=== PATIENT | male | born 1935 | race Hispanic/Latino ===

== ENCOUNTER 2018-01-23 11:54 | Inpatient (IN) | payer MEDICARE ==
[2018-01-23] MEDS ORDERED: Sodium Chloride 0.9% 1,000 ML IV SCH (12:00)
--- NOTE | 2018-01-23 12:31 | CT ---
PROCEDURE: CT HEAD WITHOUT CONTRAST. HISTORY: Code Stroke COMPARISON: None available. TECHNIQUE: Axial computed tomography images were obtained through the head/brain without intravenous contrast. Radiation dose: Total exam DLP = 1008.46 MGy-cm. This CT exam was performed using one or more of the following dose reduction techniques: Automated exposure control, adjustment of the mA and/or kV according to patient size, and/or use of iterative reconstruction technique. FINDINGS: HEMORRHAGE: No intracranial hemorrhage. BRAIN: There is redemonstration of cystic encephalomalacia in the right frontal lobe, left frontal, posterior temporal and posterior parietal lobes, sequela of remote infarctions. There are severe chronic microangiopathic changes. There is an old lacunar infarction in the anterior limb of the right internal capsule. There are old infarctions in the right cerebellar hemisphere. There is no mass, mass effect or abnormal extra-axial fluid collection. VENTRICLES: There is moderate age-related global parenchymal volume loss and proportionate enlargement of the ventricles and cortical sulci. CALVARIUM: The skull base and calvarium are normal. PARANASAL SINUSES: There is chronic sphenoid and left posterior ethmoid sinusitis. The remaining included paranasal sinuses are predominantly clear. MASTOID AIR CELLS: Predominantly clear. OTHER FINDINGS: None. IMPRESSION: 1. No acute intracranial abnormality. If there is a persistent focal neurologic deficit and an ongoing clinical concern for acute infarction, an MRI of the brain without intravenous contrast would be a more sensitive modality for evaluation of hyperacute/acute ischemic infarction. 2. 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 Old infarctions in the right cerebellar hemisphere. 3. Severe chronic microangiopathic changes and moderate age-related global parenchymal volume loss. Important findings were discussed with Dr. Jose C Goldsmith on 01/23/2018 at 12:25 p.m.
--- NOTE | 2018-01-23 12:35 | ED PDOC ---
Arrival/HPI - General Time Seen by Provider: 01/23/18 11:58 Historian: Patient - History of Present Illness Narrative History of Present Illness (Text): 01/23/18 11:55 A 82 year old male, whose past medical history includes CVA (with no deficits), brought in by EMS for possible stroke. Per EMS, patient was reported to be in normal state last night. Was found to be lethargic and unresponsive by family. Patient denies any fever, or any other complaints at this time. Limited HPI and ROS due to patient is unresponsive. No PMD Past Medical History - Provider Review Nursing Documentation Reviewed: Yes - Tetanus Immunization Tetanus Immunization: Unknown - Cardiac Hx Cardiac Disorders: No Hx Hypertension: No - Pulmonary Hx Tuberculosis: No - Neurological HX Cerebrovascular Accident: No Hx Seizures: No - Endocrine/Metabolic Hx Diabetes Mellitus Type 1: Yes - Hematological/Oncological Hx Cancer: No - Integumentary Hx Dermatological Disorder: No - Musculoskeletal/Rheumatological Hx Falls: Yes - Gastrointestinal Hx Gastrointestinal Disorders: No - Genitourinary/Gynecological Hx Sexually Transmitted Diseases: No - Psychiatric Hx Substance Use: (den) - Surgical History Other/Comment: abd surgery - Suicidal Assessment Feels Threatened In Home Enviroment: No Family/Social History - Physician Review Nursing Documentation Reviewed: Yes Family/Social History: No Known Family HX Smoking Status: den Hx Alcohol Use: (den) Hx Substance Use: (den) Hx Substance Use Treatment: No Allergies/Home Meds Allergies/Adverse Reactions: Allergies No Known Allergies Allergy (Verified 05/03/15 11:45) Home Medications: Home Meds Medication Instructions Recorded Confirmed Amitriptyline [Elavil] 100 mg PO HS 01/23/18 01/23/18 Insulin Lispro [humALOG] 20 units SC DIN 01/23/18 01/23/18 Insulin Lispro [humALOG] 25 units SC AMHS 01/23/18 01/23/18 Metformin HCl [Glucophage] 500 mg PO BID 01/23/18 01/23/18 Paroxetine HCl [Paxil] 10 mg PO DAILY 01/23/18 01/23/18 Rosuvastatin Calcium [Crestor] 5 mg PO QPM 01/23/18 01/23/18 Warfarin [Coumadin] 2.5 mg PO TTS 01/23/18 01/23/18 Warfarin [Coumadin] 5 mg PO MWF 01/23/18 01/23/18 Review of Systems - Review of Systems Systems not reviewed;Unavailable: Other (unresponsive) Physical Exam Vital Signs Temp Pulse Resp BP Pulse Ox 01/23/18 20:12 62 18 147/88 99 01/23/18 17:35 56 L 16 145/76 97 01/23/18 15:30 97.2 F L 65 20 136/79 96 01/23/18 15:29 59 L 20 136/79 97 01/23/18 14:50 59 L 20 144/86 97 01/23/18 13:00 58 L 18 151/99 H 96 01/23/18 12:26 96.9 F L 71 16 136/99 H 95 01/23/18 11:55 96.9 F L 71 18 136/99 H 94 L Temperature: Afebrile Blood Pressure: Normal Pulse: Regular Respiratory Rate: Normal Appearance: Positive for: Well-Appearing, Non-Toxic, Comfortable Pain Distress: None Mental Status: Positive for: Alert and Oriented X 3 Finger Stick Blood Glucose: 88 - Systems Exam Head: Present: Atraumatic, Normocephalic Pupils: Present: PERRL Extroacular Muscles: Present: EOMI Conjunctiva: Present: Normal Mouth: Present: Moist Mucous Membranes Neck: Present: Normal Range of Motion Respiratory/Chest: Present: Clear to Auscultation, Good Air Exchange. No: Respiratory Distress, Accessory Muscle Use Cardiovascular: Present: Regular Rate and Rhythm, Normal S1, S2. No: Murmurs Abdomen: No: Tenderness, Distention, Peritoneal Signs Back: Present: Normal Inspection Upper Extremity: Present: Normal Inspection. No: Cyanosis, Edema Lower Extremity: Present: Normal Inspection. No: Edema Neurological: Present: Other (see nih documentation) Skin: Present: Warm, Dry, Normal Color. No: Rashes Psychiatric: Present: Alert, Oriented x 3, Normal Insight, Normal Concentration Medical Decision Making ED Course and Treatment: 01/23/18 12:00 Impression: 82 year old male with possible code stroke. Plan: -- EKG -- Head/Neck CTA -- Chest X-ray -- IV Fluids -- Labs -- Urinalysis -- Reassess and disposition Progress Notes: 01/23/2018 11:58 Code stroke called. 01/23/2018 12:[address] IMPRESSION: 1. No acute intracranial abnormality. If there is a persistent focal neurologic deficit and an ongoing clinical concern for acute infarction, an MRI of the brain without intravenous contrast would be a more sensitive modality for evaluation of hyperacute/acute ischemic infarction. 2. 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 Old infarctions in the right cerebellar hemisphere. 3. Severe chronic microangiopathic changes and moderate age-related global parenchymal volume loss. Dictator: Emi Herron MD EKG: Ordered, reviewed, and independently interpreted the EKG. Rate : 57 BPM Rhythm : Atrial Fibrillation Interpretation : No ST-segment elevations or depressions, no T-wave inversions, normal intervals. Comparison : No previous EKG for comparison. 01/23/2018 13:19 Chest X-ray IMPRESSION: Findings are concerning for mild congestive heart failure. Dictator: Emi Herron MD 01/23/2018 13:57 Head/Neck CTA IMPRESSION: Very limited study with poor visualization of the cervical and cerebral arterial circulation. There does appear to be some mild calcified atherosclerotic plaque both carotid bifurcations as well as both cavernous carotid segments. No definitive evidence of occlusion so far as can be seen however the study must be repeated or of additional imaging such is MRA of the neck and brain be performed further evaluation is required. Dictator: Teodoro Mon DO 01/24/18 07:[address] polanco not tpa candidate as pt >6hr onset. requests cta. case later discussed with dr allen. pt will get mri - Lab Interpretations Lab Results: 01/23/18 12:30 01/23/18 12:30 Lab Results 01/23/18 12:30: Hemoglobin A1c 6.9 H 01/23/18 12:30: Sodium 141, Potassium 4.0, Chloride 107, Carbon Dioxide 28, Anion Gap 10, BUN 23 H, Creatinine 1.0, Est GFR ( Amer) > 60, Est GFR ( Non-Af Amer) > 60, Random Glucose 98, Calcium 8.7, Total Bilirubin 0.3, AST 16 L , ALT 29, Alkaline Phosphatase 44, Troponin I < 0.01, Total Protein 5.5 L, Albumin 3.1, Globulin 2.5, Albumin/Globulin Ratio 1.3, Triglycerides 65, Cholesterol 60 L, LDL Cholesterol Direct < 30, HDL Cholesterol 35 04/17/18 12:30: PT 19.3 H, INR 1.66 H, APTT 40.9 H 01/23/18 12:30: WBC 6.3, RBC 3.86, Hgb 12.3 L, Hct 36.9 L, MCV 95.6, MCH 31.9, MCHC 33.3, RDW 13.8, Plt Count 165, MPV 10.1, Gran % 54.7, Lymph % (Auto) 29.0, Randall % (Auto) 12.7 H, Eos % (Auto) 3.3, Baso % (Auto) 0.3, Gran # 3.45, Lymph # (Auto) 1.8, [place] # (Auto) 0.8 H, Eos # (Auto) 0.2, Baso # (Auto) 0.02 - RAD Interpretation Radiology Orders: 01/23/18 12:00 CTA HEAD/NECK CODE STROKE [CT] Stat HEAD W/O (CODE STROKE) [CT] Stat CHEST PORTABLE [RAD] Stat - Medication Orders Current Medication Orders: Discontinued Medications Amitriptyline HCl (Elavil) 100 mg PO [facility] Last Admin: 01/25/18 21:42 Dose: 100 mg Apixaban (Eliquis) 5 mg PO BID [facility] PRN Reason: Protocol Last Admin: 01/26/18 09:07 Dose: 5 mg Apixaban (Eliquis) 2.5 mg PO BID [facility] PRN Reason: Protocol Aspirin (Aspirin Supp) 300 mg RC STAT STA Stop: 01/23/18 13:53 Last Admin: 01/23/18 14:19 Dose: 300 mg MAR Pain/Vitals Document 01/23/18 14:19 SRE (Rec: 01/23/18 14:24 SRE [id number]) Pain Reassessment Is This A Pain ReAssessment? No Aspirin (Ecotrin) 81 mg PO DAILY [facility] Last Admin: 01/26/18 09:07 Dose: 81 mg Atorvastatin Calcium (Lipitor) 20 mg PO DIN [facility] Last Admin: 01/25/18 17:34 Dose: 20 mg Enoxaparin Sodium (Lovenox) 40 mg SC DAILY [facility] PRN Reason: Protocol Last Admin: 01/24/18 09:25 Dose: 40 mg Subcutaneous Administrations Document 01/24/18 09:25 LO (Rec: 01/24/18 09:25 [facility]-[id number]) Injection Site MAR Injection Site Umbilicus Charges for Administration # of Subcutaneous Administrations 1 Sodium Chloride (Sodium Chloride 0.9%) 1,000 mls @ 100 mls/hr IV .Q10H [facility] Last Admin: 01/23/18 12:42 Dose: 100 mls/hr eMAR Start Stop Document 01/23/18 12:42 SRE (Rec: 01/23/18 12:43 SRE [id number]) Intravenous Solution Start Date 01/23/18 Start Time 12:43 Sodium Chloride (Sodium Chloride 0.9%) 1,000 mls @ 30 mls/hr IV .Q24H [facility] Last Admin: 01/25/18 19:08 Dose: 30 mls/hr eMAR Start Stop Document 01/25/18 19:08 LJA (Rec: 01/25/18 19:08 LJA [id number]) Intravenous Solution Start Date 01/25/18 Start Time 19:08 End Date 01/25/18 Lorazepam (Ativan) 0.5 mg IVP ONCE ONE PRN Reason: Protocol Stop: 01/25/18 04:32 Last Admin: 01/25/18 04:42 Dose: 0.5 mg IVP Administration Document 01/25/18 04:42 KOPPS (Rec: 01/25/18 04:42 KOPPS [id number]) Charges for Administration # of IVP Administrations 1 Behavioural Document 01/25/18 04:42 KOPPS (Rec: 01/25/18 04:42 KOPPS [id number]) Maintenance Maintenance Dose No Nonmedicinal Nonmedicinal Interventions Redirect Therapeutic Communication Activity Behavior Behavior for Medication: Anxiety Re-Assess: Reassess Psych Meds Document 01/25/18 05:12 KOPPS (Rec: 01/25/18 05:14 KOPPS [id number]) Reassess Psych Med Effective Metformin HCl (Glucophage) 500 mg PO BID [facility] Last Admin: 01/26/18 09:07 Dose: 500 mg Metoprolol Succinate (Toprol Xl) 100 mg PO BRK [facility] Last Admin: 01/26/18 08:21 Dose: 100 mg MAR Pulse and Blood Pressure Document 01/26/18 08:21 RDS (Rec: 01/26/18 08:21 RDS [id number]) Pulse Pulse Rate (60-90) 89 Blood Pressure Blood Pressure (100/60-150/90) 140/90 Paroxetine HCl (Paxil) 10 mg PO DAILY [facility] Last Admin: 01/26/18 09:07 Dose: 10 mg Pneumococcal Polyvalent Vaccine (Pneumovax 23 Vaccine) 0.5 ml IM .ONCE ONE Stop: 01/24/18 00:03 Tamsulosin HCl (Flomax) 0.4 mg PO DAILY [facility] Last Admin: 01/26/18 09:07 Dose: 0.4 mg Warfarin Sodium (Coumadin) 3 mg PO TuThSa@1800 [facility] PRN Reason: Protocol Warfarin Sodium (Coumadin) 4 mg PO TuThSa@1800 [facility] PRN Reason: Protocol NIHSS Scale ([place]) Time Performed: 07:38 - How Severe is the Stoke Baseline Level of Consciousness: 2=Obtunded LOC to Questions: 2=Neither correct LOC to commands: 0=Obeys both correctly Best Gaze: 1=Partial gaze palsy Visual: 0=No visual loss Facial: 0=Normal Motor Arm - Left: 2=Falls before 10 sec Motor Arm - Right: 4=No movement Motor Leg - Left: 1=Drift before 5 sec Motor Leg - Right: 4=No movement Limb Ataxia: 2=Present both Sensory: 0=Normal Best Language: 3=Mute Dysarthia: 2=Severe, near unintelligible or worse Extinction & Inattention (Neglect): 0=Normal, no object Score: 23 Risk Level: Severe Stroke Risk rTPA Inclusion/Exclusion - Refusal of Treatment Patient Refused Treatment: No - Inclusion Criteria for Altepase Patient is 18 years or Older: No The Clinical Diagnosis of Ischemic Stroke That is Causing a Potentially Disabling Neurological Deficit: Yes Time of Onset is Well Established to be Less Than 270 Minute Before Treatment Would Begin: No Risk/Benefit Discussed With Patient/Family Member Present: Yes - Scribe Statement The provider has reviewed the documentation as recorded by the Nikko Johnson Provider Scribe Attestation: All medical record entries made by the Scribe were at my direction and personally dictated by me. I have reviewed the chart and agree that the record accurately reflects my personal performance of the history, physical exam, medical decision making, and the department course for this patient. I have also personally directed, reviewed, and agree with the discharge instructions and disposition. Disposition/Present on Arrival - Present on Arrival Any Indicators Present on Arrival: No History of DVT/PE: No History of Uncontrolled Diabetes: No Urinary Catheter: No History Surgical Site Infection Following: None - Disposition Have Diagnosis and Disposition been Completed?: Yes Diagnosis: Stroke Disposition: HOSPITALIZED Disposition Time: 05:00 Condition: STABLE
[2018-01-23 12:42] LABS: BASO # 0.02 K/mm3 (0.0-2.0); BASO % 0.3 % (0.0-3.0); EOS # 0.2 (0.0-0.7); EOS % 3.3 % (1.5-5.0); GRAN # 3.45 (1.4-6.5); GRAN % 54.7 % (50.0-68.0); HEMOGLOBIN 12.3 g/dL (14.0-18.0); LYMPH # 1.8 (1.2-3.4); MEAN CELL VOLUME 95.6 fl (80.0-105.0); MEAN CORPUSCULAR HEMOGLOBIN 31.9 pg (25.0-35.0); MEAN CORPUSCULAR HGB CONC 33.3 g/dl (31.0-37.0); MEAN PLATELET VOLUME 10.1 fl (7.0-11.0); MONO # 0.8 (0.1-0.6); MONO % 12.7 % (1.0-6.0); RBC 3.86 10^6/uL (3.5-6.1); RED CELL DISTRIBUTION WIDTH 13.8 % (11.5-14.5); WHITE BLOOD COUNT 6.3 10^3/ul (4.5-11.0)
[2018-01-23 12:52] LABS: ALB/GLOB RATIO 1.3 (1.1-1.8); ALBUMIN 3.1 g/dL (3.0-4.8); ALT/SGPT 29 U/L (7-56); AST/SGOT 16 U/L (17-59); BLOOD UREA NITROGEN 23 mg/dL (7-21); CALCIUM 8.7 mg/dL (8.4-10.5); GFR AFRICAN-AMERICAN > 60; GFR NON-AFRICAN AMERICAN > 60; HDL CHOLESTEROL 35 mg/dL (29-60)
[2018-01-23 13:02] LABS: INR 1.66 (0.93-1.08); PARTIAL THROMBOPLASTIN TIME 40.9 Seconds (25.1-36.5); PROTHROMBIN TIME 19.3 SECONDS (9.4-12.5)
[2018-01-23 13:03] LABS: TROPONIN I < 0.01 ng/mL
[2018-01-23 13:17] LABS: LDL CHOLESTEROL < 30 mg/dL (0-129)
--- NOTE | 2018-01-23 13:21 | RAD ---
HISTORY: Code Stroke COMPARISON: 05/20/2015. FINDINGS: LUNGS: The lungs are well inflated. There is severe pulmonary venous congestion. PLEURA: Suspect small pleural effusions, no pneumothorax apparent. CARDIOVASCULAR: The heart remains enlarged. OSSEOUS STRUCTURES: No significant abnormalities. VISUALIZED UPPER ABDOMEN: Normal. OTHER FINDINGS: None. IMPRESSION: Findings are concerning for mild congestive heart failure.
--- NOTE | 2018-01-23 13:58 | CT ---
PROCEDURE: CT Angiography of the neck and brain dated 01/23/2018 HISTORY: Code stroke COMPARISON: Correlation made with prior CT scan of the brain obtained earlier same day TECHNIQUE: Contiguous axial images of the neck were obtained from the level of the skull-base to the superior mediastinum in the arteriographic phase of enhancement. Coronal and sagittal reformats or also generated. Note that this study is extremely limited due to very poor opacification of the cervical arterial and the cerebral arterial circulations likely due to poor timing. This could be repeated if necessary however alternatively, MRA of the neck and brain on the could be obtained. IV contrast dose: 150 cc Omnipaque 350 contrast material. Radiation Dose - DLP: 625.68 mGy-cm FINDINGS: The study demonstrates most of the injected intravenous contrast material within the venous side of the circulation. The common carotid arteries poorly opacified. There appear to be some minor calcified plaque changes along the distal right common carotid artery and and both carotid bifurcations. No definitive evidence of significant stenosis so far as can be seen. The visualized internal carotid artery's including the P2 segments appear patent. Partially calcified atherosclerotic plaque seen along the cavernous segments of. There appears to be asymmetry of the A1 segments right-sided which is smaller in caliber compared to the left side which is likely due to anatomic variation. . The visualized M1 segments appear patent. Distal branches of the middle and anterior cerebral branch vessels are not visualized. The cervical vertebral arteries appear faintly opacified. The distal on vertebral arteries as they enter subdural compartment also appear somewhat opacified though there are partially calcified atherosclerotic plaque changes seen at this level. Basilar artery appears faintly opacified as do the P1 segments of both posterior cerebral arteries. The P2 and P3 segments as well as the distal posterior cerebral artery branches are not visualized. No definitive evidence of large aneurysm nor vascular malformation however this study is extremely suboptimal to exclude on small aneurysms or vascular malformations. . Multilevel degenerative spondylosis of the cervical spine again noted. Mucoperiosteal inflammatory changes again seen within the sphenoid sinus with marked on surrounding peripheral of sclerosis of the sphenoid sinus ricardo. There is also opacification of several left posterior ethmoid air cells. There appears to be fibrotic changes and ground-glass opacities both lung apices. IMPRESSION: Very limited study with poor visualization of the cervical and cerebral arterial circulation. There does appear to be some mild calcified atherosclerotic plaque both carotid bifurcations as well as both cavernous carotid segments . No definitive evidence of occlusion so far as can be seen however the study must be repeated or of additional imaging such is MRA of the neck and brain be performed further evaluation is required Findings discussed with Dr. Goldsmith at approximately 1:45 p.m. with written down and read back verification.
--- NOTE | 2018-01-23 14:29 | CP.PCM.CON ---
History of Present Illness - History of Present Illness History of Present Illness: 82 yr old male, right handed,pmh of afib, dm, and htn, who was at home last night and this morning, and was feeling very weak for several days. woke up several times last night,and then, this morning, he was last seen normal at around 630 am. He was walking to the bathroom with no issues, and then was found at 1045 am on the bed, aphasic and weaker on the right side more than left. He does have baseline weakness after an ischemic stroke 6 years ago, and it is localized to the right side. However, son says that he is not very functional at baseline, not able to do bills, cook, clean or bathe himself. However, he does speak and converse with family. Today, he is not speaking as well. No history of afib, no pacemaker in place. 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 no tobacco. All: nkda. meds: paxil 10 mg po daily, insul, ellavil, crestor, metoprolol, coumadin 2.5 mg po daily on exam: PERRL. No facial droop, Cn 2-12 normal. no neglect noted. Follows commands but is quite slow to respond. Tongue midline. he cannot name or repeat, but tracks. +rooting reflex noted, and palmomental reflex motor: right arm is 4+/5, and left arm 5/5. Left Lower limb is 5/5, Right lower limb is 4/5. Sensory: unable to assess due to patient's mentation. Cerebellar: +right sided drift. Gait not tested. Past Patient History - Tetanus Immunizations Tetanus Immunization: Unknown - Past Social History Smoking Status: den - CARDIAC Hx Cardiac Disorders: No Hx Hypertension: No - PULMONARY Hx Tuberculosis: No - NEUROLOGICAL HX Cerebrovascular Accident: No Hx Seizures: No - ENDOCRINE/METABOLIC Hx Diabetes Mellitus Type 1: Yes - HEMATOLOGICAL/ONCOLOGICAL Hx Cancer: No - INTEGUMENTARY Hx Dermatological Problems: No - MUSCULOSKELETAL/RHEUMATOLOGICAL Hx Falls: Yes - GASTROINTESTINAL Hx Gastrointestinal Disorders: No - GENITOURINARY/GYNECOLOGICAL Hx Sexually Transmitted Disorders: No - PSYCHIATRIC Hx Substance Use: (den) - SURGICAL HISTORY Other/Comment: abd surgery Meds Allergies/Adverse Reactions: Allergies Allergy/AdvReac Type Severity Reaction Status Date / Time No Known Allergies Allergy Verified 05/03/15 11:45 - Medications Medications: Current Medications Sodium Chloride (Sodium Chloride 0.9%) 1,000 mls @ 100 mls/hr IV .Q10H [facility] Last Admin: 01/23/18 12:42 Dose: 100 mls/hr Results - Vital Signs Recent Vital Signs: Last Vital Signs Temp 96.9 F L 01/23/18 12:26 Pulse 71 01/23/18 12:26 Resp 16 01/23/18 12:26 BP 136/99 H 01/23/18 12:26 Pulse Ox 95 01/23/18 12:26 - Labs Result Diagrams: 01/23/18 12:30 01/23/18 12:30 Labs: Laboratory Results - last 24 hr 01/23/18 01/23/18 01/23/18 12:30 12:30 12:30 WBC 6.3 RBC 3.86 Hgb 12.3 L Hct 36.9 L MCV 95.6 MCH 31.9 MCHC 33.3 RDW 13.8 Plt Count 165 MPV 10.1 Gran % 54.7 Lymph % (Auto) 29.0 [place] % (Auto) 12.7 H Eos % (Auto) 3.3 Baso % (Auto) 0.3 Gran # 3.45 Lymph # (Auto) 1.8 [place] # (Auto) 0.8 H Eos # (Auto) 0.2 Baso # (Auto) 0.02 PT 19.3 H INR 1.66 H APTT 40.9 H Sodium 141 Potassium 4.0 Chloride 107 Carbon Dioxide 28 Anion Gap 10 BUN 23 H Creatinine 1.0 Est GFR ( Amer) > 60 Est GFR (Non-Af Amer) > 60 Random Glucose 98 Calcium 8.7 Total Bilirubin 0.3 AST 16 L ALT 29 Alkaline Phosphatase 44 Troponin I < 0.01 Total Protein 5.5 L Albumin 3.1 Globulin 2.5 Albumin/Globulin Ratio 1.3 Triglycerides 65 Cholesterol 60 L LDL Cholesterol Direct < 30 HDL Cholesterol 35 - Imaging and Cardiology CT scan - head Status: Report reviewed by me (CT head shows old large left mca/filtration 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 He is not a tpa candidate due to time of onset , and almost resolution of symptoms. However, we will admit him and give him aspirin and stroke workup. Plan: 1. ECHO, repeat CTA head and neck 2. Inr is subtherapeutic. Will give 2.5 mg coumadin with thought to increase. 3. MRI Brain tomorrow. 4. IV fluids normal saline 100ccs per hour 5. PT/ST/OT 6. admit to telemetry. Thank you, Dr. Gildardo Boyd
[2018-01-23 15:18] LABS: PH,URINE 5.5 (4.7-8.0); URINE BILIRUBIN NEGATIVE (NEGATIVE); URINE BLOOD NEGATIVE (NEGATIVE); URINE GLUCOSE (UA) NEGATIVE (NEGATIVE); URINE LEUKOCYTE ESTERASE NEGATIVE Leu/uL (NEGATIVE); URINE PROTEIN NEGATIVE mg/dL (<30 mg/dL); URINE UROBILINOGEN 0.2 E.U./dL (<1 E.U./dL)
[2018-01-23 15:20] LABS: URINE APPEARANCE CLEAR (CLEAR); URINE COLOR YELLOW (YELLOW)
--- NOTE | 2018-01-23 18:27 | CON ---
DATE: 01/23/2018 NEUROLOGY CONSULT CHIEF COMPLAINT: Slurred speech as well as right side more weaker than the baseline. HISTORY OF PRESENTING ILLNESS: The history was obtained from the son at bedside. 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 seen on the CAT scan showing cystic encephalomalacia in the right frontal and left frontal and left posterior temporoparietal lobes, so probably a remote bilateral MCA territory infarction with a left MCA/FIELD SERVICES DIRECTOR watershed territory infarction, old infarctions in the right cerebellar hemisphere with chronic ischemic changes, history of vascular dementia, who has baseline right-sided residual weakness from CVA, who was noticed by the son as when he was walking to the bathroom that he became aphasic and dysarthric and was weaker on his residual right side more than usual compared to his left. His CVA was about 6 years ago originally. The son says he is not very functional at baseline. He does not do his bills, cooks or cleans or bath himself. He has dementia in terms of most likely vascular type or cognition. He does have a conversation to speak with the family, which is currently the change in his baseline. His CAT scan of the head showed just old chronic cystic ischemic encephalomalacia in the right frontal and left fontal, left posterior temporal and posterior parietal lobes, so probably a remote bilateral MCA territory infarction with a left MCA and FIELD SERVICES DIRECTOR watershed territory infarctions, old infarctions in the right cerebellar hemisphere. A CT angio of the head and neck was limited, but no hemodynamic stenosis was appreciated due to poor value and quality of the image, therefore this study is very limited. There is some mild atherosclerotic plaquing of both carotids, otherwise no significant hemodynamic stenosis. He is currently waiting for an MRI and an MRA of the head. He has slight flaccid tone on the right side compared to the left at baseline. His A1c is 6.9. 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 FAMILY HISTORY: Noncontributory. 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 No illicit drug use, smoking or EtOH abuse at this time. ALLERGIES: NO KNOWN DRUG ALLERGIES. MEDICATIONS: Reviewed by nurse's reconciliation sheet. REVIEW OF SYSTEMS: Fourteen-point review of systems is as above in the HPI. LABORATORY DATA: Sodium 141, potassium 4, chloride of 107, carbon dioxide of 20, BUN of 23, creatinine 1, random glucose of 98, A1c is 6.9. PHYSICAL EXAMINATION: VITAL SIGNS: Temperature 97.2, pulse rate of 65, blood pressure 136/79, respiratory rate of 20, oxygen saturation 96% by room air. GENERAL: The patient is sitting up in bed, in no acute distress. HEENT: Atraumatic, normocephalic. PERRLA. Extraocular muscles intact. NECK: Supple. No JVD. No adenopathy noted. LUNGS: Clear to auscultation. No adventitious sounds. HEART: S1, S2. Normal rate and rhythm. No murmurs, rubs or gallops. ABDOMEN: Soft, nontender and nondistended. Bowel sounds are present. EXTREMITIES: No clubbing. No cyanosis. Peripheral pulses 2+ felt bilaterally. NEUROLOGIC: The patient is alert and oriented to self. Follows simple commands. Poor attention span. Slow thought process. As above, nasolabial fold flattening. Cannot repeat his name. Has positive palmomental reflex, otherwise speech is dysarthric. Motor examination: Right arm is 4+/5, right lower extremity is 4+/5. When compared to the left, . Sensory exam: Withdraws on localized and noxious stimulus. Coordination: Difficult to do [id number] on the right due to right-sided weakness and the left is slightly dysmetric. Gait is deferred for now. ASSESSMENT AND PLAN: This is an 82-year-old man with history of multiple old strokes, likely embolic in nature such as the bilateral middle cerebral artery as well as an old left middle cerebral artery, posterior cerebral artery territory infarct with residual right-sided weakness, history of atrial fibrillation, on Coumadin with a subtherapeutic INR. Came in with worsening dysarthria as well as worsening right-sided weakness from his baseline and had a CAT scan of the head, which showed features consistent with his old bilateral infarcts, which were most likely embolic in nature, who likely to have currently a new stroke in the left middle cerebral artery territory distribution consistent with worsening right-sided weakness and dysarthria. At this time, 1. We will get an MRI and MRA of the brain to assess for any acute intracranial abnormalities. 2. His INR is subtherapeutic. I would recommend to increase his Coumadin level to get an INR level between 2 and 3. 3. Intravenous fluids. 4. Monitor electrolytes and correct accordingly. 5. Physical Therapy, Speech and Occupational Therapy. Will likely need acute rehabilitation and continue with current present medical management and get a 2D echocardiogram. Once again, thank you for this consult. Ede Cota MD
--- NOTE | 2018-01-23 21:08 | MRI ---
EXAM: MR Head Without Intravenous Contrast EXAM DATE/TIME: 01/23/2018 3:43 PM CLINICAL HISTORY: The patient age is 82 years old and is male; Signs and symptoms; Other: CVA Facility exam id and description: Mri br s brain without contrast TECHNIQUE: Magnetic resonance images of the head/brain without intravenous contrast in multiple planes. COMPARISON: CT - HEAD W/O (CODE STROKE) 2018-01-23 12:05 FINDINGS: Brain: There is no restricted diffusion within the brain to suggest acute ischemic change. T2 hyperintense encephalomalacia with adjacent FLAIR hyperintense gliosis is identified within the left parietal-occipital region, the right posterior frontal lobe, and inferior left frontal lobe. These findings are consistent with old infarcts. There is moderate additional high FLAIR signal intensity within the cerebral white matter. There is no mass effect or restricted diffusion associated with this white matter disease. In a patient this age, this likely represents chronic small vessel ischemic disease. T2 hyperintense chronic lacunar infarcts are visualized within the bilateral basal ganglia, bilateral thalami, and bilateral cerebellar lobes. No significant magnetic susceptibility intracerebral hemosiderin is visualized. Ventricles: There is moderate prominence of the ventricles and sulci, compatible with atrophy. Bones/joints: No acute abnormality. Sinuses: There is complete filling of the left sphenoid sinus. Effusions are seen within the posterior ethmoid air cells. Mastoid air cells: Mild mucosal thickening/effusions are visualized within the right mastoid air cells. Orbits: No acute abnormality, as visualized. IMPRESSION: 1. There is no restricted diffusion within the brain to suggest acute ischemic change. 2. Encephalomalacia with adjacent gliosis is identified within the left parietal-occipital region, the right posterior frontal lobe, and inferior left frontal lobe. These findings are consistent with old infarcts. 3. There is moderate additional white matter disease. In a patient this age, this likely represents chronic small vessel ischemic disease. 4. Moderate atrophy. 5. Chronic lacunar infarcts are visualized within the bilateral basal ganglia, bilateral thalami, and bilateral cerebellar lobes. 6. Mild mucosal thickening/effusions are visualized within the right mastoid air cells. 7. Paranasal sinus disease is noted above.
--- NOTE | 2018-01-23 21:22 | MRI ---
EXAM: MR Angiography Head Without Intravenous Contrast EXAM DATE/TIME: 01/23/2018 3:43 PM CLINICAL HISTORY: The patient age is 82 years old and is male; Signs and symptoms; Other: CVA Facility exam id and description: Mri mra heads mra head without contrast TECHNIQUE: Magnetic resonance angiography images of the head without intravenous contrast. COMPARISON: CTA HEAD/NECK CODE STROKE 2018-01-23 12:12 FINDINGS: Right internal carotid artery: No acute findings. Intracranial segment is patent with no significant stenosis. No aneurysm. Right anterior cerebral artery: No occlusion or significant stenosis. No aneurysm. Right middle cerebral artery: No occlusion or significant stenosis. No aneurysm. Right posterior cerebral artery: No occlusion or significant stenosis. No aneurysm. Right vertebral artery: No occlusion or significant stenosis. Left internal carotid artery: There is a tiny vascular outpouching of the supraclinoid segment of the left internal carotid artery measuring 2 mm in diameter. Differential considerations include an ulcerating plaque or aneurysm. Intracranial segment is patent with no significant stenosis. Left anterior cerebral artery: No occlusion or significant stenosis. No aneurysm. Left middle cerebral artery: A flow-void is visualized within the M2 branch of left middle cerebral artery, consistent with hemodynamically significant stenosis or closure with reconstitution. More distal branches of the left middle cerebral artery are poorly visualized, which may be a limitation of the study or due to decreased flow. There is no significant stenosis or occlusion of the left M1 segment. No aneurysm. Left posterior cerebral artery: No occlusion or significant stenosis. No aneurysm. Left vertebral artery: No occlusion or significant stenosis. Basilar artery: No occlusion or significant stenosis. No aneurysm. IMPRESSION: 1. A flow-void is visualized within the M2 branch of left middle cerebral artery, consistent with hemodynamically significant stenosis or occlusion with reconstitution. More distal branches of the left middle cerebral artery are poorly visualized, which may be a limitation of the study or due to decreased flow. 2. There is a tiny vascular outpouching of the supraclinoid segment of the left internal carotid artery measuring 2 mm in diameter. Differential considerations include an ulcerating plaque or aneurysm. 3. These findings can be further evaluated with CTA.
--- NOTE | 2018-01-23 21:23 | CARD ---
APPROVED REPORT EKG Measurement Heart [id number] <Conclusion> Atrial fibrillation Low voltage QRS Nonspecific T wave abnormality, probably digitalis effect Abnormal ECG
--- NOTE | 2018-01-23 23:18 | HP ---
HISTORY OF PRESENT ILLNESS: I was called to the ER to see him. He is a 82-year-old white male who comes in with feeling very weak for several days. He was up several times at night and this morning. He was walking to the bathroom and became aphasic, weaker on the right side. He has a baseline weakness of ischemic stroke 6 years ago and he does have some localized right weakness. This is a little bit worse. He cannot do his bills or cook or bathe himself. He does speak and converse with family, but he is not speaking well today. PAST MEDICAL HISTORY: He has a history of atrial fibrillation, diabetes, hypertension. He has an old bilateral MCA and left SUPPLY PERSON and MCA watershed infarcts, hypercholesterolemia. 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 No tobacco. ALLERGIES: NO KNOWN DRUG ALLERGIES. MEDICATIONS: He is on Paxil, insulin, Elavil, Crestor, metoprolol, Coumadin. REVIEW OF SYSTEMS: He has a slowness to his response, difficulty talking, no acute vision changes. No chest pain or palpitations, shortness of breath or cough. No diarrhea, nausea or vomiting. Skin for the most part is okay. PHYSICAL EXAMINATION: VITAL SIGNS: He has a 96.9 temperature, 71 pulse, 16 respiratory rate, 136/99 blood pressure, 95% O2 sat. HEENT: Extraocular muscles are intact. Tongue is midline. Throat is moist. GENERAL: He follows commands. Cranial nerves II through XII grossly intact. He is alert, he is oriented. NECK: Supple. HEART: Regular rate. LUNGS: Decreased breath sounds, but clear to auscultation. ABDOMEN: Soft, nontender. Positive bowel sounds. No guarding, no rebound or CVA tenderness. NEUROLOGIC: He has weakness on the right side, maybe 3.5/5 or 4/5. The left side has 5/5 strength. SKIN: Skin for the most part is intact. Thyroid midline. No palpable appreciable lymphadenopathy. LABORATORY DATA: He has a 6.3 white count, 12.3 hemoglobin, 36.9 hematocrit with 165 platelets. He has 1.66 INR, increased his Coumadin from 2.5 to 3 mg. He has 141 sodium, potassium is 4, BUN 23, creatinine IV fluids. GFR is 60, sugar is 98, calcium is 8.7, hemoglobin A1c is 6.9, total bili is 0.3, AST is 16, ALT is 29, alk phos 44. Troponin I is less than 0.01, total protein is 5.5, albumin is 3.1, globulin 2.5. His urine was clean. His chest x-ray showed possible mild CHF. Head CT showed no acute intracranial abnormality, cystic encephalomalacia, severe chronic microangiopathic changes, seen by Neurology already. I will put him back on his medications. Order physical therapy. It looks like he might need subacute rehab given how weak he is. We will check his labs tomorrow. Continue with aggressive treatment and care. He is here to rule out CVA. Sonido Soliz DO MTDD
[2018-01-24 00:01] VITALS: BMI 28.6
[2018-01-24] MEDS ORDERED: Pneumococcal 23-Valent Vaccine IM ONE (00:02)
[2018-01-24 06:51] LABS: MEAN CELL VOLUME 95.4 fl (80.0-105.0); MEAN CORPUSCULAR HEMOGLOBIN 31.8 pg (25.0-35.0); MEAN CORPUSCULAR HGB CONC 33.3 g/dl (31.0-37.0); MEAN PLATELET VOLUME 10.7 fl (7.0-11.0); RBC 4.09 10^6/uL (3.5-6.1); RED CELL DISTRIBUTION WIDTH 13.9 % (11.5-14.5); WHITE BLOOD COUNT 5.2 10^3/ul (4.5-11.0)
[2018-01-24 07:05] LABS: ALB/GLOB RATIO 1.3 (1.1-1.8); ALBUMIN 3.6 g/dL (3.0-4.8); ALT/SGPT 29 U/L (7-56); AST/SGOT 18 U/L (17-59); BLOOD UREA NITROGEN 21 mg/dL (7-21); CALCIUM 8.9 mg/dL (8.4-10.5); GFR AFRICAN-AMERICAN > 60; GFR NON-AFRICAN AMERICAN > 60
[2018-01-24 07:18] LABS: INR 1.69 (0.93-1.08); PROTHROMBIN TIME 19.7 SECONDS (9.4-12.5)
[2018-01-24] MEDS: Metoprolol Succinate 100 mg XL Tab PO SCH (08:04)
[2018-01-24] MEDS ORDERED: Enoxaparin 40 mg Syringe SC SCH (10:00)
--- NOTE | 2018-01-24 13:25 | PN ---
DATE: SUBJECTIVE: He is seen sleeping in bed. He slept really well. It is very difficult for him to speak and talk. He has also had weakness on the right side versus the left side. He is on aspirin. I have bumped his Coumadin to 3 mg because his INR was low, Elavil, Flomax, Glucophage, Lipitor, Paxil, IV fluids and Toprol. I will add Lovenox until his INR is above 2. PHYSICAL EXAMINATION GENERAL: He is alert. He is in no apparent distress, but he is quite weak, I am waiting for physical therapy to let me know what they think about his strength. VITAL SIGNS: He has 98.4 temperature, 62 pulse, 137/65 blood pressure, 20 respiratory rate, 95% O2 sat on room air. HEENT: Head is atraumatic, normocephalic. HEART: Regular rate. LUNGS: Decreased breath sounds, but clear. ABDOMEN: Soft. EXTREMITIES: No edema, but he is weak on the right side. LABORATORY DATA: He has 144 sodium, potassium 4.3, BUN is 21, creatinine is 1. GFR is greater than 60, sugar is 86. Calcium is 8.9, total bilirubin is 0.5, AST is 18, ALT is 29, alkaline phosphatase 52, total protein 6.3. WBC is 5.2, hemoglobin 13, hematocrit 39, platelets 178. INR is up to 1.69. Urine is clean. He did have the MRI of the brain and had MRA. There is significant stenosis with occlusion in the M2 gland of the left middle cerebral artery and MRI of the brain, no acute ischemic change with encephalomalacia. I will discuss this with the neurologist, need Physical Therapy to see him. I want to know what he can do, if he needs JAZMIN versus TCU versus whatever they recommend. We will continue with aggressive treatment and care. He was here with rule out CVA, code stroke, right-sided weakness, atrial fibrillation. He has had history of stroke in the past. He has diabetes and this hopefully comes around. I think he is going to need to have at least JAZMIN to get him stronger again. Consult with Case Management to help. Sonido Soliz DO [facility] # [id number]
--- NOTE | 2018-01-24 16:43 | CP.PCM.PN ---
Subjective - Date & Time of Evaluation Date of Evaluation: 01/24/18 Time of Evaluation: 15:30 - Subjective Subjective: DATE: 01/23/2018 NEUROLOGY FOLLOW UP CHIEF COMPLAINT: Slurred speech as well as right side more weaker than the baseline. SUBJECTIVE: MRI brain reviewed, showing no acute infarcts, just old bilateral infarcts. Patient is doing much better PAST MEDICAL HISTORY: An old bilateral MCA and left BICYCLE FITTER/MCA watershed infarction, hypertension, hypercholesterolemia, type 2 diabetes mellitus. FAMILY HISTORY: Noncontributory. 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 No illicit drug use, smoking or EtOH abuse at this time. ALLERGIES: NO KNOWN DRUG ALLERGIES. MEDICATIONS: Reviewed by nurse's reconciliation sheet. REVIEW OF SYSTEMS: Fourteen-point review of systems is as above in the HPI. LABORATORY DATA: Reviewed. PHYSICAL EXAMINATION: VITAL SIGNS: Temperature 97.2, pulse rate of 65, blood pressure 136/79, respiratory rate of 20, oxygen saturation 96% by room air. GENERAL: The patient is sitting up in bed, in no acute distress. HEENT: Atraumatic, normocephalic. PERRLA. Extraocular muscles intact. NECK: Supple. No JVD. No adenopathy noted. LUNGS: Clear to auscultation. No adventitious sounds. HEART: S1, S2. Normal rate and rhythm. No murmurs, rubs or gallops. ABDOMEN: Soft, nontender and nondistended. Bowel sounds are present. EXTREMITIES: No clubbing. No cyanosis. Peripheral pulses 2+ felt bilaterally. NEUROLOGIC: The patient is alert and oriented to self. Follows simple commands. Poor attention span. Slow thought process. As above, nasolabial fold flattening. Cannot repeat his name. Has positive palmomental reflex, otherwise speech is dysarthric. Motor examination: Right arm is 4+/5, right lower extremity is 4+/5. When compared to the left. Sensory exam: Withdraws on localized and noxious stimulus. Coordination: Difficult to do [id number] on the right due to right-sided weakness and the left is slightly dysmetric. Gait is deferred for now. ASSESSMENT AND PLAN: This is an 82-year-old man with history of multiple old strokes, likely embolic in nature such as the bilateral middle cerebral artery as well as an old left middle cerebral artery, posterior cerebral artery territory infarct with residual right-sided weakness, history of atrial fibrillation, on Coumadin with a subtherapeutic INR. Came in with worsening dysarthria as well as worsening right-sided weakness from his baseline and had a CAT scan of the head, which showed features consistent with his old bilateral infarcts, which were most likely embolic in nature, who likely to have currently a TIA in the left middle cerebral artery territory distribution consistent with worsening right-sided weakness and dysarthria since his MRI brain did not show any acute infarcts. At this time, 1. PT/OT and Sub acute rehab. 2. C/W with Coumadin to achieve an INR level between 2 and 3. 3. Intravenous fluids. 4. Monitor electrolytes and correct accordingly. Thank you. Ede Cota MD Objective - Vital Signs/Intake and Output Vital Signs (last 24 hours): Temp Pulse Resp BP Pulse Ox 97.5 F L 81 20 147/97 H 95 01/24/18 12:00 01/24/18 12:00 01/24/18 12:00 01/24/18 12:00 01/24/18 06:00 Intake and Output: 01/24/18 01/24/18 06:59 18:59 Intake Total 420 180 Output Total 800 100 Balance -380 80 - Medications Medications: Current Medications Amitriptyline HCl (Elavil) 100 mg PO HS [facility] Last Admin: 01/23/18 21:49 Dose: Not Given Aspirin (Ecotrin) 81 mg PO DAILY [facility] Atorvastatin Calcium (Lipitor) 20 mg PO DIN [facility] Enoxaparin Sodium (Lovenox) 40 mg SC DAILY [facility] PRN Reason: Protocol Last Admin: 01/24/18 09:25 Dose: 40 mg Sodium Chloride (Sodium Chloride 0.9%) 1,000 mls @ 30 mls/hr IV .Q24H [facility] Metformin HCl (Glucophage) 500 mg PO BID [facility] Last Admin: 01/24/18 10:02 Dose: Not Given Metoprolol Succinate (Toprol Xl) 100 mg PO BRK [facility] Last Admin: 01/24/18 08:04 Dose: 100 mg Paroxetine HCl (Paxil) 10 mg PO DAILY [facility] Last Admin: 01/24/18 10:00 Dose: 10 mg Tamsulosin HCl (Flomax) 0.4 mg PO DAILY [facility] Last Admin: 01/24/18 10:01 Dose: 0.4 mg Warfarin Sodium (Coumadin) 3 mg PO TuThSa@1800 [facility] PRN Reason: Protocol - Labs Labs: 01/24/18 06:30 01/24/18 06:30 PT 19.7 SECONDS (9.4-12.5) H 01/24/18 06:30 INR 1.69 (0.93-1.08) H 01/24/18 06:30 APTT 40.9 Seconds (25.1-36.5) H 01/23/18 12:30
--- NOTE | 2018-01-24 17:31 | CARD ---
APPROVED REPORT EXAM: Two-dimensional and M-mode echocardiogram with Doppler and color Doppler. INDICATION CVA/TIA 2D DIMENSIONS Left Atrium (2D)5.1 (1.6-4.0cm)IVSd1.1 (0.7-1.1cm) LVDd4.5 (3.9-5.9cm)PWd1.1 (0.7-1.1cm) LVDs3.3 (2.5-4.0cm)FS (%) 26.0 % LVEF (%)51.2 (>50%) M-Mode DIMENSIONS Aortic Root3.80 (2.2-3.7cm)Aortic Cusp Exc.2.00 (1.5-2.0cm) Aortic Valve AoV Peak Nkxoaxcl432.0cm/Mitchel Peak GR.6mmHgAI P 1/2 Enev660au Mitral Valve MV E Gvmqgvmp88.8cm/sMV A Feyildtb01.0cm/sE/A ratio2.3 TDI E/Lateral E'0.0E/Medial E'0.0 Pulmonary Valve PV Peak Rzicwshk34.6cm/sPV Peak Grad.2mmHg Tricuspid Valve TR Peak Anztljrv042dr/sRAP [id number] Peak Gr.41mmHg [id number] LEFT VENTRICLE The left ventricle is normal size. There is normal left ventricular wall thickness. Left ventricle ejection fraction is borderline. No left ventricle thrombus noted on this study. RIGHT VENTRICLE The right ventricle is normal size. There is normal right ventricular wall thickness. The right ventricular systolic function is normal. ATRIA The left atrium is moderately dilated. The right atrium is moderately dilated. AORTIC VALVE The aortic valve is moderately thickened. There is moderate aortic regurgitation. MITRAL VALVE The mitral valve is mildly thickened. Mitral regurgitation is mild to moderate. TRICUSPID VALVE There is mild to moderate tricuspid regurgitation. There is moderate pulmonary hypertension. PULMONIC VALVE There is mild pulmonic valvular regurgitation. GREAT VESSELS The aortic root is mildly enlarged. <Conclusion> The left ventricle is normal size. There is normal left ventricular wall thickness. Left ventricle ejection fraction is borderline. There is moderate aortic regurgitation. Mitral regurgitation is mild to moderate. There is mild to moderate tricuspid regurgitation. There is moderate pulmonary hypertension.
--- NOTE | 2018-01-24 21:02 | CON ---
DATE: 01/24/2018 CARDIOLOGY CONSULTATION HISTORY OF PRESENT ILLNESS: The patient is an 82-year-old male who presents with right-sided weakness as well as slurred speech. CVA was diagnosed. PAST MEDICAL HISTORY: Includes multiple CVAs in the past. He suffers from hypertension, diabetes mellitus, and hypercholesterolemia. He has chronic atrial fibrillation for which he was treated with Coumadin. His INR on admission was 1.66. There is no documented previous cardiac history. Denies chest pain, denies shortness of breath. REVIEW OF SYSTEMS: Unavailable. PHYSICAL EXAMINATION: VITAL SIGNS: Blood pressure 137/65, heart rate is atrial fibrillation in the 60s. NECK: Negative JVD. LUNGS: Without rales. HEART: Reveals S1, S2. EXTREMITIES: Without edema. LABORATORY DATA: Includes an EKG that shows atrial fibrillation with nonspecific ST-T changes. BUN and creatinine unremarkable. The INR is 1.66. The hemoglobin is 13. IMPRESSION: 1. New cerebrovascular accident. 2. History of multiple cerebrovascular accidents. 3. Chronic atrial fibrillation, on Coumadin. 4. Hypertension. 5. Diabetes mellitus. 6. Hypercholesterolemia. Given these findings, the patient will need to be fully anticoagulated once cleared by Neurology. His heart rate is under good control. We will obtain an echocardiogram to evaluate his LV function. Marshall Dawn MD
[2018-01-24] MEDS: Sodium Chloride 0.9% 1,000 ML IV SCH (21:57)
[2018-01-25] MEDS: Metoprolol Succinate 100 mg XL Tab PO SCH (08:57)
--- NOTE | 2018-01-25 09:41 | PN ---
DATE: SUBJECTIVE: I saw him this morning. He is for the most part out of it. I understand at 05:00 a.m., they gave him some Ativan. He was a little bit mentally off. PHYSICAL EXAMINATION: VITAL SIGNS: He has a 98.3 temp, 68 pulse, 139/81 blood pressure, 20 respiratory rate, 96% O2 sat on room air. I tried to arouse him and he would not arouse. Ativan has really knocked him out. HEENT: Head is atraumatic, normocephalic. HEART: Regular rate. LUNGS: Decreased breath sounds, but clear. ABDOMEN: Soft, nontender. EXTREMITIES: No edema. MEDICATIONS: He is on warfarin, Ecotrin, Elavil, Flomax, Glucophage, Lipitor, Lovenox, Paxil, IV fluids and Toprol. LABORATORY DATA: He has a 5.2 white count, 13 hemoglobin, 39 hematocrit with 178 platelets. INR is up to 1.69. He has a 139 sugar, 144 sodium, potassium 4.3, BUN 21, creatinine 1, GFR is greater than 60, sugar is 86, calcium is 8.9, total bili is 0.5, AST is 18, ALT is 29, alk phos 52, total protein 6.3. His urine was negative. ASSESSMENT AND PLAN: He is being seen by Neurology and Cardiology. Physical therapy said he cannot go to acute rehab. He had new cerebrovascular accident with right-sided weakness; chronic atrial fibrillation, on Coumadin and hypertension. We will continue with aggressive treatment and care. Hopefully, we will get him to acute rehab or subacute if he cannot go to acute. We will check his INR. Sonido Soliz DO
[2018-01-25 09:57] LABS: INR 1.57 (0.93-1.08); PROTHROMBIN TIME 18.2 SECONDS (9.4-12.5)
--- NOTE | 2018-01-25 10:52 | PN ---
DATE: 01/25/2018 CARDIOLOGY FOLLOWUP SUBJECTIVE: The patient is resting comfortably. PHYSICAL EXAMINATION: VITAL SIGNS: Blood pressure is 138/70 with the heart rates in the 60s, atrial fibrillation. NECK: Negative JVD. LUNGS: Without rales. HEART: Reveals S1, S2. EXTREMITIES: Without edema. LABORATORY DATA: The INR is 1.69. Chemistries: Glucose is 131, hemoglobin is 13. ECHOCARDIOGRAM: Echocardiogram reveals good LV function, dilated left atrium with [id number] aortic insufficiency. There is also moderate pulmonary hypertension. IMPRESSION: 1. Multiple cerebrovascular accidents. 2. High probability for embolic causes of his cerebrovascular accident. 3. Atrial fibrillation is a prime source of why he might have had strokes. 4. Pulmonary hypertension. 5. Aortic insufficiency. PLAN: Given these findings, the patient may benefit from using the non-Coumadin anticoagulants in order to get the patient therapeutic with his chronic atrial fibrillation. We will discuss with Neuro about starting on low-dose Eliquis instead of using Coumadin. Marshall Dawn MD
--- NOTE | 2018-01-25 14:39 | PQF CVATIA ---
This form is a permanent part of the medical record Dr. Soliz, Please clarify if patient had NEW acute CVA or symptoms due to TIA. Your progress notes of 01/25 note "....he had new CVA with right sided weakness...." Neurology noted in progress notes of 01/24 that "...he was likely to have a TIA in left MCA territory....MRI did NOT show any acute infarcts...." Clarification of your documentation is requested to better reflect the severity of illness and intensity of treatment of your patient. Indicators present: [] Altered mental status [] Aphasia [] Dysphagia [] Dysphasia [] Facial droop/numbness [] Gait disturbance [] Hemiparesis/plegia [] Speech impairment as per neuro tia in mca [] Weakness [] Neuro Consult [] CT/MRI Findings [] Other: [] Location in the medical record that reflects the above clinical findings: [] Treatment Provided: [] PHYSICIAN'S RESPONSE Based on your medical judgment of the clinical indicators outlined above, are you treating this patient for a known or suspected: [] Acute Cerebrovascular Accident (CVA) Please specify type i.e.; embolic, hemorrhagic, ischemic. Please specify the artery involved if known. [] Transient Ischemic Accident (TIA) [] Prolonged reversible ischemic neurological disorder [] Other, please indicate: [] [] If unable to determine, please check the box, sign and date. Present On Admission (POA) Indicator: [] Present at the time of admission [] Not present at the time of admission [] Clinically Undetermined In responding to this query, please exercise your independent professional judgment. The fact that a question is asked does not imply that any particular answer is desired or expected. Thank you for your clarification on this documentation. If you have any questions please call:[ ] * Thank you, [ ]Brittani Koch [facility] #[id number] senior marketing manager RONNY
[2018-01-25] MEDS: Sodium Chloride 0.9% 1,000 ML IV SCH (19:08)
[2018-01-26 00:29] VITALS: RESP 18
[2018-01-26 05:56] VITALS: O2SAT 93
[2018-01-26 06:44] LABS: INR 1.59 (0.93-1.08); PROTHROMBIN TIME 18.4 SECONDS (9.4-12.5)
[2018-01-26] MEDS: Metoprolol Succinate 100 mg XL Tab PO SCH (08:21)
[2018-01-26 12:08] VITALS: BP 147/87; PULSE 67; TEMP 97.6
--- NOTE | 2018-01-26 15:18 | PN ---
DATE: 01/26/2018 CARDIOLOGY FOLLOWUP SUBJECTIVE: The patient is without shortness of breath. Heart rate is controlled. Blood pressure is stable. Physical exam is unchanged. LABORATORY DATA: Hemoglobin of 13, glucose of 142. IMPRESSION: 1. Status post multiple cerebrovascular accidents, likely embolic. 2. Chronic atrial fibrillation. 3. Pulmonary hypertension. 4. Aortic insufficiency. Given these finding, the patient is currently on Eliquis now for his anticoagulation, which would be beneficial, given that the patient had multiple embolic strokes in the past. Marshall Dawn MD
--- NOTE | 2018-01-27 05:18 | DS ---
HISTORY OF PRESENT ILLNESS: I saw him resting comfortably in bed. He is feeling very well. He is on Ativan, Ecotrin, Elavil, Flomax, Glucophage, Lipitor, Paxil, IV fluids and metoprolol. PHYSICAL EXAMINATION: GENERAL: He is very alert and comfortable. He discussed going to rehab whether it would be subacute or acute, he did not mind either way. VITAL SIGNS: Temperature 97.8, 89 pulse, 103/67 blood pressure, 18 respiratory rate, 93% to 95% O2 sat on room air. HEENT: His head is atraumatic, normocephalic. HEART: Regular rate. LUNGS: Clear to auscultation. ABDOMEN: Soft. EXTREMITIES: No edema. LABORATORY DATA: He has a 5.2 white count, 13 hemoglobin, 39 hematocrit, with 178 platelets. Last blood sugar was 187. He has 144 sodium, potassium is 4.3. I am not sure where the blood tests are, I have been ordering them everyday. Calcium is 8.9. ASSESSMENT AND PLAN: I am hoping we could discharge him to subacute or acute today. I will discuss that with case management. He had stroke, leg weakness, atrial fibrillation, congestive heart failure. He is now on Eliquis, no more Coumadin. Sonido Soliz DO MTDD
== END 2018-01-26 16:57 | DRG 65 ==
LOC: ED 11:54 → ERH 14:00 → 2RNO 20:55
PROVIDERS: ADMIT Family Medicine; ATTEND Family Medicine
DX: I63.539 Cerebral infarction due to unspecified occlusion or stenosis of unspecified posterior cerebral artery (principal); G81.91 Hemiplegia, unspecified affecting right dominant side; R29.723 NIHSS score 23; I11.0 Hypertensive heart disease with heart failure; I50.9 Heart failure, unspecified; R47.1 Dysarthria and anarthria; E11.9 Type 2 diabetes mellitus without complications; I48.2 Chronic atrial fibrillation; I27.20 Pulmonary hypertension, unspecified; I35.1 Nonrheumatic aortic (valve) insufficiency; F01.50 Vascular dementia, unspecified severity, without behavioral disturbance, psychotic disturbance, mood disturbance, and anxiety; E78.00 Pure hypercholesterolemia, unspecified; Z79.01 Long term (current) use of anticoagulants; Z79.4 Long term (current) use of insulin

== ENCOUNTER 2018-04-01 14:27 | Inpatient (IN) | payer MEDICARE, OTHER ==
[2018-04-01] MEDS ORDERED: Etomidate 20 mg/10ml Inj IV ONE ×2 (14:35→21:38)
--- NOTE | 2018-04-01 14:35 | ED PDOC ---
Arrival/HPI - General EM Caveat: Altered Mental Status <James Singh - Last Filed: 04/01/18 20:13> - History of Present Illness Time/Duration: 24 hours Symptom Onset: Gradual Symptom Course: Worsening <Dustin Oliveira - Last Filed: 04/01/18 20:20> - General Chief Complaint: Altered Mental Status Time Seen by Provider: 04/01/18 14:35 - History of Present Illness Narrative History of Present Illness (Text): Patient is a 82 year old male with a past medical history of CVA, TIA, atrial fibrillation, hypertension, hyperlipidemia, and diabetes who presents to the emergency department for evaluation and treatment of altered mental status. Found this morning by family who was not responding. Patient was brought in by EMS. Patient was not awake, alert, did not respond to verbal stimuli. Positive for grimace to painful stimuli. Further HPI details as per son who is at bedside. As per family the patient stopped taking his eliquis on 03/29/2018 as per his primary care physician due to frequent falls. Patient fell on Monday and Monday03/31/2018. Son states father's falls including head trauma but no loss of consciousness. Father was awake, alert, and having conversations since fall on Monday however became more somnolent since the initial fall. 12 point ROS cannot be ascertained at this time due to altered mental status. (Dustin Oliveira) Past Medical History - Provider Review Nursing Documentation Reviewed: Yes - Infectious Disease Hx of Infectious Diseases: None - Tetanus Immunization Tetanus Immunization: Unknown - Cardiac Hx Cardiac Disorders: No Hx Hypertension: No - Pulmonary Hx Tuberculosis: No - Neurological HX Cerebrovascular Accident: No Hx Seizures: No - Endocrine/Metabolic Hx Diabetes Mellitus Type 1: Yes - Hematological/Oncological Hx Cancer: No - Integumentary Hx Dermatological Disorder: No - Musculoskeletal/Rheumatological Hx Falls: Yes - Gastrointestinal Hx Gastrointestinal Disorders: No - Genitourinary/Gynecological Hx Sexually Transmitted Diseases: No - Psychiatric Hx Psychophysiologic Disorder: No Hx Substance Use: (den) - Surgical History Other/Comment: abd surgery - Anesthesia Hx Anesthesia Reactions: No Hx Malignant Hyperthermia: No - Suicidal Assessment Feels Threatened In Home Enviroment: No <James Singh - Last Filed: 04/01/18 20:13> - Provider Review Nursing Documentation Reviewed: Yes <Dustin Oliveira - Last Filed: 04/01/18 20:20> Family/Social History - Physician Review Nursing Documentation Reviewed: Yes Family/Social History: Unknown Family HX Smoking Status: Never Smoked Hx Alcohol Use: (den) Hx Substance Use: (den) Hx Substance Use Treatment: No <James Singh Last Filed: 04/01/18 20:13> - Physician Review Nursing Documentation Reviewed: Yes Family/Social History: Unknown Family HX <Dustin Oliveira - Last Filed: 04/01/18 20:20> Allergies/Home Meds <James Singh - Last Filed: 04/01/18 20:13> <Dustin Oliveira - Last Filed: 04/01/18 20:20> Allergies/Adverse Reactions: Allergies No Known Allergies Allergy (Verified 04/01/18 14:33) Home Medications: Home Meds Medication Instructions Recorded Confirmed Amitriptyline [Elavil] 100 mg PO HS 01/23/18 04/01/18 Insulin Lispro [humALOG] 20 units SC DIN 01/23/18 04/01/18 Insulin Lispro [humALOG] 25 units SC AMHS 01/23/18 04/01/18 Metformin HCl [Glucophage] 500 mg PO BID 01/23/18 04/01/18 Paroxetine HCl [Paxil] 10 mg PO DAILY 01/23/18 04/01/18 Rosuvastatin Calcium [Crestor] 5 mg PO QPM 01/23/18 04/01/18 Warfarin [Coumadin] 2.5 mg PO TTS 01/23/18 04/01/18 Warfarin [Coumadin] 5 mg PO MWF 01/23/18 04/01/18 Review of Systems - Review of Systems Systems not reviewed;Unavailable: Altered Mental Status <James Singh - Last Filed: 04/01/18 20:13> - Review of Systems Systems not reviewed;Unavailable: Altered Mental Status <Dustin Oliveira - Last Filed: 04/01/18 20:20> Physical Exam Vital Signs Reviewed: Yes Temperature: Afebrile Blood Pressure: Hypertensive Pulse: Tachycardic Respiratory Rate: Normal - Systems Exam Conjunctiva: Present: Normal Ears: Present: Other <ShengyeniJames - Last Filed: 04/01/18 20:13> Vital Signs Reviewed: Yes Temperature: Afebrile Blood Pressure: Hypertensive Pulse: Tachycardic Respiratory Rate: Normal Appearance: Positive for: Ill-Appearing Mental Status: Positive for: Lethargic - Systems Exam Head: Present: Swelling (right temporal/occiptal swelling), Ecchymosis (right auricular ) Pupils: Present: Sluggish Conjunctiva: Present: Normal Ears: Present: Other (ecchymosis right ear) Nose (External): Present: Atraumatic Respiratory/Chest: Present: Decreased Breath Sounds Cardiovascular: Present: Normal S1, S2, Tachycardic Abdomen: Present: Normal Bowel Sounds Upper Extremity: No: Normal Inspection Lower Extremity: No: Normal Inspection Neurological: Present: Other (GCS 3) Skin: Present: Warm, Dry, Abrasion (bilateral knees ) Psychiatric: No: Alert, Oriented x 3 <Dustin Oliveira - Last Filed: 04/01/18 20:20> Vital Signs Temp Pulse Resp BP Pulse Ox 04/01/18 17:18 111 H 18 153/94 H 95 04/01/18 16:25 98.3 F 104 H 18 137/101 H 96 04/01/18 15:07 95 H 22 128/84 97 04/01/18 14:46 125 H 166/89 H Medical Decision Making - Lab Interpretations I have reviewed the lab results: Yes - RAD Interpretation Hot Knife Foxing Cutter: Radiologist - EKG Interpretation Interpreted by ED Physician: Yes Type: 12 lead EKG <James Singh - Last Filed: 04/01/18 20:13> - Lab Interpretations I have reviewed the lab results: Yes - RAD Interpretation Hot Knife Foxing Cutter: Radiologist - EKG Interpretation Interpreted by ED Physician: Yes <Dustin Oliveira - Last Filed: 04/01/18 20:20> ED Course and Treatment: 04/01/18 18:15 CT head: FINDINGS: BRAIN: Involutional changes. periventriucular hypoattenuation suggestive of chronic ischemic changes. 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 Possible minimal hemorrhage along the falx as well as along the anterior temporal lobes. No midline shift. VENTRICLES: No ventriculomegaly. BONES/JOINTS: Unremarkable. No acute fracture. SOFT TISSUES: Unremarkable. SINUSES: Unremarkable as visualized. No acute sinusitis. MASTOID AIR CELLS: Unremarkable as visualized. No mastoid effusion. TUBES, LINES AND DEVICES: ET tube noted. IMPRESSION: 1. Involutional changes. periventriucular hypoattenuation suggestive of chronic ischemic changes. 2. 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 Possible minimal hemorrhage along the falx as well as along the anterior temporal lobes. 04/01/18 In agreement with resident note, which includes further HPI details. Patient was seen and evaluated with resident, came up with plan and treatment together. (James Singh) Patient is a 82 year old male with a past medical history of CVA, TIA, atrial fibrillation, hypertension, hyperlipidemia, and diabetes who presents to the emergency department for evaluation and treatment of altered mental status. 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 measuring 1.2 cm in thickness on the right and 1cm on the left - Critical care team consulted- ICU team evaluated patient, has accepted patient to ICU - Hematology/oncology consutled- Kcetnra ordered - Neurosurgery aware of case- patient to be taken to OR (Dustin Oliveira) - Lab Interpretations Lab Results: 04/01/18 14:40 04/01/18 14:40 Lab Results 04/01/18 19:53: Blood Type Pending, Antibody Screen Pending, BBK History Checked No verified bt 04/01/18 16:43: Urine Color Yellow, Urine Appearance Sl cloudy, Urine pH 6.0, Ur Specific [place] 1.025, Urine Protein 100 H, Urine Glucose (UA) Negative, Urine Ketones >=80, Urine Blood Negative, Urine Nitrate Negative, Urine Bilirubin Moderate H, Urine Urobilinogen 4.0 H, Ur Leukocyte Esterase Negative, Urine RBC Negative, Urine WBC 10 - 15, Ur Epithelial Cells 4 - 5, Urine Bacteria Mod 04/01/18 15:40: pCO2 30 L, pO2 142.0 H, HCO3 19.5 L, ABG pH 7.42, ABG Total CO2 20.4 L, ABG O2 Saturation 98.8 H, ABG Base Excess -3.9 L, ABG Potassium 3.8, Glucose 171 H, Lactate 1.5, Mechanical Rate 15, FiO2 100.0, Tidal Volume 500, PEEP 5, Sodium 145.0, Chloride 117.0 H, Arterial Blood Potassium 3.8 04/01/18 14:40: Sodium 145, Potassium 4.5, Chloride 110 H, Carbon Dioxide 21, Anion Gap 19, BUN 27 H, Creatinine 0.8, Est GFR ( Amer) > 60, Est GFR ( Non-Af Amer) > 60, Random Glucose 185 H, Calcium 9.2, Phosphorus 3.1, Magnesium 1.8, Total Bilirubin 2.2 H, AST 39, ALT 27, Alkaline Phosphatase 83, Total Protein 6.7, Albumin 3.3, Globulin 3.4, Albumin/Globulin Ratio 1.0 L 04/01/18 14:40: PT 14.7 H, INR 1.28 H, APTT 48.2 H 04/01/18 14:40: WBC 8.5 D, RBC 3.95, Hgb 12.5 L, Hct 36.3 L, MCV 91.9 D, MCH 31.6, MCHC 34.4, RDW 13.9, Plt Count 266, MPV 10.1, Gran % 87.9 H, Lymph % (Auto ) 7.5 L, [place] % (Auto) 4.6, Eos % (Auto) 0.0 L, Baso % (Auto) 0.0, Gran # 7.43 H , Lymph # (Auto) 0.6 L, [place] # (Auto) 0.4, Eos # (Auto) 0.0, Baso # (Auto) 0.00 04/01/18 14:34: POC Glucose (mg/dL) 176 H - RAD Interpretation Narrative RAD Interpretations (Text): CT Head Without Intravenous Contrast EXAM DATE/TIME: Examination ordered 04/01/2018 2:54 PM. Image number total count reviewed 392 CLINICAL HISTORY: The patient is 82 years old and is male; Signs and symptoms; Alteration of consciousness; Syncope and collapse; Patient HX: ? Intracranial bleed or hematoma; Additional info: ? Intracranial bleed or hematoma Facility exam id and description: Ct_heads head w/o contrast TECHNIQUE: Axial computed tomography images of the head/brain without intravenous contrast. All CT scans at this facility use at least one of these dose optimization techniques: automated exposure control; mA and/or kV adjustment per patient size (includes targeted exams where dose is matched to clinical indication); or iterative reconstruction. COMPARISON: CT - HEAD W/O (CODE STROKE) 2018-01-23 12:05 FINDINGS: BRAIN: Involutional changes. periventriucular hypoattenuation suggestive of chronic ischemic changes. 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 Possible minimal hemorrhage along the falx as well as along the anterior temporal lobes. No midline shift. 04/01/18 20:09 (Dustin Oliveira) Radiology Orders: 04/01/18 14:41 CHEST PORTABLE [RAD] Stat 04/01/18 14:54 HEAD W/O CONTRAST [CT] Stat - Medication Orders Current Medication Orders: Sodium Chloride (Sodium Chloride 0.9%) 1,000 mls @ 150 mls/hr IV .Q6H40M KEATON Acetaminophen (Ofirmev) 1,000 mg in 100 mls @ 400 mls/hr IVPB Q6H PRN PRN Reason: fever more then 100 F Stop: 04/03/18 19:56 Insulin Human Regular (Humulin R Med) 0 units SC ACHS KEATON PRN Reason: Protocol Pantoprazole Sodium (Protonix Inj) 40 mg IVP DAILY KEATON Discontinued Medications Etomidate (Amidate) 20 mg IVP STAT STA Stop: 04/01/18 14:52 Last Admin: 04/01/18 14:52 Dose: 20 mg Comments: for intubation IVP Administration Document 04/01/18 14:52 GMD (Rec: 04/01/18 16:55 GMD [id number]) Charges for Administration # of IVP Administrations 1 Vancomycin HCl (Vancomycin 1gm) 1 gm in 250 mls @ 167 mls/hr IVPB STAT STA PRN Reason: Protocol Stop: 04/01/18 19:28 Last Admin: 04/01/18 18:37 Dose: 167 mls/hr eMAR Start Stop Document 04/01/18 18:37 GMD (Rec: 04/01/18 18:37 GMD [id number]) Intravenous Solution Start Date 04/01/18 Start Time 18:37 End Date 04/01/18 End time 20:07 Total Infusion Time 90 Piperacillin Sod/Tazobactam Sod (Zosyn 3.375 In Ns 100ml) 100 mls @ 200 mls/hr IVPB STAT STA PRN Reason: Protocol Stop: 04/01/18 18:28 Last Admin: 04/01/18 18:04 Dose: 200 mls/hr eMAR Start Stop Document 04/01/18 18:04 GMD (Rec: 04/01/18 18:05 GMD [id number]) Intravenous Solution Start Date 04/01/18 Start Time 18:05 End Date 04/01/18 End time 18:35 Total Infusion Time 30 Metoprolol Tartrate (Lopressor) 5 mg IVP STAT STA Stop: 04/01/18 14:44 Last Admin: 04/01/18 14:46 Dose: 5 mg IVP Administration Document 04/01/18 14:46 GMD (Rec: 04/01/18 14:47 GMD [id number]) Charges for Administration # of IVP Administrations 1 MAR Pulse and Blood Pressure Document 04/01/18 14:46 GMD (Rec: 04/01/18 14:47 GMD [id number]) Pulse Pulse Rate (60-90) 125 Blood Pressure Blood Pressure (100/60-150/90) 166/89 Prothrombin Complex Concent (Human) (Kcentra) 2,000 unit IV ONCE ONE Stop: 04/01/18 19:06 Last Admin: 04/01/18 20:01 Dose: 2,000 unit Rocuronium Roberts (Zemuron) 16 mg IVP ONCE ONE Stop: 04/01/18 14:51 Last Admin: 04/01/18 15:06 Dose: 16 mg IVP Administration Document 04/01/18 15:06 GMD (Rec: 04/01/18 15:06 GMD [id number]) Charges for Administration # of IVP Administrations 1 Succinylcholine Chloride (Quelicin) 120 mg IV STAT STA Stop: 04/01/18 14:52 Last Admin: 04/01/18 14:52 Dose: 120 mg eMAR Start Stop Document 04/01/18 14:52 GMD (Rec: 04/01/18 16:54 GMD [id number]) Intravenous Solution Start Date 04/01/18 Start Time 14:52 - PA / ANIMAL PATHOLOGY TEACHER / Resident Statement SHILPA has reviewed & agrees with the documentation as recorded. MD/DO has examined the patient and agrees with the treatment plan. - Scribe Statement The provider has reviewed the documentation as recorded by the Scribe <James Singh - Last Filed: 04/01/18 20:13> <Dustin Oliveira - Last Filed: 04/01/18 20:20> - Scribe Statement Faith Jaciel Provider Scribe Attestation: All medical record entries made by the Scribe were at my direction and personally dictated by me. I have reviewed the chart and agree that the record accurately reflects my personal performance of the history, physical exam, medical decision making, and the department course for this patient. I have also personally directed, reviewed, and agree with the discharge instructions and disposition. (James Singh) Disposition/Present on Arrival - Present on Arrival History of DVT/PE: No History of Uncontrolled Diabetes: No Urinary Catheter: No History of Decub. Ulcer: No History Surgical Site Infection Following: None <James Singh - Last Filed: 04/01/18 20:13> - Present on Arrival Any Indicators Present on Arrival: No History of DVT/PE: No History of Uncontrolled Diabetes: No Urinary Catheter: No History of Decub. Ulcer: No History Surgical Site Infection Following: None - Disposition Have Diagnosis and Disposition been Completed?: Yes Disposition Time: 20:12 Patient Plan: Admission <Dustin Oliveira - Last Filed: 04/01/18 20:20> - Disposition Diagnosis: Subdural hematoma Disposition: HOSPITALIZED Patient Problems: Current Active Problems Problem Status Onset Subdural hematoma Acute Condition: CRITICAL Forms: [employer] (Malay)
[2018-04-01] MEDS ORDERED: Succinylcholine 200 mg/10 ml Inj IV ONE (14:36)
[2018-04-01] MEDS ORDERED: Metoprolol 1 mg/ml Inj IVP STA (14:43)
[2018-04-01] MEDS ORDERED: Metoprolol 1 mg/ml Inj IVP ONE (14:47)
[2018-04-01] MEDS ORDERED: Rocuronium 10 mg/ml (5 ml) IVP ONE (14:50)
[2018-04-01] MEDS ORDERED: Rocuronium 10 mg/ml (5 ml) ONE ×2 (14:51→21:31)
[2018-04-01] MEDS ORDERED: Succinylcholine 200 mg/10 ml Inj IV STA (14:51)
[2018-04-01] MEDS ORDERED: Etomidate 20 mg/10ml Inj IVP STA (14:51)
[2018-04-01 14:57] LABS: GRAN # 7.43 (1.4-6.5); GRAN % 87.9 % (50.0-68.0); HEMOGLOBIN 12.5 g/dL (14.0-18.0); LYMPH # 0.6 (1.2-3.4); LYMPH % 7.5 % (22.0-35.0); MEAN CELL VOLUME 91.9 fl (80.0-105.0); MEAN CORPUSCULAR HEMOGLOBIN 31.6 pg (25.0-35.0); MEAN CORPUSCULAR HGB CONC 34.4 g/dl (31.0-37.0); MEAN PLATELET VOLUME 10.1 fl (7.0-11.0); MONO # 0.4 (0.1-0.6); MONO % 4.6 % (1.0-6.0); RBC 3.95 10^6/uL (3.5-6.1); RED CELL DISTRIBUTION WIDTH 13.9 % (11.5-14.5); WHITE BLOOD COUNT 8.5 10^3/ul (4.5-11.0)
[2018-04-01 15:05] LABS: ALBUMIN 3.3 g/dL (3.0-4.8); ALT/SGPT 27 U/L (7-56); AST/SGOT 39 U/L (17-59); BLOOD UREA NITROGEN 27 mg/dL (7-21); CALCIUM 9.2 mg/dL (8.4-10.5); GFR AFRICAN-AMERICAN > 60; GFR NON-AFRICAN AMERICAN > 60
[2018-04-01 15:18] LABS: INR 1.28 (0.93-1.08); PARTIAL THROMBOPLASTIN TIME 48.2 Seconds (25.1-36.5); PROTHROMBIN TIME 14.7 SECONDS (9.4-12.5)
[2018-04-01 15:51] LABS: ARTERIAL BLOOD GAS HCO3 19.5 mmol/L (21-28); ARTERIAL BLOOD GAS O2 SAT 98.8 % (95-98); ARTERIAL BLOOD GAS PCO2 30 mm/Hg (35-45); ARTERIAL BLOOD GAS PH 7.42 (7.35-7.45); ARTERIAL BLOOD GAS TCO2 20.4 mmol.L (22-28)
--- NOTE | 2018-04-01 16:31 | RAD ---
HISTORY: AMS COMPARISON: Comparison chest 01/23/2018 FINDINGS: In situ ETT, tip of which lies in good position above teodoro. LUNGS: Low lung volumes with mild crowded bronchovascular markings. There is left basilar atelectasis and or infiltrate with blunting left CP angle could be due to small effusion or chronic pleural thickening. PLEURA: No significant pleural effusion identified, no pneumothorax apparent. CARDIOVASCULAR: Normal. OSSEOUS STRUCTURES: No significant abnormalities. VISUALIZED UPPER ABDOMEN: Normal. OTHER FINDINGS: None. IMPRESSION: Low lung volumes with mild crowded bronchovascular markings. There is left basilar atelectasis and or infiltrate with blunting left CP angle could be due to small effusion or chronic pleural thickening.
[2018-04-01 17:01] LABS: URINE BILIRUBIN MODERATE (NEGATIVE); URINE BLOOD NEGATIVE (NEGATIVE); URINE GLUCOSE (UA) NEGATIVE (NEGATIVE); URINE LEUKOCYTE ESTERASE NEGATIVE Leu/uL (NEGATIVE); URINE PROTEIN 100 mg/dL (<30 mg/dL)
[2018-04-01 17:06] LABS: URINE APPEARANCE SL CLOUDY (CLEAR); URINE COLOR YELLOW (YELLOW)
[2018-04-01 17:09] LABS: URINE BACTERIA MOD (NEG); URINE RBC NEGATIVE /hpf (0-2)
[2018-04-01] MEDS ORDERED: Piperacillin/Tazobact 3.375 gm 100 ML IVPB STA (17:59)
[2018-04-01] MEDS ORDERED: Vancomycin 1gm in NS 250ml 1 GM/250 ML BAG IVPB STA (17:59)
[2018-04-01] MEDS ORDERED: Hum Prothrombin CPLX(PCC)4FACT 1 Unit Inj IV ONE (19:05)
[2018-04-01] MEDS ORDERED: Vancomycin 1 g Inj ONE (21:04)
[2018-04-01] MEDS ORDERED: Lidocaine 1% w Epi 1:100,000 Inj ONE (21:04)
[2018-04-01 21:25] LABS: BLOOD UREA NITROGEN 29 mg/dL (7-21); CALCIUM 8.5 mg/dL (8.4-10.5); GFR AFRICAN-AMERICAN > 60; GFR NON-AFRICAN AMERICAN > 60
[2018-04-01] MEDS ORDERED: Absorbable Gelatin Sponge Size 100 ONE (21:28)
[2018-04-01] MEDS ORDERED: Lidocaine 1% Inj (20ml) ONE (21:31)
[2018-04-01] MEDS ORDERED: Phenylephrine 10 mg/ml Inj ONE (21:31)
[2018-04-01] MEDS ORDERED: Bacitracin Ointment 30 GM TUBE ONE (21:44)
[2018-04-01] MEDS: Sodium Chloride 0.9% 1,000 ML IV SCH (23:00)
[2018-04-01] MEDS: Insulin Reg-MEDIUM-Coverage SC SCH (23:56)
[2018-04-02] MEDS: Labetalol 5 mg/ml Inj 20ML IV PRN ×2 (05:06→10:10)
[2018-04-02] MEDS: Sodium Chloride 0.9% 1,000 ML IV SCH ×3 (05:22→23:30)
--- NOTE | 2018-04-02 06:23 | CON ---
DATE: 04/01/2018 HISTORY OF PRESENT ILLNESS: This is an 82-year-old gentleman with history of atrial fibrillation on Eliquis; hypertension , who presented to [facility] with acutely altered mental status after waking up early in the morning. The patient fell two days ago; however, at that time, his mental status was at his baseline. He was communicative and able to eat and talk. However, situation changed Monday morning when the family decided to bring him to the [facility] ER for further management and evaluation. Here in the emergency room, he had a CAT scan of the head done, which revealed large bilateral subdural hematoma. Patient was not able to protect his airways and was emergently intubated. ICU was called for further management and monitoring. PAST MEDICAL HISTORY: Atrial fibrillation, on Eliquis; hypertension. MEDICATIONS: Flomax, Crestor, Paxil, metoprolol, metformin, insulin lispro, Paxil. FAMILY HISTORY: Noncontributory. SOCIAL HISTORY: No alcohol or illicit drug abuse. No tobacco smoking. ALLERGIES: NKDA. REVIEW OF SYSTEM: Review of 12-organ system other than mentioned in history of present illness is negative. PHYSICAL EXAMINATION: VITAL SIGNS: Patient is intubated, heart rate 111, blood pressure 153/94, temperature 98.3, oxygen saturation 95% on 100% FiO2, PEEP 5, tidal volume 500, respiratory rate 15. HEENT: Head and neck atraumatic. Both pupils are reactive to light, about 2 to 3 mm wide. LUNGS: Clear to auscultation bilaterally. HEART: Irregular rate and rhythm. S1 and S2 normal. ABDOMEN: Soft, nontender, nondistended. MUSCULOSKELETAL: Patient was not seen moving all extremities spontaneously. SKIN: Moist. PSYCHIATRY: Patient is not communicative. LABORATORY DATA: WBC 8.5, hemoglobin 12.5, platelet count 266,000. Sodium 145, potassium 4.5, chloride 110, carbon dioxide 21, BUN 27, creatinine 0.8, glucose 185, AST 39, ALT 27, total bilirubin 2.2. INR 1.28. PTT 48.2. PT 14.7. ABG showed a pH 7.42/30/142. Chest x-ray showed questionable left lobe infiltrate versus pleural effusion versus atelectasis (subsegmental). 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 ASSESSMENT AND PLAN: This is an 82-year-old gentleman who presented with acutely altered mental status most likely secondary to subdural hematoma, requiring intubation for airway protection. Patient reportedly is on Eliquis, but the last dose of Eliquis was given about 72 hours ago. Family adamantly denied that the patient ever taken coumadin. Nevertheless, whether it was Eliquis or Coumadin, patient's INR is 1.28 and transfusing plasma even if Coumadin is responsible for slight elevation in INR would not be effective. However, in both scenarios, 4F-PCC will be more effective in providing the reversal of the therapeutic anticoagulation. Meanwhile, patient will be going to surgery for hematoma evacuation. 4F-PCC will be given. Consultation of Hematology service, Neurology and Neurosurgery Service were requested. In terms of ventilator management, we will proceed with protective lung ventilation strategy including tidal volume 6 to 8 mL per predicted body weight and maintain a plateau pressure less than 30 cm of water. I agree with PEEP 5 cm of water. However, FiO2 has to be titrated down to avoid hyperoxia and potential exposure of the brain tissue to the free radicals. Chest x-ray showed questionable atelectasis versus infiltrate versus small pleural effusion in the left lower lobe. However, patient is afebrile and does not have leukocytosis -->,doubt infectious origin of these findings. Patient was given antibiotics in emergency room. Meanwhile, sputum culture, blood culture and urine culture will be sent. Patient has history of diabetes, however, I will hold metformin at present time and we will maintain euglycemia with sliding scale and frequent Accu-Chek. We will also maintain normothermia aggressively and oxygen saturation more than 90%. We will continue with mechanical deep venous thrombosis prophylaxis. We will continue with gastrointestinal prophylaxis. ccm time 40 min Yohannes Bergeron MD MTDJohn
[2018-04-02 07:14] LABS: BASO # 0.01 K/mm3 (0.0-2.0); BASO % 0.1 % (0.0-3.0); EOS % 0.1 % (1.5-5.0); GRAN # 7.58 (1.4-6.5); GRAN % 91.3 % (50.0-68.0); HEMOGLOBIN 10.9 g/dL (14.0-18.0); LYMPH # 0.5 (1.2-3.4); MEAN CELL VOLUME 93.8 fl (80.0-105.0); MEAN CORPUSCULAR HEMOGLOBIN 30.6 pg (25.0-35.0); MEAN CORPUSCULAR HGB CONC 32.6 g/dl (31.0-37.0); MONO # 0.2 (0.1-0.6); MONO % 2.5 % (1.0-6.0); PLATELET COUNT 203 10^3/uL (120.0-450.0); RBC 3.56 10^6/uL (3.5-6.1); RED CELL DISTRIBUTION WIDTH 14.4 % (11.5-14.5); WHITE BLOOD COUNT 8.3 10^3/ul (4.5-11.0)
[2018-04-02 07:33] LABS: ARTERIAL BLOOD GAS HCO3 18.8 mmol/L (21-28); ARTERIAL BLOOD GAS HEMOGLOBIN 9.8 g/dL (11.7-17.4); ARTERIAL BLOOD GAS O2 CAPACITY 14.5 mL/dl (16-24); ARTERIAL BLOOD GAS O2 CONTENT 14.4 ML/dl (15-23); ARTERIAL BLOOD GAS O2 SAT 99.1 % (95-98); ARTERIAL BLOOD GAS PCO2 29 mm/Hg (35-45); ARTERIAL BLOOD GAS PH 7.42 (7.35-7.45); ARTERIAL BLOOD GAS TCO2 19.7 mmol.L (22-28)
[2018-04-02 08:03] LABS: ALB/GLOB RATIO 0.9 (1.1-1.8); ALBUMIN 2.8 g/dL (3.0-4.8); ALT/SGPT 35 U/L (7-56); AST/SGOT 37 U/L (17-59); BLOOD UREA NITROGEN 32 mg/dL (7-21); CALCIUM 8.2 mg/dL (8.4-10.5); GFR AFRICAN-AMERICAN > 60; GFR NON-AFRICAN AMERICAN > 60
[2018-04-02 08:21] LABS: BAND 1 % (0-2); LYMPHOCYTE 4 % (22.0-35.0); MONOCYTE 1 % (1.0-6.0); MYELOCYTE 1 %; NEUTROPHIL 93 % (50.0-70.0); PLATELET ESTIMATE NORMAL (NORMAL)
[2018-04-02 08:54] VITALS: BMI 22.4
--- NOTE | 2018-04-02 09:21 | CARD ---
APPROVED REPORT EKG Measurement Heart [id number] <Conclusion> Atrial fibrillation with rapid ventricular response Low voltage QRS Nonspecific ST and T wave abnormality, probably digitalis effect Abnormal ECG
--- NOTE | 2018-04-02 09:38 | CT ---
PROCEDURE: CT HEAD WITHOUT CONTRAST. HISTORY: ? Intracranial Bleed or Hematoma COMPARISON: 01/23/2018 TECHNIQUE: Axial computed tomography images were obtained through the head/brain without intravenous contrast. Radiation dose: Total exam DLP = 1104 mGy-cm. This CT exam was performed using one or more of the following dose reduction techniques: Automated exposure control, adjustment of the mA and/or kV according to patient size, and/or use of iterative reconstruction technique. FINDINGS: HEMORRHAGE: Interval development bilateral acute superimposed on chronic subdural hematomas measuring 1.2 centimeters thickness on the right 1 centimeter the left. Possible minimal internal hemorrhage along the falx as well as along the right anterior temporal lobe. BRAIN: No mass effect or edema. Evidence of atrophy with periventricular white matter hypodensity and prominent sulci and ventricles. VENTRICLES: Unremarkable. No hydrocephalus. CALVARIUM: Unremarkable. PARANASAL SINUSES: Unremarkable as visualized. No significant inflammatory changes. MASTOID AIR CELLS: Unremarkable as visualized. No inflammatory changes. OTHER FINDINGS: None. IMPRESSION: Interval development bilateral acute superimposed on chronic subdural hematomas measuring 1.2 centimeters thickness on the right 1 centimeter the left. Possible minimal internal hemorrhage along the falx as well as along the right anterior temporal lobe.
--- NOTE | 2018-04-02 10:24 | CT ---
PROCEDURE: CT HEAD WITHOUT CONTRAST. HISTORY: follow up [facility] COMPARISON: None available. TECHNIQUE: Axial computed tomography images were obtained through the head/brain without intravenous contrast. Radiation dose: Total exam DLP = mGy-cm. This CT exam was performed using one or more of the following dose reduction techniques: Automated exposure control, adjustment of the mA and/or kV according to patient size, and/or use of iterative reconstruction technique. FINDINGS: HEMORRHAGE: No intracranial hemorrhage. BRAIN: No mass effect or edema. Extensive white matter disease. VENTRICLES: Unremarkable. No hydrocephalus. CALVARIUM: Status post bilateral frontal dayami hole procedures with is noted in subdural spaces. Large air-fluid levels noted in both subdural spaces compatible postoperative change, left greater than right. PARANASAL SINUSES: Unremarkable as visualized. No significant inflammatory changes. MASTOID AIR CELLS: Unremarkable as visualized. No inflammatory changes. OTHER FINDINGS: None. IMPRESSION: Status post bilateral frontal dayami hole procedures with is noted in subdural spaces. Large air-fluid levels noted in both subdural spaces compatible postoperative change, left greater than right. No intra-axial hemorrhage.
[2018-04-02] MEDS: Insulin Reg-MEDIUM-Coverage SC SCH ×4 (11:03→22:00)
--- NOTE | 2018-04-02 11:05 | CP.CCUPN ---
<LudyRony - Last Filed: 04/02/18 10:54> CCU Subjective - Physician Review Events Since Last Encounter (Free Text): 04/02/18 09:00A Patient seen and examined at bedside. Patient was brought to ICU yesterday for acute brain hemorrhage, status post drain by Neurosurgery, intubated and sedated. History limited 2/2 patient status. CCU Objective - Vital Signs / Intake & Output Intake and Output (Last 8hrs): Intake & Output 04/01/18 04/02/18 04/02/18 22:59 06:59 14:59 Intake Total 1050 Output Total 450 Balance 600 Weight 77.519 kg Intake: IV 1050 Left Wrist 1050 Oral 0 Output: Drainage 75 Left Head 0 Right Head 75 Urine 375 Urethral (No) 375 Other: Voiding Method Indwelling Catheter - Physical Exam Head: Positive for: Swelling (right temporal/occiptal swelling), Ecchymosis ( right auricular ) Pupils: Positive for: Sluggish Conjunctiva: Positive for: Normal Ears: Positive for: Other (ecchymosis right ear) Nose (External): Positive for: Atraumatic Respiratory/Chest: Positive for: Decreased Breath Sounds Cardiovascular: Positive for: Normal S1, S2, Tachycardic Abdomen: Positive for: Normal Bowel Sounds Upper Extremity: Negative for: Normal Inspection Lower Extremity: Negative for: Normal Inspection Neurological: Positive for: Other (GCS 3) Skin: Positive for: Warm, Dry, Abrasion (bilateral knees ) Psychiatric: Negative for: Alert, Oriented x 3 - Medications Active Medications: Active Medications Generic Name Dose Route Start Last Admin Trade Name Freq PRN Reason Stop Dose Admin Sodium Chloride 1,000 mls @ 150 mls/hr 04/01/18 20:00 04/02/18 05:22 Sodium Chloride 0.9% IV 150 mls/hr .Q6H40M [facility] Administration Acetaminophen 1,000 mg in 100 mls @ 400 mls/hr 04/01/18 19:55 Ofirmev IVPB 04/03/18 19:56 Q6H PRN fever more then 100 F Insulin Human Regular 0 units 04/01/18 22:00 04/01/18 23:56 Humulin R Med SC Not Given ACHS [facility] Protocol Labetalol HCl 20 mg 04/02/18 00:14 04/02/18 05:06 Trandate IV 20 u Q6 PRN Administration For BP >140 Metoprolol Tartrate 5 mg 04/02/18 10:04 Lopressor IVP Q6H PRN Heart rate > 110 Pantoprazole Sodium 40 mg 04/02/18 10:00 Protonix Inj IVP DAILY [facility] - Patient Studies Lab Studies: Lab Studies 04/02/18 04/02/18 04/02/18 Range/Units 06:49 06:00 06:00 WBC 8.3 (4.5-11.0) 10^3/ul RBC 3.56 (3.5-6.1) 10^6/uL Hgb 10.9 L (14.0-18.0) g/dL Hct 33.4 L (42.0-52.0) % MCV 93.8 (80.0-105.0) fl MCH 30.6 (25.0-35.0) pg MCHC 32.6 (31.0-37.0) g/dl RDW 14.4 (11.5-14.5) % Plt Count 203 (120.0-450.0) 10^3/uL MPV 10.0 (7.0-11.0) fl Gran % 91.3 H (50.0-68.0) % Lymph % (Auto) 6.0 L (22.0-35.0) % Morrill % (Auto) 2.5 (1.0-6.0) % Eos % (Auto) 0.1 L (1.5-5.0) % Baso % (Auto) 0.1 (0.0-3.0) % Gran # 7.58 H (1.4-6.5) Lymph # (Auto) 0.5 L (1.2-3.4) Morrill # (Auto) 0.2 (0.1-0.6) Eos # (Auto) 0.0 (0.0-0.7) Baso # (Auto) 0.01 (0.0-2.0) K/mm3 Neutrophils % (Manual) 93 H (50.0-70.0) % Band Neutrophils % 1 (0-2) % Lymphocytes % (Manual) 4 L (22.0-35.0) % Monocytes % (Manual) 1 (1.0-6.0) % Myelocytes % 1 % Platelet Evaluation Normal (NORMAL) pCO2 29 L (35-45) mm/Hg pO2 369.0 H (80-100) mm/Hg HCO3 18.8 L (21-28) mmol/L ABG pH 7.42 (7.35-7.45) ABG Total CO2 19.7 L (22-28) mmol.L ABG O2 Saturation 99.1 H (95-98) % ABG O2 Content 14.4 L (15-23) ML/dl ABG Base Excess -4.8 L (-2.0-3.0) mmol/L ABG Hemoglobin 9.8 L (11.7-17.4) g/dL ABG Carboxyhemoglobin 1.0 (0.5-1.5) % POC ABG HHb (Measured) 0.9 (0-5) % ABG Methemoglobin 1.1 (0.0-3.0) % ABG O2 Capacity 14.5 L (16-24) mL/dl Hgb O2 Saturation 97.0 (95.0-98.0) % FiO2 100.0 % Sodium 148 (132-148) mmol/L Potassium 4.2 (3.6-5.0) mmol/L Chloride 114 H (98-107) mmol/L Carbon Dioxide 21 (21-33) mmol/L Anion Gap 18 (10-20) BUN 32 H (7-21) mg/dL Creatinine 1.1 (0.8-1.5) mg/dl Est GFR ( Amer) > 60 Est GFR (Non-Af Amer) > 60 POC Glucose (mg/dL) (65-110) mg/dL Random Glucose 179 H (70-110) mg/dL Calcium 8.2 L (8.4-10.5) mg/dL Phosphorus 3.4 (2.5-4.5) mg/dL Magnesium 1.9 (1.7-2.2) mg/dL Total Bilirubin 1.3 (0.2-1.3) mg/dL AST 37 (17-59) U/L ALT 35 (7-56) U/L Alkaline Phosphatase 71 (38-126) U/L Total Protein 6.0 (5.8-8.3) g/dL Albumin 2.8 L (3.0-4.8) g/dL Globulin 3.2 gm/dL Albumin/Globulin Ratio 0.9 L (1.1-1.8) Blood Type Blood Type Confirm Antibody Screen Crossmatch BBK History Checked 04/01/18 04/01/18 04/01/18 Range/Units 23:53 20:29 20:29 WBC (4.5-11.0) 10^3/ul RBC (3.5-6.1) 10^6/uL Hgb (14.0-18.0) g/dL Hct (42.0-52.0) % MCV (80.0-105.0) fl MCH (25.0-35.0) pg MCHC (31.0-37.0) g/dl RDW (11.5-14.5) % Plt Count (120.0-450.0) 10^3/uL MPV (7.0-11.0) fl Gran % (50.0-68.0) % Lymph % (Auto) (22.0-35.0) % Morrill % (Auto) (1.0-6.0) % Eos % (Auto) (1.5-5.0) % Baso % (Auto) (0.0-3.0) % Gran # (1.4-6.5) Lymph # (Auto) (1.2-3.4) Morrill # (Auto) (0.1-0.6) Eos # (Auto) (0.0-0.7) Baso # (Auto) (0.0-2.0) K/mm3 Neutrophils % (Manual) (50.0-70.0) % Band Neutrophils % (0-2) % Lymphocytes % (Manual) (22.0-35.0) % Monocytes % (Manual) (1.0-6.0) % Myelocytes % % Platelet Evaluation (NORMAL) pCO2 (35-45) mm/Hg pO2 (80-100) mm/Hg HCO3 (21-28) mmol/L ABG pH (7.35-7.45) ABG Total CO2 (22-28) mmol.L ABG O2 Saturation (95-98) % ABG O2 Content (15-23) ML/dl ABG Base Excess (-2.0-3.0) mmol/L ABG Hemoglobin (11.7-17.4) g/dL ABG Carboxyhemoglobin (0.5-1.5) % POC ABG HHb (Measured) (0-5) % ABG Methemoglobin (0.0-3.0) % ABG O2 Capacity (16-24) mL/dl Hgb O2 Saturation (95.0-98.0) % FiO2 % Sodium 144 (132-148) mmol/L Potassium 4.4 (3.6-5.0) mmol/L Chloride 112 H (98-107) mmol/L Carbon Dioxide 20 L (21-33) mmol/L Anion Gap 16 (10-20) BUN 29 H (7-21) mg/dL Creatinine 0.9 (0.8-1.5) mg/dl Est GFR ( Amer) > 60 Est GFR (Non-Af Amer) > 60 POC Glucose (mg/dL) 195 H (65-110) mg/dL Random Glucose 209 H (70-110) mg/dL Calcium 8.5 (8.4-10.5) mg/dL Phosphorus (2.5-4.5) mg/dL Magnesium (1.7-2.2) mg/dL Total Bilirubin (0.2-1.3) mg/dL AST (17-59) U/L ALT (7-56) U/L Alkaline Phosphatase (38-126) U/L Total Protein (5.8-8.3) g/dL Albumin (3.0-4.8) g/dL Globulin gm/dL Albumin/Globulin Ratio (1.1-1.8) Blood Type Blood Type Confirm O POSITIVE Antibody Screen Crossmatch BBK History Checked 04/01/18 Range/Units 19:53 WBC (4.5-11.0) 10^3/ul RBC (3.5-6.1) 10^6/uL Hgb (14.0-18.0) g/dL Hct (42.0-52.0) % MCV (80.0-105.0) fl MCH (25.0-35.0) pg MCHC (31.0-37.0) g/dl RDW (11.5-14.5) % Plt Count (120.0-450.0) 10^3/uL MPV (7.0-11.0) fl Gran % (50.0-68.0) % Lymph % (Auto) (22.0-35.0) % Morrill % (Auto) (1.0-6.0) % Eos % (Auto) (1.5-5.0) % Baso % (Auto) (0.0-3.0) % Gran # (1.4-6.5) Lymph # (Auto) (1.2-3.4) Morrill # (Auto) (0.1-0.6) Eos # (Auto) (0.0-0.7) Baso # (Auto) (0.0-2.0) K/mm3 Neutrophils % (Manual) (50.0-70.0) % Band Neutrophils % (0-2) % Lymphocytes % (Manual) (22.0-35.0) % Monocytes % (Manual) (1.0-6.0) % Myelocytes % % Platelet Evaluation (NORMAL) pCO2 (35-45) mm/Hg pO2 (80-100) mm/Hg HCO3 (21-28) mmol/L ABG pH (7.35-7.45) ABG Total CO2 (22-28) mmol.L ABG O2 Saturation (95-98) % ABG O2 Content (15-23) ML/dl ABG Base Excess (-2.0-3.0) mmol/L ABG Hemoglobin (11.7-17.4) g/dL ABG Carboxyhemoglobin (0.5-1.5) % POC ABG HHb (Measured) (0-5) % ABG Methemoglobin (0.0-3.0) % ABG O2 Capacity (16-24) mL/dl Hgb O2 Saturation (95.0-98.0) % FiO2 % Sodium (132-148) mmol/L Potassium (3.6-5.0) mmol/L Chloride (98-107) mmol/L Carbon Dioxide (21-33) mmol/L Anion Gap (10-20) BUN (7-21) mg/dL Creatinine (0.8-1.5) mg/dl Est GFR ( Amer) Est GFR (Non-Af Amer) POC Glucose (mg/dL) (65-110) mg/dL Random Glucose (70-110) mg/dL Calcium (8.4-10.5) mg/dL Phosphorus (2.5-4.5) mg/dL Magnesium (1.7-2.2) mg/dL Total Bilirubin (0.2-1.3) mg/dL AST (17-59) U/L ALT (7-56) U/L Alkaline Phosphatase (38-126) U/L Total Protein (5.8-8.3) g/dL Albumin (3.0-4.8) g/dL Globulin gm/dL Albumin/Globulin Ratio (1.1-1.8) Blood Type O POSITIVE Blood Type Confirm Antibody Screen Negative Crossmatch See Detail BBK History Checked No verified bt Laboratory Results - last 24 hr 04/01/18 04/01/18 04/01/18 19:53 20:29 20:29 WBC RBC Hgb Hct MCV MCH MCHC RDW Plt Count MPV Gran % Lymph % (Auto) Morrill % (Auto) Eos % (Auto) Baso % (Auto) Gran # Lymph # (Auto) Morrill # (Auto) Eos # (Auto) Baso # (Auto) Neutrophils % (Manual) Band Neutrophils % Lymphocytes % (Manual) Monocytes % (Manual) Myelocytes % Platelet Evaluation pCO2 pO2 HCO3 ABG pH ABG Total CO2 ABG O2 Saturation ABG O2 Content ABG Base Excess ABG Hemoglobin ABG Carboxyhemoglobin POC ABG HHb (Measured) ABG Methemoglobin ABG O2 Capacity Hgb O2 Saturation FiO2 Sodium 144 Potassium 4.4 Chloride 112 H Carbon Dioxide 20 L Anion Gap 16 BUN 29 H Creatinine 0.9 Est GFR ( Amer) > 60 Est GFR (Non-Af Amer) > 60 POC Glucose (mg/dL) Random Glucose 209 H Calcium 8.5 Phosphorus Magnesium Total Bilirubin AST ALT Alkaline Phosphatase Total Protein Albumin Globulin Albumin/Globulin Ratio Blood Type O POSITIVE Blood Type Confirm O POSITIVE Antibody Screen Negative Crossmatch See Detail BBK History Checked No verified bt 04/01/18 04/02/18 04/02/18 23:53 06:00 06:00 WBC 8.3 RBC 3.56 Hgb 10.9 L Hct 33.4 L MCV 93.8 MCH 30.6 MCHC 32.6 RDW 14.4 Plt Count 203 MPV 10.0 Gran % 91.3 H Lymph % (Auto) 6.0 L Morrill % (Auto) 2.5 Eos % (Auto) 0.1 L Baso % (Auto) 0.1 Gran # 7.58 H Lymph # (Auto) 0.5 L Morrill # (Auto) 0.2 Eos # (Auto) 0.0 Baso # (Auto) 0.01 Neutrophils % (Manual) 93 H Band Neutrophils % 1 Lymphocytes % (Manual) 4 L Monocytes % (Manual) 1 Myelocytes % 1 Platelet Evaluation Normal pCO2 pO2 HCO3 ABG pH ABG Total CO2 ABG O2 Saturation ABG O2 Content ABG Base Excess ABG Hemoglobin ABG Carboxyhemoglobin POC ABG HHb (Measured) ABG Methemoglobin ABG O2 Capacity Hgb O2 Saturation FiO2 Sodium 148 Potassium 4.2 Chloride 114 H Carbon Dioxide 21 Anion Gap 18 BUN 32 H Creatinine 1.1 Est GFR ( Amer) > 60 Est GFR (Non-Af Amer) > 60 POC Glucose (mg/dL) 195 H Random Glucose 179 H Calcium 8.2 L Phosphorus 3.4 Magnesium 1.9 Total Bilirubin 1.3 AST 37 ALT 35 Alkaline Phosphatase 71 Total Protein 6.0 Albumin 2.8 L Globulin 3.2 Albumin/Globulin Ratio 0.9 L Blood Type Blood Type Confirm Antibody Screen Crossmatch BBK History Checked 04/02/18 06:49 WBC RBC Hgb Hct MCV MCH MCHC RDW Plt Count MPV Gran % Lymph % (Auto) Morrill % (Auto) Eos % (Auto) Baso % (Auto) Gran # Lymph # (Auto) Morrill # (Auto) Eos # (Auto) Baso # (Auto) Neutrophils % (Manual) Band Neutrophils % Lymphocytes % (Manual) Monocytes % (Manual) Myelocytes % Platelet Evaluation pCO2 29 L pO2 369.0 H HCO3 18.8 L ABG pH 7.42 ABG Total CO2 19.7 L ABG O2 Saturation 99.1 H ABG O2 Content 14.4 L ABG Base Excess -4.8 L ABG Hemoglobin 9.8 L ABG Carboxyhemoglobin 1.0 POC ABG HHb (Measured) 0.9 ABG Methemoglobin 1.1 ABG O2 Capacity 14.5 L Hgb O2 Saturation 97.0 FiO2 100.0 Sodium Potassium Chloride Carbon Dioxide Anion Gap BUN Creatinine Est GFR ( Amer) Est GFR (Non-Af Amer) POC Glucose (mg/dL) Random Glucose Calcium Phosphorus Magnesium Total Bilirubin AST ALT Alkaline Phosphatase Total Protein Albumin Globulin Albumin/Globulin Ratio Blood Type Blood Type Confirm Antibody Screen Crossmatch BBK History Checked Fingerstick Blood Sugar Results: 195 Assessment/Plan - Assessment and Plan (Free Text) Assessment: 82 year old male under ICU care 2/2 Subdural Hematoma requiring intubation for airway protection Hx of [employer] Infarcts HTN HLD DM1 Plan Neuro - Keep sedated and intubated - Patient is bleeding acutely - 2 FFP ordered, 1 PRBC, 1 Irradiated plt ordered and ready - Maintain normothermia, avoid oxygen toxicity to prevent brain exposure to free radicals - Await further recommendations from NSG Cardio - Maintain MAP- NO permissive HTN, keep BP < 140/90 - Will await further recommendations from NSG for BP parameters Pulm - Maintain oxygen saturation - Protective lung ventilation strategy - Currently does not have ABx coverage GI - Continue PPX with protonix - Maintain euvolemia Heme - Avoid blood thinners in light of bleed, give Mechanical DVT PPX - Four factor prothrombin given; 2 U FFP being given as well as 1 U irrad plts ID - Smart-cultures Endo - Maintain euglycemia - Accucheks with RISS <Clark Meza - Last Filed: 04/02/18 12:30> CCU Objective - Vital Signs / Intake & Output Vital Signs (Last 4 hours): Vital Signs Pulse BP 04/02/18 10:10 99 H 158/71 H Intake and Output (Last 8hrs): Intake & Output 04/01/18 04/02/18 04/02/18 22:59 06:59 14:59 Intake Total 1050 Output Total 450 Balance 600 Weight 170 lb 14.4 oz Intake: IV 1050 Left Wrist 1050 Oral 0 Output: Drainage 75 Left Head 0 Right Head 75 Urine 375 Urethral (No) 375 Other: Voiding Method Indwelling Catheter - Medications Active Medications: Active Medications Generic Name Dose Route Start Last Admin Trade Name Freq PRN Reason Stop Dose Admin Sodium Chloride 1,000 mls @ 150 mls/hr 04/01/18 20:00 04/02/18 05:22 Sodium Chloride 0.9% IV 150 mls/hr .Q6H40M [facility]ATON Administration Acetaminophen 1,000 mg in 100 mls @ 400 mls/hr 04/01/18 19:55 04/02/18 11:04 Ofirmev IVPB 04/03/18 19:56 400 mls/hr Q6H PRN Administration fever more then 100 F Insulin Human Regular 0 units 04/01/18 22:00 04/02/18 11:03 Humulin R Med SC Not Given [facility] Protocol Labetalol HCl 20 mg 04/02/18 00:14 04/02/18 10:10 Trandate IV 20 ml Q6 PRN Administration For BP >140 Metoprolol Tartrate 5 mg 04/02/18 10:04 Lopressor IVP Q6H PRN Heart rate > 110 Pantoprazole Sodium 40 mg 04/02/18 10:00 04/02/18 11:00 Protonix Inj IVP 40 mg DAILY [facility] Administration - Patient Studies Lab Studies: Lab Studies 04/02/18 04/02/18 04/02/18 Range/Units 11:56 06:49 06:00 WBC (4.5-11.0) 10^3/ul RBC (3.5-6.1) 10^6/uL Hgb (14.0-18.0) g/dL Hct (42.0-52.0) % MCV (80.0-105.0) fl MCH (25.0-35.0) pg MCHC (31.0-37.0) g/dl RDW (11.5-14.5) % Plt Count (120.0-450.0) 10^3/uL MPV (7.0-11.0) fl Gran % (50.0-68.0) % Lymph % (Auto) (22.0-35.0) % Morrill % (Auto) (1.0-6.0) % Eos % (Auto) (1.5-5.0) % Baso % (Auto) (0.0-3.0) % Gran # (1.4-6.5) Lymph # (Auto) (1.2-3.4) Morrill # (Auto) (0.1-0.6) Eos # (Auto) (0.0-0.7) Baso # (Auto) (0.0-2.0) K/mm3 Neutrophils % (Manual) (50.0-70.0) % Band Neutrophils % (0-2) % Lymphocytes % (Manual) (22.0-35.0) % Monocytes % (Manual) (1.0-6.0) % Myelocytes % % Platelet Evaluation (NORMAL) pCO2 29 L (35-45) mm/Hg pO2 369.0 H (80-100) mm/Hg HCO3 18.8 L (21-28) mmol/L ABG pH 7.42 (7.35-7.45) ABG Total CO2 19.7 L (22-28) mmol.L ABG O2 Saturation 99.1 H (95-98) % ABG O2 Content 14.4 L (15-23) ML/dl ABG Base Excess -4.8 L (-2.0-3.0) mmol/L ABG Hemoglobin 9.8 L (11.7-17.4) g/dL ABG Carboxyhemoglobin 1.0 (0.5-1.5) % POC ABG HHb (Measured) 0.9 (0-5) % ABG Methemoglobin 1.1 (0.0-3.0) % ABG O2 Capacity 14.5 L (16-24) mL/dl Hgb O2 Saturation 97.0 (95.0-98.0) % FiO2 100.0 % Sodium 148 (132-148) mmol/L Potassium 4.2 (3.6-5.0) mmol/L Chloride 114 H (98-107) mmol/L Carbon Dioxide 21 (21-33) mmol/L Anion Gap 18 (10-20) BUN 32 H (7-21) mg/dL Creatinine 1.1 (0.8-1.5) mg/dl Est GFR ( Amer) > 60 Est GFR (Non-Af Amer) > 60 POC Glucose (mg/dL) 160 H (65-110) mg/dL Random Glucose 179 H (70-110) mg/dL Calcium 8.2 L (8.4-10.5) mg/dL Phosphorus 3.4 (2.5-4.5) mg/dL Magnesium 1.9 (1.7-2.2) mg/dL Total Bilirubin 1.3 (0.2-1.3) mg/dL AST 37 (17-59) U/L ALT 35 (7-56) U/L Alkaline Phosphatase 71 (38-126) U/L Total Protein 6.0 (5.8-8.3) g/dL Albumin 2.8 L (3.0-4.8) g/dL Globulin 3.2 gm/dL Albumin/Globulin Ratio 0.9 L (1.1-1.8) Blood Type Blood Type Confirm Antibody Screen Crossmatch BBK History Checked 04/02/18 04/01/18 04/01/18 Range/Units 06:00 23:53 20:29 WBC 8.3 (4.5-11.0) 10^3/ul RBC 3.56 (3.5-6.1) 10^6/uL Hgb 10.9 L (14.0-18.0) g/dL Hct 33.4 L (42.0-52.0) % MCV 93.8 (80.0-105.0) fl MCH 30.6 (25.0-35.0) pg MCHC 32.6 (31.0-37.0) g/dl RDW 14.4 (11.5-14.5) % Plt Count 203 (120.0-450.0) 10^3/uL MPV 10.0 (7.0-11.0) fl Gran % 91.3 H (50.0-68.0) % Lymph % (Auto) 6.0 L (22.0-35.0) % Morrill % (Auto) 2.5 (1.0-6.0) % Eos % (Auto) 0.1 L (1.5-5.0) % Baso % (Auto) 0.1 (0.0-3.0) % Gran # 7.58 H (1.4-6.5) Lymph # (Auto) 0.5 L (1.2-3.4) Morrill # (Auto) 0.2 (0.1-0.6) Eos # (Auto) 0.0 (0.0-0.7) Baso # (Auto) 0.01 (0.0-2.0) K/mm3 Neutrophils % (Manual) 93 H (50.0-70.0) % Band Neutrophils % 1 (0-2) % Lymphocytes % (Manual) 4 L (22.0-35.0) % Monocytes % (Manual) 1 (1.0-6.0) % Myelocytes % 1 % Platelet Evaluation Normal (NORMAL) pCO2 (35-45) mm/Hg pO2 (80-100) mm/Hg HCO3 (21-28) mmol/L ABG pH (7.35-7.45) ABG Total CO2 (22-28) mmol.L ABG O2 Saturation (95-98) % ABG O2 Content (15-23) ML/dl ABG Base Excess (-2.0-3.0) mmol/L ABG Hemoglobin (11.7-17.4) g/dL ABG Carboxyhemoglobin (0.5-1.5) % POC ABG HHb (Measured) (0-5) % ABG Methemoglobin (0.0-3.0) % ABG O2 Capacity (16-24) mL/dl Hgb O2 Saturation (95.0-98.0) % FiO2 % Sodium (132-148) mmol/L Potassium (3.6-5.0) mmol/L Chloride (98-107) mmol/L Carbon Dioxide (21-33) mmol/L Anion Gap (10-20) BUN (7-21) mg/dL Creatinine (0.8-1.5) mg/dl Est GFR ( Amer) Est GFR (Non-Af Amer) POC Glucose (mg/dL) 195 H (65-110) mg/dL Random Glucose (70-110) mg/dL Calcium (8.4-10.5) mg/dL Phosphorus (2.5-4.5) mg/dL Magnesium (1.7-2.2) mg/dL Total Bilirubin (0.2-1.3) mg/dL AST (17-59) U/L ALT (7-56) U/L Alkaline Phosphatase (38-126) U/L Total Protein (5.8-8.3) g/dL Albumin (3.0-4.8) g/dL Globulin gm/dL Albumin/Globulin Ratio (1.1-1.8) Blood Type Blood Type Confirm O POSITIVE Antibody Screen Crossmatch BBK History Checked 04/01/18 04/01/18 Range/Units 20:29 19:53 WBC (4.5-11.0) 10^3/ul RBC (3.5-6.1) 10^6/uL Hgb (14.0-18.0) g/dL Hct (42.0-52.0) % MCV (80.0-105.0) fl MCH (25.0-35.0) pg MCHC (31.0-37.0) g/dl RDW (11.5-14.5) % Plt Count (120.0-450.0) 10^3/uL MPV (7.0-11.0) fl Gran % (50.0-68.0) % Lymph % (Auto) (22.0-35.0) % Morrill % (Auto) (1.0-6.0) % Eos % (Auto) (1.5-5.0) % Baso % (Auto) (0.0-3.0) % Gran # (1.4-6.5) Lymph # (Auto) (1.2-3.4) Morrill # (Auto) (0.1-0.6) Eos # (Auto) (0.0-0.7) Baso # (Auto) (0.0-2.0) K/mm3 Neutrophils % (Manual) (50.0-70.0) % Band Neutrophils % (0-2) % Lymphocytes % (Manual) (22.0-35.0) % Monocytes % (Manual) (1.0-6.0) % Myelocytes % % Platelet Evaluation (NORMAL) pCO2 (35-45) mm/Hg pO2 (80-100) mm/Hg HCO3 (21-28) mmol/L ABG pH (7.35-7.45) ABG Total CO2 (22-28) mmol.L ABG O2 Saturation (95-98) % ABG O2 Content (15-23) ML/dl ABG Base Excess (-2.0-3.0) mmol/L ABG Hemoglobin (11.7-17.4) g/dL ABG Carboxyhemoglobin (0.5-1.5) % POC ABG HHb (Measured) (0-5) % ABG Methemoglobin (0.0-3.0) % ABG O2 Capacity (16-24) mL/dl Hgb O2 Saturation (95.0-98.0) % FiO2 % Sodium 144 (132-148) mmol/L Potassium 4.4 (3.6-5.0) mmol/L Chloride 112 H (98-107) mmol/L Carbon Dioxide 20 L (21-33) mmol/L Anion Gap 16 (10-20) BUN 29 H (7-21) mg/dL Creatinine 0.9 (0.8-1.5) mg/dl Est GFR ( Amer) > 60 Est GFR (Non-Af Amer) > 60 POC Glucose (mg/dL) (65-110) mg/dL Random Glucose 209 H (70-110) mg/dL Calcium 8.5 (8.4-10.5) mg/dL Phosphorus (2.5-4.5) mg/dL Magnesium (1.7-2.2) mg/dL Total Bilirubin (0.2-1.3) mg/dL AST (17-59) U/L ALT (7-56) U/L Alkaline Phosphatase (38-126) U/L Total Protein (5.8-8.3) g/dL Albumin (3.0-4.8) g/dL Globulin gm/dL Albumin/Globulin Ratio (1.1-1.8) Blood Type O POSITIVE Blood Type Confirm Antibody Screen Negative Crossmatch See Detail BBK History Checked No verified bt Laboratory Results - last 24 hr 04/01/18 04/01/18 04/01/18 19:53 20:29 20:29 WBC RBC Hgb Hct MCV MCH MCHC RDW Plt Count MPV Gran % Lymph % (Auto) [place] % (Auto) Eos % (Auto) Baso % (Auto) Gran # Lymph # (Auto) [place] # (Auto) Eos # (Auto) Baso # (Auto) Neutrophils % (Manual) Band Neutrophils % Lymphocytes % (Manual) Monocytes % (Manual) Myelocytes % Platelet Evaluation pCO2 pO2 HCO3 ABG pH ABG Total CO2 ABG O2 Saturation ABG O2 Content ABG Base Excess ABG Hemoglobin ABG Carboxyhemoglobin POC ABG HHb (Measured) ABG Methemoglobin ABG O2 Capacity Hgb O2 Saturation FiO2 Sodium 144 Potassium 4.4 Chloride 112 H Carbon Dioxide 20 L Anion Gap 16 BUN 29 H Creatinine 0.9 Est GFR ( Amer) > 60 Est GFR (Non-Af Amer) > 60 POC Glucose (mg/dL) Random Glucose 209 H Calcium 8.5 Phosphorus Magnesium Total Bilirubin AST ALT Alkaline Phosphatase Total Protein Albumin Globulin Albumin/Globulin Ratio Blood Type O POSITIVE Blood Type Confirm O POSITIVE Antibody Screen Negative Crossmatch See Detail BBK History Checked No verified bt 04/01/18 04/02/18 04/02/18 23:53 06:00 06:00 WBC 8.3 RBC 3.56 Hgb 10.9 L Hct 33.4 L MCV 93.8 MCH 30.6 MCHC 32.6 RDW 14.4 Plt Count 203 MPV 10.0 Gran % 91.3 H Lymph % (Auto) 6.0 L [place] % (Auto) 2.5 Eos % (Auto) 0.1 L Baso % (Auto) 0.1 Gran # 7.58 H Lymph # (Auto) 0.5 L [place] # (Auto) 0.2 Eos # (Auto) 0.0 Baso # (Auto) 0.01 Neutrophils % (Manual) 93 H Band Neutrophils % 1 Lymphocytes % (Manual) 4 L Monocytes % (Manual) 1 Myelocytes % 1 Platelet Evaluation Normal pCO2 pO2 HCO3 ABG pH ABG Total CO2 ABG O2 Saturation ABG O2 Content ABG Base Excess ABG Hemoglobin ABG Carboxyhemoglobin POC ABG HHb (Measured) ABG Methemoglobin ABG O2 Capacity Hgb O2 Saturation FiO2 Sodium 148 Potassium 4.2 Chloride 114 H Carbon Dioxide 21 Anion Gap 18 BUN 32 H Creatinine 1.1 Est GFR ( Amer) > 60 Est GFR (Non-Af Amer) > 60 POC Glucose (mg/dL) 195 H Random Glucose 179 H Calcium 8.2 L Phosphorus 3.4 Magnesium 1.9 Total Bilirubin 1.3 AST 37 ALT 35 Alkaline Phosphatase 71 Total Protein 6.0 Albumin 2.8 L Globulin 3.2 Albumin/Globulin Ratio 0.9 L Blood Type Blood Type Confirm Antibody Screen Crossmatch BBK History Checked 04/02/18 04/02/18 06:49 11:56 WBC RBC Hgb Hct MCV MCH MCHC RDW Plt Count MPV Gran % Lymph % (Auto) [place] % (Auto) Eos % (Auto) Baso % (Auto) Gran # Lymph # (Auto) [place] # (Auto) Eos # (Auto) Baso # (Auto) Neutrophils % (Manual) Band Neutrophils % Lymphocytes % (Manual) Monocytes % (Manual) Myelocytes % Platelet Evaluation pCO2 29 L pO2 369.0 H HCO3 18.8 L ABG pH 7.42 ABG Total CO2 19.7 L ABG O2 Saturation 99.1 H ABG O2 Content 14.4 L ABG Base Excess -4.8 L ABG Hemoglobin 9.8 L ABG Carboxyhemoglobin 1.0 POC ABG HHb (Measured) 0.9 ABG Methemoglobin 1.1 ABG O2 Capacity 14.5 L Hgb O2 Saturation 97.0 FiO2 100.0 Sodium Potassium Chloride Carbon Dioxide Anion Gap BUN Creatinine Est GFR ( Amer) Est GFR (Non-Af Amer) POC Glucose (mg/dL) 160 H Random Glucose Calcium Phosphorus Magnesium Total Bilirubin AST ALT Alkaline Phosphatase Total Protein Albumin Globulin Albumin/Globulin Ratio Blood Type Blood Type Confirm Antibody Screen Crossmatch BBK History Checked Attending/Attestation - Attestation I have personally seen and examined this patient.: Yes I have fully participated in the care of the patient.: Yes I have reviewed all pertinent clinical information: Yes Notes (Text): 04/02/18 12:19 The patient was seen and examined at the bedside. Patient care was discussed with resident Medical records, lab studies, and imaging were reviewed and management issues were discussed and formulated. Last 24H events reviewed. Agree with above treatment plans as outlined in 's note with addition of the following: Acute respiratory failure \ Hypoxemia \ Subdural hematoma \ Afib \ Encephaloapthy \ Coagulopathy -hemodynamic monitoring to maintain MAP>65; B\P control as per neurosurgery parameters with labetalol PRN -mechanical ventilation and o2 supplementation to maintain Spo2>90 Pao2>60 -ABG and CXR reviewed in AM; Fio2 decreased to 50% -monitor for TV 6ml\kg IBW and plateau pressure <30 -neurosurgery team f\u post-op -f\u repeat CT head -neurology team f\u -pt was on anticoagulation outpatient; PCC given yesterday; will transfuse FFP today as bleeding noted from post-op drainage; f\u repeat INR -f\u Bun\Cr and U\o; continue IVF -NPO diet and aspiration precautions -ISS and BGM monitoring to maintain euglycemia -continue neuro checks as per neurosurgery protocol -DVT\PUD prophylaxis prophylaxis CCM f\u time 34
--- NOTE | 2018-04-02 11:59 | CP.PCM.CON ---
History of Present Illness - History of Present Illness History of Present Illness: Neurology Consult Note: Mr. Vera is an 82-year-old man with a past medical history of previous ischemic stroke, head trauma, TIA, atrial fibrillation (was on Eliquis until when he was taken off due to fall), hypertension, hyperlipidemia, and diabetes who was brought in by family due to decreased verbal responsiveness. 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 The patient underwent neurosurgical evacuation. Currently, he is intubated and sedated. Neurology was consulted to assist with the management and care. Review of Systems - Review of Systems All systems: reviewed and no additional remarkable complaints except Past Patient History - Infectious Disease Hx of Infectious Diseases: None - Tetanus Immunizations Tetanus Immunization: Unknown - Past Social History Smoking Status: Never Smoked - CARDIAC Hx Cardiac Disorders: No Hx Cardia Arrhythmia: Yes Hx Hypertension: Yes - PULMONARY Hx Respiratory Disorders: No Hx Tuberculosis: No - NEUROLOGICAL HX Cerebrovascular Accident: Yes Hx Dementia: Yes Hx Seizures: No - HEENT Hx HEENT Problems: No - RENAL Hx Chronic Kidney Disease: No - ENDOCRINE/METABOLIC Hx Diabetes Mellitus Type 1: Yes - HEMATOLOGICAL/ONCOLOGICAL Hx Blood Disorders: No Hx Cancer: No - INTEGUMENTARY Hx Dermatological Problems: No - MUSCULOSKELETAL/RHEUMATOLOGICAL Hx Falls: Yes - GASTROINTESTINAL Hx Gastrointestinal Disorders: No - GENITOURINARY/GYNECOLOGICAL Hx Genitourinary Disorders: No Hx Sexually Transmitted Disorders: No - PSYCHIATRIC Hx Psychophysiologic Disorder: No Hx Substance Use: No - SURGICAL HISTORY Hx Surgeries: No Other/Comment: abd surgery - ANESTHESIA Hx Anesthesia Reactions: No Hx Malignant Hyperthermia: No Meds Allergies/Adverse Reactions: Allergies Allergy/AdvReac Type Severity Reaction Status Date / Time No Known Allergies Allergy Verified 04/01/18 14:33 - Medications Medications: Current Medications Sodium Chloride (Sodium Chloride 0.9%) 1,000 mls @ 150 mls/hr IV .Q6H40M [facility] Last Admin: 04/02/18 05:22 Dose: 150 mls/hr Acetaminophen (Ofirmev) 1,000 mg in 100 mls @ 400 mls/hr IVPB Q6H PRN PRN Reason: fever more then 100 F Stop: 04/03/18 19:56 Last Admin: 04/02/18 11:04 Dose: 400 mls/hr Insulin Human Regular (Humulin R Med) 0 units SC ACHS [facility] PRN Reason: Protocol Last Admin: 04/02/18 11:03 Dose: Not Given Labetalol HCl (Trandate) 20 mg IV Q6 PRN PRN Reason: For BP >140 Last Admin: 04/02/18 10:10 Dose: 20 ml Metoprolol Tartrate (Lopressor) 5 mg IVP Q6H PRN PRN Reason: Heart rate > 110 Pantoprazole Sodium (Protonix Inj) 40 mg IVP DAILY [facility] Last Admin: 04/02/18 11:00 Dose: 40 mg Physical Exam - Neurological Exam Additional comments: Pupils are bilaterally reactive, corneals are present, breaths over the vent. Intubated, does not open eyes to voice or pain, grimaces, withdraws right upper and both lower extremities with flexor to pain, GCS= 5T. Results - Vital Signs Recent Vital Signs: Last Vital Signs Temp 98.8 F 04/02/18 04:00 Pulse 99 H 04/02/18 10:10 Resp 21 04/02/18 04:59 BP 158/71 H 04/02/18 10:10 Pulse Ox 98 04/02/18 06:20 - Labs Result Diagrams: 04/02/18 06:00 04/02/18 06:00 Labs: Laboratory Results - last 24 hr 04/01/18 04/01/18 04/01/18 19:53 20:29 20:29 WBC RBC Hgb Hct MCV MCH MCHC RDW Plt Count MPV Gran % Lymph % (Auto) [place] % (Auto) Eos % (Auto) Baso % (Auto) Gran # Lymph # (Auto) [place] # (Auto) Eos # (Auto) Baso # (Auto) Neutrophils % (Manual) Band Neutrophils % Lymphocytes % (Manual) Monocytes % (Manual) Myelocytes % Platelet Evaluation pCO2 pO2 HCO3 ABG pH ABG Total CO2 ABG O2 Saturation ABG O2 Content ABG Base Excess ABG Hemoglobin ABG Carboxyhemoglobin POC ABG HHb (Measured) ABG Methemoglobin ABG O2 Capacity Hgb O2 Saturation FiO2 Sodium 144 Potassium 4.4 Chloride 112 H Carbon Dioxide 20 L Anion Gap 16 BUN 29 H Creatinine 0.9 Est GFR ( Amer) > 60 Est GFR (Non-Af Amer) > 60 POC Glucose (mg/dL) Random Glucose 209 H Calcium 8.5 Phosphorus Magnesium Total Bilirubin AST ALT Alkaline Phosphatase Total Protein Albumin Globulin Albumin/Globulin Ratio Blood Type O POSITIVE Blood Type Confirm O POSITIVE Antibody Screen Negative Crossmatch See Detail BBK History Checked No verified bt 04/01/18 04/02/18 04/02/18 23:53 06:00 06:00 WBC 8.3 RBC 3.56 Hgb 10.9 L Hct 33.4 L MCV 93.8 MCH 30.6 MCHC 32.6 RDW 14.4 Plt Count 203 MPV 10.0 Gran % 91.3 H Lymph % (Auto) 6.0 L [place] % (Auto) 2.5 Eos % (Auto) 0.1 L Baso % (Auto) 0.1 Gran # 7.58 H Lymph # (Auto) 0.5 L [place] # (Auto) 0.2 Eos # (Auto) 0.0 Baso # (Auto) 0.01 Neutrophils % (Manual) 93 H Band Neutrophils % 1 Lymphocytes % (Manual) 4 L Monocytes % (Manual) 1 Myelocytes % 1 Platelet Evaluation Normal pCO2 pO2 HCO3 ABG pH ABG Total CO2 ABG O2 Saturation ABG O2 Content ABG Base Excess ABG Hemoglobin ABG Carboxyhemoglobin POC ABG HHb (Measured) ABG Methemoglobin ABG O2 Capacity Hgb O2 Saturation FiO2 Sodium 148 Potassium 4.2 Chloride 114 H Carbon Dioxide 21 Anion Gap 18 BUN 32 H Creatinine 1.1 Est GFR ( Amer) > 60 Est GFR (Non-Af Amer) > 60 POC Glucose (mg/dL) 195 H Random Glucose 179 H Calcium 8.2 L Phosphorus 3.4 Magnesium 1.9 Total Bilirubin 1.3 AST 37 ALT 35 Alkaline Phosphatase 71 Total Protein 6.0 Albumin 2.8 L Globulin 3.2 Albumin/Globulin Ratio 0.9 L Blood Type Blood Type Confirm Antibody Screen Crossmatch BBK History Checked 04/02/18 06:49 WBC RBC Hgb Hct MCV MCH MCHC RDW Plt Count MPV Gran % Lymph % (Auto) [place] % (Auto) Eos % (Auto) Baso % (Auto) Gran # Lymph # (Auto) [place] # (Auto) Eos # (Auto) Baso # (Auto) Neutrophils % (Manual) Band Neutrophils % Lymphocytes % (Manual) Monocytes % (Manual) Myelocytes % Platelet Evaluation pCO2 29 L pO2 369.0 H HCO3 18.8 L ABG pH 7.42 ABG Total CO2 19.7 L ABG O2 Saturation 99.1 H ABG O2 Content 14.4 L ABG Base Excess -4.8 L ABG Hemoglobin 9.8 L ABG Carboxyhemoglobin 1.0 POC ABG HHb (Measured) 0.9 ABG Methemoglobin 1.1 ABG O2 Capacity 14.5 L Hgb O2 Saturation 97.0 FiO2 100.0 Sodium Potassium Chloride Carbon Dioxide Anion Gap BUN Creatinine Est GFR ( Amer) Est GFR (Non-Af Amer) POC Glucose (mg/dL) Random Glucose Calcium Phosphorus Magnesium Total Bilirubin AST ALT Alkaline Phosphatase Total Protein Albumin Globulin Albumin/Globulin Ratio Blood Type Blood Type Confirm Antibody Screen Crossmatch BBK History Checked Assessment & Plan (1) Subdural hematoma Assessment and Plan: S/P evacuation with drain in place. Continue blood pressure control to maintain SBP between 100-160. Eliquis is likely out of system now since the last dose was 03/30. No need for FFP at this time. Continue monitoring H/H. No evidence of seizure activity. An EEG may be helpful. Repeat CT head in the morning. Keep head of bed above 30 degrees. Status: Acute (2) Stroke Assessment and Plan: Despite being in atrial fibrillation, the patient is high risk for rebleed. We will wait for neurosurgery to determine when he is safe to start aspirin. DVT prophylaxis is recommended with SCD. Neurology will follow. Thank you. Status: Acute
--- NOTE | 2018-04-02 12:26 | CP.PCM.PN ---
Subjective - Date & Time of Evaluation Date of Evaluation: 04/02/18 Time of Evaluation: 12:19 - Subjective Subjective: post op day 1 discongegate gaze minimal corneals sluggish pupils flexion l arm questionable extension r arm some drainage from right drain nothing from left CT shwos air in sds CT done too early to be informative prognosis very poor Objective - Vital Signs/Intake and Output Vital Signs (last 24 hours): Temp Pulse Resp BP Pulse Ox 98.8 F 99 H 21 158/71 H 98 04/02/18 04:00 04/02/18 10:10 04/02/18 04:59 04/02/18 10:10 04/02/18 06:20 Intake and Output: 04/02/18 04/02/18 06:59 18:59 Intake Total 1050 Output Total 450 Balance 600 - Medications Medications: Current Medications Sodium Chloride (Sodium Chloride 0.9%) 1,000 mls @ 150 mls/hr IV .Q6H40M [facility] Last Admin: 04/02/18 05:22 Dose: 150 mls/hr Acetaminophen (Ofirmev) 1,000 mg in 100 mls @ 400 mls/hr IVPB Q6H PRN PRN Reason: fever more then 100 F Stop: 04/03/18 19:56 Last Admin: 04/02/18 11:04 Dose: 400 mls/hr Insulin Human Regular (Humulin R Med) 0 units SC ACHS [facility] PRN Reason: Protocol Last Admin: 04/02/18 11:03 Dose: Not Given Labetalol HCl (Trandate) 20 mg IV Q6 PRN PRN Reason: For BP >140 Last Admin: 04/02/18 10:10 Dose: 20 ml Metoprolol Tartrate (Lopressor) 5 mg IVP Q6H PRN PRN Reason: Heart rate > 110 Pantoprazole Sodium (Protonix Inj) 40 mg IVP DAILY [facility] Last Admin: 04/02/18 11:00 Dose: 40 mg - Labs Labs: 04/02/18 06:00 04/02/18 06:00 PT 14.7 SECONDS (9.4-12.5) H 04/01/18 14:40 INR 1.28 (0.93-1.08) H 04/01/18 14:40 APTT 48.2 Seconds (25.1-36.5) H 04/01/18 14:40
[2018-04-02 12:27] LABS: INR 1.21 (0.93-1.08)
--- NOTE | 2018-04-02 12:37 | CP.PCM.HP ---
History of Present Illness - History of Present Illness History of Present Illness: Chief Complaint: Altered mental status HPI: (Patient first seen today in intensive care unit. Obtained from previous charts as patient is currently intubated and sedated) Patient is a 82 year old male with a past medical history of CVA, TIA, atrial fibrillation, hypertension, hyperlipidemia, and diabetes who presented to the emergency department for evaluation and treatment of altered mental status. After being found by family unresponsive, patient was brought in by EMS. Upon arrival to the emergency department, patient was not awake, alert, did not respond to verbal stimuli however did grimace to painful stimuli. Further HPI details were provided by son who was at bedside. As per family the patient stopped taking his eliquis on 03/29/2018 as per his primary care physician due to frequent falls. Patient fell on Monday03/30/2018 and Monday03/31/2018. Son stated father's falls including head trauma but no loss of consciousness. Father was awake, alert, and having conversations since fall on Monday however became more somnolent since the initial fall. Upon being admitted patient was found to have bilateral acute subdural hematomas. PMD: not obtained Surgical Hx: not obtained Family Hx: non-contributory Past medical Hx: CVA x11, Hypertension,Hypercholesterolemia,Atrial fibrillation, Diabetes,Dementia,Gait disability Social Hx: denied tobacco/alcohol/drug use Allergies: NKDA Present on Admission - Present on Admission Any Indicators Present on Admission: No Review of Systems - Review of Systems Systems not reviewed;Unavailable: Intubated Past Patient History - Infectious Disease Hx of Infectious Diseases: None - Tetanus Immunizations Tetanus Immunization: Unknown - Past Social History Smoking Status: Never Smoked - CARDIAC Hx Cardiac Disorders: No Hx Cardia Arrhythmia: Yes Hx Hypertension: Yes - PULMONARY Hx Respiratory Disorders: No Hx Tuberculosis: No - NEUROLOGICAL HX Cerebrovascular Accident: Yes Hx Dementia: Yes Hx Seizures: No - HEENT Hx HEENT Problems: No - RENAL Hx Chronic Kidney Disease: No - ENDOCRINE/METABOLIC Hx Diabetes Mellitus Type 1: Yes - HEMATOLOGICAL/ONCOLOGICAL Hx Blood Disorders: No Hx Cancer: No - INTEGUMENTARY Hx Dermatological Problems: No - MUSCULOSKELETAL/RHEUMATOLOGICAL Hx Falls: Yes - GASTROINTESTINAL Hx Gastrointestinal Disorders: No - GENITOURINARY/GYNECOLOGICAL Hx Genitourinary Disorders: No Hx Sexually Transmitted Disorders: No - PSYCHIATRIC Hx Psychophysiologic Disorder: No Hx Substance Use: No - SURGICAL HISTORY Hx Surgeries: No Other/Comment: abd surgery - ANESTHESIA Hx Anesthesia Reactions: No Hx Malignant Hyperthermia: No Meds Allergies/Adverse Reactions: Allergies Allergy/AdvReac Type Severity Reaction Status Date / Time No Known Allergies Allergy Verified 04/01/18 14:33 Physical Exam - Head Exam Head Exam: NORMOCEPHALIC - ENT Exam ENT Exam: Mucous Membranes Moist - Respiratory Exam Respiratory Exam: Clear to Auscultation Bilateral, NORMAL BREATHING PATTERN. absent: Wheezes - Cardiovascular Exam Cardiovascular Exam: REGULAR RHYTHM, +S1, +S2 - GI/Abdominal Exam GI & Abdominal Exam: Normal Bowel Sounds, Soft - Extremities Exam Extremities exam: Positive for: normal inspection - Back Exam Back exam: NORMAL INSPECTION - Neurological Exam Additional comments: Sedated - Psychiatric Exam Additional comments: sedated - Skin Skin Exam: Normal Color, Warm Results - Vital Signs Recent Vital Signs: Last Vital Signs Temp 98.8 F 04/02/18 04:00 Pulse 99 H 04/02/18 10:10 Resp 21 04/02/18 04:59 BP 158/71 H 04/02/18 10:10 Pulse Ox 98 04/02/18 06:20 - Labs Result Diagrams: 04/02/18 06:00 04/02/18 06:00 Labs: Laboratory Results - last 24 hr 04/01/18 04/01/18 04/01/18 19:53 20:29 20:29 WBC RBC Hgb Hct MCV MCH MCHC RDW Plt Count MPV Gran % Lymph % (Auto) [place] % (Auto) Eos % (Auto) Baso % (Auto) Gran # Lymph # (Auto) [place] # (Auto) Eos # (Auto) Baso # (Auto) Neutrophils % (Manual) Band Neutrophils % Lymphocytes % (Manual) Monocytes % (Manual) Myelocytes % Platelet Evaluation PT INR pCO2 pO2 HCO3 ABG pH ABG Total CO2 ABG O2 Saturation ABG O2 Content ABG Base Excess ABG Hemoglobin ABG Carboxyhemoglobin POC ABG HHb (Measured) ABG Methemoglobin ABG O2 Capacity Hgb O2 Saturation FiO2 Sodium 144 Potassium 4.4 Chloride 112 H Carbon Dioxide 20 L Anion Gap 16 BUN 29 H Creatinine 0.9 Est GFR ( Amer) > 60 Est GFR (Non-Af Amer) > 60 POC Glucose (mg/dL) Random Glucose 209 H Calcium 8.5 Phosphorus Magnesium Total Bilirubin AST ALT Alkaline Phosphatase Total Protein Albumin Globulin Albumin/Globulin Ratio Blood Type O POSITIVE Blood Type Confirm O POSITIVE Antibody Screen Negative Crossmatch See Detail BBK History Checked No verified bt 04/01/18 04/02/18 04/02/18 23:53 06:00 06:00 WBC 8.3 RBC 3.56 Hgb 10.9 L Hct 33.4 L MCV 93.8 MCH 30.6 MCHC 32.6 RDW 14.4 Plt Count 203 MPV 10.0 Gran % 91.3 H Lymph % (Auto) 6.0 L [place] % (Auto) 2.5 Eos % (Auto) 0.1 L Baso % (Auto) 0.1 Gran # 7.58 H Lymph # (Auto) 0.5 L [place] # (Auto) 0.2 Eos # (Auto) 0.0 Baso # (Auto) 0.01 Neutrophils % (Manual) 93 H Band Neutrophils % 1 Lymphocytes % (Manual) 4 L Monocytes % (Manual) 1 Myelocytes % 1 Platelet Evaluation Normal PT INR pCO2 pO2 HCO3 ABG pH ABG Total CO2 ABG O2 Saturation ABG O2 Content ABG Base Excess ABG Hemoglobin ABG Carboxyhemoglobin POC ABG HHb (Measured) ABG Methemoglobin ABG O2 Capacity Hgb O2 Saturation FiO2 Sodium 148 Potassium 4.2 Chloride 114 H Carbon Dioxide 21 Anion Gap 18 BUN 32 H Creatinine 1.1 Est GFR ( Amer) > 60 Est GFR (Non-Af Amer) > 60 POC Glucose (mg/dL) 195 H Random Glucose 179 H Calcium 8.2 L Phosphorus 3.4 Magnesium 1.9 Total Bilirubin 1.3 AST 37 ALT 35 Alkaline Phosphatase 71 Total Protein 6.0 Albumin 2.8 L Globulin 3.2 Albumin/Globulin Ratio 0.9 L Blood Type Blood Type Confirm Antibody Screen Crossmatch BBK History Checked 04/02/18 04/02/18 04/02/18 06:49 11:56 12:00 WBC RBC Hgb Hct MCV MCH MCHC RDW Plt Count MPV Gran % Lymph % (Auto) [place] % (Auto) Eos % (Auto) Baso % (Auto) Gran # Lymph # (Auto) [place] # (Auto) Eos # (Auto) Baso # (Auto) Neutrophils % (Manual) Band Neutrophils % Lymphocytes % (Manual) Monocytes % (Manual) Myelocytes % Platelet Evaluation PT 14.0 H INR 1.21 H pCO2 29 L pO2 369.0 H HCO3 18.8 L ABG pH 7.42 ABG Total CO2 19.7 L ABG O2 Saturation 99.1 H ABG O2 Content 14.4 L ABG Base Excess -4.8 L ABG Hemoglobin 9.8 L ABG Carboxyhemoglobin 1.0 POC ABG HHb (Measured) 0.9 ABG Methemoglobin 1.1 ABG O2 Capacity 14.5 L Hgb O2 Saturation 97.0 FiO2 100.0 Sodium Potassium Chloride Carbon Dioxide Anion Gap BUN Creatinine Est GFR ( Amer) Est GFR (Non-Af Amer) POC Glucose (mg/dL) 160 H Random Glucose Calcium Phosphorus Magnesium Total Bilirubin AST ALT Alkaline Phosphatase Total Protein Albumin Globulin Albumin/Globulin Ratio Blood Type Blood Type Confirm Antibody Screen Crossmatch BBK History Checked Assessment & Plan - Assessment and Plan (Free Text) Assessment: Patient is a 82 year old male with a past medical history of CVA, TIA, atrial fibrillation, hypertension, hyperlipidemia, and diabetes who presented to the emergency department for evaluation and treatment of altered mental status due to 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 Plan: Bilateral subdural hematoma -S/P hematoma evacuation POD #1 -Continue with recs as per neurosurgery -Repeat CT head done, however as per neuro this is too early to note any changes CVA hx -Hold PO meds: coumadin, crestor, toprol XL -Monitor vital signs -Monitor INR Atrial fibrillation -Hold Coumadin -Monitor INR -Lopressor IV when HR >110 Hypertension -Monitor vital signs -Continue with Labetalol HCL Hyperlipidemia -Crestor on hold for now IDDM -ISS-med -continue with accuchecks GI prophylaxis: protonix DVT prophylaxis: mechanical at this time only due to brain bleed
[2018-04-02] MEDS ORDERED: Labetalol 5 mg/ml Inj 20ML IV PRN (13:39)
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
[2018-04-03] MEDS: Metoprolol 1 mg/ml Inj IVP PRN ×2 (01:59→10:31)
[2018-04-03 06:32] LABS: ARTERIAL BLOOD GAS HCO3 16.9 mmol/L (21-28); ARTERIAL BLOOD GAS HEMOGLOBIN 18.3 g/dL (11.7-17.4); ARTERIAL BLOOD GAS O2 CAPACITY 25.5 mL/dl (16-24); ARTERIAL BLOOD GAS O2 CONTENT 25.2 ML/dl (15-23); ARTERIAL BLOOD GAS PCO2 28 mm/Hg (35-45); ARTERIAL BLOOD GAS PH 7.39 (7.35-7.45); ARTERIAL BLOOD GAS TCO2 17.8 mmol.L (22-28)
[2018-04-03 06:37] LABS: BASO # 0.01 K/mm3 (0.0-2.0); BASO % 0.1 % (0.0-3.0); EOS % 0.2 % (1.5-5.0); GRAN # 7.25 (1.4-6.5); GRAN % 83.4 % (50.0-68.0); HEMOGLOBIN 9.4 g/dL (14.0-18.0); LYMPH % 11.6 % (22.0-35.0); MEAN CELL VOLUME 94.3 fl (80.0-105.0); MEAN CORPUSCULAR HEMOGLOBIN 31.6 pg (25.0-35.0); MEAN CORPUSCULAR HGB CONC 33.6 g/dl (31.0-37.0); MEAN PLATELET VOLUME 10.5 fl (7.0-11.0); MONO # 0.4 (0.1-0.6); MONO % 4.7 % (1.0-6.0); RBC 2.97 10^6/uL (3.5-6.1); RED CELL DISTRIBUTION WIDTH 14.5 % (11.5-14.5); WHITE BLOOD COUNT 8.7 10^3/ul (4.5-11.0)
[2018-04-03 06:57] LABS: ALB/GLOB RATIO 0.8 (1.1-1.8); ALBUMIN 2.5 g/dL (3.0-4.8); CALCIUM 8.1 mg/dL (8.4-10.5)
[2018-04-03] MEDS: Insulin Reg-MEDIUM-Coverage SC SCH ×4 (08:27→20:32)
--- NOTE | 2018-04-03 08:49 | RAD ---
HISTORY: intubated COMPARISON: 04/01/2018. FINDINGS: The endotracheal tube terminates 1.6 cm proximal to the teodoro. LUNGS: The lungs are well inflated. PLEURA: There is a small left pleural effusion, no pneumothorax apparent. CARDIOVASCULAR: Normal. OSSEOUS STRUCTURES: No significant abnormalities. VISUALIZED UPPER ABDOMEN: Normal. OTHER FINDINGS: None. IMPRESSION: Endotracheal tube terminates 1.6 cm proximal to the teodoro. Small left pleural effusion.
--- NOTE | 2018-04-03 09:16 | OP ---
PROCEDURE DATE: 04/01/2018 SURGEON: Cain Willingham MD PREOPERATIVE DIAGNOSIS: Bilateral chronic subdural hematomas. POSTOPERATIVE DIAGNOSIS: Bilateral chronic subdural hematomas. OPERATIVE PROCEDURES: Bilateral craniotomies, evacuation of subdural hematomas. INDICATIONS: This is an 82-year-old gentleman with several days' history of change in mental status. He was brought to the emergency room, barely arousable. He was intubated to protect his airway and on examination, after intubation, he was attempting to localize the pain. His pupils were small and his eyes were disconjugate. He had bilateral subdural hygromas, right greater than left. I was at the insistence of the family that he will be treated maximally. DESCRIPTION OF PROCEDURE: He was taken to the operating room where he was placed in a brow-up position. His head was prepped and draped in usual manner. Two horizontal incisions were made just above the superior temporal line after instilled with lidocaine with epinephrine. The incisions were made sequentially first on the right side and then on the left side. The incision was taken sharply through the scalp. The pericranium was elevated off the scalp using electrocautery and elevator . Gelpi retractors were placed. Solitary dayami hole was placed in the posterior parietal region of the opening and a craniotome was passed around and the bone plate was removed. The underlying dura was laxed and pulsatile. The dura was incised. Pinkish xanthochromic CSF pulled out easily. Specimen was sent. Subdural space was irrigated until all the returns were clear and then had the retractors removed and a wet antibiotic soak sponge was placed into the opening. Attention was then turned to the patient's left side where the procedure was exactly repeated. Again, the findings were pinkish xanthochromic CSF under low pressure. Again, this subdural space was irrigated until all returns were clear. A 10-Sudanese red rubber catheter placed into the subdural space on the first time the left and then on the right through a separate stab wound. We irrigated through the until all the returns were clear. The dura was then reapproximated first on the left and then on the right, and then Gelfoam was placed over the both exposed dura. Bone plates were removed using 12 mm RapidFix clamps and the scalp was then reapproximated bilaterally using 3-0 Vicryl and skin dominick. Sterile dressing was applied. Sterile collection bags were attached to the drains and the drains were tacked in usual manner prior to putting the dressing on. Blood loss approximately 100. All counts were correct. Patient was taken to the ICU, nonreversed, intubated. His pupils were small. Cain Willingham MD
[2018-04-03] MEDS ORDERED: Dextrose 5%/0.45% NS 1,000 ML IV SCH (09:30)
--- NOTE | 2018-04-03 09:38 | CP.CCUPN ---
<Rony Boston - Last Filed: 04/03/18 09:34> CCU Subjective - Physician Review Events Since Last Encounter (Free Text): 04/03/18 08:00A Patient seen and examined at bedside. Patient acutely had fever overnight of 100.5, as well as urine output of 350. Patient currently is still intubated without sedation and is not responding to verbal stimuli. History limited 2/2 to this. CCU Objective - Vital Signs / Intake & Output Vital Signs (Last 4 hours): Vital Signs Pulse Resp BP Pulse Ox 04/03/18 08:05 25 H 100 04/03/18 07:10 96 H 100 04/03/18 07:00 93 H 145/94 H 100 04/03/18 06:50 103 H 98 04/03/18 06:40 100 04/03/18 06:30 108 H 98 04/03/18 06:20 113 H 99 04/03/18 06:13 106 H 04/03/18 06:10 109 H 94 L 04/03/18 06:00 102 H 148/76 94 L 04/03/18 05:50 100 H 97 04/03/18 05:40 93 H 97 Intake and Output (Last 8hrs): Intake & Output 04/02/18 04/03/18 04/03/18 22:59 06:59 14:59 Intake Total 600 1200 Output Total 350 375 Balance 250 825 Weight 81.363 kg Intake: IV 600 1100 Left Wrist 600 1100 Oral 0 Other 100 Output: Drainage 25 Right Head 25 Urine 350 350 Urethral (No) 350 350 Other: # Voids Urethral (No) 0 # Bowel Movements 0 0 - Physical Exam Head: Positive for: Swelling (right temporal/occiptal swelling), Ecchymosis ( right auricular ) Pupils: Positive for: Sluggish Conjunctiva: Positive for: Normal Ears: Positive for: Other (ecchymosis right ear) Nose (External): Positive for: Atraumatic Respiratory/Chest: Positive for: Decreased Breath Sounds Cardiovascular: Positive for: Normal S1, S2, Tachycardic Abdomen: Positive for: Normal Bowel Sounds Upper Extremity: Negative for: Normal Inspection Lower Extremity: Negative for: Normal Inspection Neurological: Positive for: Other (GCS 3) Skin: Positive for: Warm, Dry, Abrasion (bilateral knees ) Psychiatric: Negative for: Alert, Oriented x 3 - Medications Active Medications: Active Medications Generic Name Dose Route Start Last Admin Trade Name Freq PRN Reason Stop Dose Admin Sodium Chloride 1,000 mls @ 150 mls/hr 04/01/18 20:00 04/02/18 23:30 Sodium Chloride 0.9% IV 150 mls/hr .[id number] KEATON Administration Acetaminophen 1,000 mg in 100 mls @ 400 mls/hr 04/01/18 19:55 04/03/18 02:15 Ofirmev IVPB 04/03/18 19:56 400 mls/hr Q6H PRN Administration fever more then 100 F Dextrose/Sodium Chloride 1,000 mls @ 80 mls/hr 04/03/18 09:30 Dextrose 5%/0.45% Ns 1000 Ml IV .[id number] [facility] Insulin Human Regular 0 units 04/01/18 22:00 04/03/18 08:27 Humulin R Med SC Not Given [facility] Protocol Labetalol HCl 20 mg 04/02/18 13:39 Trandate IV Q6 PRN Other Metoprolol Tartrate 5 mg 04/02/18 10:04 04/03/18 01:59 Lopressor IVP 5 mg Q6H PRN Administration Heart rate > 110 Pantoprazole Sodium 40 mg 04/02/18 10:00 04/02/18 11:00 Protonix Inj IVP 40 mg DAILY KEATON Administration - Patient Studies Lab Studies: Microbiology Studies 04/01/18 22:45 MRSA Culture (Admit) - Final Naris MRSA NOT DETECTED Lab Studies 04/03/18 04/03/18 04/03/18 Range/Units 06:28 06:28 06:28 WBC 8.7 (4.5-11.0) 10^3/ul RBC 2.97 L (3.5-6.1) 10^6/uL Hgb 9.4 L (14.0-18.0) g/dL Hct 28.0 L (42.0-52.0) % MCV 94.3 (80.0-105.0) fl MCH 31.6 (25.0-35.0) pg MCHC 33.6 (31.0-37.0) g/dl RDW 14.5 (11.5-14.5) % Plt Count 150 (120.0-450.0) 10^3/uL MPV 10.5 (7.0-11.0) fl Gran % 83.4 H (50.0-68.0) % Lymph % (Auto) 11.6 L (22.0-35.0) % [place] % (Auto) 4.7 (1.0-6.0) % Eos % (Auto) 0.2 L (1.5-5.0) % Baso % (Auto) 0.1 (0.0-3.0) % Gran # 7.25 H (1.4-6.5) Lymph # (Auto) 1.0 L (1.2-3.4) [place] # (Auto) 0.4 (0.1-0.6) Eos # (Auto) 0.0 (0.0-0.7) Baso # (Auto) 0.01 (0.0-2.0) K/mm3 PT (9.4-12.5) SECONDS INR (0.93-1.08) pCO2 28 L (35-45) mm/Hg pO2 199.0 H (80-100) mm/Hg HCO3 16.9 L (21-28) mmol/L ABG pH 7.39 (7.35-7.45) ABG Total CO2 17.8 L (22-28) mmol.L ABG O2 Saturation 99.0 H (95-98) % ABG O2 Content 25.2 H (15-23) ML/dl ABG Base Excess -6.1 L (-2.0-3.0) mmol/L ABG Hemoglobin 18.3 H (11.7-17.4) g/dL ABG Carboxyhemoglobin 1.3 (0.5-1.5) % POC ABG HHb (Measured) 1.0 (0-5) % ABG Methemoglobin 1.1 (0.0-3.0) % ABG O2 Capacity 25.5 H (16-24) mL/dl Hgb O2 Saturation 96.6 (95.0-98.0) % FiO2 50.0 % Sodium 150 H (132-148) mmol/L Potassium 4.0 (3.6-5.0) mmol/L Chloride 118 H (98-107) mmol/L Carbon Dioxide 20 L (21-33) mmol/L Anion Gap 16 (10-20) BUN 34 H (7-21) mg/dL Creatinine 1.4 (0.8-1.5) mg/dl Est GFR ( Amer) 59 Est GFR (Non-Af Amer) 49 POC Glucose (mg/dL) (65-110) mg/dL Random Glucose 154 H (70-110) mg/dL Calcium 8.1 L (8.4-10.5) mg/dL Phosphorus 3.3 (2.5-4.5) mg/dL Magnesium 1.9 (1.7-2.2) mg/dL Total Bilirubin 0.9 (0.2-1.3) mg/dL AST 169 H D (17-59) U/L ALT 82 H (7-56) U/L Alkaline Phosphatase 65 (38-126) U/L Total Protein 5.5 L (5.8-8.3) g/dL Albumin 2.5 L (3.0-4.8) g/dL Globulin 3.0 gm/dL Albumin/Globulin Ratio 0.8 L (1.1-1.8) Blood Type Antibody Screen Crossmatch BBK History Checked 04/02/18 04/02/18 04/02/18 Range/Units 23:19 17:42 12:00 WBC (4.5-11.0) 10^3/ul RBC (3.5-6.1) 10^6/uL Hgb (14.0-18.0) g/dL Hct (42.0-52.0) % MCV (80.0-105.0) fl MCH (25.0-35.0) pg MCHC (31.0-37.0) g/dl RDW (11.5-14.5) % Plt Count (120.0-450.0) 10^3/uL MPV (7.0-11.0) fl Gran % (50.0-68.0) % Lymph % (Auto) (22.0-35.0) % [place] % (Auto) (1.0-6.0) % Eos % (Auto) (1.5-5.0) % Baso % (Auto) (0.0-3.0) % Gran # (1.4-6.5) Lymph # (Auto) (1.2-3.4) [place] # (Auto) (0.1-0.6) Eos # (Auto) (0.0-0.7) Baso # (Auto) (0.0-2.0) K/mm3 PT 14.0 H (9.4-12.5) SECONDS INR 1.21 H (0.93-1.08) pCO2 (35-45) mm/Hg pO2 (80-100) mm/Hg HCO3 (21-28) mmol/L ABG pH (7.35-7.45) ABG Total CO2 (22-28) mmol.L ABG O2 Saturation (95-98) % ABG O2 Content (15-23) ML/dl ABG Base Excess (-2.0-3.0) mmol/L ABG Hemoglobin (11.7-17.4) g/dL ABG Carboxyhemoglobin (0.5-1.5) % POC ABG HHb (Measured) (0-5) % ABG Methemoglobin (0.0-3.0) % ABG O2 Capacity (16-24) mL/dl Hgb O2 Saturation (95.0-98.0) % FiO2 % Sodium (132-148) mmol/L Potassium (3.6-5.0) mmol/L Chloride (98-107) mmol/L Carbon Dioxide (21-33) mmol/L Anion Gap (10-20) BUN (7-21) mg/dL Creatinine (0.8-1.5) mg/dl Est GFR ( Amer) Est GFR (Non-Af Amer) POC Glucose (mg/dL) 154 H 178 H (65-110) mg/dL Random Glucose (70-110) mg/dL Calcium (8.4-10.5) mg/dL Phosphorus (2.5-4.5) mg/dL Magnesium (1.7-2.2) mg/dL Total Bilirubin (0.2-1.3) mg/dL AST (17-59) U/L ALT (7-56) U/L Alkaline Phosphatase (38-126) U/L Total Protein (5.8-8.3) g/dL Albumin (3.0-4.8) g/dL Globulin gm/dL Albumin/Globulin Ratio (1.1-1.8) Blood Type Antibody Screen Crossmatch BBK History Checked 04/02/18 04/01/18 Range/Units 11:56 19:53 WBC (4.5-11.0) 10^3/ul RBC (3.5-6.1) 10^6/uL Hgb (14.0-18.0) g/dL Hct (42.0-52.0) % MCV (80.0-105.0) fl MCH (25.0-35.0) pg MCHC (31.0-37.0) g/dl RDW (11.5-14.5) % Plt Count (120.0-450.0) 10^3/uL MPV (7.0-11.0) fl Gran % (50.0-68.0) % Lymph % (Auto) (22.0-35.0) % [place] % (Auto) (1.0-6.0) % Eos % (Auto) (1.5-5.0) % Baso % (Auto) (0.0-3.0) % Gran # (1.4-6.5) Lymph # (Auto) (1.2-3.4) [place] # (Auto) (0.1-0.6) Eos # (Auto) (0.0-0.7) Baso # (Auto) (0.0-2.0) K/mm3 PT (9.4-12.5) SECONDS INR (0.93-1.08) pCO2 (35-45) mm/Hg pO2 (80-100) mm/Hg HCO3 (21-28) mmol/L ABG pH (7.35-7.45) ABG Total CO2 (22-28) mmol.L ABG O2 Saturation (95-98) % ABG O2 Content (15-23) ML/dl ABG Base Excess (-2.0-3.0) mmol/L ABG Hemoglobin (11.7-17.4) g/dL ABG Carboxyhemoglobin (0.5-1.5) % POC ABG HHb (Measured) (0-5) % ABG Methemoglobin (0.0-3.0) % ABG O2 Capacity (16-24) mL/dl Hgb O2 Saturation (95.0-98.0) % FiO2 % Sodium (132-148) mmol/L Potassium (3.6-5.0) mmol/L Chloride (98-107) mmol/L Carbon Dioxide (21-33) mmol/L Anion Gap (10-20) BUN (7-21) mg/dL Creatinine (0.8-1.5) mg/dl Est GFR ( Amer) Est GFR (Non-Af Amer) POC Glucose (mg/dL) 160 H (65-110) mg/dL Random Glucose (70-110) mg/dL Calcium (8.4-10.5) mg/dL Phosphorus (2.5-4.5) mg/dL Magnesium (1.7-2.2) mg/dL Total Bilirubin (0.2-1.3) mg/dL AST (17-59) U/L ALT (7-56) U/L Alkaline Phosphatase (38-126) U/L Total Protein (5.8-8.3) g/dL Albumin (3.0-4.8) g/dL Globulin gm/dL Albumin/Globulin Ratio (1.1-1.8) Blood Type O POSITIVE Antibody Screen Negative Crossmatch See Detail BBK History Checked No verified bt Laboratory Results - last 24 hr 04/01/18 04/02/18 04/02/18 19:53 11:56 12:00 WBC RBC Hgb Hct MCV MCH MCHC RDW Plt Count MPV Gran % Lymph % (Auto) [place] % (Auto) Eos % (Auto) Baso % (Auto) Gran # Lymph # (Auto) [place] # (Auto) Eos # (Auto) Baso # (Auto) PT 14.0 H INR 1.21 H pCO2 pO2 HCO3 ABG pH ABG Total CO2 ABG O2 Saturation ABG O2 Content ABG Base Excess ABG Hemoglobin ABG Carboxyhemoglobin POC ABG HHb (Measured) ABG Methemoglobin ABG O2 Capacity Hgb O2 Saturation FiO2 Sodium Potassium Chloride Carbon Dioxide Anion Gap BUN Creatinine Est GFR ( Amer) Est GFR (Non-Af Amer) POC Glucose (mg/dL) 160 H Random Glucose Calcium Phosphorus Magnesium Total Bilirubin AST ALT Alkaline Phosphatase Total Protein Albumin Globulin Albumin/Globulin Ratio Blood Type O POSITIVE Antibody Screen Negative Crossmatch See Detail BBK History Checked No verified bt 04/02/18 04/02/18 04/03/18 17:42 23:19 06:28 WBC 8.7 RBC 2.97 L Hgb 9.4 L Hct 28.0 L MCV 94.3 MCH 31.6 MCHC 33.6 RDW 14.5 Plt Count 150 MPV 10.5 Gran % 83.4 H Lymph % (Auto) 11.6 L [place] % (Auto) 4.7 Eos % (Auto) 0.2 L Baso % (Auto) 0.1 Gran # 7.25 H Lymph # (Auto) 1.0 L [place] # (Auto) 0.4 Eos # (Auto) 0.0 Baso # (Auto) 0.01 PT INR pCO2 pO2 HCO3 ABG pH ABG Total CO2 ABG O2 Saturation ABG O2 Content ABG Base Excess ABG Hemoglobin ABG Carboxyhemoglobin POC ABG HHb (Measured) ABG Methemoglobin ABG O2 Capacity Hgb O2 Saturation FiO2 Sodium Potassium Chloride Carbon Dioxide Anion Gap BUN Creatinine Est GFR ( Amer) Est GFR (Non-Af Amer) POC Glucose (mg/dL) 178 H 154 H Random Glucose Calcium Phosphorus Magnesium Total Bilirubin AST ALT Alkaline Phosphatase Total Protein Albumin Globulin Albumin/Globulin Ratio Blood Type Antibody Screen Crossmatch BBK History Checked 04/03/18 04/03/18 06:28 06:28 WBC RBC Hgb Hct MCV MCH MCHC RDW Plt Count MPV Gran % Lymph % (Auto) [place] % (Auto) Eos % (Auto) Baso % (Auto) Gran # Lymph # (Auto) [place] # (Auto) Eos # (Auto) Baso # (Auto) PT INR pCO2 28 L pO2 199.0 H HCO3 16.9 L ABG pH 7.39 ABG Total CO2 17.8 L ABG O2 Saturation 99.0 H ABG O2 Content 25.2 H ABG Base Excess -6.1 L ABG Hemoglobin 18.3 H ABG Carboxyhemoglobin 1.3 POC ABG HHb (Measured) 1.0 ABG Methemoglobin 1.1 ABG O2 Capacity 25.5 H Hgb O2 Saturation 96.6 FiO2 50.0 Sodium 150 H Potassium 4.0 Chloride 118 H Carbon Dioxide 20 L Anion Gap 16 BUN 34 H Creatinine 1.4 Est GFR ( Amer) 59 Est GFR (Non-Af Amer) 49 POC Glucose (mg/dL) Random Glucose 154 H Calcium 8.1 L Phosphorus 3.3 Magnesium 1.9 Total Bilirubin 0.9 AST 169 H D ALT 82 H Alkaline Phosphatase 65 Total Protein 5.5 L Albumin 2.5 L Globulin 3.0 Albumin/Globulin Ratio 0.8 L Blood Type Antibody Screen Crossmatch BBK History Checked Fingerstick Blood Sugar Results: 154 Assessment/Plan - Assessment and Plan (Free Text) Assessment: 82 year old male under ICU care for Subdural Hematoma s/p drain placement requiring intubation for airway protection Hypernatremia Encephalopathy Post Op Fever - rule out PNA VS Other Infectious Etiologies 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 Willingham RE: bleeding into tube, he states this is to be expected, no need for FFP/PRBCs - Follow up CT Head ordered for tomorrow - Maintain normothermia, avoid oxygen toxicity to prevent brain exposure to free radicals - Further recommendations per NSG and Neurology Cardio - Maintain MAP - NO permissive HTN, keep BP < 140/90 - BP Parameters: SBP 100-160, maintain with labetalol PRN Pulm - Maintain oxygen saturation - Protective lung ventilation strategy - reduced FiO2 to 40%, ABG showed O2 of 199 - Vanc/Zosyn for empiric coverage GI - Continue PPX with protonix - Started OGT feedings with water flushes for Hypernatremia - Maintain euvolemia Heme - Avoid blood thinners in light of bleed, give Mechanical DVT PPX - Four factor prothrombin given; 2 U FFP being given as well as 1 U irrad plts ID - Smart-cultures - Vanc/Zosyn for post op fever empiric coverage Endo - Maintain euglycemia - Accucheks with RISS <Clark Meza - Last Filed: 04/03/18 12:08> CCU Objective - Vital Signs / Intake & Output Vital Signs (Last 4 hours): Vital Signs Pulse BP 04/03/18 10:31 114 H 150/102 H Intake and Output (Last 8hrs): Intake & Output 04/02/18 04/03/18 04/03/18 22:59 06:59 14:59 Intake Total 600 1200 Output Total 350 375 Balance 250 825 Weight 179 lb 6 oz Intake: IV 600 1100 Left Wrist 600 1100 Oral 0 Other 100 Output: Drainage 25 Right Head 25 Urine 350 350 Urethral (No) 350 350 Other: # Voids Urethral (No) 0 # Bowel Movements 0 0 - Medications Active Medications: Active Medications Generic Name Dose Route Start Last Admin Trade Name Freq PRN Reason Stop Dose Admin Acetaminophen 1,000 mg in 100 mls @ 400 mls/hr 04/01/18 19:55 04/03/18 02:15 Ofirmev IVPB 04/03/18 19:56 400 mls/hr Q6H PRN Administration fever more then 100 F Vancomycin HCl 1 gm in 250 mls @ 167 mls/hr 04/03/18 10:15 04/03/18 11:21 Vancomycin 1gm IVPB 167 mls/hr DAILY KEATON Administration Protocol Piperacillin Sod/Tazobactam Sod 2.25 gm in 100 mls @ 100 mls/hr 04/03/18 12: 00 04/03/18 11:10 Zosyn 2.25 Gm In 0.9% 100 Ml IVPB 04/03/18 18:59 100 mls/hr Q6 KEATON Administration Protocol Insulin Human Regular 0 units 04/01/18 22:00 04/03/18 08:27 Humulin R Med SC Not Given ACHS KEATON Protocol Labetalol HCl 20 mg 04/02/18 13:39 Trandate IV Q6 PRN Other Pantoprazole Sodium 40 mg 04/02/18 10:00 04/03/18 10:26 Protonix Inj IVP 40 mg DAILY KEATON Administration - Patient Studies Lab Studies: Microbiology Studies 04/01/18 22:45 MRSA Culture (Admit) - Final Naris MRSA NOT DETECTED Lab Studies 04/03/18 04/03/18 04/03/18 Range/Units 11:00 10:45 06:28 WBC (4.5-11.0) 10^3/ul RBC (3.5-6.1) 10^6/uL Hgb (14.0-18.0) g/dL Hct (42.0-52.0) % MCV (80.0-105.0) fl MCH (25.0-35.0) pg MCHC (31.0-37.0) g/dl RDW (11.5-14.5) % Plt Count (120.0-450.0) 10^3/uL MPV (7.0-11.0) fl Gran % (50.0-68.0) % Lymph % (Auto) (22.0-35.0) % [place] % (Auto) (1.0-6.0) % Eos % (Auto) (1.5-5.0) % Baso % (Auto) (0.0-3.0) % Gran # (1.4-6.5) Lymph # (Auto) (1.2-3.4) [place] # (Auto) (0.1-0.6) Eos # (Auto) (0.0-0.7) Baso # (Auto) (0.0-2.0) K/mm3 PT (9.4-12.5) SECONDS INR (0.93-1.08) pCO2 (35-45) mm/Hg pO2 120 H (80-100) mm/Hg HCO3 (21-28) mmol/L ABG pH (7.35-7.45) ABG Total CO2 (22-28) mmol.L ABG O2 Saturation (95-98) % ABG O2 Content (15-23) ML/dl ABG Base Excess (-2.0-3.0) mmol/L ABG Hemoglobin (11.7-17.4) g/dL ABG Carboxyhemoglobin (0.5-1.5) % POC ABG HHb (Measured) (0-5) % ABG Methemoglobin (0.0-3.0) % ABG O2 Capacity (16-24) mL/dl VBG pH 7.40 (7.32-7.43) VBG pCO2 30.0 L (40-60) VBG HCO3 18.6 L (21-28) mmol/l VBG Total CO2 19.5 L (22-28) mmol.L VBG O2 Sat (Calc) 94.3 H (40-65) % VBG Base Excess -5.0 L (0.0-2.0) mmol/L VBG Potassium 4.1 (3.6-5.2) mmol/L Hgb O2 Saturation (95.0-98.0) % Glucose 194 H (75-110) mg/dl Lactate 1.6 (0.7-2.1) mmol/L FiO2 21.0 % Sodium 148.0 150 H (132-148) mmol/L Potassium 4.0 (3.6-5.0) mmol/L Chloride 120.0 H 118 H (98-107) mmol/L Carbon Dioxide 20 L (21-33) mmol/L Anion Gap 16 (10-20) BUN 34 H (7-21) mg/dL Creatinine 1.4 (0.8-1.5) mg/dl Est GFR ( Amer) 59 Est GFR (Non-Af Amer) 49 POC Glucose (mg/dL) (65-110) mg/dL Random Glucose 154 H (70-110) mg/dL Calcium 8.1 L (8.4-10.5) mg/dL Phosphorus 3.3 (2.5-4.5) mg/dL Magnesium 1.9 (1.7-2.2) mg/dL Total Bilirubin 0.9 (0.2-1.3) mg/dL AST 169 H D (17-59) U/L ALT 82 H (7-56) U/L Alkaline Phosphatase 65 (38-126) U/L Total Protein 5.5 L (5.8-8.3) g/dL Albumin 2.5 L (3.0-4.8) g/dL Globulin 3.0 gm/dL Albumin/Globulin Ratio 0.8 L (1.1-1.8) Venous Blood Potassium 4.1 (3.6-5.2) mmol/L Urine Color Yellow (YELLOW) Urine Appearance Clear (CLEAR) Urine pH 6.0 (4.7-8.0) Ur Specific [place] 1.025 (1.005-1.035) Urine Protein 100 H (<30 mg/dL) mg/dL Urine Glucose (UA) Negative (NEGATIVE) mg/dL Urine Ketones 15 H (NEGATIVE) mg/dL Urine Blood Moderate H (NEGATIVE) Urine Nitrate Negative (NEGATIVE) Urine Bilirubin Small H (NEGATIVE) Urine Urobilinogen 1.0 H (<1 E.U./dL) E.U./dL Ur Leukocyte Esterase Negative (NEGATIVE) Hyacinth/uL Blood Type Antibody Screen Crossmatch BBK History Checked 04/03/18 04/03/18 04/02/18 Range/Units 06:28 06:28 23:19 WBC 8.7 (4.5-11.0) 10^3/ul RBC 2.97 L (3.5-6.1) 10^6/uL Hgb 9.4 L (14.0-18.0) g/dL Hct 28.0 L (42.0-52.0) % MCV 94.3 (80.0-105.0) fl MCH 31.6 (25.0-35.0) pg MCHC 33.6 (31.0-37.0) g/dl RDW 14.5 (11.5-14.5) % Plt Count 150 (120.0-450.0) 10^3/uL MPV 10.5 (7.0-11.0) fl Gran % 83.4 H (50.0-68.0) % Lymph % (Auto) 11.6 L (22.0-35.0) % [place] % (Auto) 4.7 (1.0-6.0) % Eos % (Auto) 0.2 L (1.5-5.0) % Baso % (Auto) 0.1 (0.0-3.0) % Gran # 7.25 H (1.4-6.5) Lymph # (Auto) 1.0 L (1.2-3.4) [place] # (Auto) 0.4 (0.1-0.6) Eos # (Auto) 0.0 (0.0-0.7) Baso # (Auto) 0.01 (0.0-2.0) K/mm3 PT (9.4-12.5) SECONDS INR (0.93-1.08) pCO2 28 L (35-45) mm/Hg pO2 199.0 H (80-100) mm/Hg HCO3 16.9 L (21-28) mmol/L ABG pH 7.39 (7.35-7.45) ABG Total CO2 17.8 L (22-28) mmol.L ABG O2 Saturation 99.0 H (95-98) % ABG O2 Content 25.2 H (15-23) ML/dl ABG Base Excess -6.1 L (-2.0-3.0) mmol/L ABG Hemoglobin 18.3 H (11.7-17.4) g/dL ABG Carboxyhemoglobin 1.3 (0.5-1.5) % POC ABG HHb (Measured) 1.0 (0-5) % ABG Methemoglobin 1.1 (0.0-3.0) % ABG O2 Capacity 25.5 H (16-24) mL/dl VBG pH (7.32-7.43) VBG pCO2 (40-60) VBG HCO3 (21-28) mmol/l VBG Total CO2 (22-28) mmol.L VBG O2 Sat (Calc) (40-65) % VBG Base Excess (0.0-2.0) mmol/L VBG Potassium (3.6-5.2) mmol/L Hgb O2 Saturation 96.6 (95.0-98.0) % Glucose (75-110) mg/dl Lactate (0.7-2.1) mmol/L FiO2 50.0 % Sodium (132-148) mmol/L Potassium (3.6-5.0) mmol/L Chloride (98-107) mmol/L Carbon Dioxide (21-33) mmol/L Anion Gap (10-20) BUN (7-21) mg/dL Creatinine (0.8-1.5) mg/dl Est GFR ( Amer) Est GFR (Non-Af Amer) POC Glucose (mg/dL) 154 H (65-110) mg/dL Random Glucose (70-110) mg/dL Calcium (8.4-10.5) mg/dL Phosphorus (2.5-4.5) mg/dL Magnesium (1.7-2.2) mg/dL Total Bilirubin (0.2-1.3) mg/dL AST (17-59) U/L ALT (7-56) U/L Alkaline Phosphatase (38-126) U/L Total Protein (5.8-8.3) g/dL Albumin (3.0-4.8) g/dL Globulin gm/dL Albumin/Globulin Ratio (1.1-1.8) Venous Blood Potassium (3.6-5.2) mmol/L Urine Color (YELLOW) Urine Appearance (CLEAR) Urine pH (4.7-8.0) Ur Specific [place] (1.005-1.035) Urine Protein (<30 mg/dL) mg/dL Urine Glucose (UA) (NEGATIVE) mg/dL Urine Ketones (NEGATIVE) mg/dL Urine Blood (NEGATIVE) Urine Nitrate (NEGATIVE) Urine Bilirubin (NEGATIVE) Urine Urobilinogen (<1 E.U./dL) E.U./dL Ur Leukocyte Esterase (NEGATIVE) Hyacinth/uL Blood Type Antibody Screen Crossmatch BBK History Checked 04/02/18 04/02/18 04/01/18 Range/Units 17:42 12:00 19:53 WBC (4.5-11.0) 10^3/ul RBC (3.5-6.1) 10^6/uL Hgb (14.0-18.0) g/dL Hct (42.0-52.0) % MCV (80.0-105.0) fl MCH (25.0-35.0) pg MCHC (31.0-37.0) g/dl RDW (11.5-14.5) % Plt Count (120.0-450.0) 10^3/uL MPV (7.0-11.0) fl Gran % (50.0-68.0) % Lymph % (Auto) (22.0-35.0) % [place] % (Auto) (1.0-6.0) % Eos % (Auto) (1.5-5.0) % Baso % (Auto) (0.0-3.0) % Gran # (1.4-6.5) Lymph # (Auto) (1.2-3.4) [place] # (Auto) (0.1-0.6) Eos # (Auto) (0.0-0.7) Baso # (Auto) (0.0-2.0) K/mm3 PT 14.0 H (9.4-12.5) SECONDS INR 1.21 H (0.93-1.08) pCO2 (35-45) mm/Hg pO2 (80-100) mm/Hg HCO3 (21-28) mmol/L ABG pH (7.35-7.45) ABG Total CO2 (22-28) mmol.L ABG O2 Saturation (95-98) % ABG O2 Content (15-23) ML/dl ABG Base Excess (-2.0-3.0) mmol/L ABG Hemoglobin (11.7-17.4) g/dL ABG Carboxyhemoglobin (0.5-1.5) % POC ABG HHb (Measured) (0-5) % ABG Methemoglobin (0.0-3.0) % ABG O2 Capacity (16-24) mL/dl VBG pH (7.32-7.43) VBG pCO2 (40-60) VBG HCO3 (21-28) mmol/l VBG Total CO2 (22-28) mmol.L VBG O2 Sat (Calc) (40-65) % VBG Base Excess (0.0-2.0) mmol/L VBG Potassium (3.6-5.2) mmol/L Hgb O2 Saturation (95.0-98.0) % Glucose (75-110) mg/dl Lactate (0.7-2.1) mmol/L FiO2 % Sodium (132-148) mmol/L Potassium (3.6-5.0) mmol/L Chloride (98-107) mmol/L Carbon Dioxide (21-33) mmol/L Anion Gap (10-20) BUN (7-21) mg/dL Creatinine (0.8-1.5) mg/dl Est GFR ( Amer) Est GFR (Non-Af Amer) POC Glucose (mg/dL) 178 H (65-110) mg/dL Random Glucose (70-110) mg/dL Calcium (8.4-10.5) mg/dL Phosphorus (2.5-4.5) mg/dL Magnesium (1.7-2.2) mg/dL Total Bilirubin (0.2-1.3) mg/dL AST (17-59) U/L ALT (7-56) U/L Alkaline Phosphatase (38-126) U/L Total Protein (5.8-8.3) g/dL Albumin (3.0-4.8) g/dL Globulin gm/dL Albumin/Globulin Ratio (1.1-1.8) Venous Blood Potassium (3.6-5.2) mmol/L Urine Color (YELLOW) Urine Appearance (CLEAR) Urine pH (4.7-8.0) Ur Specific [place] (1.005-1.035) Urine Protein (<30 mg/dL) mg/dL Urine Glucose (UA) (NEGATIVE) mg/dL Urine Ketones (NEGATIVE) mg/dL Urine Blood (NEGATIVE) Urine Nitrate (NEGATIVE) Urine Bilirubin (NEGATIVE) Urine Urobilinogen (<1 E.U./dL) E.U./dL Ur Leukocyte Esterase (NEGATIVE) Hyacinth/uL Blood Type O POSITIVE Antibody Screen Negative Crossmatch See Detail BBK History Checked No verified bt Laboratory Results - last 24 hr 04/01/18 04/02/18 04/02/18 19:53 12:00 17:42 WBC RBC Hgb Hct MCV MCH MCHC RDW Plt Count MPV Gran % Lymph % (Auto) [place] % (Auto) Eos % (Auto) Baso % (Auto) Gran # Lymph # (Auto) [place] # (Auto) Eos # (Auto) Baso # (Auto) PT 14.0 H INR 1.21 H pCO2 pO2 HCO3 ABG pH ABG Total CO2 ABG O2 Saturation ABG O2 Content ABG Base Excess ABG Hemoglobin ABG Carboxyhemoglobin POC ABG HHb (Measured) ABG Methemoglobin ABG O2 Capacity VBG pH VBG pCO2 VBG HCO3 VBG Total CO2 VBG O2 Sat (Calc) VBG Base Excess VBG Potassium Hgb O2 Saturation Glucose Lactate FiO2 Sodium Potassium Chloride Carbon Dioxide Anion Gap BUN Creatinine Est GFR ( Amer) Est GFR (Non-Af Amer) POC Glucose (mg/dL) 178 H Random Glucose Calcium Phosphorus Magnesium Total Bilirubin AST ALT Alkaline Phosphatase Total Protein Albumin Globulin Albumin/Globulin Ratio Venous Blood Potassium Urine Color Urine Appearance Urine pH Ur Specific [place] Urine Protein Urine Glucose (UA) Urine Ketones Urine Blood Urine Nitrate Urine Bilirubin Urine Urobilinogen Ur Leukocyte Esterase Blood Type O POSITIVE Antibody Screen Negative Crossmatch See Detail BBK History Checked No verified bt 04/02/18 04/03/18 04/03/18 23:19 06:28 06:28 WBC 8.7 RBC 2.97 L Hgb 9.4 L Hct 28.0 L MCV 94.3 MCH 31.6 MCHC 33.6 RDW 14.5 Plt Count 150 MPV 10.5 Gran % 83.4 H Lymph % (Auto) 11.6 L [place] % (Auto) 4.7 Eos % (Auto) 0.2 L Baso % (Auto) 0.1 Gran # 7.25 H Lymph # (Auto) 1.0 L [place] # (Auto) 0.4 Eos # (Auto) 0.0 Baso # (Auto) 0.01 PT INR pCO2 28 L pO2 199.0 H HCO3 16.9 L ABG pH 7.39 ABG Total CO2 17.8 L ABG O2 Saturation 99.0 H ABG O2 Content 25.2 H ABG Base Excess -6.1 L ABG Hemoglobin 18.3 H ABG Carboxyhemoglobin 1.3 POC ABG HHb (Measured) 1.0 ABG Methemoglobin 1.1 ABG O2 Capacity 25.5 H VBG pH VBG pCO2 VBG HCO3 VBG Total CO2 VBG O2 Sat (Calc) VBG Base Excess VBG Potassium Hgb O2 Saturation 96.6 Glucose Lactate FiO2 50.0 Sodium Potassium Chloride Carbon Dioxide Anion Gap BUN Creatinine Est GFR ( Amer) Est GFR (Non-Af Amer) POC Glucose (mg/dL) 154 H Random Glucose Calcium Phosphorus Magnesium Total Bilirubin AST ALT Alkaline Phosphatase Total Protein Albumin Globulin Albumin/Globulin Ratio Venous Blood Potassium Urine Color Urine Appearance Urine pH Ur Specific [place] Urine Protein Urine Glucose (UA) Urine Ketones Urine Blood Urine Nitrate Urine Bilirubin Urine Urobilinogen Ur Leukocyte Esterase Blood Type Antibody Screen Crossmatch BBK History Checked 04/03/18 04/03/18 04/03/18 06:28 10:45 11:00 WBC RBC Hgb Hct MCV MCH MCHC RDW Plt Count MPV Gran % Lymph % (Auto) [place] % (Auto) Eos % (Auto) Baso % (Auto) Gran # Lymph # (Auto) [place] # (Auto) Eos # (Auto) Baso # (Auto) PT INR pCO2 pO2 120 H HCO3 ABG pH ABG Total CO2 ABG O2 Saturation ABG O2 Content ABG Base Excess ABG Hemoglobin ABG Carboxyhemoglobin POC ABG HHb (Measured) ABG Methemoglobin ABG O2 Capacity VBG pH 7.40 VBG pCO2 30.0 L VBG HCO3 18.6 L VBG Total CO2 19.5 L VBG O2 Sat (Calc) 94.3 H VBG Base Excess -5.0 L VBG Potassium 4.1 Hgb O2 Saturation Glucose 194 H Lactate 1.6 FiO2 21.0 Sodium 150 H 148.0 Potassium 4.0 Chloride 118 H 120.0 H Carbon Dioxide 20 L Anion Gap 16 BUN 34 H Creatinine 1.4 Est GFR ( Amer) 59 Est GFR (Non-Af Amer) 49 POC Glucose (mg/dL) Random Glucose 154 H Calcium 8.1 L Phosphorus 3.3 Magnesium 1.9 Total Bilirubin 0.9 AST 169 H D ALT 82 H Alkaline Phosphatase 65 Total Protein 5.5 L Albumin 2.5 L Globulin 3.0 Albumin/Globulin Ratio 0.8 L Venous Blood Potassium 4.1 Urine Color Yellow Urine Appearance Clear Urine pH 6.0 Ur Specific [place] 1.025 Urine Protein 100 H Urine Glucose (UA) Negative Urine Ketones 15 H Urine Blood Moderate H Urine Nitrate Negative Urine Bilirubin Small H Urine Urobilinogen 1.0 H Ur Leukocyte Esterase Negative Blood Type Antibody Screen Crossmatch BBK History Checked Attending/Attestation - Attestation I have personally seen and examined this patient.: Yes I have fully participated in the care of the patient.: Yes I have reviewed all pertinent clinical information: Yes Notes (Text): 04/03/18 12:05 The patient was seen and examined at the bedside. Patient care was discussed with resident Medical records, lab studies, and imaging were reviewed and management issues were discussed and formulated. Last 24H events reviewed. Agree with above treatment plans as outlined in 's note with addition of the following: Acute respiratory failure \ Hypoxemia \ Subdural hematoma \ Afib \ Encephaloapthy \ Elevated LFT \ DM 2 -hemodynamic monitoring to maintain MAP>65; B\P control as per neurosurgery parameters with labetalol PRN -mechanical ventilation and o2 supplementation to maintain Spo2>90 Pao2>60 -ABG and CXR reviewed in AM; Fio2 decreased to 40% -monitor for TV 6ml\kg IBW and plateau pressure <30 -start broad spectrum Abx ; f\u pancultures; consider ID eval -neurosurgery team following closely post-op and reiterating poor prognosis -f\u repeat CT head tomorrow -neurology team f\u -f\u Bun\Cr and U\o; discontinue IVF; monitor serial Na+; start free H2O -start tube feeds diet and continue aspiration precautions -ISS and BGM monitoring to maintain euglycemia -f\u serial LFT -continue neuro checks as per neurosurgery protocol -DVT\PUD prophylaxis prophylaxis -Palliation team eval CCM f\u time 35
[2018-04-03 11:09] LABS: VENOUS BLOOD GAS PO2 120 mm/Hg (30-55)
[2018-04-03] MEDS: Piperacillin/Tazobact 2.25gm 2.25 GM/100 ML BAG IVPB SCH ×2 (11:10→18:09)
[2018-04-03 11:15] LABS: URINE BILIRUBIN SMALL (NEGATIVE); URINE BLOOD MODERATE (NEGATIVE); URINE GLUCOSE (UA) NEGATIVE (NEGATIVE); URINE LEUKOCYTE ESTERASE NEGATIVE Leu/uL (NEGATIVE); URINE PROTEIN 100 mg/dL (<30 mg/dL)
--- NOTE | 2018-04-03 11:19 | CP.PCM.PN ---
Subjective - Date & Time of Evaluation Date of Evaluation: 04/03/18 Time of Evaluation: 11:19 - Subjective Subjective: ramains comatose discongigate gaze sluggish pupils int decerbrate/decorticate prog poor ct in am Objective - Vital Signs/Intake and Output Vital Signs (last 24 hours): Temp Pulse Resp BP Pulse Ox 98.2 F 114 H 25 H 150/102 H 100 04/02/18 20:09 04/03/18 10:31 04/03/18 08:05 04/03/18 10:31 04/03/18 08:05 Intake and Output: 04/03/18 04/03/18 06:59 18:59 Intake Total 1200 Output Total 375 Balance 825 - Medications Medications: Current Medications Acetaminophen (Ofirmev) 1,000 mg in 100 mls @ 400 mls/hr IVPB Q6H PRN PRN Reason: fever more then 100 F Stop: 04/03/18 19:56 Last Admin: 04/03/18 02:15 Dose: 400 mls/hr Vancomycin HCl (Vancomycin 1gm) 1 gm in 250 mls @ 167 mls/hr IVPB DAILY KEATON PRN Reason: Protocol Piperacillin Sod/Tazobactam Sod (Zosyn 2.25 Gm In 0.9% 100 Ml) 2.25 gm in 100 mls @ 100 mls/hr IVPB Q6 KEATON PRN Reason: Protocol Stop: 04/03/18 18:59 Last Admin: 04/03/18 11:10 Dose: 100 mls/hr Insulin Human Regular (Humulin R Med) 0 units SC ACHS KEATON PRN Reason: Protocol Last Admin: 04/03/18 08:27 Dose: Not Given Labetalol HCl (Trandate) 20 mg IV Q6 PRN PRN Reason: Other Pantoprazole Sodium (Protonix Inj) 40 mg IVP DAILY [facility] Last Admin: 04/03/18 10:26 Dose: 40 mg - Labs Labs: 04/03/18 06:28 04/03/18 06:28 PT 14.0 SECONDS (9.4-12.5) H 04/02/18 12:00 INR 1.21 (0.93-1.08) H 04/02/18 12:00 APTT 48.2 Seconds (25.1-36.5) H 04/01/18 14:40
[2018-04-03] MEDS: Vancomycin 1gm in NS 250ml 1 GM/250 ML BAG IVPB SCH (11:21)
--- NOTE | 2018-04-03 11:26 | CP.PCM.PN ---
<Tunde Arceo - Last Filed: 04/03/18 12:18> Subjective - Date & Time of Evaluation Date of Evaluation: 04/03/18 Time of Evaluation: 09:00 - Subjective Subjective: Patient seen and examined at bedside in no acute distress. Patient is currently intubated however off sedation. Off sedation patient is minimally responsive. ROS not obtained due to intubation. Objective - Vital Signs/Intake and Output Vital Signs (last 24 hours): Temp Pulse Resp BP Pulse Ox 98.2 F 114 H 25 H 150/102 H 100 04/02/18 20:09 04/03/18 10:31 04/03/18 08:05 04/03/18 10:31 04/03/18 08:05 Intake and Output: 04/03/18 04/03/18 06:59 18:59 Intake Total 1200 Output Total 375 Balance 825 - Medications Medications: Current Medications Acetaminophen (Ofirmev) 1,000 mg in 100 mls @ 400 mls/hr IVPB Q6H PRN PRN Reason: fever more then 100 F Stop: 04/03/18 19:56 Last Admin: 04/03/18 02:15 Dose: 400 mls/hr Vancomycin HCl (Vancomycin 1gm) 1 gm in 250 mls @ 167 mls/hr IVPB DAILY [facility] PRN Reason: Protocol Piperacillin Sod/Tazobactam Sod (Zosyn 2.25 Gm In 0.9% 100 Ml) 2.25 gm in 100 mls @ 100 mls/hr IVPB Q6 [facility]ON PRN Reason: Protocol Stop: 04/03/18 18:59 Last Admin: 04/03/18 11:10 Dose: 100 mls/hr Insulin Human Regular (Humulin R Med) 0 units SC ACHS [facility]ATON PRN Reason: Protocol Last Admin: 04/03/18 08:27 Dose: Not Given Labetalol HCl (Trandate) 20 mg IV Q6 PRN PRN Reason: Other Pantoprazole Sodium (Protonix Inj) 40 mg IVP DAILY [facility] Last Admin: 04/03/18 10:26 Dose: 40 mg - Labs Labs: 04/03/18 06:28 04/03/18 06:28 PT 14.0 SECONDS (9.4-12.5) H 04/02/18 12:00 INR 1.21 (0.93-1.08) H 04/02/18 12:00 APTT 48.2 Seconds (25.1-36.5) H 04/01/18 14:40 - Head Exam Head Exam: ATRAUMATIC, NORMAL INSPECTION, NORMOCEPHALIC - Eye Exam Eye Exam: EOMI, Normal appearance - ENT Exam ENT Exam: Mucous Membranes Moist - Neck Exam Neck Exam: Normal Inspection - Respiratory Exam Respiratory Exam: Clear to Ausculation Bilateral, NORMAL BREATHING PATTERN. absent: Rhonchi, Wheezes - Cardiovascular Exam Cardiovascular Exam: REGULAR RHYTHM, +S1, +S2 - GI/Abdominal Exam GI & Abdominal Exam: Soft, Normal Bowel Sounds - Extremities Exam Extremities Exam: Normal Inspection - Back Exam Back Exam: NORMAL INSPECTION - Neurological Exam Neurological Exam: Alert, Awake, Oriented x3 - Psychiatric Exam Psychiatric exam: Normal Affect, Normal Mood - Skin Skin Exam: Normal Color, Warm Assessment and Plan - Assessment and Plan (Free Text) Assessment: Patient is a 82 year old male with a past medical history of CVA, TIA, atrial fibrillation, hypertension, hyperlipidemia, and diabetes who presented to the emergency department for evaluation and treatment of altered mental status due to 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 Plan: Bilateral subdural hematoma -S/P hematoma evacuation POD #2 -Continue with recs as per neurosurgery -Repeat CT head done, however as per neuro this is too early to note any changes -Still drainage as of this morning -Will have repeat CT in morning CVA hx -Hold PO meds: coumadin, crestor, toprol XL -Monitor vital signs -Monitor INR Atrial fibrillation -Hold Coumadin -Monitor INR -Will consider addition of cardizem if HR is not controlled Hypertension -Monitor vital signs -Continue with Labetalol HCL Hyperlipidemia -Crestor on hold for now Hypernatremia -Mild; will continue with free water flushes via OG tube IDDM -ISS-med -continue with accuchecks Fever -Low grade fever 100.5 at 2:30 a.m. -Blood/Urine cultures re-ordered, Procalcitonin ordered -Continue to monitor GI prophylaxis: protonix DVT prophylaxis: mechanical at this time only due to brain bleed <Suman Joe - Last Filed: 04/03/18 15:45> Objective - Vital Signs/Intake and Output Vital Signs (last 24 hours): Temp Pulse Resp BP Pulse Ox 101.3 F H 108 H 22 154/101 H 100 04/03/18 14:59 04/03/18 14:59 04/03/18 14:59 04/03/18 15:00 04/03/18 14:59 Intake and Output: 04/03/18 04/03/18 06:59 18:59 Intake Total 1200 Output Total 375 Balance 825 - Medications Medications: Current Medications Acetaminophen (Ofirmev) 1,000 mg in 100 mls @ 400 mls/hr IVPB Q6H PRN PRN Reason: fever more then 100 F Stop: 04/03/18 19:56 Last Admin: 04/03/18 14:57 Dose: 400 mls/hr Vancomycin HCl (Vancomycin 1gm) 1 gm in 250 mls @ 167 mls/hr IVPB DAILY [facility]ON PRN Reason: Protocol Last Admin: 04/03/18 11:21 Dose: 167 mls/hr Piperacillin Sod/Tazobactam Sod (Zosyn 2.25 Gm In 0.9% 100 Ml) 2.25 gm in 100 mls @ 100 mls/hr IVPB Q6 [facility]ATON PRN Reason: Protocol Stop: 04/03/18 18:59 Last Admin: 04/03/18 11:10 Dose: 100 mls/hr Insulin Human Regular (Humulin R Med) 0 units SC ACHS [facility]ATON PRN Reason: Protocol Last Admin: 04/03/18 12:46 Dose: 1 unit Labetalol HCl (Trandate) 20 mg IV Q6 PRN PRN Reason: Other Pantoprazole Sodium (Protonix Inj) 40 mg IVP DAILY [facility] Last Admin: 04/03/18 10:26 Dose: 40 mg - Labs Labs: 04/03/18 06:28 04/03/18 06:28 PT 14.0 SECONDS (9.4-12.5) H 04/02/18 12:00 INR 1.21 (0.93-1.08) H 04/02/18 12:00 APTT 48.2 Seconds (25.1-36.5) H 04/01/18 14:40 Attending/Attestation - Attestation I have personally seen and examined this patient.: Yes I have fully participated in the care of the patient.: Yes I have reviewed all pertinent clinical information, including history, physical exam and plan: Yes Notes (Text): 04/03/18 15:43 Medical record note made by the resident after discussion with my direction and input after the patient was personally seen and examined by me. I have reviewed the chart and agree that the record accurately reflects by personal performance of the history, physical exam, data review, and medical decision-making, in the course for the patient. I have also personally directed the plan of care. 82 year old male with a past medical history of CVA, , atrial fibrillation on Apixiban, hypertension, hyperlipidemia, and diabetes who presented to the emergency department for evaluation and treatment of altered mental status, found to have bilateral subdural hematomas..He was evaluated by Neurosurgery and underwent evacuation of hematoma.Patient mental status is poor.Hospice is consulted. HTN, stable on PRN Labetalol. AF , Rate is controlled, not on anticoagulation due to sub dural hematoma. Prognosis is guarded.
[2018-04-03 11:50] LABS: URINE APPEARANCE CLEAR (CLEAR); URINE COLOR YELLOW (YELLOW)
--- NOTE | 2018-04-03 12:40 | CP.PCM.CON ---
History of Present Illness - History of Present Illness History of Present Illness: Palliative consult requested by Reason : Goals of care 82 year old male with history of CVA, a Fib and HTN who was brought in by family on 04/01/[address] with [address] CT of the head showed bilateral acute on chronic subdural hemaotma. The patient had a craniotomy with evacuation on He remains intubated and sedated in the ICU. GCS 5. PMHx: A Fib on Elequis, ischemic stroke, HTN, HKD, DM, head injury Social History: Never smoker, no alcohol or drug use. Lives with son. Family History:Non contributory. Advance Care Planning: The patient does not have an Advanced Directive. Son, Kvng Vera Jr. is next of kin Review of Systems: As per HPI, patient is unresponsive. Past Patient History - Infectious Disease Hx of Infectious Diseases: None - Tetanus Immunizations Tetanus Immunization: Unknown - Past Social History Smoking Status: Never Smoked - CARDIAC Hx Cardiac Disorders: No Hx Cardia Arrhythmia: Yes Hx Hypertension: Yes - PULMONARY Hx Respiratory Disorders: No Hx Tuberculosis: No - NEUROLOGICAL HX Cerebrovascular Accident: Yes Hx Dementia: Yes Hx Seizures: No - HEENT Hx HEENT Problems: No - RENAL Hx Chronic Kidney Disease: No - ENDOCRINE/METABOLIC Hx Diabetes Mellitus Type 1: Yes - HEMATOLOGICAL/ONCOLOGICAL Hx Blood Disorders: No Hx Cancer: No - INTEGUMENTARY Hx Dermatological Problems: No - MUSCULOSKELETAL/RHEUMATOLOGICAL Hx Falls: Yes - GASTROINTESTINAL Hx Gastrointestinal Disorders: No - GENITOURINARY/GYNECOLOGICAL Hx Genitourinary Disorders: No Hx Sexually Transmitted Disorders: No - PSYCHIATRIC Hx Psychophysiologic Disorder: No Hx Substance Use: No - SURGICAL HISTORY Hx Surgeries: No Other/Comment: abd surgery - ANESTHESIA Hx Anesthesia Reactions: No Hx Malignant Hyperthermia: No Meds Allergies/Adverse Reactions: Allergies Allergy/AdvReac Type Severity Reaction Status Date / Time No Known Allergies Allergy Verified 04/01/18 14:33 - Medications Medications: Current Medications Acetaminophen (Ofirmev) 1,000 mg in 100 mls @ 400 mls/hr IVPB Q6H PRN PRN Reason: fever more then 100 F Stop: 04/03/18 19:56 Last Admin: 04/03/18 02:15 Dose: 400 mls/hr Vancomycin HCl (Vancomycin 1gm) 1 gm in 250 mls @ 167 mls/hr IVPB DAILY [facility]ON PRN Reason: Protocol Last Admin: 04/03/18 11:21 Dose: 167 mls/hr Piperacillin Sod/Tazobactam Sod (Zosyn 2.25 Gm In 0.9% 100 Ml) 2.25 gm in 100 mls @ 100 mls/hr IVPB Q6 [facility] PRN Reason: Protocol Stop: 04/03/18 18:59 Last Admin: 04/03/18 11:10 Dose: 100 mls/hr Insulin Human Regular (Humulin R Med) 0 units SC ACHS KEATON PRN Reason: Protocol Last Admin: 04/03/18 08:27 Dose: Not Given Labetalol HCl (Trandate) 20 mg IV Q6 PRN PRN Reason: Other Pantoprazole Sodium (Protonix Inj) 40 mg IVP DAILY [facility] Last Admin: 04/03/18 10:26 Dose: 40 mg Physical Exam - Constitutional Appears: Chronically Ill - Eye Exam Additional comments: corneals reactive - ENT Exam ENT Exam: Mucous Membranes Moist - Respiratory Exam Respiratory Exam: NORMAL BREATHING PATTERN Additional comments: intubated - Cardiovascular Exam Cardiovascular Exam: Irregular Rhythm, +S1, +S2 - GI/Abdominal Exam GI & Abdominal Exam: Normal Bowel Sounds, Soft - Extremities Exam Additional comments: withdraws right upper and lower extremity to pain - Back Exam Back exam: NORMAL INSPECTION - Skin Skin Exam: Dry, Warm - Additional Findings Additional findings: palliative performance scale rating 20% Results - Vital Signs Recent Vital Signs: Last Vital Signs Temp 98.2 F 04/02/18 20:09 Pulse 114 H 04/03/18 10:31 Resp 25 H 04/03/18 08:05 BP 150/102 H 04/03/18 10:31 Pulse Ox 100 04/03/18 08:05 - Labs Result Diagrams: 04/03/18 06:28 04/03/18 06:28 Labs: Laboratory Results - last 24 hr 04/01/18 04/02/18 04/02/18 19:53 17:42 23:19 WBC RBC Hgb Hct MCV MCH MCHC RDW Plt Count MPV Gran % Lymph % (Auto) [place] % (Auto) Eos % (Auto) Baso % (Auto) Gran # Lymph # (Auto) [place] # (Auto) Eos # (Auto) Baso # (Auto) pCO2 pO2 HCO3 ABG pH ABG Total CO2 ABG O2 Saturation ABG O2 Content ABG Base Excess ABG Hemoglobin ABG Carboxyhemoglobin POC ABG HHb (Measured) ABG Methemoglobin ABG O2 Capacity VBG pH VBG pCO2 VBG HCO3 VBG Total CO2 VBG O2 Sat (Calc) VBG Base Excess VBG Potassium Hgb O2 Saturation Glucose Lactate FiO2 Sodium Potassium Chloride Carbon Dioxide Anion Gap BUN Creatinine Est GFR ( Amer) Est GFR (Non-Af Amer) POC Glucose (mg/dL) 178 H 154 H Random Glucose Calcium Phosphorus Magnesium Total Bilirubin AST ALT Alkaline Phosphatase Total Protein Albumin Globulin Albumin/Globulin Ratio Venous Blood Potassium Urine Color Urine Appearance Urine pH Ur Specific [place] Urine Protein Urine Glucose (UA) Urine Ketones Urine Blood Urine Nitrate Urine Bilirubin Urine Urobilinogen Ur Leukocyte Esterase Blood Type O POSITIVE Antibody Screen Negative Crossmatch See Detail BBK History Checked No verified bt 04/03/18 04/03/18 04/03/18 06:28 06:28 06:28 WBC 8.7 RBC 2.97 L Hgb 9.4 L Hct 28.0 L MCV 94.3 MCH 31.6 MCHC 33.6 RDW 14.5 Plt Count 150 MPV 10.5 Gran % 83.4 H Lymph % (Auto) 11.6 L [place] % (Auto) 4.7 Eos % (Auto) 0.2 L Baso % (Auto) 0.1 Gran # 7.25 H Lymph # (Auto) 1.0 L [place] # (Auto) 0.4 Eos # (Auto) 0.0 Baso # (Auto) 0.01 pCO2 28 L pO2 199.0 H HCO3 16.9 L ABG pH 7.39 ABG Total CO2 17.8 L ABG O2 Saturation 99.0 H ABG O2 Content 25.2 H ABG Base Excess -6.1 L ABG Hemoglobin 18.3 H ABG Carboxyhemoglobin 1.3 POC ABG HHb (Measured) 1.0 ABG Methemoglobin 1.1 ABG O2 Capacity 25.5 H VBG pH VBG pCO2 VBG HCO3 VBG Total CO2 VBG O2 Sat (Calc) VBG Base Excess VBG Potassium Hgb O2 Saturation 96.6 Glucose Lactate FiO2 50.0 Sodium 150 H Potassium 4.0 Chloride 118 H Carbon Dioxide 20 L Anion Gap 16 BUN 34 H Creatinine 1.4 Est GFR ( Amer) 59 Est GFR (Non-Af Amer) 49 POC Glucose (mg/dL) Random Glucose 154 H Calcium 8.1 L Phosphorus 3.3 Magnesium 1.9 Total Bilirubin 0.9 AST 169 H D ALT 82 H Alkaline Phosphatase 65 Total Protein 5.5 L Albumin 2.5 L Globulin 3.0 Albumin/Globulin Ratio 0.8 L Venous Blood Potassium Urine Color Urine Appearance Urine pH Ur Specific [place] Urine Protein Urine Glucose (UA) Urine Ketones Urine Blood Urine Nitrate Urine Bilirubin Urine Urobilinogen Ur Leukocyte Esterase Blood Type Antibody Screen Crossmatch BBK History Checked 04/03/18 04/03/18 10:45 11:00 WBC RBC Hgb Hct MCV MCH MCHC RDW Plt Count MPV Gran % Lymph % (Auto) [place] % (Auto) Eos % (Auto) Baso % (Auto) Gran # Lymph # (Auto) [place] # (Auto) Eos # (Auto) Baso # (Auto) pCO2 pO2 120 H HCO3 ABG pH ABG Total CO2 ABG O2 Saturation ABG O2 Content ABG Base Excess ABG Hemoglobin ABG Carboxyhemoglobin POC ABG HHb (Measured) ABG Methemoglobin ABG O2 Capacity VBG pH 7.40 VBG pCO2 30.0 L VBG HCO3 18.6 L VBG Total CO2 19.5 L VBG O2 Sat (Calc) 94.3 H VBG Base Excess -5.0 L VBG Potassium 4.1 Hgb O2 Saturation Glucose 194 H Lactate 1.6 FiO2 21.0 Sodium 148.0 Potassium Chloride 120.0 H Carbon Dioxide Anion Gap BUN Creatinine Est GFR ( Amer) Est GFR (Non-Af Amer) POC Glucose (mg/dL) Random Glucose Calcium Phosphorus Magnesium Total Bilirubin AST ALT Alkaline Phosphatase Total Protein Albumin Globulin Albumin/Globulin Ratio Venous Blood Potassium 4.1 Urine Color Yellow Urine Appearance Clear Urine pH 6.0 Ur Specific [place] 1.025 Urine Protein 100 H Urine Glucose (UA) Negative Urine Ketones 15 H Urine Blood Moderate H Urine Nitrate Negative Urine Bilirubin Small H Urine Urobilinogen 1.0 H Ur Leukocyte Esterase Negative Blood Type Antibody Screen Crossmatch BBK History Checked Assessment & Plan - Assessment and Plan (Free Text) Assessment: 82 year old male with history of ischemic stroke, HTN, HLD and A Fib who was admitted wit bilateral subdural hemaotmas. He is s/p craniotomy and evacuation on 04/02/18. He is intubated , but not sedated. GCS -5 The patient is not responding to painful stimuli I spoke with patients son,Kvng Manuel via phone. Updated him of patient condition. Goals of care discussion ensued. Son states that he has three other siblings who must collectively agree on decisions regarding father's care. Explained that if fathers condition does not improve, family would have to decide about resuscitation, and possibly Trach / PEG. Son states that they recently lost their mother in November to a similar situation> Son intends to come to hospital this evening. He will also reach out to his family regarding our conversation and goals of care. Psychosocial support provided. Time spent in conversation with son regarding goals of care, 20 minutes Plan: Subdural hematoma: s/p evacuation, continue antihypertensive meds, monitor H&H, repeat CT of head, EEG?. Neuro recommendations [place]: DVT prophylaxis, Eleqis on hold Pulmonary: Continue Vent support, maintain O2 sats, monitor ABG Cardiology: MAP >g5, BP< 140/90, continue Labetelol ID: Blood cultures negative. On Vanco and Fabi, ID recs Goals of care and advance care planning
[2018-04-03 12:57] LABS: URINE BACTERIA MOD (NEG)
[2018-04-03 12:58] LABS: URINE AMORPHOUS SEDIMENT FEW
--- NOTE | 2018-04-03 12:59 | RAD ---
HISTORY: s/p OGT COMPARISON: 04/03/2018 at 5:17 a.m. FINDINGS: LUNGS: Linear scar/atelectasis at left base. No harry pulmonary infiltrate. PLEURA: No significant pleural effusion identified, no pneumothorax apparent. CARDIOVASCULAR: Normal heart size. No congestive change. ET tube unchanged. New NG tube does not extend beneath the left hemidiaphragm and should be repositioned or replaced. OSSEOUS STRUCTURES: No significant abnormalities. VISUALIZED UPPER ABDOMEN: Normal. OTHER FINDINGS: None. IMPRESSION: New nasogastric tube does not extend beneath the diaphragm. This should be repositioned or replaced.
[2018-04-03] MEDS ORDERED: Morphine 2 mg/ml ISec IVP STA (16:08)
[2018-04-03 16:32] LABS: ALB/GLOB RATIO 0.9 (1.1-1.8); ALBUMIN 2.7 g/dL (3.0-4.8); CALCIUM 8.5 mg/dL (8.4-10.5)
--- NOTE | 2018-04-03 17:06 | CP.PCM.CON ---
History of Present Illness - History of Present Illness History of Present Illness: Infectious Disease Consultation: April 03, 2018 82 yo male with presentation for altered mental status on 04/01/2018. Found to have a subdural hematoma (acute on chronic). Craniotomy performed. The patient remains intubated and ventilated since the surgery. His medical history includes CVA, Atrial fibrillation, DM, and HTN. Fevers of 101.3 F but this is POD#2. No leukocytosis. PMHx: HTN, HLD, DM, Atrial fibrillation, head injury, CVA PSHx: none that I'm aware of prior to this hospitalization. Allergies: NKDA Social Hx: lives with son No tobacco, EtOH, or illicit drug use. Active Medications Acetaminophen (Ofirmev) 1,000 mg in 100 mls @ 400 mls/hr IVPB Q6H PRN PRN Reason: fever more then 100 F Stop: 04/03/18 19:56 Last Admin: 04/03/18 14:57 Dose: 400 mls/hr Vancomycin HCl (Vancomycin 1gm) 1 gm in 250 mls @ 167 mls/hr IVPB DAILY [facility] PRN Reason: Protocol Last Admin: 04/03/18 11:21 Dose: 167 mls/hr Piperacillin Sod/Tazobactam Sod (Zosyn 2.25 Gm In 0.9% 100 Ml) 2.25 gm in 100 mls @ 100 mls/hr IVPB Q6 [facility] PRN Reason: Protocol Stop: 04/03/18 18:59 Last Admin: 04/03/18 11:10 Dose: 100 mls/hr Insulin Human Regular (Humulin R Med) 0 units SC ACHS KEATON PRN Reason: Protocol Last Admin: 04/03/18 12:46 Dose: 1 unit Labetalol HCl (Trandate) 20 mg IV Q6 PRN PRN Reason: Other Pantoprazole Sodium (Protonix Inj) 40 mg IVP DAILY [facility] Last Admin: 04/03/18 10:26 Dose: 40 mg Family Hx: Unable to Obtain at this time ROS: Unable to obtain at this time. Past Patient History - Infectious Disease Hx of Infectious Diseases: None - Tetanus Immunizations Tetanus Immunization: Unknown - Past Social History Smoking Status: Never Smoked - CARDIAC Hx Cardiac Disorders: No Hx Cardia Arrhythmia: Yes Hx Hypertension: Yes - PULMONARY Hx Respiratory Disorders: No Hx Tuberculosis: No - NEUROLOGICAL HX Cerebrovascular Accident: Yes Hx Dementia: Yes Hx Seizures: No - HEENT Hx HEENT Problems: No - RENAL Hx Chronic Kidney Disease: No - ENDOCRINE/METABOLIC Hx Diabetes Mellitus Type 1: Yes - HEMATOLOGICAL/ONCOLOGICAL Hx Blood Disorders: No Hx Cancer: No - INTEGUMENTARY Hx Dermatological Problems: No - MUSCULOSKELETAL/RHEUMATOLOGICAL Hx Falls: Yes - GASTROINTESTINAL Hx Gastrointestinal Disorders: No - GENITOURINARY/GYNECOLOGICAL Hx Genitourinary Disorders: No Hx Sexually Transmitted Disorders: No - PSYCHIATRIC Hx Psychophysiologic Disorder: No Hx Substance Use: No - SURGICAL HISTORY Hx Surgeries: No Other/Comment: abd surgery - ANESTHESIA Hx Anesthesia Reactions: No Hx Malignant Hyperthermia: No Meds Allergies/Adverse Reactions: Allergies Allergy/AdvReac Type Severity Reaction Status Date / Time No Known Allergies Allergy Verified 04/01/18 14:33 - Medications Medications: Current Medications Acetaminophen (Ofirmev) 1,000 mg in 100 mls @ 400 mls/hr IVPB Q6H PRN PRN Reason: fever more then 100 F Stop: 04/03/18 19:56 Last Admin: 04/03/18 14:57 Dose: 400 mls/hr Vancomycin HCl (Vancomycin 1gm) 1 gm in 250 mls @ 167 mls/hr IVPB DAILY [facility] PRN Reason: Protocol Last Admin: 04/03/18 11:21 Dose: 167 mls/hr Piperacillin Sod/Tazobactam Sod (Zosyn 2.25 Gm In 0.9% 100 Ml) 2.25 gm in 100 mls @ 100 mls/hr IVPB Q6 [facility] PRN Reason: Protocol Stop: 04/03/18 18:59 Last Admin: 04/03/18 11:10 Dose: 100 mls/hr Insulin Human Regular (Humulin R Med) 0 units SC ACHS [facility] PRN Reason: Protocol Last Admin: 04/03/18 12:46 Dose: 1 unit Labetalol HCl (Trandate) 20 mg IV Q6 PRN PRN Reason: Other Pantoprazole Sodium (Protonix Inj) 40 mg IVP DAILY [facility] Last Admin: 04/03/18 10:26 Dose: 40 mg Physical Exam - Constitutional Appears: Chronically Ill - Head Exam Additional comments: s/p craniotomy - Eye Exam Eye Exam: absent: Conjunctival injection, Scleral icterus Additional comments: corneals reactive. - ENT Exam ENT Exam: Mucous Membranes Moist, Normal External Ear Exam, TM's Normal Bilaterally - Neck Exam Neck exam: Positive for: Full Rom. Negative for: Tenderness Additional comments: intubated and ventilated. - Respiratory Exam Respiratory Exam: Clear to Auscultation Bilateral, NORMAL BREATHING PATTERN. absent: Rales, Rhonchi, Wheezes - Cardiovascular Exam Cardiovascular Exam: Irregular Rhythm, +S1, +S2 - GI/Abdominal Exam GI & Abdominal Exam: Normal Bowel Sounds, Soft. absent: Distended, Tenderness - Extremities Exam Extremities exam: Negative for: joint swelling, pedal edema Additional comments: withdraws right upper and lower extremity to pain - Neurological Exam Additional comments: Intubated, Ventilated, sedated. Poorly responsive even to noxious/toxic stimuli. - Skin Skin Exam: Dry, Intact, Warm Results - Vital Signs Recent Vital Signs: Last Vital Signs Temp 101.3 F H 04/03/18 14:59 Pulse 108 H 04/03/18 14:59 Resp 22 04/03/18 14:59 BP 154/101 H 04/03/18 15:00 Pulse Ox 100 04/03/18 14:59 - Labs Result Diagrams: 04/03/18 06:28 04/03/18 16:05 Labs: Laboratory Results - last 24 hr 04/02/18 04/02/18 04/03/18 17:42 23:19 06:28 WBC 8.7 RBC 2.97 L Hgb 9.4 L Hct 28.0 L MCV 94.3 MCH 31.6 MCHC 33.6 RDW 14.5 Plt Count 150 MPV 10.5 Gran % 83.4 H Lymph % (Auto) 11.6 L [place] % (Auto) 4.7 Eos % (Auto) 0.2 L Baso % (Auto) 0.1 Gran # 7.25 H Lymph # (Auto) 1.0 L [place] # (Auto) 0.4 Eos # (Auto) 0.0 Baso # (Auto) 0.01 pCO2 pO2 HCO3 ABG pH ABG Total CO2 ABG O2 Saturation ABG O2 Content ABG Base Excess ABG Hemoglobin ABG Carboxyhemoglobin POC ABG HHb (Measured) ABG Methemoglobin ABG O2 Capacity VBG pH VBG pCO2 VBG HCO3 VBG Total CO2 VBG O2 Sat (Calc) VBG Base Excess VBG Potassium Hgb O2 Saturation Glucose Lactate FiO2 Sodium Potassium Chloride Carbon Dioxide Anion Gap BUN Creatinine Est GFR ( Amer) Est GFR (Non-Af Amer) POC Glucose (mg/dL) 178 H 154 H Random Glucose Calcium Phosphorus Magnesium Total Bilirubin AST ALT Alkaline Phosphatase Total Protein Albumin Globulin Albumin/Globulin Ratio Venous Blood Potassium Urine Color Urine Appearance Urine pH Ur Specific [place] Urine Protein Urine Glucose (UA) Urine Ketones Urine Blood Urine Nitrate Urine Bilirubin Urine Urobilinogen Ur Leukocyte Esterase Urine RBC Urine WBC Ur Epithelial Cells Amorphous Sediment Urine Bacteria 04/03/18 04/03/18 04/03/18 06:28 06:28 10:45 WBC RBC Hgb Hct MCV MCH MCHC RDW Plt Count MPV Gran % Lymph % (Auto) [place] % (Auto) Eos % (Auto) Baso % (Auto) Gran # Lymph # (Auto) [place] # (Auto) Eos # (Auto) Baso # (Auto) pCO2 28 L pO2 199.0 H 120 H HCO3 16.9 L ABG pH 7.39 ABG Total CO2 17.8 L ABG O2 Saturation 99.0 H ABG O2 Content 25.2 H ABG Base Excess -6.1 L ABG Hemoglobin 18.3 H ABG Carboxyhemoglobin 1.3 POC ABG HHb (Measured) 1.0 ABG Methemoglobin 1.1 ABG O2 Capacity 25.5 H VBG pH 7.40 VBG pCO2 30.0 L VBG HCO3 18.6 L VBG Total CO2 19.5 L VBG O2 Sat (Calc) 94.3 H VBG Base Excess -5.0 L VBG Potassium 4.1 Hgb O2 Saturation 96.6 Glucose 194 H Lactate 1.6 FiO2 50.0 21.0 Sodium 150 H 148.0 Potassium 4.0 Chloride 118 H 120.0 H Carbon Dioxide 20 L Anion Gap 16 BUN 34 H Creatinine 1.4 Est GFR ( Amer) 59 Est GFR (Non-Af Amer) 49 POC Glucose (mg/dL) Random Glucose 154 H Calcium 8.1 L Phosphorus 3.3 Magnesium 1.9 Total Bilirubin 0.9 AST 169 H D ALT 82 H Alkaline Phosphatase 65 Total Protein 5.5 L Albumin 2.5 L Globulin 3.0 Albumin/Globulin Ratio 0.8 L Venous Blood Potassium 4.1 Urine Color Urine Appearance Urine pH Ur Specific [place] Urine Protein Urine Glucose (UA) Urine Ketones Urine Blood Urine Nitrate Urine Bilirubin Urine Urobilinogen Ur Leukocyte Esterase Urine RBC Urine WBC Ur Epithelial Cells Amorphous Sediment Urine Bacteria 04/03/18 04/03/18 04/03/18 11:00 12:25 16:05 WBC RBC Hgb Hct MCV MCH MCHC RDW Plt Count MPV Gran % Lymph % (Auto) [place] % (Auto) Eos % (Auto) Baso % (Auto) Gran # Lymph # (Auto) [place] # (Auto) Eos # (Auto) Baso # (Auto) pCO2 pO2 HCO3 ABG pH ABG Total CO2 ABG O2 Saturation ABG O2 Content ABG Base Excess ABG Hemoglobin ABG Carboxyhemoglobin POC ABG HHb (Measured) ABG Methemoglobin ABG O2 Capacity VBG pH VBG pCO2 VBG HCO3 VBG Total CO2 VBG O2 Sat (Calc) VBG Base Excess VBG Potassium Hgb O2 Saturation Glucose Lactate FiO2 Sodium 150 H Potassium 4.1 Chloride 118 H Carbon Dioxide 19 L Anion Gap 17 BUN 35 H Creatinine 1.4 Est GFR ( Amer) 59 Est GFR (Non-Af Amer) 49 POC Glucose (mg/dL) 171 H Random Glucose 171 H Calcium 8.5 Phosphorus Magnesium Total Bilirubin 0.9 AST 215 H D ALT 108 H Alkaline Phosphatase 74 Total Protein 5.9 Albumin 2.7 L Globulin 3.2 Albumin/Globulin Ratio 0.9 L Venous Blood Potassium Urine Color Yellow Urine Appearance Clear Urine pH 6.0 Ur Specific [place] 1.025 Urine Protein 100 H Urine Glucose (UA) Negative Urine Ketones 15 H Urine Blood Moderate H Urine Nitrate Negative Urine Bilirubin Small H Urine Urobilinogen 1.0 H Ur Leukocyte Esterase Negative Urine RBC 10 - 15 Urine WBC 1 - 3 Ur Epithelial Cells None Amorphous Sediment Few Urine Bacteria Mod 04/03/18 16:35 WBC RBC Hgb Hct MCV MCH MCHC RDW Plt Count MPV Gran % Lymph % (Auto) [place] % (Auto) Eos % (Auto) Baso % (Auto) Gran # Lymph # (Auto) [place] # (Auto) Eos # (Auto) Baso # (Auto) pCO2 pO2 HCO3 ABG pH ABG Total CO2 ABG O2 Saturation ABG O2 Content ABG Base Excess ABG Hemoglobin ABG Carboxyhemoglobin POC ABG HHb (Measured) ABG Methemoglobin ABG O2 Capacity VBG pH VBG pCO2 VBG HCO3 VBG Total CO2 VBG O2 Sat (Calc) VBG Base Excess VBG Potassium Hgb O2 Saturation Glucose Lactate FiO2 Sodium Potassium Chloride Carbon Dioxide Anion Gap BUN Creatinine Est GFR ( Amer) Est GFR (Non-Af Amer) POC Glucose (mg/dL) 164 H Random Glucose Calcium Phosphorus Magnesium Total Bilirubin AST ALT Alkaline Phosphatase Total Protein Albumin Globulin Albumin/Globulin Ratio Venous Blood Potassium Urine Color Urine Appearance Urine pH Ur Specific [place] Urine Protein Urine Glucose (UA) Urine Ketones Urine Blood Urine Nitrate Urine Bilirubin Urine Urobilinogen Ur Leukocyte Esterase Urine RBC Urine WBC Ur Epithelial Cells Amorphous Sediment Urine Bacteria Assessment & Plan - Assessment and Plan (Free Text) Assessment: 82 yo male with unresponsive by family on initial presentation found to have an acute on chronic bilateral Subdural hematoma. The patient required craniotomy for decompression. He remains intubated and ventilated. The patient remains in a comatose state. Fevers up to 101.3F. Unclear if this is secondary to postsurgical course after craniotomy, infection, or even central brain injury. Started on IV antibiotics of Zosyn and Vancomycin IV. Can continue on this regimen while culture results return. Supportive care. Thank you for allowing me to participate in the care of the patient, we will follow with you.
[2018-04-04] MEDS: Insulin Reg-MEDIUM-Coverage SC SCH ×4 (00:43→18:03)
[2018-04-04] MEDS: Piperacillin/Tazobact 2.25gm 2.25 GM/100 ML BAG IVPB SCH ×5 (00:48→23:51)
[2018-04-04] MEDS ORDERED: Morphine 2 mg/ml ISec IVP STA (00:57)
[2018-04-04] MEDS: Pantoprazole 40 mg Susp UD PO SCH (05:52)
[2018-04-04 06:10] LABS: ARTERIAL BLOOD GAS HCO3 18.8 mmol/L (21-28); ARTERIAL BLOOD GAS HEMOGLOBIN 17.3 g/dL (11.7-17.4); ARTERIAL BLOOD GAS O2 CAPACITY 23.8 mL/dl (16-24); ARTERIAL BLOOD GAS O2 CONTENT 23.3 ML/dl (15-23); ARTERIAL BLOOD GAS O2 SAT 98.1 % (95-98); ARTERIAL BLOOD GAS PCO2 34 mm/Hg (35-45); ARTERIAL BLOOD GAS PH 7.35 (7.35-7.45); ARTERIAL BLOOD GAS TCO2 19.8 mmol.L (22-28)
--- NOTE | 2018-04-04 06:44 | CT ---
EXAM: CT Head Without Intravenous Contrast CLINICAL HISTORY: 82 years old, male; Signs and symptoms; Coma or unconsciousness; Additional info: Sdh S/P drain; Please ensure this is done at 4a! TECHNIQUE: Axial computed tomography images of the head/brain without intravenous contrast. All CT scans at this facility use at least one of these dose optimization techniques: automated exposure control; mA and/or kV adjustment per patient size (includes targeted exams where dose is matched to clinical indication); or iterative reconstruction. Coronal and sagittal reformatted images were created and reviewed. COMPARISON: CT - HEAD W/O CONTRAST 2018-04-02 09:38 FINDINGS: Brain: Stable appearance of large air-fluid levels in bilateral cerebral subdural spaces, left greater than right, unchanged since the previous study. Stable mass effect with compression of the left lateral ventricle and midline shift of 5 mm towards the right. Uncal herniation is noted on the left side. Stable chronic focal hypodense infarctions in the left centrum semiovale all and left parieto-occipital regions. No acute infarction or acute intraparenchymal hemorrhage is seen. There is moderate ill-defined patchy hypodensity within the bilateral cerebral periventricular white matter, consistent with chronic microvascular ischemic changes. Ventricles: The ventricular system is not dilated and is appropriate for the patient's age. Small amount of hemorrhage is noted in the occipital horns of bilateral lateral ventricles. Bones/joints: Examination reveals stable appearance of bilateral frontal dayami hole with subdural drainage catheters in bilateral frontal subdural spaces. No acute fracture. Soft tissues: Unremarkable. Sinuses: Mild mucosal thickening is seen in the paranasal sinuses. Mastoid air cells: Unremarkable as visualized. No mastoid effusion. IMPRESSION: 1. Examination reveals stable appearance of bilateral frontal dayami hole with subdural drainage catheters in bilateral frontal subdural spaces. 2. Stable appearance of large air-fluid levels in bilateral cerebral subdural spaces, left greater than right, unchanged since the previous study. Stable mass effect with compression of the left lateral ventricle and midline shift of 5 mm towards the right. Uncal herniation is noted on the left side. 3. Stable chronic focal hypodense infarctions in the left centrum semiovale all and left parieto-occipital regions. No acute infarction or acute intraparenchymal hemorrhage is seen.
[2018-04-04 06:51] LABS: BASO # 0.02 K/mm3 (0.0-2.0); BASO % 0.2 % (0.0-3.0); EOS # 0.1 (0.0-0.7); EOS % 0.7 % (1.5-5.0); GRAN # 6.8 (1.4-6.5); GRAN % 73.7 % (50.0-68.0); HEMOGLOBIN 10.9 g/dL (14.0-18.0); LYMPH # 1.9 (1.2-3.4); LYMPH % 20.1 % (22.0-35.0); MEAN CELL VOLUME 96.3 fl (80.0-105.0); MEAN CORPUSCULAR HEMOGLOBIN 31.2 pg (25.0-35.0); MEAN CORPUSCULAR HGB CONC 32.4 g/dl (31.0-37.0); MONO # 0.5 (0.1-0.6); MONO % 5.3 % (1.0-6.0); RBC 3.49 10^6/uL (3.5-6.1); WHITE BLOOD COUNT 9.2 10^3/ul (4.5-11.0)
[2018-04-04] MEDS ORDERED: Morphine 2 mg/ml ISec IVP PRN (07:31)
--- NOTE | 2018-04-04 07:42 | CP.PCM.PN ---
<Tunde Arceo - Last Filed: 04/04/18 11:38> Subjective - Date & Time of Evaluation Date of Evaluation: 04/04/18 Time of Evaluation: 05:45 - Subjective Subjective: Patient seen and examined at bedside no intubated and not sedated. ROS not obtained as patient in intubated and still not arousable. Objective - Vital Signs/Intake and Output Vital Signs (last 24 hours): Temp Pulse Resp BP Pulse Ox 99.7 F H 110 H 20 168/89 H 100 04/04/18 04:00 04/04/18 05:27 04/03/18 19:59 04/04/18 04:00 04/04/18 04:00 Intake and Output: 04/04/18 04/04/18 06:59 18:59 Intake Total 500 Output Total 550 Balance -50 - Medications Medications: Current Medications Vancomycin HCl (Vancomycin 1gm) 1 gm in 250 mls @ 167 mls/hr IVPB DAILY [facility] PRN Reason: Protocol Last Admin: 04/03/18 11:21 Dose: 167 mls/hr Piperacillin Sod/Tazobactam Sod (Zosyn 2.25 Gm In 0.9% 100 Ml) 2.25 gm in 100 mls @ 100 mls/hr IVPB Q6 [facility] PRN Reason: Protocol Last Admin: 04/04/18 05:52 Dose: 100 mls/hr Insulin Human Regular (Humulin R Med) 0 units SC Q6H [facility] PRN Reason: Protocol Last Admin: 04/04/18 00:43 Dose: Not Given Labetalol HCl (Trandate) 20 mg IV Q6 PRN PRN Reason: Other Morphine Sulfate (Morphine) 2 mg IVP Q4H PRN PRN Reason: Pain, moderate (4-7) Pantoprazole Sodium (Protonix Susp) 40 mg PO 0600 [facility] Last Admin: 04/04/18 05:52 Dose: 40 mg - Labs Labs: 04/04/18 06:00 04/03/18 16:05 PT 14.0 SECONDS (9.4-12.5) H 04/02/18 12:00 INR 1.21 (0.93-1.08) H 04/02/18 12:00 APTT 48.2 Seconds (25.1-36.5) H 04/01/18 14:40 - Head Exam Head Exam: NORMOCEPHALIC - ENT Exam ENT Exam: Mucous Membranes Dry - Respiratory Exam Respiratory Exam: Clear to Ausculation Bilateral, NORMAL BREATHING PATTERN. absent: Wheezes - Cardiovascular Exam Cardiovascular Exam: Irregular Rhythm, +S1, +S2 - GI/Abdominal Exam GI & Abdominal Exam: Soft, Normal Bowel Sounds - Extremities Exam Extremities Exam: Normal Inspection - Neurological Exam Neurological Exam: absent: Alert, Awake, Oriented x3 (sedated) - Skin Skin Exam: Normal Color, Warm Assessment and Plan - Assessment and Plan (Free Text) Assessment: Patient is a 82 year old male with a past medical history of CVA, TIA, atrial fibrillation, hypertension, hyperlipidemia, and diabetes who presented to the emergency department for evaluation and treatment of altered mental status due to 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 Plan: Bilateral subdural hematoma -S/P hematoma evacuation POD #3 -Continue with recs as per neurosurgery and neurology; prognosis guarded -Still drainage as of this morning -Repeat CT reveals reveal stable appearance of large air fluid leels in bilateral cerebral subdural spaces, left greater than right. Stable mass effect with compression of the left lateral centricule and midline shift of 4 mm towards the right. Uncal herniation noted on left side. Stable chronic focal hypodense infarctions in the left centrum semiovale and left parieto-occiptal regions. No acute infarction or acue intraparenchymal hemorrhage is seen. Transaminitis -Abdominal ultrasound ordered CVA hx -Hold PO meds: coumadin, crestor, toprol XL -Monitor vital signs -Monitor INR Atrial fibrillation -Hold Coumadin -Monitor INR -Consider addition of cardizem if HR is not controlled Hypertension -Monitor vital signs -Continue with Labetalol HCL PRN Hyperlipidemia -Crestor on hold for now Hypernatremia -Mild; will continue with free water flushes via OG tube IDDM -ISS-med -continue with accuchecks Chronic back pain -Morphine PRN Fever -Last fever yesterday at 15:59 100.8 -Blood cultures, no growth after 48 hours, Urine cultures final no growth, Procalcitonin 0.39 -Continue to monitor GI prophylaxis: protonix DVT prophylaxis: mechanical at this time only due to brain bleed <Les Wesley - Last Filed: 04/04/18 11:50> Objective - Vital Signs/Intake and Output Vital Signs (last 24 hours): Temp Pulse Resp BP Pulse Ox 100.8 F H 116 H 23 152/104 H 96 04/04/18 11:00 04/04/18 11:00 04/04/18 08:00 04/04/18 11:00 04/04/18 11:00 Intake and Output: 04/04/18 04/04/18 06:59 18:59 Intake Total 500 Output Total 550 Balance -50 - Medications Medications: Current Medications Vancomycin HCl (Vancomycin 1gm) 1 gm in 250 mls @ 167 mls/hr IVPB DAILY [facility] PRN Reason: Protocol Last Admin: 04/04/18 09:08 Dose: 167 mls/hr Piperacillin Sod/Tazobactam Sod (Zosyn 2.25 Gm In 0.9% 100 Ml) 2.25 gm in 100 mls @ 100 mls/hr IVPB Q6 [facility] PRN Reason: Protocol Last Admin: 04/04/18 05:52 Dose: 100 mls/hr Insulin Human Regular (Humulin R Med) 0 units SC Q6H [facility] PRN Reason: Protocol Last Admin: 04/04/18 08:28 Dose: 1 unit Labetalol HCl (Trandate) 20 mg IV Q6 PRN PRN Reason: Other Morphine Sulfate (Morphine) 2 mg IVP Q4H PRN PRN Reason: Pain, moderate (4-7) Pantoprazole Sodium (Protonix Susp) 40 mg PO 0600 [facility] Last Admin: 04/04/18 05:52 Dose: 40 mg - Labs Labs: 04/04/18 06:00 04/04/18 07:00 PT 14.0 SECONDS (9.4-12.5) H 04/02/18 12:00 INR 1.21 (0.93-1.08) H 04/02/18 12:00 APTT 48.2 Seconds (25.1-36.5) H 04/01/18 14:40 Attending/Attestation - Attestation I have personally seen and examined this patient.: Yes I have fully participated in the care of the patient.: Yes I have reviewed all pertinent clinical information, including history, physical exam and plan: Yes Notes (Text): 04/04/18 11:44 82 year old male with past medical history of CVA, atrial fibrillation, hypertension, dyslipidemia and diabetes who presented with altered mental status found to have acute bilateral subdural hematomas. He was seen by neurosurgery and is s/p evacuation of hematoma POD #3. Mental status remains poor. Neurology and neurosurgery are following. Palliative care was requested as well; will follow up with recommendations. He is on labetalol prn for hypertension. Anticoagulation is on hold for now. Elevated LFTs noted; statin is on hold for now. He is on broad spectrum antibiotics for fever, may be central. Overall prognosis is poor. Les Wesley MD Hospitalist.
[2018-04-04 07:44] LABS: ALB/GLOB RATIO 0.8 (1.1-1.8); ALBUMIN 2.7 g/dL (3.0-4.8); ALT/SGPT 140 U/L (7-56); AST/SGOT 225 U/L (17-59); BLOOD UREA NITROGEN 37 mg/dL (7-21); CALCIUM 8.5 mg/dL (8.4-10.5); GFR AFRICAN-AMERICAN > 60; GFR NON-AFRICAN AMERICAN 53
--- NOTE | 2018-04-04 08:09 | RAD ---
HISTORY: intubated COMPARISON: Portable chest 04/03/2018. FINDINGS: LUNGS: Endotracheal tube is unchanged in position. Nasogastric tube remains inadequately position and now terminates at the mid esophagus in the chest. Advancing the NG being additional 15-20 cm followed by confirmation radiography recommended. The images CT in the late expiratory phase with likely atelectasis noted at the medial bases bilaterally though pneumonia is not excluded. PLEURA: No significant pleural effusion identified, no pneumothorax apparent. CARDIOVASCULAR: Normal. OSSEOUS STRUCTURES: No significant abnormalities. VISUALIZED UPPER ABDOMEN: Normal. OTHER FINDINGS: None. IMPRESSION: Likely bilateral medial basilar atelectasis on the basis of of late expiratory phase. NG tube terminates in the esophagus. Advancement recommended as discussed above with confirmation radiography.
[2018-04-04] MEDS: Vancomycin 1gm in NS 250ml 1 GM/250 ML BAG IVPB SCH (09:08)
--- NOTE | 2018-04-04 09:59 | CP.PCM.PN ---
Subjective - Date & Time of Evaluation Date of Evaluation: 04/04/18 Time of Evaluation: 09:58 - Subjective Subjective: pt remains comatose decerebrate sluggish pupils ct has air remaining but less d/c'ed drains prognosis very poor suggest palliative care Objective - Vital Signs/Intake and Output Vital Signs (last 24 hours): Temp Pulse Resp BP Pulse Ox 99.7 F H 110 H 20 168/89 H 100 04/04/18 04:00 04/04/18 05:27 04/03/18 19:59 04/04/18 04:00 04/04/18 04:00 Intake and Output: 04/04/18 04/04/18 06:59 18:59 Intake Total 500 Output Total 550 Balance -50 - Medications Medications: Current Medications Vancomycin HCl (Vancomycin 1gm) 1 gm in 250 mls @ 167 mls/hr IVPB DAILY [facility] PRN Reason: Protocol Last Admin: 04/04/18 09:08 Dose: 167 mls/hr Piperacillin Sod/Tazobactam Sod (Zosyn 2.25 Gm In 0.9% 100 Ml) 2.25 gm in 100 mls @ 100 mls/hr IVPB Q6 [facility] PRN Reason: Protocol Last Admin: 04/04/18 05:52 Dose: 100 mls/hr Insulin Human Regular (Humulin R Med) 0 units SC Q6H [facility] PRN Reason: Protocol Last Admin: 04/04/18 08:28 Dose: 1 unit Labetalol HCl (Trandate) 20 mg IV Q6 PRN PRN Reason: Other Morphine Sulfate (Morphine) 2 mg IVP Q4H PRN PRN Reason: Pain, moderate (4-7) Pantoprazole Sodium (Protonix Susp) 40 mg PO 0600 [facility] Last Admin: 04/04/18 05:52 Dose: 40 mg - Labs Labs: 04/04/18 06:00 04/04/18 07:00 PT 14.0 SECONDS (9.4-12.5) H 04/02/18 12:00 INR 1.21 (0.93-1.08) H 04/02/18 12:00 APTT 48.2 Seconds (25.1-36.5) H 04/01/18 14:40
--- NOTE | 2018-04-04 10:08 | CP.CCUPN ---
<Rony Boston - Last Filed: 04/04/18 10:04> CCU Subjective - Physician Review Events Since Last Encounter (Free Text): 04/04/18 08:00A Patient seen and examined at bedside. No acute events overnight. Patient remains intubated and barely responsive without sedation. CCU Objective - Vital Signs / Intake & Output Vital Signs (Last 4 hours): Vital Signs Temp Pulse BP Pulse Ox 04/04/18 09:50 100.4 F H 114 H 182/112 H 98 04/04/18 09:48 100.4 F H 122 H 169/112 H 84 L 04/04/18 09:00 100.4 F H 106 H 04/04/18 08:00 110 H 98 04/04/18 07:56 112 H 145/88 91 L 04/04/18 07:00 107 H 148/104 H 100 Intake and Output (Last 8hrs): Intake & Output 04/03/18 04/04/18 04/04/18 22:59 06:59 14:59 Intake Total 1465 500 Output Total 420 550 Balance 1045 -50 Weight 80.558 kg Intake: IV 970 100 0.9 NS 300 D5 1/2 NS 120 antibiotics 450 100 tylenol 100 Oral 0 Tube Feeding 95 Other 400 400 Output: Drainage 0 100 Left Head 0 0 Right Head 0 100 Urine 420 450 Urethral (No) 420 450 Other: # Bowel Movements 0 0 - Physical Exam Head: Positive for: Swelling (right temporal/occiptal swelling), Ecchymosis ( right auricular ) Pupils: Positive for: Sluggish Conjunctiva: Positive for: Normal Ears: Positive for: Other (ecchymosis right ear) Nose (External): Positive for: Atraumatic Respiratory/Chest: Positive for: Decreased Breath Sounds Cardiovascular: Positive for: Normal S1, S2, Tachycardic Abdomen: Positive for: Normal Bowel Sounds Upper Extremity: Negative for: Normal Inspection Lower Extremity: Negative for: Normal Inspection Neurological: Positive for: Other (GCS 3) Skin: Positive for: Warm, Dry, Abrasion (bilateral knees ) Psychiatric: Negative for: Alert, Oriented x 3 - Medications Active Medications: Active Medications Generic Name Dose Route Start Last Admin Trade Name Freq PRN Reason Stop Dose Admin Vancomycin HCl 1 gm in 250 mls @ 167 mls/hr 04/03/18 10:15 04/04/18 09:08 Vancomycin 1gm IVPB 167 mls/hr DAILY KEATON Administration Protocol Piperacillin Sod/Tazobactam Sod 2.25 gm in 100 mls @ 100 mls/hr 04/04/18 00: 00 04/04/18 05:52 Zosyn 2.25 Gm In 0.9% 100 Ml IVPB 100 mls/hr Q6 KEATON Administration Protocol Insulin Human Regular 0 units 04/03/18 11:59 04/04/18 08:28 Humulin R Med SC 1 unit Q6H KEATON Administration Protocol Labetalol HCl 20 mg 04/02/18 13:39 Trandate IV Q6 PRN Other Morphine Sulfate 2 mg 04/04/18 07:31 Morphine IVP Q4H PRN Pain, moderate (4-7) Pantoprazole Sodium 40 mg 04/04/18 06:00 04/04/18 05:52 Protonix Susp PO 40 mg 0600 KEATON Administration - Patient Studies Lab Studies: Lab Studies 04/04/18 04/04/18 04/04/18 Range/Units 07:00 06:02 06:00 WBC 9.2 (4.5-11.0) 10^3/ul RBC 3.49 L (3.5-6.1) 10^6/uL Hgb 10.9 L (14.0-18.0) g/dL Hct 33.6 L (42.0-52.0) % MCV 96.3 (80.0-105.0) fl MCH 31.2 (25.0-35.0) pg MCHC 32.4 (31.0-37.0) g/dl RDW 15.0 H (11.5-14.5) % Plt Count 127 (120.0-450.0) 10^3/uL MPV 10.0 (7.0-11.0) fl Gran % 73.7 H (50.0-68.0) % Lymph % (Auto) 20.1 L (22.0-35.0) % [place] % (Auto) 5.3 (1.0-6.0) % Eos % (Auto) 0.7 L (1.5-5.0) % Baso % (Auto) 0.2 (0.0-3.0) % Gran # 6.80 H (1.4-6.5) Lymph # (Auto) 1.9 (1.2-3.4) [place] # (Auto) 0.5 (0.1-0.6) Eos # (Auto) 0.1 (0.0-0.7) Baso # (Auto) 0.02 (0.0-2.0) K/mm3 pCO2 (35-45) mm/Hg pO2 (30-55) mm/Hg HCO3 (21-28) mmol/L ABG pH (7.35-7.45) ABG Total CO2 (22-28) mmol.L ABG O2 Saturation (95-98) % ABG O2 Content (15-23) ML/dl ABG Base Excess (-2.0-3.0) mmol/L ABG Hemoglobin (11.7-17.4) g/dL ABG Carboxyhemoglobin (0.5-1.5) % POC ABG HHb (Measured) (0-5) % ABG Methemoglobin (0.0-3.0) % ABG O2 Capacity (16-24) mL/dl VBG pH (7.32-7.43) VBG pCO2 (40-60) VBG HCO3 (21-28) mmol/l VBG Total CO2 (22-28) mmol.L VBG O2 Sat (Calc) (40-65) % VBG Base Excess (0.0-2.0) mmol/L VBG Potassium (3.6-5.2) mmol/L Hgb O2 Saturation (95.0-98.0) % Sodium 151 H (132-148) mmol/L Chloride 117 H (98-107) mmol/L Glucose (75-110) mg/dl Lactate (0.7-2.1) mmol/L FiO2 % Potassium 3.9 (3.6-5.0) mmol/L Carbon Dioxide 21 (21-33) mmol/L Anion Gap 17 (10-20) BUN 37 H (7-21) mg/dL Creatinine 1.3 (0.8-1.5) mg/dl Est GFR ( Amer) > 60 Est GFR (Non-Af Amer) 53 POC Glucose (mg/dL) 171 H (65-110) mg/dL Random Glucose 181 H (70-110) mg/dL Calcium 8.5 (8.4-10.5) mg/dL Phosphorus 3.3 (2.5-4.5) mg/dL Magnesium 2.0 (1.7-2.2) mg/dL Total Bilirubin 0.9 (0.2-1.3) mg/dL AST 225 H (17-59) U/L ALT 140 H (7-56) U/L Alkaline Phosphatase 86 (38-126) U/L Total Protein 6.0 (5.8-8.3) g/dL Albumin 2.7 L (3.0-4.8) g/dL Globulin 3.3 gm/dL Albumin/Globulin Ratio 0.8 L (1.1-1.8) Procalcitonin (0.19-0.49) NG/ML Venous Blood Potassium (3.6-5.2) mmol/L Urine Color (YELLOW) Urine Appearance (CLEAR) Urine pH (4.7-8.0) Ur Specific [place] (1.005-1.035) Urine Protein (<30 mg/dL) mg/dL Urine Glucose (UA) (NEGATIVE) mg/dL Urine Ketones (NEGATIVE) mg/dL Urine Blood (NEGATIVE) Urine Nitrate (NEGATIVE) Urine Bilirubin (NEGATIVE) Urine Urobilinogen (<1 E.U./dL) E.U./dL Ur Leukocyte Esterase (NEGATIVE) Hyacinth/uL Urine RBC (0-2) /hpf Urine WBC (0-6) /hpf Ur Epithelial Cells (0-5) /hpf Amorphous Sediment Urine Bacteria (NEG) Crossmatch 04/04/18 04/03/18 04/03/18 Range/Units 05:50 23:36 16:35 WBC (4.5-11.0) 10^3/ul RBC (3.5-6.1) 10^6/uL Hgb (14.0-18.0) g/dL Hct (42.0-52.0) % MCV (80.0-105.0) fl MCH (25.0-35.0) pg MCHC (31.0-37.0) g/dl RDW (11.5-14.5) % Plt Count (120.0-450.0) 10^3/uL MPV (7.0-11.0) fl Gran % (50.0-68.0) % Lymph % (Auto) (22.0-35.0) % [place] % (Auto) (1.0-6.0) % Eos % (Auto) (1.5-5.0) % Baso % (Auto) (0.0-3.0) % Gran # (1.4-6.5) Lymph # (Auto) (1.2-3.4) [place] # (Auto) (0.1-0.6) Eos # (Auto) (0.0-0.7) Baso # (Auto) (0.0-2.0) K/mm3 pCO2 34 L (35-45) mm/Hg pO2 106.0 H (30-55) mm/Hg HCO3 18.8 L (21-28) mmol/L ABG pH 7.35 (7.35-7.45) ABG Total CO2 19.8 L (22-28) mmol.L ABG O2 Saturation 98.1 H (95-98) % ABG O2 Content 23.3 H (15-23) ML/dl ABG Base Excess -5.8 L (-2.0-3.0) mmol/L ABG Hemoglobin 17.3 (11.7-17.4) g/dL ABG Carboxyhemoglobin 1.5 (0.5-1.5) % POC ABG HHb (Measured) 1.9 (0-5) % ABG Methemoglobin 0.9 (0.0-3.0) % ABG O2 Capacity 23.8 (16-24) mL/dl VBG pH (7.32-7.43) VBG pCO2 (40-60) VBG HCO3 (21-28) mmol/l VBG Total CO2 (22-28) mmol.L VBG O2 Sat (Calc) (40-65) % VBG Base Excess (0.0-2.0) mmol/L VBG Potassium (3.6-5.2) mmol/L Hgb O2 Saturation 95.7 (95.0-98.0) % Sodium (132-148) mmol/L Chloride (98-107) mmol/L Glucose (75-110) mg/dl Lactate (0.7-2.1) mmol/L FiO2 40.0 % Potassium (3.6-5.0) mmol/L Carbon Dioxide (21-33) mmol/L Anion Gap (10-20) BUN (7-21) mg/dL Creatinine (0.8-1.5) mg/dl Est GFR ( Amer) Est GFR (Non-Af Amer) POC Glucose (mg/dL) 164 H 164 H (65-110) mg/dL Random Glucose (70-110) mg/dL Calcium (8.4-10.5) mg/dL Phosphorus (2.5-4.5) mg/dL Magnesium (1.7-2.2) mg/dL Total Bilirubin (0.2-1.3) mg/dL AST (17-59) U/L ALT (7-56) U/L Alkaline Phosphatase (38-126) U/L Total Protein (5.8-8.3) g/dL Albumin (3.0-4.8) g/dL Globulin gm/dL Albumin/Globulin Ratio (1.1-1.8) Procalcitonin (0.19-0.49) NG/ML Venous Blood Potassium (3.6-5.2) mmol/L Urine Color (YELLOW) Urine Appearance (CLEAR) Urine pH (4.7-8.0) Ur Specific [place] (1.005-1.035) Urine Protein (<30 mg/dL) mg/dL Urine Glucose (UA) (NEGATIVE) mg/dL Urine Ketones (NEGATIVE) mg/dL Urine Blood (NEGATIVE) Urine Nitrate (NEGATIVE) Urine Bilirubin (NEGATIVE) Urine Urobilinogen (<1 E.U./dL) E.U./dL Ur Leukocyte Esterase (NEGATIVE) Hyacinth/uL Urine RBC (0-2) /hpf Urine WBC (0-6) /hpf Ur Epithelial Cells (0-5) /hpf Amorphous Sediment Urine Bacteria (NEG) Crossmatch 04/03/18 04/03/18 04/03/18 Range/Units 16:05 12:25 11:00 WBC (4.5-11.0) 10^3/ul RBC (3.5-6.1) 10^6/uL Hgb (14.0-18.0) g/dL Hct (42.0-52.0) % MCV (80.0-105.0) fl MCH (25.0-35.0) pg MCHC (31.0-37.0) g/dl RDW (11.5-14.5) % Plt Count (120.0-450.0) 10^3/uL MPV (7.0-11.0) fl Gran % (50.0-68.0) % Lymph % (Auto) (22.0-35.0) % [place] % (Auto) (1.0-6.0) % Eos % (Auto) (1.5-5.0) % Baso % (Auto) (0.0-3.0) % Gran # (1.4-6.5) Lymph # (Auto) (1.2-3.4) [place] # (Auto) (0.1-0.6) Eos # (Auto) (0.0-0.7) Baso # (Auto) (0.0-2.0) K/mm3 pCO2 (35-45) mm/Hg pO2 (30-55) mm/Hg HCO3 (21-28) mmol/L ABG pH (7.35-7.45) ABG Total CO2 (22-28) mmol.L ABG O2 Saturation (95-98) % ABG O2 Content (15-23) ML/dl ABG Base Excess (-2.0-3.0) mmol/L ABG Hemoglobin (11.7-17.4) g/dL ABG Carboxyhemoglobin (0.5-1.5) % POC ABG HHb (Measured) (0-5) % ABG Methemoglobin (0.0-3.0) % ABG O2 Capacity (16-24) mL/dl VBG pH (7.32-7.43) VBG pCO2 (40-60) VBG HCO3 (21-28) mmol/l VBG Total CO2 (22-28) mmol.L VBG O2 Sat (Calc) (40-65) % VBG Base Excess (0.0-2.0) mmol/L VBG Potassium (3.6-5.2) mmol/L Hgb O2 Saturation (95.0-98.0) % Sodium 150 H (132-148) mmol/L Chloride 118 H (98-107) mmol/L Glucose (75-110) mg/dl Lactate (0.7-2.1) mmol/L FiO2 % Potassium 4.1 (3.6-5.0) mmol/L Carbon Dioxide 19 L (21-33) mmol/L Anion Gap 17 (10-20) BUN 35 H (7-21) mg/dL Creatinine 1.4 (0.8-1.5) mg/dl Est GFR ( Amer) 59 Est GFR (Non-Af Amer) 49 POC Glucose (mg/dL) 171 H (65-110) mg/dL Random Glucose 171 H (70-110) mg/dL Calcium 8.5 (8.4-10.5) mg/dL Phosphorus (2.5-4.5) mg/dL Magnesium (1.7-2.2) mg/dL Total Bilirubin 0.9 (0.2-1.3) mg/dL AST 215 H D (17-59) U/L ALT 108 H (7-56) U/L Alkaline Phosphatase 74 (38-126) U/L Total Protein 5.9 (5.8-8.3) g/dL Albumin 2.7 L (3.0-4.8) g/dL Globulin 3.2 gm/dL Albumin/Globulin Ratio 0.9 L (1.1-1.8) Procalcitonin 0.36 (0.19-0.49) NG/ML Venous Blood Potassium (3.6-5.2) mmol/L Urine Color (YELLOW) Urine Appearance (CLEAR) Urine pH (4.7-8.0) Ur Specific [place] (1.005-1.035) Urine Protein (<30 mg/dL) mg/dL Urine Glucose (UA) (NEGATIVE) mg/dL Urine Ketones (NEGATIVE) mg/dL Urine Blood (NEGATIVE) Urine Nitrate (NEGATIVE) Urine Bilirubin (NEGATIVE) Urine Urobilinogen (<1 E.U./dL) E.U./dL Ur Leukocyte Esterase (NEGATIVE) Hyacinth/uL Urine RBC (0-2) /hpf Urine WBC (0-6) /hpf Ur Epithelial Cells (0-5) /hpf Amorphous Sediment Urine Bacteria (NEG) Crossmatch 04/03/18 04/03/18 04/01/18 Range/Units 11:00 10:45 19:53 WBC (4.5-11.0) 10^3/ul RBC (3.5-6.1) 10^6/uL Hgb (14.0-18.0) g/dL Hct (42.0-52.0) % MCV (80.0-105.0) fl MCH (25.0-35.0) pg MCHC (31.0-37.0) g/dl RDW (11.5-14.5) % Plt Count (120.0-450.0) 10^3/uL MPV (7.0-11.0) fl Gran % (50.0-68.0) % Lymph % (Auto) (22.0-35.0) % [place] % (Auto) (1.0-6.0) % Eos % (Auto) (1.5-5.0) % Baso % (Auto) (0.0-3.0) % Gran # (1.4-6.5) Lymph # (Auto) (1.2-3.4) [place] # (Auto) (0.1-0.6) Eos # (Auto) (0.0-0.7) Baso # (Auto) (0.0-2.0) K/mm3 pCO2 (35-45) mm/Hg pO2 120 H (30-55) mm/Hg HCO3 (21-28) mmol/L ABG pH (7.35-7.45) ABG Total CO2 (22-28) mmol.L ABG O2 Saturation (95-98) % ABG O2 Content (15-23) ML/dl ABG Base Excess (-2.0-3.0) mmol/L ABG Hemoglobin (11.7-17.4) g/dL ABG Carboxyhemoglobin (0.5-1.5) % POC ABG HHb (Measured) (0-5) % ABG Methemoglobin (0.0-3.0) % ABG O2 Capacity (16-24) mL/dl VBG pH 7.40 (7.32-7.43) VBG pCO2 30.0 L (40-60) VBG HCO3 18.6 L (21-28) mmol/l VBG Total CO2 19.5 L (22-28) mmol.L VBG O2 Sat (Calc) 94.3 H (40-65) % VBG Base Excess -5.0 L (0.0-2.0) mmol/L VBG Potassium 4.1 (3.6-5.2) mmol/L Hgb O2 Saturation (95.0-98.0) % Sodium 148.0 (132-148) mmol/L Chloride 120.0 H (98-107) mmol/L Glucose 194 H (75-110) mg/dl Lactate 1.6 (0.7-2.1) mmol/L FiO2 21.0 % Potassium (3.6-5.0) mmol/L Carbon Dioxide (21-33) mmol/L Anion Gap (10-20) BUN (7-21) mg/dL Creatinine (0.8-1.5) mg/dl Est GFR ( Amer) Est GFR (Non-Af Amer) POC Glucose (mg/dL) (65-110) mg/dL Random Glucose (70-110) mg/dL Calcium (8.4-10.5) mg/dL Phosphorus (2.5-4.5) mg/dL Magnesium (1.7-2.2) mg/dL Total Bilirubin (0.2-1.3) mg/dL AST (17-59) U/L ALT (7-56) U/L Alkaline Phosphatase (38-126) U/L Total Protein (5.8-8.3) g/dL Albumin (3.0-4.8) g/dL Globulin gm/dL Albumin/Globulin Ratio (1.1-1.8) Procalcitonin (0.19-0.49) NG/ML Venous Blood Potassium 4.1 (3.6-5.2) mmol/L Urine Color Yellow (YELLOW) Urine Appearance Clear (CLEAR) Urine pH 6.0 (4.7-8.0) Ur Specific [place] 1.025 (1.005-1.035) Urine Protein 100 H (<30 mg/dL) mg/dL Urine Glucose (UA) Negative (NEGATIVE) mg/dL Urine Ketones 15 H (NEGATIVE) mg/dL Urine Blood Moderate H (NEGATIVE) Urine Nitrate Negative (NEGATIVE) Urine Bilirubin Small H (NEGATIVE) Urine Urobilinogen 1.0 H (<1 E.U./dL) E.U./dL Ur Leukocyte Esterase Negative (NEGATIVE) Hyacinth/uL Urine RBC 10 - 15 (0-2) /hpf Urine WBC 1 - 3 (0-6) /hpf Ur Epithelial Cells None (0-5) /hpf Amorphous Sediment Few Urine Bacteria Mod (NEG) Crossmatch See Detail Laboratory Results - last 24 hr 04/01/18 04/03/18 04/03/18 19:53 10:45 11:00 WBC RBC Hgb Hct MCV MCH MCHC RDW Plt Count MPV Gran % Lymph % (Auto) [place] % (Auto) Eos % (Auto) Baso % (Auto) Gran # Lymph # (Auto) [place] # (Auto) Eos # (Auto) Baso # (Auto) pCO2 pO2 120 H HCO3 ABG pH ABG Total CO2 ABG O2 Saturation ABG O2 Content ABG Base Excess ABG Hemoglobin ABG Carboxyhemoglobin POC ABG HHb (Measured) ABG Methemoglobin ABG O2 Capacity VBG pH 7.40 VBG pCO2 30.0 L VBG HCO3 18.6 L VBG Total CO2 19.5 L VBG O2 Sat (Calc) 94.3 H VBG Base Excess -5.0 L VBG Potassium 4.1 Hgb O2 Saturation Sodium 148.0 Chloride 120.0 H Glucose 194 H Lactate 1.6 FiO2 21.0 Potassium Carbon Dioxide Anion Gap BUN Creatinine Est GFR ( Amer) Est GFR (Non-Af Amer) POC Glucose (mg/dL) Random Glucose Calcium Phosphorus Magnesium Total Bilirubin AST ALT Alkaline Phosphatase Total Protein Albumin Globulin Albumin/Globulin Ratio Procalcitonin Venous Blood Potassium 4.1 Urine Color Yellow Urine Appearance Clear Urine pH 6.0 Ur Specific [place] 1.025 Urine Protein 100 H Urine Glucose (UA) Negative Urine Ketones 15 H Urine Blood Moderate H Urine Nitrate Negative Urine Bilirubin Small H Urine Urobilinogen 1.0 H Ur Leukocyte Esterase Negative Urine RBC 10 - 15 Urine WBC 1 - 3 Ur Epithelial Cells None Amorphous Sediment Few Urine Bacteria Mod Crossmatch See Detail 04/03/18 04/03/18 04/03/18 11:00 12:25 16:05 WBC RBC Hgb Hct MCV MCH MCHC RDW Plt Count MPV Gran % Lymph % (Auto) [place] % (Auto) Eos % (Auto) Baso % (Auto) Gran # Lymph # (Auto) [place] # (Auto) Eos # (Auto) Baso # (Auto) pCO2 pO2 HCO3 ABG pH ABG Total CO2 ABG O2 Saturation ABG O2 Content ABG Base Excess ABG Hemoglobin ABG Carboxyhemoglobin POC ABG HHb (Measured) ABG Methemoglobin ABG O2 Capacity VBG pH VBG pCO2 VBG HCO3 VBG Total CO2 VBG O2 Sat (Calc) VBG Base Excess VBG Potassium Hgb O2 Saturation Sodium 150 H Chloride 118 H Glucose Lactate FiO2 Potassium 4.1 Carbon Dioxide 19 L Anion Gap 17 BUN 35 H Creatinine 1.4 Est GFR ( Amer) 59 Est GFR (Non-Af Amer) 49 POC Glucose (mg/dL) 171 H Random Glucose 171 H Calcium 8.5 Phosphorus Magnesium Total Bilirubin 0.9 AST 215 H D ALT 108 H Alkaline Phosphatase 74 Total Protein 5.9 Albumin 2.7 L Globulin 3.2 Albumin/Globulin Ratio 0.9 L Procalcitonin 0.36 Venous Blood Potassium Urine Color Urine Appearance Urine pH Ur Specific [place] Urine Protein Urine Glucose (UA) Urine Ketones Urine Blood Urine Nitrate Urine Bilirubin Urine Urobilinogen Ur Leukocyte Esterase Urine RBC Urine WBC Ur Epithelial Cells Amorphous Sediment Urine Bacteria Crossmatch 04/03/18 04/03/18 04/04/18 16:35 23:36 05:50 WBC RBC Hgb Hct MCV MCH MCHC RDW Plt Count MPV Gran % Lymph % (Auto) [place] % (Auto) Eos % (Auto) Baso % (Auto) Gran # Lymph # (Auto) [place] # (Auto) Eos # (Auto) Baso # (Auto) pCO2 34 L pO2 106.0 H HCO3 18.8 L ABG pH 7.35 ABG Total CO2 19.8 L ABG O2 Saturation 98.1 H ABG O2 Content 23.3 H ABG Base Excess -5.8 L ABG Hemoglobin 17.3 ABG Carboxyhemoglobin 1.5 POC ABG HHb (Measured) 1.9 ABG Methemoglobin 0.9 ABG O2 Capacity 23.8 VBG pH VBG pCO2 VBG HCO3 VBG Total CO2 VBG O2 Sat (Calc) VBG Base Excess VBG Potassium Hgb O2 Saturation 95.7 Sodium Chloride Glucose Lactate FiO2 40.0 Potassium Carbon Dioxide Anion Gap BUN Creatinine Est GFR ( Amer) Est GFR (Non-Af Amer) POC Glucose (mg/dL) 164 H 164 H Random Glucose Calcium Phosphorus Magnesium Total Bilirubin AST ALT Alkaline Phosphatase Total Protein Albumin Globulin Albumin/Globulin Ratio Procalcitonin Venous Blood Potassium Urine Color Urine Appearance Urine pH Ur Specific [place] Urine Protein Urine Glucose (UA) Urine Ketones Urine Blood Urine Nitrate Urine Bilirubin Urine Urobilinogen Ur Leukocyte Esterase Urine RBC Urine WBC Ur Epithelial Cells Amorphous Sediment Urine Bacteria Crossmatch 04/04/18 04/04/18 04/04/18 06:00 06:02 07:00 WBC 9.2 RBC 3.49 L Hgb 10.9 L Hct 33.6 L MCV 96.3 MCH 31.2 MCHC 32.4 RDW 15.0 H Plt Count 127 MPV 10.0 Gran % 73.7 H Lymph % (Auto) 20.1 L [place] % (Auto) 5.3 Eos % (Auto) 0.7 L Baso % (Auto) 0.2 Gran # 6.80 H Lymph # (Auto) 1.9 [place] # (Auto) 0.5 Eos # (Auto) 0.1 Baso # (Auto) 0.02 pCO2 pO2 HCO3 ABG pH ABG Total CO2 ABG O2 Saturation ABG O2 Content ABG Base Excess ABG Hemoglobin ABG Carboxyhemoglobin POC ABG HHb (Measured) ABG Methemoglobin ABG O2 Capacity VBG pH VBG pCO2 VBG HCO3 VBG Total CO2 VBG O2 Sat (Calc) VBG Base Excess VBG Potassium Hgb O2 Saturation Sodium 151 H Chloride 117 H Glucose Lactate FiO2 Potassium 3.9 Carbon Dioxide 21 Anion Gap 17 BUN 37 H Creatinine 1.3 Est GFR ( Amer) > 60 Est GFR (Non-Af Amer) 53 POC Glucose (mg/dL) 171 H Random Glucose 181 H Calcium 8.5 Phosphorus 3.3 Magnesium 2.0 Total Bilirubin 0.9 AST 225 H ALT 140 H Alkaline Phosphatase 86 Total Protein 6.0 Albumin 2.7 L Globulin 3.3 Albumin/Globulin Ratio 0.8 L Procalcitonin Venous Blood Potassium Urine Color Urine Appearance Urine pH Ur Specific [place] Urine Protein Urine Glucose (UA) Urine Ketones Urine Blood Urine Nitrate Urine Bilirubin Urine Urobilinogen Ur Leukocyte Esterase Urine RBC Urine WBC Ur Epithelial Cells Amorphous Sediment Urine Bacteria Crossmatch Fingerstick Blood Sugar Results: 171 Assessment/Plan - Assessment and Plan (Free Text) Assessment: 82 year old male under ICU care for Subdural Hematoma s/p drain placement requiring intubation for airway protection Hypernatremia Encephalopathy Post Op Fever - rule out PNA VS Other Infectious Etiologies VS Central fevers - High risk for nosocomial infxn Hx of [employer] Infarcts Hx of HTN Hx of HLD Hx of DM1 Plan Neuro - Keep intubated, patient has no sedation; Aspiration precautions - Spoke to Dr. Willingham RE: bleeding into tube, he states this is to be expected, no need for FFP/PRBCs - CT Head showed no change - Maintain normothermia, avoid oxygen toxicity to prevent brain exposure to free radicals - Further recommendations per NSG and Neurology Cardio - Maintain MAP - NO permissive HTN, keep BP < 140/90 - BP Parameters: SBP 100-160; Patient's HR and BP are spiking intermittently, could be due to pain, Morphine PRN q4 Pulm - Maintain oxygen saturation - Protective lung ventilation strategy - reduced FiO2 to 40%, ABG showed O2 of 199 - Vanc/Zosyn for empiric coverage GI - Continue PPX with protonix - Started OGT feedings with water flushes for Hypernatremia; repeat BMP at 4P; water flushes changed to 250 q4 from 200 q6 - Maintain euvolemia Heme - Avoid blood thinners in light of bleed, give Mechanical DVT PPX ID - Smart-cultures - Vanc/Zosyn for post op fever empiric coverage Endo - Maintain euglycemia - Accucheks with RISS <Clark Meza - Last Filed: 04/04/18 10:57> CCU Objective - Vital Signs / Intake & Output Vital Signs (Last 4 hours): Vital Signs Temp Pulse BP Pulse Ox 04/04/18 09:50 100.4 F H 114 H 182/112 H 98 04/04/18 09:48 100.4 F H 122 H 169/112 H 84 L 04/04/18 09:00 100.4 F H 106 H 04/04/18 08:00 100.4 F H 110 H 98 04/04/18 07:56 112 H 145/88 91 L 04/04/18 07:00 107 H 148/104 H 100 Intake and Output (Last 8hrs): Intake & Output 04/03/18 04/04/18 04/04/18 22:59 06:59 14:59 Intake Total 1465 500 Output Total 420 550 Balance 1045 -50 Weight 177 lb 9.6 oz Intake: IV 970 100 0.9 NS 300 D5 1/2 NS 120 antibiotics 450 100 tylenol 100 Oral 0 Tube Feeding 95 Other 400 400 Output: Drainage 0 100 Left Head 0 0 Right Head 0 100 Urine 420 450 Urethral (No) 420 450 Other: # Bowel Movements 0 0 - Medications Active Medications: Active Medications Generic Name Dose Route Start Last Admin Trade Name Freq PRN Reason Stop Dose Admin Vancomycin HCl 1 gm in 250 mls @ 167 mls/hr 04/03/18 10:15 04/04/18 09:08 Vancomycin 1gm IVPB 167 mls/hr DAILY KEATON Administration Protocol Piperacillin Sod/Tazobactam Sod 2.25 gm in 100 mls @ 100 mls/hr 04/04/18 00: 00 04/04/18 05:52 Zosyn 2.25 Gm In 0.9% 100 Ml IVPB 100 mls/hr Q6 KEATON Administration Protocol Insulin Human Regular 0 units 04/03/18 11:59 04/04/18 08:28 Humulin R Med SC 1 unit Q6H KEATON Administration Protocol Labetalol HCl 20 mg 04/02/18 13:39 Trandate IV Q6 PRN Other Morphine Sulfate 2 mg 04/04/18 07:31 Morphine IVP Q4H PRN Pain, moderate (4-7) Pantoprazole Sodium 40 mg 04/04/18 06:00 04/04/18 05:52 Protonix Susp PO 40 mg 0600 [facility] Administration - Patient Studies Lab Studies: Lab Studies 04/04/18 04/04/18 04/04/18 Range/Units 07:00 06:02 06:00 WBC 9.2 (4.5-11.0) 10^3/ul RBC 3.49 L (3.5-6.1) 10^6/uL Hgb 10.9 L (14.0-18.0) g/dL Hct 33.6 L (42.0-52.0) % MCV 96.3 (80.0-105.0) fl MCH 31.2 (25.0-35.0) pg MCHC 32.4 (31.0-37.0) g/dl RDW 15.0 H (11.5-14.5) % Plt Count 127 (120.0-450.0) 10^3/uL MPV 10.0 (7.0-11.0) fl Gran % 73.7 H (50.0-68.0) % Lymph % (Auto) 20.1 L (22.0-35.0) % [place] % (Auto) 5.3 (1.0-6.0) % Eos % (Auto) 0.7 L (1.5-5.0) % Baso % (Auto) 0.2 (0.0-3.0) % Gran # 6.80 H (1.4-6.5) Lymph # (Auto) 1.9 (1.2-3.4) [place] # (Auto) 0.5 (0.1-0.6) Eos # (Auto) 0.1 (0.0-0.7) Baso # (Auto) 0.02 (0.0-2.0) K/mm3 pCO2 (35-45) mm/Hg pO2 (30-55) mm/Hg HCO3 (21-28) mmol/L ABG pH (7.35-7.45) ABG Total CO2 (22-28) mmol.L ABG O2 Saturation (95-98) % ABG O2 Content (15-23) ML/dl ABG Base Excess (-2.0-3.0) mmol/L ABG Hemoglobin (11.7-17.4) g/dL ABG Carboxyhemoglobin (0.5-1.5) % POC ABG HHb (Measured) (0-5) % ABG Methemoglobin (0.0-3.0) % ABG O2 Capacity (16-24) mL/dl VBG pH (7.32-7.43) VBG pCO2 (40-60) VBG HCO3 (21-28) mmol/l VBG Total CO2 (22-28) mmol.L VBG O2 Sat (Calc) (40-65) % VBG Base Excess (0.0-2.0) mmol/L VBG Potassium (3.6-5.2) mmol/L Hgb O2 Saturation (95.0-98.0) % Sodium 151 H (132-148) mmol/L Chloride 117 H (98-107) mmol/L Glucose (75-110) mg/dl Lactate (0.7-2.1) mmol/L FiO2 % Potassium 3.9 (3.6-5.0) mmol/L Carbon Dioxide 21 (21-33) mmol/L Anion Gap 17 (10-20) BUN 37 H (7-21) mg/dL Creatinine 1.3 (0.8-1.5) mg/dl Est GFR ( Amer) > 60 Est GFR (Non-Af Amer) 53 POC Glucose (mg/dL) 171 H (65-110) mg/dL Random Glucose 181 H (70-110) mg/dL Calcium 8.5 (8.4-10.5) mg/dL Phosphorus 3.3 (2.5-4.5) mg/dL Magnesium 2.0 (1.7-2.2) mg/dL Total Bilirubin 0.9 (0.2-1.3) mg/dL AST 225 H (17-59) U/L ALT 140 H (7-56) U/L Alkaline Phosphatase 86 (38-126) U/L Total Protein 6.0 (5.8-8.3) g/dL Albumin 2.7 L (3.0-4.8) g/dL Globulin 3.3 gm/dL Albumin/Globulin Ratio 0.8 L (1.1-1.8) Procalcitonin (0.19-0.49) NG/ML Venous Blood Potassium (3.6-5.2) mmol/L Urine Color (YELLOW) Urine Appearance (CLEAR) Urine pH (4.7-8.0) Ur Specific [place] (1.005-1.035) Urine Protein (<30 mg/dL) mg/dL Urine Glucose (UA) (NEGATIVE) mg/dL Urine Ketones (NEGATIVE) mg/dL Urine Blood (NEGATIVE) Urine Nitrate (NEGATIVE) Urine Bilirubin (NEGATIVE) Urine Urobilinogen (<1 E.U./dL) E.U./dL Ur Leukocyte Esterase (NEGATIVE) Hyacinth/uL Urine RBC (0-2) /hpf Urine WBC (0-6) /hpf Ur Epithelial Cells (0-5) /hpf Amorphous Sediment Urine Bacteria (NEG) Crossmatch 04/04/18 04/03/18 04/03/18 Range/Units 05:50 23:36 16:35 WBC (4.5-11.0) 10^3/ul RBC (3.5-6.1) 10^6/uL Hgb (14.0-18.0) g/dL Hct (42.0-52.0) % MCV (80.0-105.0) fl MCH (25.0-35.0) pg MCHC (31.0-37.0) g/dl RDW (11.5-14.5) % Plt Count (120.0-450.0) 10^3/uL MPV (7.0-11.0) fl Gran % (50.0-68.0) % Lymph % (Auto) (22.0-35.0) % [place] % (Auto) (1.0-6.0) % Eos % (Auto) (1.5-5.0) % Baso % (Auto) (0.0-3.0) % Gran # (1.4-6.5) Lymph # (Auto) (1.2-3.4) [place] # (Auto) (0.1-0.6) Eos # (Auto) (0.0-0.7) Baso # (Auto) (0.0-2.0) K/mm3 pCO2 34 L (35-45) mm/Hg pO2 106.0 H (30-55) mm/Hg HCO3 18.8 L (21-28) mmol/L ABG pH 7.35 (7.35-7.45) ABG Total CO2 19.8 L (22-28) mmol.L ABG O2 Saturation 98.1 H (95-98) % ABG O2 Content 23.3 H (15-23) ML/dl ABG Base Excess -5.8 L (-2.0-3.0) mmol/L ABG Hemoglobin 17.3 (11.7-17.4) g/dL ABG Carboxyhemoglobin 1.5 (0.5-1.5) % POC ABG HHb (Measured) 1.9 (0-5) % ABG Methemoglobin 0.9 (0.0-3.0) % ABG O2 Capacity 23.8 (16-24) mL/dl VBG pH (7.32-7.43) VBG pCO2 (40-60) VBG HCO3 (21-28) mmol/l VBG Total CO2 (22-28) mmol.L VBG O2 Sat (Calc) (40-65) % VBG Base Excess (0.0-2.0) mmol/L VBG Potassium (3.6-5.2) mmol/L Hgb O2 Saturation 95.7 (95.0-98.0) % Sodium (132-148) mmol/L Chloride (98-107) mmol/L Glucose (75-110) mg/dl Lactate (0.7-2.1) mmol/L FiO2 40.0 % Potassium (3.6-5.0) mmol/L Carbon Dioxide (21-33) mmol/L Anion Gap (10-20) BUN (7-21) mg/dL Creatinine (0.8-1.5) mg/dl Est GFR ( Amer) Est GFR (Non-Af Amer) POC Glucose (mg/dL) 164 H 164 H (65-110) mg/dL Random Glucose (70-110) mg/dL Calcium (8.4-10.5) mg/dL Phosphorus (2.5-4.5) mg/dL Magnesium (1.7-2.2) mg/dL Total Bilirubin (0.2-1.3) mg/dL AST (17-59) U/L ALT (7-56) U/L Alkaline Phosphatase (38-126) U/L Total Protein (5.8-8.3) g/dL Albumin (3.0-4.8) g/dL Globulin gm/dL Albumin/Globulin Ratio (1.1-1.8) Procalcitonin (0.19-0.49) NG/ML Venous Blood Potassium (3.6-5.2) mmol/L Urine Color (YELLOW) Urine Appearance (CLEAR) Urine pH (4.7-8.0) Ur Specific [place] (1.005-1.035) Urine Protein (<30 mg/dL) mg/dL Urine Glucose (UA) (NEGATIVE) mg/dL Urine Ketones (NEGATIVE) mg/dL Urine Blood (NEGATIVE) Urine Nitrate (NEGATIVE) Urine Bilirubin (NEGATIVE) Urine Urobilinogen (<1 E.U./dL) E.U./dL Ur Leukocyte Esterase (NEGATIVE) Hyacinth/uL Urine RBC (0-2) /hpf Urine WBC (0-6) /hpf Ur Epithelial Cells (0-5) /hpf Amorphous Sediment Urine Bacteria (NEG) Crossmatch 04/03/18 04/03/18 04/03/18 Range/Units 16:05 12:25 11:00 WBC (4.5-11.0) 10^3/ul RBC (3.5-6.1) 10^6/uL Hgb (14.0-18.0) g/dL Hct (42.0-52.0) % MCV (80.0-105.0) fl MCH (25.0-35.0) pg MCHC (31.0-37.0) g/dl RDW (11.5-14.5) % Plt Count (120.0-450.0) 10^3/uL MPV (7.0-11.0) fl Gran % (50.0-68.0) % Lymph % (Auto) (22.0-35.0) % [place] % (Auto) (1.0-6.0) % Eos % (Auto) (1.5-5.0) % Baso % (Auto) (0.0-3.0) % Gran # (1.4-6.5) Lymph # (Auto) (1.2-3.4) [place] # (Auto) (0.1-0.6) Eos # (Auto) (0.0-0.7) Baso # (Auto) (0.0-2.0) K/mm3 pCO2 (35-45) mm/Hg pO2 (30-55) mm/Hg HCO3 (21-28) mmol/L ABG pH (7.35-7.45) ABG Total CO2 (22-28) mmol.L ABG O2 Saturation (95-98) % ABG O2 Content (15-23) ML/dl ABG Base Excess (-2.0-3.0) mmol/L ABG Hemoglobin (11.7-17.4) g/dL ABG Carboxyhemoglobin (0.5-1.5) % POC ABG HHb (Measured) (0-5) % ABG Methemoglobin (0.0-3.0) % ABG O2 Capacity (16-24) mL/dl VBG pH (7.32-7.43) VBG pCO2 (40-60) VBG HCO3 (21-28) mmol/l VBG Total CO2 (22-28) mmol.L VBG O2 Sat (Calc) (40-65) % VBG Base Excess (0.0-2.0) mmol/L VBG Potassium (3.6-5.2) mmol/L Hgb O2 Saturation (95.0-98.0) % Sodium 150 H (132-148) mmol/L Chloride 118 H (98-107) mmol/L Glucose (75-110) mg/dl Lactate (0.7-2.1) mmol/L FiO2 % Potassium 4.1 (3.6-5.0) mmol/L Carbon Dioxide 19 L (21-33) mmol/L Anion Gap 17 (10-20) BUN 35 H (7-21) mg/dL Creatinine 1.4 (0.8-1.5) mg/dl Est GFR ( Amer) 59 Est GFR (Non-Af Amer) 49 POC Glucose (mg/dL) 171 H (65-110) mg/dL Random Glucose 171 H (70-110) mg/dL Calcium 8.5 (8.4-10.5) mg/dL Phosphorus (2.5-4.5) mg/dL Magnesium (1.7-2.2) mg/dL Total Bilirubin 0.9 (0.2-1.3) mg/dL AST 215 H D (17-59) U/L ALT 108 H (7-56) U/L Alkaline Phosphatase 74 (38-126) U/L Total Protein 5.9 (5.8-8.3) g/dL Albumin 2.7 L (3.0-4.8) g/dL Globulin 3.2 gm/dL Albumin/Globulin Ratio 0.9 L (1.1-1.8) Procalcitonin 0.36 (0.19-0.49) NG/ML Venous Blood Potassium (3.6-5.2) mmol/L Urine Color (YELLOW) Urine Appearance (CLEAR) Urine pH (4.7-8.0) Ur Specific [place] (1.005-1.035) Urine Protein (<30 mg/dL) mg/dL Urine Glucose (UA) (NEGATIVE) mg/dL Urine Ketones (NEGATIVE) mg/dL Urine Blood (NEGATIVE) Urine Nitrate (NEGATIVE) Urine Bilirubin (NEGATIVE) Urine Urobilinogen (<1 E.U./dL) E.U./dL Ur Leukocyte Esterase (NEGATIVE) Hyacinth/uL Urine RBC (0-2) /hpf Urine WBC (0-6) /hpf Ur Epithelial Cells (0-5) /hpf Amorphous Sediment Urine Bacteria (NEG) Crossmatch 04/03/18 04/03/18 04/01/18 Range/Units 11:00 10:45 19:53 WBC (4.5-11.0) 10^3/ul RBC (3.5-6.1) 10^6/uL Hgb (14.0-18.0) g/dL Hct (42.0-52.0) % MCV (80.0-105.0) fl MCH (25.0-35.0) pg MCHC (31.0-37.0) g/dl RDW (11.5-14.5) % Plt Count (120.0-450.0) 10^3/uL MPV (7.0-11.0) fl Gran % (50.0-68.0) % Lymph % (Auto) (22.0-35.0) % [place] % (Auto) (1.0-6.0) % Eos % (Auto) (1.5-5.0) % Baso % (Auto) (0.0-3.0) % Gran # (1.4-6.5) Lymph # (Auto) (1.2-3.4) [place] # (Auto) (0.1-0.6) Eos # (Auto) (0.0-0.7) Baso # (Auto) (0.0-2.0) K/mm3 pCO2 (35-45) mm/Hg pO2 120 H (30-55) mm/Hg HCO3 (21-28) mmol/L ABG pH (7.35-7.45) ABG Total CO2 (22-28) mmol.L ABG O2 Saturation (95-98) % ABG O2 Content (15-23) ML/dl ABG Base Excess (-2.0-3.0) mmol/L ABG Hemoglobin (11.7-17.4) g/dL ABG Carboxyhemoglobin (0.5-1.5) % POC ABG HHb (Measured) (0-5) % ABG Methemoglobin (0.0-3.0) % ABG O2 Capacity (16-24) mL/dl VBG pH 7.40 (7.32-7.43) VBG pCO2 30.0 L (40-60) VBG HCO3 18.6 L (21-28) mmol/l VBG Total CO2 19.5 L (22-28) mmol.L VBG O2 Sat (Calc) 94.3 H (40-65) % VBG Base Excess -5.0 L (0.0-2.0) mmol/L VBG Potassium 4.1 (3.6-5.2) mmol/L Hgb O2 Saturation (95.0-98.0) % Sodium 148.0 (132-148) mmol/L Chloride 120.0 H (98-107) mmol/L Glucose 194 H (75-110) mg/dl Lactate 1.6 (0.7-2.1) mmol/L FiO2 21.0 % Potassium (3.6-5.0) mmol/L Carbon Dioxide (21-33) mmol/L Anion Gap (10-20) BUN (7-21) mg/dL Creatinine (0.8-1.5) mg/dl Est GFR ( Amer) Est GFR (Non-Af Amer) POC Glucose (mg/dL) (65-110) mg/dL Random Glucose (70-110) mg/dL Calcium (8.4-10.5) mg/dL Phosphorus (2.5-4.5) mg/dL Magnesium (1.7-2.2) mg/dL Total Bilirubin (0.2-1.3) mg/dL AST (17-59) U/L ALT (7-56) U/L Alkaline Phosphatase (38-126) U/L Total Protein (5.8-8.3) g/dL Albumin (3.0-4.8) g/dL Globulin gm/dL Albumin/Globulin Ratio (1.1-1.8) Procalcitonin (0.19-0.49) NG/ML Venous Blood Potassium 4.1 (3.6-5.2) mmol/L Urine Color Yellow (YELLOW) Urine Appearance Clear (CLEAR) Urine pH 6.0 (4.7-8.0) Ur Specific [place] 1.025 (1.005-1.035) Urine Protein 100 H (<30 mg/dL) mg/dL Urine Glucose (UA) Negative (NEGATIVE) mg/dL Urine Ketones 15 H (NEGATIVE) mg/dL Urine Blood Moderate H (NEGATIVE) Urine Nitrate Negative (NEGATIVE) Urine Bilirubin Small H (NEGATIVE) Urine Urobilinogen 1.0 H (<1 E.U./dL) E.U./dL Ur Leukocyte Esterase Negative (NEGATIVE) Hyacinth/uL Urine RBC 10 - 15 (0-2) /hpf Urine WBC 1 - 3 (0-6) /hpf Ur Epithelial Cells None (0-5) /hpf Amorphous Sediment Few Urine Bacteria Mod (NEG) Crossmatch See Detail Laboratory Results - last 24 hr 04/01/18 04/03/18 04/03/18 19:53 10:45 11:00 WBC RBC Hgb Hct MCV MCH MCHC RDW Plt Count MPV Gran % Lymph % (Auto) [place] % (Auto) Eos % (Auto) Baso % (Auto) Gran # Lymph # (Auto) [place] # (Auto) Eos # (Auto) Baso # (Auto) pCO2 pO2 120 H HCO3 ABG pH ABG Total CO2 ABG O2 Saturation ABG O2 Content ABG Base Excess ABG Hemoglobin ABG Carboxyhemoglobin POC ABG HHb (Measured) ABG Methemoglobin ABG O2 Capacity VBG pH 7.40 VBG pCO2 30.0 L VBG HCO3 18.6 L VBG Total CO2 19.5 L VBG O2 Sat (Calc) 94.3 H VBG Base Excess -5.0 L VBG Potassium 4.1 Hgb O2 Saturation Sodium 148.0 Chloride 120.0 H Glucose 194 H Lactate 1.6 FiO2 21.0 Potassium Carbon Dioxide Anion Gap BUN Creatinine Est GFR ( Amer) Est GFR (Non-Af Amer) POC Glucose (mg/dL) Random Glucose Calcium Phosphorus Magnesium Total Bilirubin AST ALT Alkaline Phosphatase Total Protein Albumin Globulin Albumin/Globulin Ratio Procalcitonin Venous Blood Potassium 4.1 Urine Color Yellow Urine Appearance Clear Urine pH 6.0 Ur Specific [place] 1.025 Urine Protein 100 H Urine Glucose (UA) Negative Urine Ketones 15 H Urine Blood Moderate H Urine Nitrate Negative Urine Bilirubin Small H Urine Urobilinogen 1.0 H Ur Leukocyte Esterase Negative Urine RBC 10 - 15 Urine WBC 1 - 3 Ur Epithelial Cells None Amorphous Sediment Few Urine Bacteria Mod Crossmatch See Detail 04/03/18 04/03/18 04/03/18 11:00 12:25 16:05 WBC RBC Hgb Hct MCV MCH MCHC RDW Plt Count MPV Gran % Lymph % (Auto) [place] % (Auto) Eos % (Auto) Baso % (Auto) Gran # Lymph # (Auto) [place] # (Auto) Eos # (Auto) Baso # (Auto) pCO2 pO2 HCO3 ABG pH ABG Total CO2 ABG O2 Saturation ABG O2 Content ABG Base Excess ABG Hemoglobin ABG Carboxyhemoglobin POC ABG HHb (Measured) ABG Methemoglobin ABG O2 Capacity VBG pH VBG pCO2 VBG HCO3 VBG Total CO2 VBG O2 Sat (Calc) VBG Base Excess VBG Potassium Hgb O2 Saturation Sodium 150 H Chloride 118 H Glucose Lactate FiO2 Potassium 4.1 Carbon Dioxide 19 L Anion Gap 17 BUN 35 H Creatinine 1.4 Est GFR ( Amer) 59 Est GFR (Non-Af Amer) 49 POC Glucose (mg/dL) 171 H Random Glucose 171 H Calcium 8.5 Phosphorus Magnesium Total Bilirubin 0.9 AST 215 H D ALT 108 H Alkaline Phosphatase 74 Total Protein 5.9 Albumin 2.7 L Globulin 3.2 Albumin/Globulin Ratio 0.9 L Procalcitonin 0.36 Venous Blood Potassium Urine Color Urine Appearance Urine pH Ur Specific [place] Urine Protein Urine Glucose (UA) Urine Ketones Urine Blood Urine Nitrate Urine Bilirubin Urine Urobilinogen Ur Leukocyte Esterase Urine RBC Urine WBC Ur Epithelial Cells Amorphous Sediment Urine Bacteria Crossmatch 04/03/18 04/03/18 04/04/18 16:35 23:36 05:50 WBC RBC Hgb Hct MCV MCH MCHC RDW Plt Count MPV Gran % Lymph % (Auto) [place] % (Auto) Eos % (Auto) Baso % (Auto) Gran # Lymph # (Auto) [place] # (Auto) Eos # (Auto) Baso # (Auto) pCO2 34 L pO2 106.0 H HCO3 18.8 L ABG pH 7.35 ABG Total CO2 19.8 L ABG O2 Saturation 98.1 H ABG O2 Content 23.3 H ABG Base Excess -5.8 L ABG Hemoglobin 17.3 ABG Carboxyhemoglobin 1.5 POC ABG HHb (Measured) 1.9 ABG Methemoglobin 0.9 ABG O2 Capacity 23.8 VBG pH VBG pCO2 VBG HCO3 VBG Total CO2 VBG O2 Sat (Calc) VBG Base Excess VBG Potassium Hgb O2 Saturation 95.7 Sodium Chloride Glucose Lactate FiO2 40.0 Potassium Carbon Dioxide Anion Gap BUN Creatinine Est GFR ( Amer) Est GFR (Non-Af Amer) POC Glucose (mg/dL) 164 H 164 H Random Glucose Calcium Phosphorus Magnesium Total Bilirubin AST ALT Alkaline Phosphatase Total Protein Albumin Globulin Albumin/Globulin Ratio Procalcitonin Venous Blood Potassium Urine Color Urine Appearance Urine pH Ur Specific [place] Urine Protein Urine Glucose (UA) Urine Ketones Urine Blood Urine Nitrate Urine Bilirubin Urine Urobilinogen Ur Leukocyte Esterase Urine RBC Urine WBC Ur Epithelial Cells Amorphous Sediment Urine Bacteria Crossmatch 04/04/18 04/04/18 04/04/18 06:00 06:02 07:00 WBC 9.2 RBC 3.49 L Hgb 10.9 L Hct 33.6 L MCV 96.3 MCH 31.2 MCHC 32.4 RDW 15.0 H Plt Count 127 MPV 10.0 Gran % 73.7 H Lymph % (Auto) 20.1 L [place] % (Auto) 5.3 Eos % (Auto) 0.7 L Baso % (Auto) 0.2 Gran # 6.80 H Lymph # (Auto) 1.9 [place] # (Auto) 0.5 Eos # (Auto) 0.1 Baso # (Auto) 0.02 pCO2 pO2 HCO3 ABG pH ABG Total CO2 ABG O2 Saturation ABG O2 Content ABG Base Excess ABG Hemoglobin ABG Carboxyhemoglobin POC ABG HHb (Measured) ABG Methemoglobin ABG O2 Capacity VBG pH VBG pCO2 VBG HCO3 VBG Total CO2 VBG O2 Sat (Calc) VBG Base Excess VBG Potassium Hgb O2 Saturation Sodium 151 H Chloride 117 H Glucose Lactate FiO2 Potassium 3.9 Carbon Dioxide 21 Anion Gap 17 BUN 37 H Creatinine 1.3 Est GFR ( Amer) > 60 Est GFR (Non-Af Amer) 53 POC Glucose (mg/dL) 171 H Random Glucose 181 H Calcium 8.5 Phosphorus 3.3 Magnesium 2.0 Total Bilirubin 0.9 AST 225 H ALT 140 H Alkaline Phosphatase 86 Total Protein 6.0 Albumin 2.7 L Globulin 3.3 Albumin/Globulin Ratio 0.8 L Procalcitonin Venous Blood Potassium Urine Color Urine Appearance Urine pH Ur Specific [place] Urine Protein Urine Glucose (UA) Urine Ketones Urine Blood Urine Nitrate Urine Bilirubin Urine Urobilinogen Ur Leukocyte Esterase Urine RBC Urine WBC Ur Epithelial Cells Amorphous Sediment Urine Bacteria Crossmatch Attending/Attestation - Attestation I have personally seen and examined this patient.: Yes I have fully participated in the care of the patient.: Yes I have reviewed all pertinent clinical information: Yes Notes (Text): 04/04/18 10:53 The patient was seen and examined at the bedside. Patient care was discussed with resident Medical records, lab studies, and imaging were reviewed and management issues were discussed and formulated. Last 24H events reviewed. Agree with above treatment plans as outlined in 's note with addition of the following: Acute respiratory failure \ Hypoxemia \ Subdural hematoma \ Afib \ Encephaloapthy \ Elevated LFT \ DM 2 \ Hypernatremia -hemodynamic monitoring to maintain MAP>65 -mechanical ventilation and o2 supplementation to maintain Spo2>90 Pao2>60 -ABG and CXR reviewed in AM; Fio2 at 40% -monitor for TV 6ml\kg IBW and plateau pressure <30 -pt might require tracheostomy as he cannot be safely extubated at this time -continue broad spectrum Abx ; f\u pancultures; ID eval appreciated -neurosurgery team following closely post-op ; drains were removed this morning ; reiterated poor prognosis -neurology team f\u; decerebrate posturing noted on exam; pt remains unresponsive despite no sedation being administered since surgery -f\u Bun\Cr and U\o; monitor serial Na+; increase free H2O -tube feeds diet and continue aspiration precautions; NGT adjusted this AM -ISS and BGM monitoring to maintain euglycemia -f\u serial LFT -DVT\PUD prophylaxis prophylaxis -Palliation team eval appreciated [facility] f\u time 34
--- NOTE | 2018-04-04 10:36 | RAD ---
HISTORY: s/p ngt COMPARISON: Portable chest 04/04/2018. FINDINGS: LUNGS: Interval placement of a nasogastric tube is identified with the tip of the left upper quadrant abdomen. Endotracheal tube has been retracted and now terminates 5.5 cm above the teodoro. Minimal airspace disease in the medial left base likely reflective of atelectasis. Right lung is unremarkable appearing. PLEURA: Trace of pleural effusion again evident. None is seen the right. No pneumothorax bilaterally. CARDIOVASCULAR: Cardiac size is stable. No pulmonary vascular congestion. OSSEOUS STRUCTURES: No significant abnormalities. VISUALIZED UPPER ABDOMEN: Normal. OTHER FINDINGS: None. IMPRESSION: Improved aeration bilaterally. Endotracheal tube repositioned as discussed above with interval nasogastric tube in good apparent position. Minimal left pleural effusion unchanged. Limited residual atelectasis medial left base.
--- NOTE | 2018-04-04 11:09 | CP.PCM.PN ---
Subjective - Date & Time of Evaluation Date of Evaluation: 04/04/18 Time of Evaluation: 11:07 - Subjective Subjective: Mr. Vera was seen and examined at the bedside in ICU. He remains on mechanical ventilator on PRVC mode. He pupils 3 mm sluggish, + corneal and gag reflexes, GCS- 4T, breaths over the vent. settings. He has the right parietal dominick intact.There was no untoward events overnight. Objective - Vital Signs/Intake and Output Vital Signs (last 24 hours): Temp Pulse Resp BP Pulse Ox 100.4 F H 114 H 20 182/112 H 98 04/04/18 09:50 04/04/18 09:50 04/03/18 19:59 04/04/18 09:50 04/04/18 09:50 Intake and Output: 04/04/18 04/04/18 06:59 18:59 Intake Total 500 Output Total 550 Balance -50 - Medications Medications: Current Medications Vancomycin HCl (Vancomycin 1gm) 1 gm in 250 mls @ 167 mls/hr IVPB DAILY KEATON PRN Reason: Protocol Last Admin: 04/04/18 09:08 Dose: 167 mls/hr Piperacillin Sod/Tazobactam Sod (Zosyn 2.25 Gm In 0.9% 100 Ml) 2.25 gm in 100 mls @ 100 mls/hr IVPB Q6 KEATON PRN Reason: Protocol Last Admin: 04/04/18 05:52 Dose: 100 mls/hr Insulin Human Regular (Humulin R Med) 0 units SC Q6H KEATON PRN Reason: Protocol Last Admin: 04/04/18 08:28 Dose: 1 unit Labetalol HCl (Trandate) 20 mg IV Q6 PRN PRN Reason: Other Morphine Sulfate (Morphine) 2 mg IVP Q4H PRN PRN Reason: Pain, moderate (4-7) Pantoprazole Sodium (Protonix Susp) 40 mg PO 0600 ON LICENSE OF [facility] Last Admin: 04/04/18 05:52 Dose: 40 mg - Labs Labs: 04/04/18 06:00 04/04/18 07:00 PT 14.0 SECONDS (9.4-12.5) H 04/02/18 12:00 INR 1.21 (0.93-1.08) H 04/02/18 12:00 APTT 48.2 Seconds (25.1-36.5) H 04/01/18 14:40 - Constitutional Appears: No Acute Distress - Eye Exam Pupil Exam: PERRL Additional comments: 3 mm sluggish - Neurological Exam Neuro motor strength exam: Left Upper Extremity: 0, Right Upper Extremity: 0, Left Lower Extremity: 0, Right Lower Extremity: 0 Additional comments: GCS- 4T Assessment and Plan (1) Subdural hematoma Assessment & Plan: Case discussed with Dr. Valerio, continue all current medical regimen, anti- coagulant will be dependent to the neurosurgery clearance when to start, recommend blood pressure control, keep head of bed elevated at least 30 degrees , normothermic, and treat any electrolyte abnormalities. Status: Acute
--- NOTE | 2018-04-04 15:37 | CP.PCM.PN ---
Subjective - Date & Time of Evaluation Date of Evaluation: 04/04/18 Time of Evaluation: 14:30 - Subjective Subjective: Infectious Disease Follow Up: April 04, 2018 82 yo male with presentation for altered mental status on 04/01/2018. Found to have a subdural hematoma (acute on chronic). Craniotomy performed. The patient remains intubated and ventilated since the surgery. His medical history includes CVA, Atrial fibrillation, DM, and HTN. Fevers up to 101.3 F in the past 24 hours but this is POD #3. No leukocytosis. Procalcitonin of 0.36 which is normal. Still persistent low grade fevers at this time. The patient remains poorly responsive despite not being sedated. The patient has a dismal prognosis at this time. Objective - Vital Signs/Intake and Output Vital Signs (last 24 hours): Temp Pulse Resp BP Pulse Ox 100.8 F H 116 H 23 147/103 H 96 04/04/18 13:00 04/04/18 13:00 04/04/18 08:00 04/04/18 13:00 04/04/18 13:00 Intake and Output: 04/04/18 04/04/18 06:59 18:59 Intake Total 500 Output Total 550 Balance -50 - Medications Medications: Current Medications Vancomycin HCl (Vancomycin 1gm) 1 gm in 250 mls @ 167 mls/hr IVPB DAILY KEATON PRN Reason: Protocol Last Admin: 04/04/18 09:08 Dose: 167 mls/hr Piperacillin Sod/Tazobactam Sod (Zosyn 2.25 Gm In 0.9% 100 Ml) 2.25 gm in 100 mls @ 100 mls/hr IVPB Q6 KEATON PRN Reason: Protocol Last Admin: 04/04/18 12:20 Dose: 100 mls/hr Insulin Human Regular (Humulin R Med) 0 units SC Q6H KEATON PRN Reason: Protocol Last Admin: 04/04/18 12:16 Dose: 3 unit Labetalol HCl (Trandate) 20 mg IV Q6 PRN PRN Reason: Other Morphine Sulfate (Morphine) 2 mg IVP Q4H PRN PRN Reason: Pain, moderate (4-7) Pantoprazole Sodium (Protonix Susp) 40 mg PO 0600 [facility] Last Admin: 04/04/18 05:52 Dose: 40 mg - Labs Labs: 04/04/18 06:00 04/04/18 07:00 PT 14.0 SECONDS (9.4-12.5) H 04/02/18 12:00 INR 1.21 (0.93-1.08) H 04/02/18 12:00 APTT 48.2 Seconds (25.1-36.5) H 04/01/18 14:40 - Constitutional Appears: Chronically Ill - Head Exam Additional comments: s/p craniotomy - Eye Exam Eye Exam: absent: Conjunctival injection, Scleral icterus Additional comments: corneals reactive but sluggish. - ENT Exam ENT Exam: Mucous Membranes Moist, Normal External Ear Exam, TM's Normal Bilaterally - Neck Exam Neck Exam: Full ROM. absent: Tenderness Additional comments: Intubated and ventilated - Respiratory Exam Respiratory Exam: Clear to Ausculation Bilateral, NORMAL BREATHING PATTERN. absent: Rales, Rhonchi, Wheezes - Cardiovascular Exam Cardiovascular Exam: Irregular Rhythm, +S1, +S2 - GI/Abdominal Exam GI & Abdominal Exam: Soft, Normal Bowel Sounds. absent: Distended, Tenderness - Extremities Exam Extremities Exam: absent: Joint Swelling, Pedal Edema Additional comments: slightly withdraws right upper and lower extremity to pain - Neurological Exam Additional comments: Intubated, Ventilated, sedated. Poorly responsive even to noxious/toxic stimuli. - Skin Skin Exam: Dry, Intact, Warm Assessment and Plan - Assessment and Plan (Free Text) Assessment: 82 yo male with unresponsive by family on initial presentation found to have an acute on chronic bilateral Subdural hematoma. The patient required craniotomy for decompression. He remains intubated and ventilated. The patient remains in a comatose state. Fevers up to 101.3F. Unclear if this is secondary to postsurgical course after craniotomy, infection, or even central brain injury. Started on IV antibiotics of Zosyn and Vancomycin IV. Can continue on this regimen while culture results return. Supportive care. To date, cultures have been negative to date. More likely the fevers are secondary to central brain injury. Thank you for allowing me to participate in the care of the patient, we will follow with you.
[2018-04-04 16:32] LABS: BLOOD UREA NITROGEN 38 mg/dL (7-21); CALCIUM 8.5 mg/dL (8.4-10.5); GFR AFRICAN-AMERICAN > 60; GFR NON-AFRICAN AMERICAN 53
[2018-04-05 05:38] LABS: ARTERIAL BLOOD GAS HCO3 21.3 mmol/L (21-28); ARTERIAL BLOOD GAS HEMOGLOBIN 8.8 g/dL (11.7-17.4); ARTERIAL BLOOD GAS O2 CAPACITY 12.5 mL/dl (16-24); ARTERIAL BLOOD GAS O2 CONTENT 12.3 ML/dl (15-23); ARTERIAL BLOOD GAS O2 SAT 98.3 % (95-98); ARTERIAL BLOOD GAS PCO2 30 mm/Hg (35-45); ARTERIAL BLOOD GAS PH 7.46 (7.35-7.45); ARTERIAL BLOOD GAS TCO2 22.2 mmol.L (22-28)
[2018-04-05] MEDS: Pantoprazole 40 mg Susp UD PO SCH (05:39)
[2018-04-05] MEDS: Insulin Reg-MEDIUM-Coverage SC SCH ×5 (05:56→23:58)
[2018-04-05 06:33] LABS: BASO # 0.02 K/mm3 (0.0-2.0); BASO % 0.2 % (0.0-3.0); EOS % 0.4 % (1.5-5.0); GRAN # 6.74 (1.4-6.5); GRAN % 81.3 % (50.0-68.0); HEMOGLOBIN 10.6 g/dL (14.0-18.0); LYMPH # 0.9 (1.2-3.4); MEAN CELL VOLUME 93.8 fl (80.0-105.0); MEAN CORPUSCULAR HEMOGLOBIN 31.2 pg (25.0-35.0); MEAN CORPUSCULAR HGB CONC 33.2 g/dl (31.0-37.0); MEAN PLATELET VOLUME 10.4 fl (7.0-11.0); MONO # 0.6 (0.1-0.6); MONO % 7.1 % (1.0-6.0); RBC 3.4 10^6/uL (3.5-6.1); RED CELL DISTRIBUTION WIDTH 14.6 % (11.5-14.5); WHITE BLOOD COUNT 8.3 10^3/ul (4.5-11.0)
[2018-04-05 07:19] LABS: ALB/GLOB RATIO 0.8 (1.1-1.8); ALBUMIN 2.8 g/dL (3.0-4.8); ALT/SGPT 117 U/L (7-56); AST/SGOT 110 U/L (17-59); BLOOD UREA NITROGEN 36 mg/dL (7-21); CALCIUM 8.1 mg/dL (8.4-10.5); GFR AFRICAN-AMERICAN > 60; GFR NON-AFRICAN AMERICAN 58
[2018-04-05] MEDS: Piperacillin/Tazobact 2.25gm 2.25 GM/100 ML BAG IVPB SCH ×3 (07:24→17:46)
[2018-04-05] MEDS: Vancomycin 1gm in NS 250ml 1 GM/250 ML BAG IVPB SCH (09:02)
--- NOTE | 2018-04-05 12:36 | CP.CCUPN ---
<LudyRony - Last Filed: 04/05/18 12:33> CCU Subjective - Physician Review Events Since Last Encounter (Free Text): 04/05/18 08:45 Patient seen and examined at bedside. No acute events overnight besides fevers , which he has intermittently been getting. Family spoken to extensively yesterday, they are aware of prognosis. CCU Objective - Vital Signs / Intake & Output Vital Signs (Last 4 hours): Vital Signs Temp Pulse BP Pulse Ox 04/05/18 12:00 99.7 F H 104 H 136/77 100 04/05/18 11:00 99.9 F H 104 H 137/80 100 04/05/18 10:00 100.8 F H 108 H 131/79 100 04/05/18 09:00 101.5 F H 117 H 142/88 100 Intake and Output (Last 8hrs): Intake & Output 04/04/18 04/05/18 04/05/18 22:59 06:59 14:59 Intake Total 1860 Output Total 800 Balance 1060 Intake: IV 1000 Right Forearm 1000 Tube Feeding 360 Other 500 Output: Urine 800 Urethral (No) 800 Other: # Bowel Movements 0 - Physical Exam Head: Positive for: Swelling (right temporal/occiptal swelling), Ecchymosis ( right auricular ) Pupils: Positive for: Sluggish Conjunctiva: Positive for: Normal Ears: Positive for: Other (ecchymosis right ear) Nose (External): Positive for: Atraumatic Respiratory/Chest: Positive for: Decreased Breath Sounds Cardiovascular: Positive for: Normal S1, S2, Tachycardic Abdomen: Positive for: Normal Bowel Sounds Upper Extremity: Negative for: Normal Inspection Lower Extremity: Negative for: Normal Inspection Neurological: Positive for: Other (GCS 3) Skin: Positive for: Warm, Dry, Abrasion (bilateral knees ) Psychiatric: Negative for: Alert, Oriented x 3 - Medications Active Medications: Active Medications Generic Name Dose Route Start Last Admin Trade Name Freq PRN Reason Stop Dose Admin Vancomycin HCl 1 gm in 250 mls @ 167 mls/hr 04/03/18 10:15 04/05/18 09:02 Vancomycin 1gm IVPB 167 mls/hr DAILY KEATON Administration Protocol Piperacillin Sod/Tazobactam Sod 2.25 gm in 100 mls @ 100 mls/hr 04/04/18 00: 00 04/05/18 07:24 Zosyn 2.25 Gm In 0.9% 100 Ml IVPB 100 mls/hr Q6 KEATON Administration Protocol Acetaminophen 1,000 mg in 100 mls @ 400 mls/hr 04/05/18 08:52 04/05/18 09:02 Ofirmev IVPB 04/07/18 08:53 400 mls/hr Q6H PRN Administration Temperature Insulin Human Regular 0 units 04/03/18 11:59 04/05/18 05:56 Humulin R Med SC 3 unit Q6H KEATON Administration Protocol Labetalol HCl 20 mg 04/02/18 13:39 Trandate IV Q6 PRN Other Morphine Sulfate 2 mg 04/04/18 07:31 Morphine IVP Q4H PRN Pain, moderate (4-7) Pantoprazole Sodium 40 mg 04/04/18 06:00 04/05/18 05:39 Protonix Susp PO 40 mg 0600 [facility] Administration - Patient Studies Lab Studies: Microbiology Studies 04/03/18 11:00 Blood Culture - Preliminary Blood NO GROWTH AFTER 48 HOURS 04/03/18 10:50 Blood Culture - Preliminary Blood NO GROWTH AFTER 48 HOURS 04/03/18 14:30 Gram Stain - Final Sputum 04/03/18 15:30 Urine Culture - Final Urine,No No Growth (<1,000 CFU/ML) Lab Studies 04/05/18 04/05/18 04/05/18 Range/Units 12:03 05:53 05:30 WBC (4.5-11.0) 10^3/ul RBC (3.5-6.1) 10^6/uL Hgb (14.0-18.0) g/dL Hct (42.0-52.0) % MCV (80.0-105.0) fl MCH (25.0-35.0) pg MCHC (31.0-37.0) g/dl RDW (11.5-14.5) % Plt Count (120.0-450.0) 10^3/uL MPV (7.0-11.0) fl Gran % (50.0-68.0) % Lymph % (Auto) (22.0-35.0) % [place] % (Auto) (1.0-6.0) % Eos % (Auto) (1.5-5.0) % Baso % (Auto) (0.0-3.0) % Gran # (1.4-6.5) Lymph # (Auto) (1.2-3.4) [place] # (Auto) (0.1-0.6) Eos # (Auto) (0.0-0.7) Baso # (Auto) (0.0-2.0) K/mm3 pCO2 (35-45) mm/Hg pO2 (80-100) mm/Hg HCO3 (21-28) mmol/L ABG pH (7.35-7.45) ABG Total CO2 (22-28) mmol.L ABG O2 Saturation (95-98) % ABG O2 Content (15-23) ML/dl ABG Base Excess (-2.0-3.0) mmol/L ABG Hemoglobin (11.7-17.4) g/dL ABG Carboxyhemoglobin (0.5-1.5) % POC ABG HHb (Measured) (0-5) % ABG Methemoglobin (0.0-3.0) % ABG O2 Capacity (16-24) mL/dl Hgb O2 Saturation (95.0-98.0) % FiO2 % Sodium 147 (132-148) mmol/L Potassium 4.2 (3.6-5.0) mmol/L Chloride 115 H (98-107) mmol/L Carbon Dioxide 19 L (21-33) mmol/L Anion Gap 18 (10-20) BUN 36 H (7-21) mg/dL Creatinine 1.2 (0.8-1.5) mg/dl Est GFR ( Amer) > 60 Est GFR (Non-Af Amer) 58 POC Glucose (mg/dL) 243 H 249 H (65-110) mg/dL Random Glucose 244 H (70-110) mg/dL Calcium 8.1 L (8.4-10.5) mg/dL Phosphorus 3.0 (2.5-4.5) mg/dL Magnesium 2.1 (1.7-2.2) mg/dL Total Bilirubin 0.7 (0.2-1.3) mg/dL AST 110 H D (17-59) U/L ALT 117 H (7-56) U/L Alkaline Phosphatase 89 (38-126) U/L Total Protein 6.1 (5.8-8.3) g/dL Albumin 2.8 L (3.0-4.8) g/dL Globulin 3.4 gm/dL Albumin/Globulin Ratio 0.8 L (1.1-1.8) 04/05/18 04/05/18 04/04/18 Range/Units 05:30 05:18 23:59 WBC 8.3 (4.5-11.0) 10^3/ul RBC 3.40 L (3.5-6.1) 10^6/uL Hgb 10.6 L (14.0-18.0) g/dL Hct 31.9 L (42.0-52.0) % MCV 93.8 (80.0-105.0) fl MCH 31.2 (25.0-35.0) pg MCHC 33.2 (31.0-37.0) g/dl RDW 14.6 H (11.5-14.5) % Plt Count 114 L (120.0-450.0) 10^3/uL MPV 10.4 (7.0-11.0) fl Gran % 81.3 H (50.0-68.0) % Lymph % (Auto) 11.0 L (22.0-35.0) % [place] % (Auto) 7.1 H (1.0-6.0) % Eos % (Auto) 0.4 L (1.5-5.0) % Baso % (Auto) 0.2 (0.0-3.0) % Gran # 6.74 H (1.4-6.5) Lymph # (Auto) 0.9 L (1.2-3.4) [place] # (Auto) 0.6 (0.1-0.6) Eos # (Auto) 0.0 (0.0-0.7) Baso # (Auto) 0.02 (0.0-2.0) K/mm3 pCO2 30 L (35-45) mm/Hg pO2 106.0 H (80-100) mm/Hg HCO3 21.3 (21-28) mmol/L ABG pH 7.46 H (7.35-7.45) ABG Total CO2 22.2 (22-28) mmol.L ABG O2 Saturation 98.3 H (95-98) % ABG O2 Content 12.3 L (15-23) ML/dl ABG Base Excess -2.0 (-2.0-3.0) mmol/L ABG Hemoglobin 8.8 L (11.7-17.4) g/dL ABG Carboxyhemoglobin 0.6 (0.5-1.5) % POC ABG HHb (Measured) 1.7 (0-5) % ABG Methemoglobin 0.0 (0.0-3.0) % ABG O2 Capacity 12.5 L (16-24) mL/dl Hgb O2 Saturation 97.7 (95.0-98.0) % FiO2 40.0 % Sodium (132-148) mmol/L Potassium (3.6-5.0) mmol/L Chloride (98-107) mmol/L Carbon Dioxide (21-33) mmol/L Anion Gap (10-20) BUN (7-21) mg/dL Creatinine (0.8-1.5) mg/dl Est GFR ( Amer) Est GFR (Non-Af Amer) POC Glucose (mg/dL) 240 H (65-110) mg/dL Random Glucose (70-110) mg/dL Calcium (8.4-10.5) mg/dL Phosphorus (2.5-4.5) mg/dL Magnesium (1.7-2.2) mg/dL Total Bilirubin (0.2-1.3) mg/dL AST (17-59) U/L ALT (7-56) U/L Alkaline Phosphatase (38-126) U/L Total Protein (5.8-8.3) g/dL Albumin (3.0-4.8) g/dL Globulin gm/dL Albumin/Globulin Ratio (1.1-1.8) 04/04/18 04/04/18 04/04/18 Range/Units 17:48 16:18 11:22 WBC (4.5-11.0) 10^3/ul RBC (3.5-6.1) 10^6/uL Hgb (14.0-18.0) g/dL Hct (42.0-52.0) % MCV (80.0-105.0) fl MCH (25.0-35.0) pg MCHC (31.0-37.0) g/dl RDW (11.5-14.5) % Plt Count (120.0-450.0) 10^3/uL MPV (7.0-11.0) fl Gran % (50.0-68.0) % Lymph % (Auto) (22.0-35.0) % [place] % (Auto) (1.0-6.0) % Eos % (Auto) (1.5-5.0) % Baso % (Auto) (0.0-3.0) % Gran # (1.4-6.5) Lymph # (Auto) (1.2-3.4) [place] # (Auto) (0.1-0.6) Eos # (Auto) (0.0-0.7) Baso # (Auto) (0.0-2.0) K/mm3 pCO2 (35-45) mm/Hg pO2 (80-100) mm/Hg HCO3 (21-28) mmol/L ABG pH (7.35-7.45) ABG Total CO2 (22-28) mmol.L ABG O2 Saturation (95-98) % ABG O2 Content (15-23) ML/dl ABG Base Excess (-2.0-3.0) mmol/L ABG Hemoglobin (11.7-17.4) g/dL ABG Carboxyhemoglobin (0.5-1.5) % POC ABG HHb (Measured) (0-5) % ABG Methemoglobin (0.0-3.0) % ABG O2 Capacity (16-24) mL/dl Hgb O2 Saturation (95.0-98.0) % FiO2 % Sodium 152 H (132-148) mmol/L Potassium 3.7 (3.6-5.0) mmol/L Chloride 118 H (98-107) mmol/L Carbon Dioxide 22 (21-33) mmol/L Anion Gap 17 (10-20) BUN 38 H (7-21) mg/dL Creatinine 1.3 (0.8-1.5) mg/dl Est GFR ( Amer) > 60 Est GFR (Non-Af Amer) 53 POC Glucose (mg/dL) 210 H 204 H (65-110) mg/dL Random Glucose 185 H (70-110) mg/dL Calcium 8.5 (8.4-10.5) mg/dL Phosphorus (2.5-4.5) mg/dL Magnesium (1.7-2.2) mg/dL Total Bilirubin (0.2-1.3) mg/dL AST (17-59) U/L ALT (7-56) U/L Alkaline Phosphatase (38-126) U/L Total Protein (5.8-8.3) g/dL Albumin (3.0-4.8) g/dL Globulin gm/dL Albumin/Globulin Ratio (1.1-1.8) Laboratory Results - last 24 hr 04/04/18 04/04/18 04/04/18 11:22 16:18 17:48 WBC RBC Hgb Hct MCV MCH MCHC RDW Plt Count MPV Gran % Lymph % (Auto) [place] % (Auto) Eos % (Auto) Baso % (Auto) Gran # Lymph # (Auto) [place] # (Auto) Eos # (Auto) Baso # (Auto) pCO2 pO2 HCO3 ABG pH ABG Total CO2 ABG O2 Saturation ABG O2 Content ABG Base Excess ABG Hemoglobin ABG Carboxyhemoglobin POC ABG HHb (Measured) ABG Methemoglobin ABG O2 Capacity Hgb O2 Saturation FiO2 Sodium 152 H Potassium 3.7 Chloride 118 H Carbon Dioxide 22 Anion Gap 17 BUN 38 H Creatinine 1.3 Est GFR ( Amer) > 60 Est GFR (Non-Af Amer) 53 POC Glucose (mg/dL) 204 H 210 H Random Glucose 185 H Calcium 8.5 Phosphorus Magnesium Total Bilirubin AST ALT Alkaline Phosphatase Total Protein Albumin Globulin Albumin/Globulin Ratio 04/04/18 04/05/18 04/05/18 23:59 05:18 05:30 WBC 8.3 RBC 3.40 L Hgb 10.6 L Hct 31.9 L MCV 93.8 MCH 31.2 MCHC 33.2 RDW 14.6 H Plt Count 114 L MPV 10.4 Gran % 81.3 H Lymph % (Auto) 11.0 L [place] % (Auto) 7.1 H Eos % (Auto) 0.4 L Baso % (Auto) 0.2 Gran # 6.74 H Lymph # (Auto) 0.9 L [place] # (Auto) 0.6 Eos # (Auto) 0.0 Baso # (Auto) 0.02 pCO2 30 L pO2 106.0 H HCO3 21.3 ABG pH 7.46 H ABG Total CO2 22.2 ABG O2 Saturation 98.3 H ABG O2 Content 12.3 L ABG Base Excess -2.0 ABG Hemoglobin 8.8 L ABG Carboxyhemoglobin 0.6 POC ABG HHb (Measured) 1.7 ABG Methemoglobin 0.0 ABG O2 Capacity 12.5 L Hgb O2 Saturation 97.7 FiO2 40.0 Sodium Potassium Chloride Carbon Dioxide Anion Gap BUN Creatinine Est GFR ( Amer) Est GFR (Non-Af Amer) POC Glucose (mg/dL) 240 H Random Glucose Calcium Phosphorus Magnesium Total Bilirubin AST ALT Alkaline Phosphatase Total Protein Albumin Globulin Albumin/Globulin Ratio 04/05/18 04/05/18 04/05/18 05:30 05:53 12:03 WBC RBC Hgb Hct MCV MCH MCHC RDW Plt Count MPV Gran % Lymph % (Auto) [place] % (Auto) Eos % (Auto) Baso % (Auto) Gran # Lymph # (Auto) [place] # (Auto) Eos # (Auto) Baso # (Auto) pCO2 pO2 HCO3 ABG pH ABG Total CO2 ABG O2 Saturation ABG O2 Content ABG Base Excess ABG Hemoglobin ABG Carboxyhemoglobin POC ABG HHb (Measured) ABG Methemoglobin ABG O2 Capacity Hgb O2 Saturation FiO2 Sodium 147 Potassium 4.2 Chloride 115 H Carbon Dioxide 19 L Anion Gap 18 BUN 36 H Creatinine 1.2 Est GFR ( Amer) > 60 Est GFR (Non-Af Amer) 58 POC Glucose (mg/dL) 249 H 243 H Random Glucose 244 H Calcium 8.1 L Phosphorus 3.0 Magnesium 2.1 Total Bilirubin 0.7 AST 110 H D ALT 117 H Alkaline Phosphatase 89 Total Protein 6.1 Albumin 2.8 L Globulin 3.4 Albumin/Globulin Ratio 0.8 L Fingerstick Blood Sugar Results: 249 Assessment/Plan - Assessment and Plan (Free Text) Assessment: 82 year old male under ICU care for Subdural Hematoma s/p drain placement requiring intubation for airway protection Hypernatremia Encephalopathy Post Op Fever - rule out PNA VS Other Infectious Etiologies VS Central fevers - High risk for nosocomial infxn 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 Willingham RE: bleeding into tube, he states this is to be expected, no need for FFP/PRBCs; states that prognosis is poor, given now uncal herniation - CT Head showed no change besides uncal herniation - Maintain normothermia, avoid oxygen toxicity to prevent brain exposure to free radicals - Further recommendations per NSG and Neurology Cardio - Maintain MAP - NO permissive HTN, keep BP < 140/90 - BP Parameters: SBP 100-160; Patient's HR and BP are spiking intermittently, could be due to pain, Morphine PRN q4 Pulm - Maintain oxygen saturation - Protective lung ventilation strategy - reduced FiO2 to 40%, ABG showed O2 of 199 - Vanc/Zosyn for empiric coverage GI - Continue PPX with protonix - Started OGT feedings with water flushes for Hypernatremia; repeat BMP at 4P; water flushes changed to 250 q4 from 200 q6 - Maintain euvolemia Heme - Avoid blood thinners in light of bleed, give Mechanical DVT PPX ID - Smart-cultures - Vanc/Zosyn for post op fever empiric coverage Endo - Maintain euglycemia - Accucheks with RISS <Yohannes Bergeron - Last Filed: 04/06/18 14:43> CCU Objective - Vital Signs / Intake & Output Vital Signs (Last 4 hours): Vital Signs Temp Pulse BP Pulse Ox 04/06/18 14:00 100.4 F H 96 H 127/85 100 04/06/18 13:00 100.4 F H 103 H 149/98 H 99 04/06/18 12:00 100.4 F H 99 H 131/85 99 04/06/18 11:09 100.4 F H 106 H 133/84 97 04/06/18 11:06 122 H 164/109 H 04/06/18 11:00 100.4 F H 133 H 164/109 H 100 Intake and Output (Last 8hrs): Intake & Output 04/05/18 04/06/18 04/06/18 22:59 06:59 14:59 Intake Total 1915 1590 Output Total 620 500 Balance 1295 1090 Intake: IV 625 300 Right Forearm 625 100 antibiotics 200 Tube Feeding 540 540 Other 750 750 Output: Urine 620 500 Urethral (No) 620 500 - Medications Active Medications: Active Medications Generic Name Dose Route Start Last Admin Trade Name Freq PRN Reason Stop Dose Admin Vancomycin HCl 1 gm in 250 mls @ 167 mls/hr 04/03/18 10:15 04/06/18 09:33 Vancomycin 1gm IVPB 167 mls/hr DAILY KEATON Administration Protocol Piperacillin Sod/Tazobactam Sod 2.25 gm in 100 mls @ 100 mls/hr 04/04/18 00: 00 04/06/18 12:05 Zosyn 2.25 Gm In 0.9% 100 Ml IVPB 100 mls/hr Q6 KEATON Administration Protocol Acetaminophen 1,000 mg in 100 mls @ 400 mls/hr 04/05/18 08:52 04/06/18 08:26 Ofirmev IVPB 04/07/18 08:53 400 mls/hr Q6H PRN Administration Temperature Levetiracetam 500 mg in 100 mls @ 460 mls/hr 04/05/18 22:00 04/06/18 09:33 Keppra 500mg Ivpb IVPB 460 mls/hr Q12 KEATON Administration Insulin Human Regular 0 units 04/03/18 11:59 04/06/18 12:04 Humulin R Med SC 3 unit Q6H KEATON Administration Protocol Labetalol HCl 20 mg 04/02/18 13:39 04/06/18 11:06 Trandate IV 20 mg Q6 PRN Administration Other Morphine Sulfate 2 mg 04/04/18 07:31 Morphine IVP Q4H PRN Pain, moderate (4-7) Pantoprazole Sodium 40 mg 04/04/18 06:00 04/06/18 05:37 Protonix Susp PO 40 mg 0600 KEATON Administration - Patient Studies Lab Studies: Microbiology Studies 04/03/18 14:30 Gram Stain - Final Sputum Sputum Culture - Preliminary Gram Positive Cocci 04/03/18 11:00 Blood Culture - Preliminary Blood NO GROWTH AFTER 3 DAYS 04/03/18 10:50 Blood Culture - Preliminary Blood NO GROWTH AFTER 3 DAYS Lab Studies 04/06/18 04/06/18 04/06/18 Range/Units 11:38 07:34 06:10 WBC (4.5-11.0) 10^3/ul RBC (3.5-6.1) 10^6/uL Hgb (14.0-18.0) g/dL Hct (42.0-52.0) % MCV (80.0-105.0) fl MCH (25.0-35.0) pg MCHC (31.0-37.0) g/dl RDW (11.5-14.5) % Plt Count (120.0-450.0) 10^3/uL MPV (7.0-11.0) fl Gran % (50.0-68.0) % Lymph % (Auto) (22.0-35.0) % [place] % (Auto) (1.0-6.0) % Eos % (Auto) (1.5-5.0) % Baso % (Auto) (0.0-3.0) % Gran # (1.4-6.5) Lymph # (Auto) (1.2-3.4) [place] # (Auto) (0.1-0.6) Eos # (Auto) (0.0-0.7) Baso # (Auto) (0.0-2.0) K/mm3 pCO2 (35-45) mm/Hg pO2 (80-100) mm/Hg HCO3 (21-28) mmol/L ABG pH (7.35-7.45) ABG Total CO2 (22-28) mmol.L ABG O2 Saturation (95-98) % ABG O2 Content (15-23) ML/dl ABG Base Excess (-2.0-3.0) mmol/L ABG Hemoglobin (11.7-17.4) g/dL ABG Carboxyhemoglobin (0.5-1.5) % POC ABG HHb (Measured) (0-5) % ABG Methemoglobin (0.0-3.0) % ABG O2 Capacity (16-24) mL/dl Hgb O2 Saturation (95.0-98.0) % FiO2 % Sodium 145 (132-148) mmol/L Potassium 4.1 (3.6-5.0) mmol/L Chloride 112 H (98-107) mmol/L Carbon Dioxide 23 (21-33) mmol/L Anion Gap 14 (10-20) BUN 35 H (7-21) mg/dL Creatinine 1.2 (0.8-1.5) mg/dl Est GFR ( Amer) > 60 Est GFR (Non-Af Amer) 58 POC Glucose (mg/dL) 231 H 205 H (65-110) mg/dL Random Glucose 211 H (70-110) mg/dL Calcium 8.1 L (8.4-10.5) mg/dL Phosphorus 3.0 (2.5-4.5) mg/dL Magnesium 1.9 (1.7-2.2) mg/dL Total Bilirubin 0.8 (0.2-1.3) mg/dL AST 86 H D (17-59) U/L ALT 101 H (7-56) U/L Alkaline Phosphatase 102 (38-126) U/L Total Protein 5.8 (5.8-8.3) g/dL Albumin 2.6 L (3.0-4.8) g/dL Globulin 3.2 gm/dL Albumin/Globulin Ratio 0.8 L (1.1-1.8) 04/06/18 04/06/18 04/06/18 Range/Units 06:10 05:47 04:50 WBC 8.8 (4.5-11.0) 10^3/ul RBC 3.26 L (3.5-6.1) 10^6/uL Hgb 10.3 L (14.0-18.0) g/dL Hct 31.5 L (42.0-52.0) % MCV 96.6 (80.0-105.0) fl MCH 31.6 (25.0-35.0) pg MCHC 32.7 (31.0-37.0) g/dl RDW 14.5 (11.5-14.5) % Plt Count 106 L (120.0-450.0) 10^3/uL MPV 11.6 H (7.0-11.0) fl Gran % 79.5 H (50.0-68.0) % Lymph % (Auto) 13.0 L (22.0-35.0) % [place] % (Auto) 5.9 (1.0-6.0) % Eos % (Auto) 1.5 (1.5-5.0) % Baso % (Auto) 0.1 (0.0-3.0) % Gran # 7.03 H (1.4-6.5) Lymph # (Auto) 1.2 (1.2-3.4) [place] # (Auto) 0.5 (0.1-0.6) Eos # (Auto) 0.1 (0.0-0.7) Baso # (Auto) 0.01 (0.0-2.0) K/mm3 pCO2 31 L (35-45) mm/Hg pO2 110.0 H (80-100) mm/Hg HCO3 22.6 (21-28) mmol/L ABG pH 7.47 H (7.35-7.45) ABG Total CO2 23.6 (22-28) mmol.L ABG O2 Saturation 98.7 H (95-98) % ABG O2 Content 13.1 L (15-23) ML/dl ABG Base Excess -0.6 (-2.0-3.0) mmol/L ABG Hemoglobin 9.6 L (11.7-17.4) g/dL ABG Carboxyhemoglobin 1.6 H (0.5-1.5) % POC ABG HHb (Measured) 1.3 (0-5) % ABG Methemoglobin 1.2 (0.0-3.0) % ABG O2 Capacity 13.3 L (16-24) mL/dl Hgb O2 Saturation 95.9 (95.0-98.0) % FiO2 40.0 % Sodium (132-148) mmol/L Potassium (3.6-5.0) mmol/L Chloride (98-107) mmol/L Carbon Dioxide (21-33) mmol/L Anion Gap (10-20) BUN (7-21) mg/dL Creatinine (0.8-1.5) mg/dl Est GFR ( Amer) Est GFR (Non-Af Amer) POC Glucose (mg/dL) 168 H (65-110) mg/dL Random Glucose (70-110) mg/dL Calcium (8.4-10.5) mg/dL Phosphorus (2.5-4.5) mg/dL Magnesium (1.7-2.2) mg/dL Total Bilirubin (0.2-1.3) mg/dL AST (17-59) U/L ALT (7-56) U/L Alkaline Phosphatase (38-126) U/L Total Protein (5.8-8.3) g/dL Albumin (3.0-4.8) g/dL Globulin gm/dL Albumin/Globulin Ratio (1.1-1.8) 04/05/18 04/05/18 Range/Units 23:54 17:56 WBC (4.5-11.0) 10^3/ul RBC (3.5-6.1) 10^6/uL Hgb (14.0-18.0) g/dL Hct (42.0-52.0) % MCV (80.0-105.0) fl MCH (25.0-35.0) pg MCHC (31.0-37.0) g/dl RDW (11.5-14.5) % Plt Count (120.0-450.0) 10^3/uL MPV (7.0-11.0) fl Gran % (50.0-68.0) % Lymph % (Auto) (22.0-35.0) % [place] % (Auto) (1.0-6.0) % Eos % (Auto) (1.5-5.0) % Baso % (Auto) (0.0-3.0) % Gran # (1.4-6.5) Lymph # (Auto) (1.2-3.4) [place] # (Auto) (0.1-0.6) Eos # (Auto) (0.0-0.7) Baso # (Auto) (0.0-2.0) K/mm3 pCO2 (35-45) mm/Hg pO2 (80-100) mm/Hg HCO3 (21-28) mmol/L ABG pH (7.35-7.45) ABG Total CO2 (22-28) mmol.L ABG O2 Saturation (95-98) % ABG O2 Content (15-23) ML/dl ABG Base Excess (-2.0-3.0) mmol/L ABG Hemoglobin (11.7-17.4) g/dL ABG Carboxyhemoglobin (0.5-1.5) % POC ABG HHb (Measured) (0-5) % ABG Methemoglobin (0.0-3.0) % ABG O2 Capacity (16-24) mL/dl Hgb O2 Saturation (95.0-98.0) % FiO2 % Sodium (132-148) mmol/L Potassium (3.6-5.0) mmol/L Chloride (98-107) mmol/L Carbon Dioxide (21-33) mmol/L Anion Gap (10-20) BUN (7-21) mg/dL Creatinine (0.8-1.5) mg/dl Est GFR ( Amer) Est GFR (Non-Af Amer) POC Glucose (mg/dL) 194 H 216 H (65-110) mg/dL Random Glucose (70-110) mg/dL Calcium (8.4-10.5) mg/dL Phosphorus (2.5-4.5) mg/dL Magnesium (1.7-2.2) mg/dL Total Bilirubin (0.2-1.3) mg/dL AST (17-59) U/L ALT (7-56) U/L Alkaline Phosphatase (38-126) U/L Total Protein (5.8-8.3) g/dL Albumin (3.0-4.8) g/dL Globulin gm/dL Albumin/Globulin Ratio (1.1-1.8) Laboratory Results - last 24 hr 04/05/18 04/05/18 04/06/18 17:56 23:54 04:50 WBC RBC Hgb Hct MCV MCH MCHC RDW Plt Count MPV Gran % Lymph % (Auto) [place] % (Auto) Eos % (Auto) Baso % (Auto) Gran # Lymph # (Auto) [place] # (Auto) Eos # (Auto) Baso # (Auto) pCO2 31 L pO2 110.0 H HCO3 22.6 ABG pH 7.47 H ABG Total CO2 23.6 ABG O2 Saturation 98.7 H ABG O2 Content 13.1 L ABG Base Excess -0.6 ABG Hemoglobin 9.6 L ABG Carboxyhemoglobin 1.6 H POC ABG HHb (Measured) 1.3 ABG Methemoglobin 1.2 ABG O2 Capacity 13.3 L Hgb O2 Saturation 95.9 FiO2 40.0 Sodium Potassium Chloride Carbon Dioxide Anion Gap BUN Creatinine Est GFR ( Amer) Est GFR (Non-Af Amer) POC Glucose (mg/dL) 216 H 194 H Random Glucose Calcium Phosphorus Magnesium Total Bilirubin AST ALT Alkaline Phosphatase Total Protein Albumin Globulin Albumin/Globulin Ratio 04/06/18 04/06/18 04/06/18 05:47 06:10 06:10 WBC 8.8 RBC 3.26 L Hgb 10.3 L Hct 31.5 L MCV 96.6 MCH 31.6 MCHC 32.7 RDW 14.5 Plt Count 106 L MPV 11.6 H Gran % 79.5 H Lymph % (Auto) 13.0 L [place] % (Auto) 5.9 Eos % (Auto) 1.5 Baso % (Auto) 0.1 Gran # 7.03 H Lymph # (Auto) 1.2 [place] # (Auto) 0.5 Eos # (Auto) 0.1 Baso # (Auto) 0.01 pCO2 pO2 HCO3 ABG pH ABG Total CO2 ABG O2 Saturation ABG O2 Content ABG Base Excess ABG Hemoglobin ABG Carboxyhemoglobin POC ABG HHb (Measured) ABG Methemoglobin ABG O2 Capacity Hgb O2 Saturation FiO2 Sodium 145 Potassium 4.1 Chloride 112 H Carbon Dioxide 23 Anion Gap 14 BUN 35 H Creatinine 1.2 Est GFR ( Amer) > 60 Est GFR (Non-Af Amer) 58 POC Glucose (mg/dL) 168 H Random Glucose 211 H Calcium 8.1 L Phosphorus 3.0 Magnesium 1.9 Total Bilirubin 0.8 AST 86 H D ALT 101 H Alkaline Phosphatase 102 Total Protein 5.8 Albumin 2.6 L Globulin 3.2 Albumin/Globulin Ratio 0.8 L 04/06/18 04/06/18 07:34 11:38 WBC RBC Hgb Hct MCV MCH MCHC RDW Plt Count MPV Gran % Lymph % (Auto) [place] % (Auto) Eos % (Auto) Baso % (Auto) Gran # Lymph # (Auto) [place] # (Auto) Eos # (Auto) Baso # (Auto) pCO2 pO2 HCO3 ABG pH ABG Total CO2 ABG O2 Saturation ABG O2 Content ABG Base Excess ABG Hemoglobin ABG Carboxyhemoglobin POC ABG HHb (Measured) ABG Methemoglobin ABG O2 Capacity Hgb O2 Saturation FiO2 Sodium Potassium Chloride Carbon Dioxide Anion Gap BUN Creatinine Est GFR ( Amer) Est GFR (Non-Af Amer) POC Glucose (mg/dL) 205 H 231 H Random Glucose Calcium Phosphorus Magnesium Total Bilirubin AST ALT Alkaline Phosphatase Total Protein Albumin Globulin Albumin/Globulin Ratio Attending/Attestation - Attestation I have personally seen and examined this patient.: Yes I have fully participated in the care of the patient.: Yes I have reviewed all pertinent clinical information: Yes Notes (Text): 04/06/18 14:[address] Bergeron note
--- NOTE | 2018-04-05 12:45 | CP.PCM.PN ---
Subjective - Date & Time of Evaluation Date of Evaluation: 04/05/18 Time of Evaluation: 12:00 - Subjective Subjective: Does not respond to painful stimuli, pupils sluggish, corneal present Objective - Vital Signs/Intake and Output Vital Signs (last 24 hours): Temp Pulse Resp BP Pulse Ox 99.7 F H 104 H 21 136/77 100 04/05/18 12:00 04/05/18 12:00 04/05/18 07:34 04/05/18 12:00 04/05/18 12:00 Intake and Output: 04/05/18 04/05/18 06:59 18:59 Intake Total 1860 Output Total 800 Balance 1060 - Medications Medications: Current Medications Vancomycin HCl (Vancomycin 1gm) 1 gm in 250 mls @ 167 mls/hr IVPB DAILY [facility] PRN Reason: Protocol Last Admin: 04/05/18 09:02 Dose: 167 mls/hr Piperacillin Sod/Tazobactam Sod (Zosyn 2.25 Gm In 0.9% 100 Ml) 2.25 gm in 100 mls @ 100 mls/hr IVPB Q6 [facility] PRN Reason: Protocol Last Admin: 04/05/18 12:38 Dose: 100 mls/hr Acetaminophen (Ofirmev) 1,000 mg in 100 mls @ 400 mls/hr IVPB Q6H PRN PRN Reason: Temperature Stop: 04/07/18 08:53 Last Admin: 04/05/18 09:02 Dose: 400 mls/hr Insulin Human Regular (Humulin R Med) 0 units SC Q6H [facility] PRN Reason: Protocol Last Admin: 04/05/18 12:38 Dose: 3 unit Labetalol HCl (Trandate) 20 mg IV Q6 PRN PRN Reason: Other Morphine Sulfate (Morphine) 2 mg IVP Q4H PRN PRN Reason: Pain, moderate (4-7) Pantoprazole Sodium (Protonix Susp) 40 mg PO 0600 [facility] Last Admin: 04/05/18 05:39 Dose: 40 mg - Labs Labs: 04/05/18 05:30 04/05/18 05:30 PT 14.0 SECONDS (9.4-12.5) H 04/02/18 12:00 INR 1.21 (0.93-1.08) H 04/02/18 12:00 APTT 48.2 Seconds (25.1-36.5) H 04/01/18 14:40 - Constitutional Appears: Chronically Ill - Eye Exam Additional comments: pupils sluggish corneals minimal - ENT Exam ENT Exam: Mucous Membranes Moist - Respiratory Exam Respiratory Exam: Decreased Breath Sounds - Cardiovascular Exam Cardiovascular Exam: Irregular Rhythm, +S1, +S2 - GI/Abdominal Exam GI & Abdominal Exam: Soft, Hypoactive Bowel Sounds - Extremities Exam Extremities Exam: Normal Capillary Refill Additional comments: posturing - Neurological Exam Additional comments: vegetative state - Skin Skin Exam: Dry, Warm Assessment and Plan - Assessment and Plan (Free Text) Assessment: 82 year old male with history of CVA, HTN, A FIb who is admitted with acute bilateral subdural hematoma's, s/p craniotomy and evacuation, respiratory failure. GCS 4. Febrile today. Roberto BROWN spoke with patients son Kvng Manuel this morning. Family intends to visit this weekend. They will meet with medical staff and discuses goals of care at that time. LTAC has been offered by [facility]. Will follow up regarding goals of care . Plan: Neurology: keep head of bead at 30 degrees,Labetelol, maintain BP control ID: cultures negative, On Zosyn and Vancomycin. Fevers; Monitor, Acetaminophen, cultures negative, maybe due to brain injury Pulmonary: Continue ventilator support Goals of care and advance care planning
--- NOTE | 2018-04-05 13:31 | CP.PCM.PN ---
Subjective - Date & Time of Evaluation Date of Evaluation: 04/05/18 Time of Evaluation: 13:31 - Subjective Subjective: Mr. Vera was seen and examined at the bedside in ICU. He remains on mechanical ventilator on PRVC mode. He pupils 3 mm sluggish, + corneal and gag reflexes, GCS- 4T, breaths over the vent. settings. He has the right parietal dominick intact. CT scan done 04/04/2018 showed stable appearance of bilateral frontal dayami hole with subdural dranage catheters in the bilateral frontal subdural spaces. Stable appearrance of large air-fluid levels in bilateral cerebral subdural spaces, left greater than right, unchanged since the previous study. Stable mass effect with compression of the left lateral ventricle and midline shift of 5 mm towards the right. Uncal herniation is noted in the left side. Stable chronic focal hypodense infarctions in the left centrum semiovale all and left parieto-occipital regions. No acute infarction or acute intraparenchymal hemorrhage.There was no untoward events overnight. Objective - Vital Signs/Intake and Output Vital Signs (last 24 hours): Temp Pulse Resp BP Pulse Ox 99.7 F H 104 H 21 136/77 100 04/05/18 12:00 04/05/18 12:00 04/05/18 07:34 04/05/18 12:00 04/05/18 12:00 Intake and Output: 04/05/18 04/05/18 06:59 18:59 Intake Total 1860 Output Total 800 Balance 1060 - Medications Medications: Current Medications Vancomycin HCl (Vancomycin 1gm) 1 gm in 250 mls @ 167 mls/hr IVPB DAILY [facility] PRN Reason: Protocol Last Admin: 04/05/18 09:02 Dose: 167 mls/hr Piperacillin Sod/Tazobactam Sod (Zosyn 2.25 Gm In 0.9% 100 Ml) 2.25 gm in 100 mls @ 100 mls/hr IVPB Q6 [facility] PRN Reason: Protocol Last Admin: 04/05/18 12:38 Dose: 100 mls/hr Acetaminophen (Ofirmev) 1,000 mg in 100 mls @ 400 mls/hr IVPB Q6H PRN PRN Reason: Temperature Stop: 04/07/18 08:53 Last Admin: 04/05/18 09:02 Dose: 400 mls/hr Insulin Human Regular (Humulin R Med) 0 units SC Q6H [facility] PRN Reason: Protocol Last Admin: 04/05/18 12:38 Dose: 3 unit Labetalol HCl (Trandate) 20 mg IV Q6 PRN PRN Reason: Other Morphine Sulfate (Morphine) 2 mg IVP Q4H PRN PRN Reason: Pain, moderate (4-7) Pantoprazole Sodium (Protonix Susp) 40 mg PO 0600 [facility] Last Admin: 04/05/18 05:39 Dose: 40 mg - Labs Labs: 04/05/18 05:30 04/05/18 05:30 PT 14.0 SECONDS (9.4-12.5) H 04/02/18 12:00 INR 1.21 (0.93-1.08) H 04/02/18 12:00 APTT 48.2 Seconds (25.1-36.5) H 04/01/18 14:40 - Constitutional Appears: No Acute Distress - Head Exam Head Exam: NORMAL INSPECTION - Eye Exam Pupil Exam: PERRL Additional comments: 2 mm suggish - Neurological Exam Neuro motor strength exam: Left Upper Extremity: 0, Right Upper Extremity: 0, Left Lower Extremity: 0, Right Lower Extremity: 0 Additional comments: GCS-4T Assessment and Plan (1) Subdural hematoma Assessment & Plan: Case discussed with Dr. Valerio, continue all current medical regimen, anti- coagulant will be dependent to the neurosurgery clearance when to start, please refer to neurosurgery regarding result of Ct scan, EEG today, recommend blood pressure control, keep head of bed elevated at least 30 degrees, normothermic, and treat any electrolyte abnormalities. Status: Acute
--- NOTE | 2018-04-05 15:00 | CP.PCM.PN ---
<Tunde Arceo - Last Filed: 04/05/18 17:51> Subjective - Date & Time of Evaluation Date of Evaluation: 04/05/18 Time of Evaluation: 05:50 - Subjective Subjective: Patient seen and examined at bedside. Patient has drains removed. Minimally responsive, moves arms and legs at times. Pupillary reflex in tact; improvement from yesterday. CT head shows uncal herniation. Patient febrile mostly central in origin. Objective - Vital Signs/Intake and Output Vital Signs (last 24 hours): Temp Pulse Resp BP Pulse Ox 100.0 F H 102 H 21 138/85 100 04/05/18 14:00 04/05/18 14:00 04/05/18 07:34 04/05/18 14:00 04/05/18 14:00 Intake and Output: 04/05/18 04/05/18 06:59 18:59 Intake Total 1860 Output Total 800 Balance 1060 - Medications Medications: Current Medications Vancomycin HCl (Vancomycin 1gm) 1 gm in 250 mls @ 167 mls/hr IVPB DAILY [facility] PRN Reason: Protocol Last Admin: 04/05/18 09:02 Dose: 167 mls/hr Piperacillin Sod/Tazobactam Sod (Zosyn 2.25 Gm In 0.9% 100 Ml) 2.25 gm in 100 mls @ 100 mls/hr IVPB Q6 [facility] PRN Reason: Protocol Last Admin: 04/05/18 12:38 Dose: 100 mls/hr Acetaminophen (Ofirmev) 1,000 mg in 100 mls @ 400 mls/hr IVPB Q6H PRN PRN Reason: Temperature Stop: 04/07/18 08:53 Last Admin: 04/05/18 09:02 Dose: 400 mls/hr Insulin Human Regular (Humulin R Med) 0 units SC Q6H [facility] PRN Reason: Protocol Last Admin: 04/05/18 12:38 Dose: 3 unit Labetalol HCl (Trandate) 20 mg IV Q6 PRN PRN Reason: Other Morphine Sulfate (Morphine) 2 mg IVP Q4H PRN PRN Reason: Pain, moderate (4-7) Pantoprazole Sodium (Protonix Susp) 40 mg PO 0600 [facility] Last Admin: 04/05/18 05:39 Dose: 40 mg - Labs Labs: 04/05/18 05:30 06/28/18 05:30 PT 14.0 SECONDS (9.4-12.5) H 04/02/18 12:00 INR 1.21 (0.93-1.08) H 04/02/18 12:00 APTT 48.2 Seconds (25.1-36.5) H 04/01/18 14:40 - Head Exam Head Exam: absent: NORMAL INSPECTION (dominick in place) - Eye Exam Eye Exam: Normal appearance Pupil Exam: absent: Fixed, Irregular - ENT Exam ENT Exam: Mucous Membranes Moist - Neck Exam Neck Exam: Normal Inspection - Respiratory Exam Respiratory Exam: Clear to Ausculation Bilateral, NORMAL BREATHING PATTERN. absent: Rhonchi, Wheezes - Cardiovascular Exam Cardiovascular Exam: REGULAR RHYTHM, +S1, +S2 - GI/Abdominal Exam GI & Abdominal Exam: Soft, Normal Bowel Sounds - Extremities Exam Extremities Exam: Normal Inspection - Neurological Exam Neurological Exam: absent: Alert, Awake, Oriented x3 - Skin Skin Exam: Normal Color, Warm Assessment and Plan - Assessment and Plan (Free Text) Assessment: Patient is a 82 year old male with a past medical history of CVA, TIA, atrial fibrillation, hypertension, hyperlipidemia, and diabetes who presented to the emergency department for evaluation and treatment of altered mental status due to 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 Plan Bilateral subdural hematoma -S/P hematoma evacuation POD #4 -Continue with recs as per neurosurgery and neurology; prognosis guarded -Repeat CT reveals reveal stable appearance of large air fluid levels in bilateral cerebral subdural spaces, left greater than right. Stable mass effect with compression of the left lateral centricule and midline shift of 4 mm towards the right. Uncal herniation noted on left side. Stable chronic focal hypodense infarctions in the left centrum semiovale and left parieto-occiptal regions. No acute infarction or acue intraparenchymal hemorrhage is seen. -Palliative on consult Transaminitis -Abdominal ultrasound cancelled -LFTs improving CVA hx -Hold PO meds: coumadin, crestor, toprol XL -Monitor vital signs -Monitor INR Atrial fibrillation -Hold Coumadin -Monitor INR -Consider addition of cardizem if HR is not controlled Hypertension -Monitor vital signs -Continue with Labetalol HCL PRN Hyperlipidemia -Crestor on hold for now Hypernatremia -resolved -continue with free water flushes via OG tube IDDM -ISS-med -continue with accuchecks Chronic back pain -Morphine PRN Fever -Currently febrile -Blood cultures, no growth , Urine cultures final no growth, Procalcitonin 0.39 -Continue with zosyn -Continue to monitor GI prophylaxis: protonix DVT prophylaxis: mechanical at this time only due to brain bleed Dispo: Poor prognosis, discussed with daughter, she is aware of the prognosis. <Suman Joe - Last Filed: 04/06/18 12:00> Objective - Vital Signs/Intake and Output Vital Signs (last 24 hours): Temp Pulse Resp BP Pulse Ox 100.4 F H 122 H 24 164/109 H 96 04/06/18 10:00 04/06/18 11:06 04/06/18 07:50 04/06/18 11:06 04/06/18 10:00 Intake and Output: 04/06/18 04/06/18 06:59 18:59 Intake Total 1590 Output Total 500 Balance 1090 - Medications Medications: Current Medications Vancomycin HCl (Vancomycin 1gm) 1 gm in 250 mls @ 167 mls/hr IVPB DAILY [facility] PRN Reason: Protocol Last Admin: 04/06/18 09:33 Dose: 167 mls/hr Piperacillin Sod/Tazobactam Sod (Zosyn 2.25 Gm In 0.9% 100 Ml) 2.25 gm in 100 mls @ 100 mls/hr IVPB Q6 [facility] PRN Reason: Protocol Last Admin: 04/06/18 05:37 Dose: 100 mls/hr Acetaminophen (Ofirmev) 1,000 mg in 100 mls @ 400 mls/hr IVPB Q6H PRN PRN Reason: Temperature Stop: 04/07/18 08:53 Last Admin: 04/06/18 08:26 Dose: 400 mls/hr Levetiracetam (Keppra 500mg Ivpb) 500 mg in 100 mls @ 460 mls/hr IVPB Q12 [facility] Last Admin: 04/06/18 09:33 Dose: 460 mls/hr Insulin Human Regular (Humulin R Med) 0 units SC Q6H [facility] PRN Reason: Protocol Last Admin: 04/06/18 05:48 Dose: Not Given Labetalol HCl (Trandate) 20 mg IV Q6 PRN PRN Reason: Other Last Admin: 04/06/18 11:06 Dose: 20 mg Morphine Sulfate (Morphine) 2 mg IVP Q4H PRN PRN Reason: Pain, moderate (4-7) Pantoprazole Sodium (Protonix Susp) 40 mg PO 0600 [facility] Last Admin: 04/06/18 05:37 Dose: 40 mg - Labs Labs: 04/06/18 06:10 04/06/18 06:10 PT 14.0 SECONDS (9.4-12.5) H 04/02/18 12:00 INR 1.21 (0.93-1.08) H 04/02/18 12:00 APTT 48.2 Seconds (25.1-36.5) H 04/01/18 14:40 Attending/Attestation - Attestation I have personally seen and examined this patient.: Yes I have reviewed all pertinent clinical information, including history, physical exam and plan: Yes Notes (Text): 04/06/18 11:57 Medical record note made by the resident after discussion with my direction and input after the patient was personally seen and examined by me. I have reviewed the chart and agree that the record accurately reflects by personal performance of the history, physical exam, data review, and medical decision-making, in the course for the patient. I have also personally directed the plan of care. 82 year old male with a past medical history of CVA, , atrial fibrillation on Apixiban, hypertension, hyperlipidemia, and diabetes who presented to the emergency department for evaluation and treatment of altered mental status, found to have bilateral subdural hematomas..He was evaluated by Neurosurgery and underwent evacuation of hematoma.Patient mental status is poor, minimally responsive to painful stimuli,The overall prognosis is poor, family is aware of prognosis.Palliative team is following . AF , Rate is controlled, not on anticoagulation due to sub dural hematoma. Prognosis is guarded.
--- NOTE | 2018-04-05 17:31 | RAD ---
HISTORY: intubated COMPARISON: 04/04/2018. FINDINGS: The endotracheal tube terminates 3.5 cm proximal to the teodoro. The nasogastric tube terminates the stomach. LUNGS: The lungs are well inflated. There is mild pulmonary venous congestion. PLEURA: No right significant pleural effusion identified, no pneumothorax apparent. The left costophrenic angle has been excluded from the film CARDIOVASCULAR: There is mild cardiomegaly. There is unfolding of the aorta. OSSEOUS STRUCTURES: No significant abnormalities. VISUALIZED UPPER ABDOMEN: Normal. OTHER FINDINGS: None. IMPRESSION: Limited portable examination, no acute findings. Stable position of support tubes.
--- NOTE | 2018-04-05 18:32 | PN ---
DATE: 04/05/2018 SUBJECTIVE: The patient is seen and examined at bedside. He appears to be comfortable. He is off of sedation for about 4 days now (right after neurosurgery) and did not show signs of waking up or supratentorial function. The patient does not respond to painful stimuli. He even though breathing over the vent while on PRVC, however, upon switching onto pressure support mode of ventilation, gets tachypneic and pulling low Vt . He does have gag and cough reflexes. He does have corneal reflexes. His pupils are sluggish, however, respond to light bilaterally. They are 2-3 mm on both sides and equal. PHYSICAL EXAMINATION: VITAL SIGNS: The patient is on PRVC, 450/15/5/40%. On that setting, his heart rate 111, oxygen saturation 99%, end-tidal CO2 on the monitor 29, respiratory rate 22, blood pressure 146/96, temperature 101.5 (cooling blanket will be applied and Tylenol IV will be given). ENT: Head and neck atraumatic. LUNGS: Clear to auscultation bilaterally. HEART: Regular rate and rhythm. S1 and S2 normal. ABDOMEN: Soft, nontender, and nondistended. MUSCULOSKELETAL: Trace bilateral pedal and ankle edema. NEUROLOGIC: The patient has had occasional episodes of decortication, but was not observed moving extremities spontaneously. SKIN: Moist. PSYCH: The patient is not awake. LABORATORY DATA: Sodium 147; potassium 4.2; chloride 115; carbon dioxide 19; BUN 36; creatinine 1.2, down from 1.3; glucose 249; AST 110; ALT 117 (trending down, Tylenol will be given for fever; however, IV formulation); total bilirubin 0.7. WBC 8.3, hemoglobin 10.6, platelet count 114. MEDICATIONS: Tylenol IV, insulin medium protocol, labetalol p.r.n., morphine p.r.n., Protonix, vancomycin, and Zosyn. CHEST X-RAY: No active pulmonary disease. ASSESSMENT AND PLAN: This is an 82-year-old gentleman who presented with subdural hematoma with altered mental status, now status post SDH evacuation. it didnt however translated into clinical improvement and clearing of his mental status. He is still intubated, failed PST. 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 Meanwhile will continue with protective lung ventilation strategy, maintaining tidal volume 6-8 mL per predicted body weight and plateau pressure less than 30 cmH20. Conservative oxygen management. Maintain euvolemia, euglycemia, normothermia and oxygen saturation more than 90%. Head of bed elevated more than 35 degrees and oral hygiene. Deep venous thrombosis, gastrointestinal prophylaxis. Neurosurgical followup appreciated and the recommendation about palliative care and prognosis are noted. EEG showed sharp waves, but no seizures--> discussed with neuro service (Dr. Valerio)-->poor prognosis for neurological recovery. ccm time 40 min Yohannes Bergeron MD MTDJohn
--- NOTE | 2018-04-05 18:50 | CP.PCM.PN ---
Subjective - Date & Time of Evaluation Date of Evaluation: 04/05/18 Time of Evaluation: 16:30 - Subjective Subjective: Infectious Disease Follow Up: April 05, 2018 82 yo male with presentation for altered mental status on 04/01/2018. Found to have a subdural hematoma (acute on chronic). Craniotomy performed. The patient remains intubated and ventilated since the surgery. His medical history includes CVA, Atrial fibrillation, DM, and HTN. Fevers up to 101.3 F in the past 24 hours but this is POD #3. No leukocytosis. Procalcitonin of 0.36 which is normal. Still persistent low grade fevers at this time. CT showing uncal herniation. Fevers likely central in origin. The patient remains poorly responsive despite not being sedated. The patient has a dismal prognosis at this time. Objective - Vital Signs/Intake and Output Vital Signs (last 24 hours): Temp Pulse Resp BP Pulse Ox 100.8 F H 105 H 21 143/87 99 04/05/18 16:00 04/05/18 16:00 04/05/18 07:34 04/05/18 16:00 04/05/18 16:00 Intake and Output: 04/05/18 04/05/18 06:59 18:59 Intake Total 1860 Output Total 800 Balance 1060 - Medications Medications: Current Medications Vancomycin HCl (Vancomycin 1gm) 1 gm in 250 mls @ 167 mls/hr IVPB DAILY [facility] PRN Reason: Protocol Last Admin: 04/05/18 09:02 Dose: 167 mls/hr Piperacillin Sod/Tazobactam Sod (Zosyn 2.25 Gm In 0.9% 100 Ml) 2.25 gm in 100 mls @ 100 mls/hr IVPB Q6 [facility] PRN Reason: Protocol Last Admin: 04/05/18 17:46 Dose: 100 mls/hr Acetaminophen (Ofirmev) 1,000 mg in 100 mls @ 400 mls/hr IVPB Q6H PRN PRN Reason: Temperature Stop: 04/07/18 08:53 Last Admin: 04/05/18 18:06 Dose: 400 mls/hr Insulin Human Regular (Humulin R Med) 0 units SC Q6H [facility]ATON PRN Reason: Protocol Last Admin: 04/05/18 17:59 Dose: 3 unit Labetalol HCl (Trandate) 20 mg IV Q6 PRN PRN Reason: Other Morphine Sulfate (Morphine) 2 mg IVP Q4H PRN PRN Reason: Pain, moderate (4-7) Pantoprazole Sodium (Protonix Susp) 40 mg PO 0600 [facility] Last Admin: 04/05/18 05:39 Dose: 40 mg - Labs Labs: 04/05/18 05:30 04/05/18 05:30 PT 14.0 SECONDS (9.4-12.5) H 04/02/18 12:00 INR 1.21 (0.93-1.08) H 04/02/18 12:00 APTT 48.2 Seconds (25.1-36.5) H 04/01/18 14:40 - Constitutional Appears: Non-toxic, Chronically Ill - Head Exam Additional comments: s/p craniotomy. dominick in place. - Eye Exam Pupil Exam: Fixed, Irregular - ENT Exam ENT Exam: Mucous Membranes Moist, Normal External Ear Exam, TM's Normal Bilaterally - Neck Exam Neck Exam: Normal Inspection - Respiratory Exam Respiratory Exam: Clear to Ausculation Bilateral, NORMAL BREATHING PATTERN. absent: Rales, Rhonchi, Wheezes - Cardiovascular Exam Cardiovascular Exam: REGULAR RHYTHM, RRR, +S1, +S2 - GI/Abdominal Exam GI & Abdominal Exam: Soft, Normal Bowel Sounds. absent: Distended, Tenderness - Extremities Exam Extremities Exam: Normal Inspection - Neurological Exam Neurological Exam: Alert, Awake, CN II-XII Intact, Oriented x3 - Psychiatric Exam Psychiatric exam: Normal Affect, Normal Mood - Skin Skin Exam: Normal Color, Warm Assessment and Plan - Assessment and Plan (Free Text) Assessment: 82 yo male with unresponsive by family on initial presentation found to have an acute on chronic bilateral Subdural hematoma. The patient required craniotomy for decompression. He remains intubated and ventilated. The patient remains in a comatose state. Fevers up to 101.3F in the past 24 hours. Unclear if this is secondary to postsurgical course after craniotomy, infection, or even central brain injury. Started on IV antibiotics of Zosyn and Vancomycin IV. Can continue on this regimen while culture results return. Supportive care. To date, cultures have been negative to date. More likely the fevers are secondary to central brain injury. CT scan of head repeats now showing uncal herniation. 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 Thank you for allowing me to participate in the care of the patient, we will follow with you.
[2018-04-05] MEDS: levETIRAcetam 500mg IVPB 500 MG/100 ML BAG IVPB SCH (22:40)
[2018-04-06] MEDS: Piperacillin/Tazobact 2.25gm 2.25 GM/100 ML BAG IVPB SCH ×4 (00:05→17:14)
[2018-04-06 05:15] LABS: ARTERIAL BLOOD GAS HCO3 22.6 mmol/L (21-28); ARTERIAL BLOOD GAS HEMOGLOBIN 9.6 g/dL (11.7-17.4); ARTERIAL BLOOD GAS O2 CAPACITY 13.3 mL/dl (16-24); ARTERIAL BLOOD GAS O2 CONTENT 13.1 ML/dl (15-23); ARTERIAL BLOOD GAS O2 SAT 98.7 % (95-98); ARTERIAL BLOOD GAS PCO2 31 mm/Hg (35-45); ARTERIAL BLOOD GAS PH 7.47 (7.35-7.45); ARTERIAL BLOOD GAS TCO2 23.6 mmol.L (22-28)
[2018-04-06] MEDS: Pantoprazole 40 mg Susp UD PO SCH (05:37)
[2018-04-06] MEDS: Insulin Reg-MEDIUM-Coverage SC SCH ×3 (05:48→17:14)
[2018-04-06 06:46] LABS: BASO # 0.01 K/mm3 (0.0-2.0); BASO % 0.1 % (0.0-3.0); EOS # 0.1 (0.0-0.7); EOS % 1.5 % (1.5-5.0); GRAN # 7.03 (1.4-6.5); GRAN % 79.5 % (50.0-68.0); HEMOGLOBIN 10.3 g/dL (14.0-18.0); LYMPH # 1.2 (1.2-3.4); MEAN CELL VOLUME 96.6 fl (80.0-105.0); MEAN CORPUSCULAR HEMOGLOBIN 31.6 pg (25.0-35.0); MEAN CORPUSCULAR HGB CONC 32.7 g/dl (31.0-37.0); MEAN PLATELET VOLUME 11.6 fl (7.0-11.0); MONO # 0.5 (0.1-0.6); MONO % 5.9 % (1.0-6.0); RBC 3.26 10^6/uL (3.5-6.1); RED CELL DISTRIBUTION WIDTH 14.5 % (11.5-14.5); WHITE BLOOD COUNT 8.8 10^3/ul (4.5-11.0)
[2018-04-06 07:03] LABS: ALB/GLOB RATIO 0.8 (1.1-1.8); ALBUMIN 2.6 g/dL (3.0-4.8); ALT/SGPT 101 U/L (7-56); AST/SGOT 86 U/L (17-59); BLOOD UREA NITROGEN 35 mg/dL (7-21); CALCIUM 8.1 mg/dL (8.4-10.5); GFR AFRICAN-AMERICAN > 60; GFR NON-AFRICAN AMERICAN 58
[2018-04-06] MEDS: levETIRAcetam 500mg IVPB 500 MG/100 ML BAG IVPB SCH ×2 (09:33→21:17)
[2018-04-06] MEDS: Vancomycin 1gm in NS 250ml 1 GM/250 ML BAG IVPB SCH (09:33)
--- NOTE | 2018-04-06 09:35 | RAD ---
HISTORY: intubated COMPARISON: No prior. FINDINGS: In situ ETT, tip of which lies approximately 4.26 cm above teodoro. NGT is present, the tip of which has not been included on this film though distal aspect overlies mid abdomen. LUNGS: Patchy opacity right lower lobe likely representing some combination of atelectasis and or infiltrate with right-sided effusion. Minor left basilar atelectasis. PLEURA: As above. No pneumothorax apparent. CARDIOVASCULAR: Normal. OSSEOUS STRUCTURES: No significant abnormalities. VISUALIZED UPPER ABDOMEN: Normal. OTHER FINDINGS: None. IMPRESSION: ETT and NGT as above. Right lower lobe atelectasis and or infiltrate with right-sided effusion. Minor left basilar atelectasis.
--- NOTE | 2018-04-06 10:12 | CP.CCUPN ---
<Bhavya Tian - Last Filed: 04/06/18 13:55> CCU Subjective - Physician Review Subjective (Free Text): 04/06/18 10:08 U/O 500 in last 12 hours No acute event reported overnight Talked to family by bedside CCU Objective - Vital Signs / Intake & Output Vital Signs (Last 4 hours): Vital Signs Temp Pulse Resp BP Pulse Ox 04/06/18 08:00 101.1 F H 123 H 141/97 H 88 L 04/06/18 07:50 24 100 04/06/18 07:00 100.8 F H 109 H 147/95 H 99 Intake and Output (Last 8hrs): Intake & Output 04/05/18 04/06/18 04/06/18 22:59 06:59 14:59 Intake Total 1915 1590 Output Total 620 500 Balance 1295 1090 Intake: IV 625 300 Right Forearm 625 100 antibiotics 200 Tube Feeding 540 540 Other 750 750 Output: Urine 620 500 Urethral (No) 620 500 - Physical Exam Head: Positive for: Swelling (right temporal/occiptal swelling), Ecchymosis ( right auricular ) Pupils: Positive for: Sluggish Conjunctiva: Positive for: Normal Ears: Positive for: Other (ecchymosis right ear) Nose (External): Positive for: Atraumatic Respiratory/Chest: Positive for: Decreased Breath Sounds (b/l lung bases). Negative for: Rales, Retracting, Rhonchi Cardiovascular: Positive for: Normal S1, S2, Tachycardic Abdomen: Negative for: Normal Bowel Sounds (hypoactive) Upper Extremity: Negative for: Normal Inspection Lower Extremity: Negative for: Normal Inspection Neurological: Positive for: Other (GCS 1+1+2) Skin: Positive for: Warm, Dry, Abrasion (bilateral knees ) Psychiatric: Negative for: Alert, Oriented x 3 - Medications Active Medications: Active Medications Generic Name Dose Route Start Last Admin Trade Name Freq PRN Reason Stop Dose Admin Vancomycin HCl 1 gm in 250 mls @ 167 mls/hr 04/03/18 10:15 04/06/18 09:33 Vancomycin 1gm IVPB 167 mls/hr DAILY KEATON Administration Protocol Piperacillin Sod/Tazobactam Sod 2.25 gm in 100 mls @ 100 mls/hr 04/04/18 00: 00 04/06/18 05:37 Zosyn 2.25 Gm In 0.9% 100 Ml IVPB 100 mls/hr Q6 KEATON Administration Protocol Acetaminophen 1,000 mg in 100 mls @ 400 mls/hr 04/05/18 08:52 04/06/18 08:26 Ofirmev IVPB 04/07/18 08:53 400 mls/hr Q6H PRN Administration Temperature Levetiracetam 500 mg in 100 mls @ 460 mls/hr 04/05/18 22:00 04/06/18 09:33 Keppra 500mg Ivpb IVPB 460 mls/hr Q12 KEATON Administration Insulin Human Regular 0 units 04/03/18 11:59 04/06/18 05:48 Humulin R Med SC Not Given Q6H [facility] Protocol Labetalol HCl 20 mg 04/02/18 13:39 Trandate IV Q6 PRN Other Morphine Sulfate 2 mg 04/04/18 07:31 Morphine IVP Q4H PRN Pain, moderate (4-7) Pantoprazole Sodium 40 mg 04/04/18 06:00 04/06/18 05:37 Protonix Susp PO 40 mg 0600 [facility] Administration - Patient Studies Lab Studies: Microbiology Studies 04/03/18 11:00 Blood Culture - Preliminary Blood NO GROWTH AFTER 48 HOURS 04/03/18 10:50 Blood Culture - Preliminary Blood NO GROWTH AFTER 48 HOURS Lab Studies 04/06/18 04/06/18 04/06/18 Range/Units 07:34 06:10 06:10 WBC 8.8 (4.5-11.0) 10^3/ul RBC 3.26 L (3.5-6.1) 10^6/uL Hgb 10.3 L (14.0-18.0) g/dL Hct 31.5 L (42.0-52.0) % MCV 96.6 (80.0-105.0) fl MCH 31.6 (25.0-35.0) pg MCHC 32.7 (31.0-37.0) g/dl RDW 14.5 (11.5-14.5) % Plt Count 106 L (120.0-450.0) 10^3/uL MPV 11.6 H (7.0-11.0) fl Gran % 79.5 H (50.0-68.0) % Lymph % (Auto) 13.0 L (22.0-35.0) % [place] % (Auto) 5.9 (1.0-6.0) % Eos % (Auto) 1.5 (1.5-5.0) % Baso % (Auto) 0.1 (0.0-3.0) % Gran # 7.03 H (1.4-6.5) Lymph # (Auto) 1.2 (1.2-3.4) [place] # (Auto) 0.5 (0.1-0.6) Eos # (Auto) 0.1 (0.0-0.7) Baso # (Auto) 0.01 (0.0-2.0) K/mm3 pCO2 (35-45) mm/Hg pO2 (80-100) mm/Hg HCO3 (21-28) mmol/L ABG pH (7.35-7.45) ABG Total CO2 (22-28) mmol.L ABG O2 Saturation (95-98) % ABG O2 Content (15-23) ML/dl ABG Base Excess (-2.0-3.0) mmol/L ABG Hemoglobin (11.7-17.4) g/dL ABG Carboxyhemoglobin (0.5-1.5) % POC ABG HHb (Measured) (0-5) % ABG Methemoglobin (0.0-3.0) % ABG O2 Capacity (16-24) mL/dl Hgb O2 Saturation (95.0-98.0) % FiO2 % Sodium 145 (132-148) mmol/L Potassium 4.1 (3.6-5.0) mmol/L Chloride 112 H (98-107) mmol/L Carbon Dioxide 23 (21-33) mmol/L Anion Gap 14 (10-20) BUN 35 H (7-21) mg/dL Creatinine 1.2 (0.8-1.5) mg/dl Est GFR ( Amer) > 60 Est GFR (Non-Af Amer) 58 POC Glucose (mg/dL) 205 H (65-110) mg/dL Random Glucose 211 H (70-110) mg/dL Calcium 8.1 L (8.4-10.5) mg/dL Phosphorus 3.0 (2.5-4.5) mg/dL Magnesium 1.9 (1.7-2.2) mg/dL Total Bilirubin 0.8 (0.2-1.3) mg/dL AST 86 H D (17-59) U/L ALT 101 H (7-56) U/L Alkaline Phosphatase 102 (38-126) U/L Total Protein 5.8 (5.8-8.3) g/dL Albumin 2.6 L (3.0-4.8) g/dL Globulin 3.2 gm/dL Albumin/Globulin Ratio 0.8 L (1.1-1.8) 04/06/18 04/06/18 04/05/18 Range/Units 05:47 04:50 23:54 WBC (4.5-11.0) 10^3/ul RBC (3.5-6.1) 10^6/uL Hgb (14.0-18.0) g/dL Hct (42.0-52.0) % MCV (80.0-105.0) fl MCH (25.0-35.0) pg MCHC (31.0-37.0) g/dl RDW (11.5-14.5) % Plt Count (120.0-450.0) 10^3/uL MPV (7.0-11.0) fl Gran % (50.0-68.0) % Lymph % (Auto) (22.0-35.0) % [place] % (Auto) (1.0-6.0) % Eos % (Auto) (1.5-5.0) % Baso % (Auto) (0.0-3.0) % Gran # (1.4-6.5) Lymph # (Auto) (1.2-3.4) [place] # (Auto) (0.1-0.6) Eos # (Auto) (0.0-0.7) Baso # (Auto) (0.0-2.0) K/mm3 pCO2 31 L (35-45) mm/Hg pO2 110.0 H (80-100) mm/Hg HCO3 22.6 (21-28) mmol/L ABG pH 7.47 H (7.35-7.45) ABG Total CO2 23.6 (22-28) mmol.L ABG O2 Saturation 98.7 H (95-98) % ABG O2 Content 13.1 L (15-23) ML/dl ABG Base Excess -0.6 (-2.0-3.0) mmol/L ABG Hemoglobin 9.6 L (11.7-17.4) g/dL ABG Carboxyhemoglobin 1.6 H (0.5-1.5) % POC ABG HHb (Measured) 1.3 (0-5) % ABG Methemoglobin 1.2 (0.0-3.0) % ABG O2 Capacity 13.3 L (16-24) mL/dl Hgb O2 Saturation 95.9 (95.0-98.0) % FiO2 40.0 % Sodium (132-148) mmol/L Potassium (3.6-5.0) mmol/L Chloride (98-107) mmol/L Carbon Dioxide (21-33) mmol/L Anion Gap (10-20) BUN (7-21) mg/dL Creatinine (0.8-1.5) mg/dl Est GFR ( Amer) Est GFR (Non-Af Amer) POC Glucose (mg/dL) 168 H 194 H (65-110) mg/dL Random Glucose (70-110) mg/dL Calcium (8.4-10.5) mg/dL Phosphorus (2.5-4.5) mg/dL Magnesium (1.7-2.2) mg/dL Total Bilirubin (0.2-1.3) mg/dL AST (17-59) U/L ALT (7-56) U/L Alkaline Phosphatase (38-126) U/L Total Protein (5.8-8.3) g/dL Albumin (3.0-4.8) g/dL Globulin gm/dL Albumin/Globulin Ratio (1.1-1.8) 04/05/18 04/05/18 Range/Units 17:56 12:03 WBC (4.5-11.0) 10^3/ul RBC (3.5-6.1) 10^6/uL Hgb (14.0-18.0) g/dL Hct (42.0-52.0) % MCV (80.0-105.0) fl MCH (25.0-35.0) pg MCHC (31.0-37.0) g/dl RDW (11.5-14.5) % Plt Count (120.0-450.0) 10^3/uL MPV (7.0-11.0) fl Gran % (50.0-68.0) % Lymph % (Auto) (22.0-35.0) % [place] % (Auto) (1.0-6.0) % Eos % (Auto) (1.5-5.0) % Baso % (Auto) (0.0-3.0) % Gran # (1.4-6.5) Lymph # (Auto) (1.2-3.4) [place] # (Auto) (0.1-0.6) Eos # (Auto) (0.0-0.7) Baso # (Auto) (0.0-2.0) K/mm3 pCO2 (35-45) mm/Hg pO2 (80-100) mm/Hg HCO3 (21-28) mmol/L ABG pH (7.35-7.45) ABG Total CO2 (22-28) mmol.L ABG O2 Saturation (95-98) % ABG O2 Content (15-23) ML/dl ABG Base Excess (-2.0-3.0) mmol/L ABG Hemoglobin (11.7-17.4) g/dL ABG Carboxyhemoglobin (0.5-1.5) % POC ABG HHb (Measured) (0-5) % ABG Methemoglobin (0.0-3.0) % ABG O2 Capacity (16-24) mL/dl Hgb O2 Saturation (95.0-98.0) % FiO2 % Sodium (132-148) mmol/L Potassium (3.6-5.0) mmol/L Chloride (98-107) mmol/L Carbon Dioxide (21-33) mmol/L Anion Gap (10-20) BUN (7-21) mg/dL Creatinine (0.8-1.5) mg/dl Est GFR ( Amer) Est GFR (Non-Af Amer) POC Glucose (mg/dL) 216 H 243 H (65-110) mg/dL Random Glucose (70-110) mg/dL Calcium (8.4-10.5) mg/dL Phosphorus (2.5-4.5) mg/dL Magnesium (1.7-2.2) mg/dL Total Bilirubin (0.2-1.3) mg/dL AST (17-59) U/L ALT (7-56) U/L Alkaline Phosphatase (38-126) U/L Total Protein (5.8-8.3) g/dL Albumin (3.0-4.8) g/dL Globulin gm/dL Albumin/Globulin Ratio (1.1-1.8) Laboratory Results - last 24 hr 04/05/18 04/05/18 04/05/18 12:03 17:56 23:54 WBC RBC Hgb Hct MCV MCH MCHC RDW Plt Count MPV Gran % Lymph % (Auto) [place] % (Auto) Eos % (Auto) Baso % (Auto) Gran # Lymph # (Auto) [place] # (Auto) Eos # (Auto) Baso # (Auto) pCO2 pO2 HCO3 ABG pH ABG Total CO2 ABG O2 Saturation ABG O2 Content ABG Base Excess ABG Hemoglobin ABG Carboxyhemoglobin POC ABG HHb (Measured) ABG Methemoglobin ABG O2 Capacity Hgb O2 Saturation FiO2 Sodium Potassium Chloride Carbon Dioxide Anion Gap BUN Creatinine Est GFR ( Amer) Est GFR (Non-Af Amer) POC Glucose (mg/dL) 243 H 216 H 194 H Random Glucose Calcium Phosphorus Magnesium Total Bilirubin AST ALT Alkaline Phosphatase Total Protein Albumin Globulin Albumin/Globulin Ratio 04/06/18 04/06/18 04/06/18 04:50 05:47 06:10 WBC 8.8 RBC 3.26 L Hgb 10.3 L Hct 31.5 L MCV 96.6 MCH 31.6 MCHC 32.7 RDW 14.5 Plt Count 106 L MPV 11.6 H Gran % 79.5 H Lymph % (Auto) 13.0 L [place] % (Auto) 5.9 Eos % (Auto) 1.5 Baso % (Auto) 0.1 Gran # 7.03 H Lymph # (Auto) 1.2 [place] # (Auto) 0.5 Eos # (Auto) 0.1 Baso # (Auto) 0.01 pCO2 31 L pO2 110.0 H HCO3 22.6 ABG pH 7.47 H ABG Total CO2 23.6 ABG O2 Saturation 98.7 H ABG O2 Content 13.1 L ABG Base Excess -0.6 ABG Hemoglobin 9.6 L ABG Carboxyhemoglobin 1.6 H POC ABG HHb (Measured) 1.3 ABG Methemoglobin 1.2 ABG O2 Capacity 13.3 L Hgb O2 Saturation 95.9 FiO2 40.0 Sodium Potassium Chloride Carbon Dioxide Anion Gap BUN Creatinine Est GFR ( Amer) Est GFR (Non-Af Amer) POC Glucose (mg/dL) 168 H Random Glucose Calcium Phosphorus Magnesium Total Bilirubin AST ALT Alkaline Phosphatase Total Protein Albumin Globulin Albumin/Globulin Ratio 04/06/18 04/06/18 06:10 07:34 WBC RBC Hgb Hct MCV MCH MCHC RDW Plt Count MPV Gran % Lymph % (Auto) [place] % (Auto) Eos % (Auto) Baso % (Auto) Gran # Lymph # (Auto) [place] # (Auto) Eos # (Auto) Baso # (Auto) pCO2 pO2 HCO3 ABG pH ABG Total CO2 ABG O2 Saturation ABG O2 Content ABG Base Excess ABG Hemoglobin ABG Carboxyhemoglobin POC ABG HHb (Measured) ABG Methemoglobin ABG O2 Capacity Hgb O2 Saturation FiO2 Sodium 145 Potassium 4.1 Chloride 112 H Carbon Dioxide 23 Anion Gap 14 BUN 35 H Creatinine 1.2 Est GFR ( Amer) > 60 Est GFR (Non-Af Amer) 58 POC Glucose (mg/dL) 205 H Random Glucose 211 H Calcium 8.1 L Phosphorus 3.0 Magnesium 1.9 Total Bilirubin 0.8 AST 86 H D ALT 101 H Alkaline Phosphatase 102 Total Protein 5.8 Albumin 2.6 L Globulin 3.2 Albumin/Globulin Ratio 0.8 L Fingerstick Blood Sugar Results: 168 Assessment/Plan - Assessment and Plan (Free Text) Plan: Kvng Chaudhary, 82 M, in ICU for b/l acute on chronic Subdural Hematoma requiring Kcentra to reverse eliquis, and required emergent craniotomy with b/l hematoma evaculation, s/p subrain drain placement/removal, continually intubated for airway protection and GCS (1+1+2 decelebrate) in comatose state. He had a fever but normal procalc 0.36, negative septic workup. CT showed Uncal herniation. Acute on chronic subbural hematoma, s/p emergent craniotomy with hematoma evauation; s/p K-centra to reverse eliquis Comatose with OGT and intubation, likely persistent vegetative state, likely due to uncal herniation and mass effect Sepsis likely from pneumonia/bronchitis (gram + cocci) vs central fever Thrombocytopenia - reactive? Hx of [employer]arct[employer] Hx of HTN Hx of HLD Hx of DM1 Neuro - CT Head (04/04): stable mass effect pressing on L lateral ventricle, and midline shift of 5mm to RIGHT. (+) uncal herniation to L - Maintain normothermia, avoid oxygen toxicity to prevent brain exposure to free radicals - F/U EEG (04/05)_showed cortex irritation; - Keppra 500 Q12 IV - tylenol IV PRN Pulm - CXR: RLL atelectasis/infiltrate with R effusion - Maintain SaO2 > 95% - Protective lung ventilation strategy - PRVC 450/15(22)/5/40% - Vanc/Zosyn for empiric coverage Cardio - Maintain MAP - NO permissive HTN, keep BP < 140/90 - BP Parameters: SBP 100-160; Patient's HR and BP are spiking intermittently, could be due to pain, Morphine PRN q4 GI - Continue PPX with protonix - Started OGT feedings with water flushes for Hypernatremia; repeat BMP at 4P; water flushes changed to 250 q4 from 200 q6 - Maintain euvolemia Heme - Avoid blood thinners in light of bleed, give Mechanical DVT PPX ID - Urine Cx (04/03) neg; Sputum Cx ___pending - Blood Cx (04/03) neg x 2d - Vanc/Zosyn for post op fever empiric coverage Endo - Maintain euglycemia - Accucheks with ISS-med Dispo: - palliative on board. Family will travel to [place] and come on Sa/Sun. Will discuss [facility] - accepted to [facility] - if family ok to LTACH, then trach/peg at LTACH - explore if family want hospice/terminal extubation, s/r/d/w Dr. Bergeron <Yohannes Bergeron - Last Filed: 04/06/18 15:42> CCU Objective - Vital Signs / Intake & Output Vital Signs (Last 4 hours): Vital Signs Temp Pulse BP Pulse Ox 04/06/18 14:00 100.4 F H 96 H 127/85 100 04/06/18 13:00 100.4 F H 103 H 149/98 H 99 04/06/18 12:00 100.4 F H 99 H 131/85 99 Intake and Output (Last 8hrs): Intake & Output 04/06/18 04/06/18 04/06/18 06:59 14:59 22:59 Intake Total 1590 1940 Output Total 500 Balance 1090 1940 Intake: IV 300 650 Right Forearm 100 antibiotics 200 550 tylenol 100 Tube Feeding 540 1290 Other 750 Output: Urine 500 Urethral (No) 500 - Medications Active Medications: Active Medications Generic Name Dose Route Start Last Admin Trade Name Freq PRN Reason Stop Dose Admin Vancomycin HCl 1 gm in 250 mls @ 167 mls/hr 04/03/18 10:15 04/06/18 09:33 Vancomycin 1gm IVPB 167 mls/hr DAILY KEATON Administration Protocol Piperacillin Sod/Tazobactam Sod 2.25 gm in 100 mls @ 100 mls/hr 04/04/18 00: 00 04/06/18 12:05 Zosyn 2.25 Gm In 0.9% 100 Ml IVPB 100 mls/hr Q6 KEATON Administration Protocol Acetaminophen 1,000 mg in 100 mls @ 400 mls/hr 04/05/18 08:52 04/06/18 08:26 Ofirmev IVPB 04/07/18 08:53 400 mls/hr Q6H PRN Administration Temperature Levetiracetam 500 mg in 100 mls @ 460 mls/hr 04/05/18 22:00 04/06/18 09:33 Keppra 500mg Ivpb IVPB 460 mls/hr Q12 KEATON Administration Insulin Human Regular 0 units 04/03/18 11:59 04/06/18 12:04 Humulin R Med SC 3 unit Q6H KEATON Administration Protocol Labetalol HCl 20 mg 04/02/18 13:39 04/06/18 11:06 Trandate IV 20 mg Q6 PRN Administration Other Morphine Sulfate 2 mg 04/04/18 07:31 Morphine IVP Q4H PRN Pain, moderate (4-7) Pantoprazole Sodium 40 mg 04/04/18 06:00 04/06/18 05:37 Protonix Susp PO 40 mg 0600 KEATON Administration - Patient Studies Lab Studies: Microbiology Studies 04/03/18 14:30 Gram Stain - Final Sputum Sputum Culture - Preliminary Gram Positive Cocci 04/03/18 11:00 Blood Culture - Preliminary Blood NO GROWTH AFTER 3 DAYS 04/03/18 10:50 Blood Culture - Preliminary Blood NO GROWTH AFTER 3 DAYS Lab Studies 04/06/18 04/06/18 04/06/18 Range/Units 11:38 07:34 06:10 WBC (4.5-11.0) 10^3/ul RBC (3.5-6.1) 10^6/uL Hgb (14.0-18.0) g/dL Hct (42.0-52.0) % MCV (80.0-105.0) fl MCH (25.0-35.0) pg MCHC (31.0-37.0) g/dl RDW (11.5-14.5) % Plt Count (120.0-450.0) 10^3/uL MPV (7.0-11.0) fl Gran % (50.0-68.0) % Lymph % (Auto) (22.0-35.0) % [place] % (Auto) (1.0-6.0) % Eos % (Auto) (1.5-5.0) % Baso % (Auto) (0.0-3.0) % Gran # (1.4-6.5) Lymph # (Auto) (1.2-3.4) [place] # (Auto) (0.1-0.6) Eos # (Auto) (0.0-0.7) Baso # (Auto) (0.0-2.0) K/mm3 pCO2 (35-45) mm/Hg pO2 (80-100) mm/Hg HCO3 (21-28) mmol/L ABG pH (7.35-7.45) ABG Total CO2 (22-28) mmol.L ABG O2 Saturation (95-98) % ABG O2 Content (15-23) ML/dl ABG Base Excess (-2.0-3.0) mmol/L ABG Hemoglobin (11.7-17.4) g/dL ABG Carboxyhemoglobin (0.5-1.5) % POC ABG HHb (Measured) (0-5) % ABG Methemoglobin (0.0-3.0) % ABG O2 Capacity (16-24) mL/dl Hgb O2 Saturation (95.0-98.0) % FiO2 % Sodium 145 (132-148) mmol/L Potassium 4.1 (3.6-5.0) mmol/L Chloride 112 H (98-107) mmol/L Carbon Dioxide 23 (21-33) mmol/L Anion Gap 14 (10-20) BUN 35 H (7-21) mg/dL Creatinine 1.2 (0.8-1.5) mg/dl Est GFR ( Amer) > 60 Est GFR (Non-Af Amer) 58 POC Glucose (mg/dL) 231 H 205 H (65-110) mg/dL Random Glucose 211 H (70-110) mg/dL Calcium 8.1 L (8.4-10.5) mg/dL Phosphorus 3.0 (2.5-4.5) mg/dL Magnesium 1.9 (1.7-2.2) mg/dL Total Bilirubin 0.8 (0.2-1.3) mg/dL AST 86 H D (17-59) U/L ALT 101 H (7-56) U/L Alkaline Phosphatase 102 (38-126) U/L Total Protein 5.8 (5.8-8.3) g/dL Albumin 2.6 L (3.0-4.8) g/dL Globulin 3.2 gm/dL Albumin/Globulin Ratio 0.8 L (1.1-1.8) 04/06/18 04/06/18 04/06/18 Range/Units 06:10 05:47 04:50 WBC 8.8 (4.5-11.0) 10^3/ul RBC 3.26 L (3.5-6.1) 10^6/uL Hgb 10.3 L (14.0-18.0) g/dL Hct 31.5 L (42.0-52.0) % MCV 96.6 (80.0-105.0) fl MCH 31.6 (25.0-35.0) pg MCHC 32.7 (31.0-37.0) g/dl RDW 14.5 (11.5-14.5) % Plt Count 106 L (120.0-450.0) 10^3/uL MPV 11.6 H (7.0-11.0) fl Gran % 79.5 H (50.0-68.0) % Lymph % (Auto) 13.0 L (22.0-35.0) % [place] % (Auto) 5.9 (1.0-6.0) % Eos % (Auto) 1.5 (1.5-5.0) % Baso % (Auto) 0.1 (0.0-3.0) % Gran # 7.03 H (1.4-6.5) Lymph # (Auto) 1.2 (1.2-3.4) [place] # (Auto) 0.5 (0.1-0.6) Eos # (Auto) 0.1 (0.0-0.7) Baso # (Auto) 0.01 (0.0-2.0) K/mm3 pCO2 31 L (35-45) mm/Hg pO2 110.0 H (80-100) mm/Hg HCO3 22.6 (21-28) mmol/L ABG pH 7.47 H (7.35-7.45) ABG Total CO2 23.6 (22-28) mmol.L ABG O2 Saturation 98.7 H (95-98) % ABG O2 Content 13.1 L (15-23) ML/dl ABG Base Excess -0.6 (-2.0-3.0) mmol/L ABG Hemoglobin 9.6 L (11.7-17.4) g/dL ABG Carboxyhemoglobin 1.6 H (0.5-1.5) % POC ABG HHb (Measured) 1.3 (0-5) % ABG Methemoglobin 1.2 (0.0-3.0) % ABG O2 Capacity 13.3 L (16-24) mL/dl Hgb O2 Saturation 95.9 (95.0-98.0) % FiO2 40.0 % Sodium (132-148) mmol/L Potassium (3.6-5.0) mmol/L Chloride (98-107) mmol/L Carbon Dioxide (21-33) mmol/L Anion Gap (10-20) BUN (7-21) mg/dL Creatinine (0.8-1.5) mg/dl Est GFR ( Amer) Est GFR (Non-Af Amer) POC Glucose (mg/dL) 168 H (65-110) mg/dL Random Glucose (70-110) mg/dL Calcium (8.4-10.5) mg/dL Phosphorus (2.5-4.5) mg/dL Magnesium (1.7-2.2) mg/dL Total Bilirubin (0.2-1.3) mg/dL AST (17-59) U/L ALT (7-56) U/L Alkaline Phosphatase (38-126) U/L Total Protein (5.8-8.3) g/dL Albumin (3.0-4.8) g/dL Globulin gm/dL Albumin/Globulin Ratio (1.1-1.8) 04/05/18 04/05/18 Range/Units 23:54 17:56 WBC (4.5-11.0) 10^3/ul RBC (3.5-6.1) 10^6/uL Hgb (14.0-18.0) g/dL Hct (42.0-52.0) % MCV (80.0-105.0) fl MCH (25.0-35.0) pg MCHC (31.0-37.0) g/dl RDW (11.5-14.5) % Plt Count (120.0-450.0) 10^3/uL MPV (7.0-11.0) fl Gran % (50.0-68.0) % Lymph % (Auto) (22.0-35.0) % [place] % (Auto) (1.0-6.0) % Eos % (Auto) (1.5-5.0) % Baso % (Auto) (0.0-3.0) % Gran # (1.4-6.5) Lymph # (Auto) (1.2-3.4) [place] # (Auto) (0.1-0.6) Eos # (Auto) (0.0-0.7) Baso # (Auto) (0.0-2.0) K/mm3 pCO2 (35-45) mm/Hg pO2 (80-100) mm/Hg HCO3 (21-28) mmol/L ABG pH (7.35-7.45) ABG Total CO2 (22-28) mmol.L ABG O2 Saturation (95-98) % ABG O2 Content (15-23) ML/dl ABG Base Excess (-2.0-3.0) mmol/L ABG Hemoglobin (11.7-17.4) g/dL ABG Carboxyhemoglobin (0.5-1.5) % POC ABG HHb (Measured) (0-5) % ABG Methemoglobin (0.0-3.0) % ABG O2 Capacity (16-24) mL/dl Hgb O2 Saturation (95.0-98.0) % FiO2 % Sodium (132-148) mmol/L Potassium (3.6-5.0) mmol/L Chloride (98-107) mmol/L Carbon Dioxide (21-33) mmol/L Anion Gap (10-20) BUN (7-21) mg/dL Creatinine (0.8-1.5) mg/dl Est GFR ( Amer) Est GFR (Non-Af Amer) POC Glucose (mg/dL) 194 H 216 H (65-110) mg/dL Random Glucose (70-110) mg/dL Calcium (8.4-10.5) mg/dL Phosphorus (2.5-4.5) mg/dL Magnesium (1.7-2.2) mg/dL Total Bilirubin (0.2-1.3) mg/dL AST (17-59) U/L ALT (7-56) U/L Alkaline Phosphatase (38-126) U/L Total Protein (5.8-8.3) g/dL Albumin (3.0-4.8) g/dL Globulin gm/dL Albumin/Globulin Ratio (1.1-1.8) Laboratory Results - last 24 hr 04/05/18 04/05/18 04/06/18 17:56 23:54 04:50 WBC RBC Hgb Hct MCV MCH MCHC RDW Plt Count MPV Gran % Lymph % (Auto) [place] % (Auto) Eos % (Auto) Baso % (Auto) Gran # Lymph # (Auto) [place] # (Auto) Eos # (Auto) Baso # (Auto) pCO2 31 L pO2 110.0 H HCO3 22.6 ABG pH 7.47 H ABG Total CO2 23.6 ABG O2 Saturation 98.7 H ABG O2 Content 13.1 L ABG Base Excess -0.6 ABG Hemoglobin 9.6 L ABG Carboxyhemoglobin 1.6 H POC ABG HHb (Measured) 1.3 ABG Methemoglobin 1.2 ABG O2 Capacity 13.3 L Hgb O2 Saturation 95.9 FiO2 40.0 Sodium Potassium Chloride Carbon Dioxide Anion Gap BUN Creatinine Est GFR ( Amer) Est GFR (Non-Af Amer) POC Glucose (mg/dL) 216 H 194 H Random Glucose Calcium Phosphorus Magnesium Total Bilirubin AST ALT Alkaline Phosphatase Total Protein Albumin Globulin Albumin/Globulin Ratio 04/06/18 04/06/18 04/06/18 05:47 06:10 06:10 WBC 8.8 RBC 3.26 L Hgb 10.3 L Hct 31.5 L MCV 96.6 MCH 31.6 MCHC 32.7 RDW 14.5 Plt Count 106 L MPV 11.6 H Gran % 79.5 H Lymph % (Auto) 13.0 L [place] % (Auto) 5.9 Eos % (Auto) 1.5 Baso % (Auto) 0.1 Gran # 7.03 H Lymph # (Auto) 1.2 [place] # (Auto) 0.5 Eos # (Auto) 0.1 Baso # (Auto) 0.01 pCO2 pO2 HCO3 ABG pH ABG Total CO2 ABG O2 Saturation ABG O2 Content ABG Base Excess ABG Hemoglobin ABG Carboxyhemoglobin POC ABG HHb (Measured) ABG Methemoglobin ABG O2 Capacity Hgb O2 Saturation FiO2 Sodium 145 Potassium 4.1 Chloride 112 H Carbon Dioxide 23 Anion Gap 14 BUN 35 H Creatinine 1.2 Est GFR ( Amer) > 60 Est GFR (Non-Af Amer) 58 POC Glucose (mg/dL) 168 H Random Glucose 211 H Calcium 8.1 L Phosphorus 3.0 Magnesium 1.9 Total Bilirubin 0.8 AST 86 H D ALT 101 H Alkaline Phosphatase 102 Total Protein 5.8 Albumin 2.6 L Globulin 3.2 Albumin/Globulin Ratio 0.8 L 04/06/18 04/06/18 07:34 11:38 WBC RBC Hgb Hct MCV MCH MCHC RDW Plt Count MPV Gran % Lymph % (Auto) [place] % (Auto) Eos % (Auto) Baso % (Auto) Gran # Lymph # (Auto) [place] # (Auto) Eos # (Auto) Baso # (Auto) pCO2 pO2 HCO3 ABG pH ABG Total CO2 ABG O2 Saturation ABG O2 Content ABG Base Excess ABG Hemoglobin ABG Carboxyhemoglobin POC ABG HHb (Measured) ABG Methemoglobin ABG O2 Capacity Hgb O2 Saturation FiO2 Sodium Potassium Chloride Carbon Dioxide Anion Gap BUN Creatinine Est GFR ( Amer) Est GFR (Non-Af Amer) POC Glucose (mg/dL) 205 H 231 H Random Glucose Calcium Phosphorus Magnesium Total Bilirubin AST ALT Alkaline Phosphatase Total Protein Albumin Globulin Albumin/Globulin Ratio Attending/Attestation - Attestation I have personally seen and examined this patient.: Yes I have fully participated in the care of the patient.: Yes I have reviewed all pertinent clinical information: Yes Notes (Text): 04/06/18 15:38 82 yo male who initially presented with SDH s/p evacuation by Dr. Willingham, without improvement in MS. Seziures were excluded by EEG. 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 Maintain euvolemia, euglycemia, normothermia and 02sat>90%. Family meeting at noon tomorrow. dvt/gi prophylaxis ccm time 40 min
--- NOTE | 2018-04-06 10:40 | CP.PCM.PN ---
Subjective - Date & Time of Evaluation Date of Evaluation: 03/30/18 Time of Evaluation: 11:00 - Subjective Subjective: intubated, no acute overnight incident. Objective - Vital Signs/Intake and Output Vital Signs (last 24 hours): Temp Pulse Resp BP Pulse Ox 100.4 F H 103 H 24 139/88 96 04/06/18 10:00 04/06/18 10:00 04/06/18 07:50 04/06/18 10:00 04/06/18 10:00 Intake and Output: 04/06/18 04/06/18 06:59 18:59 Intake Total 1590 Output Total 500 Balance 1090 - Medications Medications: Current Medications Vancomycin HCl (Vancomycin 1gm) 1 gm in 250 mls @ 167 mls/hr IVPB DAILY [facility] PRN Reason: Protocol Last Admin: 04/06/18 09:33 Dose: 167 mls/hr Piperacillin Sod/Tazobactam Sod (Zosyn 2.25 Gm In 0.9% 100 Ml) 2.25 gm in 100 mls @ 100 mls/hr IVPB Q6 [facility] PRN Reason: Protocol Last Admin: 04/06/18 05:37 Dose: 100 mls/hr Acetaminophen (Ofirmev) 1,000 mg in 100 mls @ 400 mls/hr IVPB Q6H PRN PRN Reason: Temperature Stop: 04/07/18 08:53 Last Admin: 04/06/18 08:26 Dose: 400 mls/hr Levetiracetam (Keppra 500mg Ivpb) 500 mg in 100 mls @ 460 mls/hr IVPB Q12 [facility] Last Admin: 04/06/18 09:33 Dose: 460 mls/hr Insulin Human Regular (Humulin R Med) 0 units SC Q6H [facility] PRN Reason: Protocol Last Admin: 04/06/18 05:48 Dose: Not Given Labetalol HCl (Trandate) 20 mg IV Q6 PRN PRN Reason: Other Morphine Sulfate (Morphine) 2 mg IVP Q4H PRN PRN Reason: Pain, moderate (4-7) Pantoprazole Sodium (Protonix Susp) 40 mg PO 0600 [facility] Last Admin: 04/06/18 05:37 Dose: 40 mg - Labs Labs: 04/06/18 06:10 04/06/18 06:10 PT 14.0 SECONDS (9.4-12.5) H 04/02/18 12:00 INR 1.21 (0.93-1.08) H 04/02/18 12:00 APTT 48.2 Seconds (25.1-36.5) H 04/01/18 14:40 - Constitutional Appears: Chronically Ill - ENT Exam ENT Exam: Mucous Membranes Moist - Respiratory Exam Respiratory Exam: Clear to Ausculation Bilateral - Cardiovascular Exam Cardiovascular Exam: Irregular Rhythm, +S1, +S2 - GI/Abdominal Exam GI & Abdominal Exam: Soft, Normal Bowel Sounds - Skin Skin Exam: Dry, Warm Assessment and Plan - Assessment and Plan (Free Text) Assessment: 82 year old male with history of A Fib, ischemic CVA, HTN who was admitted with acute bilateral subdural hemorrhage, left uncal herniation, s/p craniotomy with evacuation. He is intubated. He not sedated. Pupils and cornea reactive, minimal gag reflex, purposeless toe movement when examined. I spoke with patients son Kvng CHRISTY via phone. Kvng affirms that his siblings are expected to arrive this weekend from [place]. He indicated that once together family will make decision regarding goals of care. He is aware that prognosis is poor. Options for trach/peg/LTAC vs comfort care have been discussed. Time spent with family member in goals of care discussion, 20 minutes Plan: Palliate support in establishing goals of care
--- NOTE | 2018-04-06 11:08 | CP.PCM.PN ---
Subjective - Date & Time of Evaluation Date of Evaluation: 04/06/18 Time of Evaluation: 11:08 - Subjective Subjective: Mr. Vera was seen and examined at the bedside in ICU. He remains on mechanical ventilator on PRVC mode. He pupils 3 mm sluggish, no corneal but with + gag reflexes, GCS- 4T, breaths over the vent. settings. He has the right parietal dominick intact.His heart rate remains a-fib. EEG showed seizure activity.There was no untoward events overnight. Objective - Vital Signs/Intake and Output Vital Signs (last 24 hours): Temp Pulse Resp BP Pulse Ox 100.4 F H 103 H 24 139/88 96 04/06/18 10:00 04/06/18 10:00 04/06/18 07:50 04/06/18 10:00 04/06/18 10:00 Intake and Output: 04/06/18 04/06/18 06:59 18:59 Intake Total 1590 Output Total 500 Balance 1090 - Medications Medications: Current Medications Vancomycin HCl (Vancomycin 1gm) 1 gm in 250 mls @ 167 mls/hr IVPB DAILY [facility] PRN Reason: Protocol Last Admin: 04/06/18 09:33 Dose: 167 mls/hr Piperacillin Sod/Tazobactam Sod (Zosyn 2.25 Gm In 0.9% 100 Ml) 2.25 gm in 100 mls @ 100 mls/hr IVPB Q6 [facility] PRN Reason: Protocol Last Admin: 04/06/18 05:37 Dose: 100 mls/hr Acetaminophen (Ofirmev) 1,000 mg in 100 mls @ 400 mls/hr IVPB Q6H PRN PRN Reason: Temperature Stop: 04/07/18 08:53 Last Admin: 04/06/18 08:26 Dose: 400 mls/hr Levetiracetam (Keppra 500mg Ivpb) 500 mg in 100 mls @ 460 mls/hr IVPB Q12 [facility] Last Admin: 04/06/18 09:33 Dose: 460 mls/hr Insulin Human Regular (Humulin R Med) 0 units SC Q6H [facility] PRN Reason: Protocol Last Admin: 04/06/18 05:48 Dose: Not Given Labetalol HCl (Trandate) 20 mg IV Q6 PRN PRN Reason: Other Morphine Sulfate (Morphine) 2 mg IVP Q4H PRN PRN Reason: Pain, moderate (4-7) Pantoprazole Sodium (Protonix Susp) 40 mg PO 0600 [facility] Last Admin: 04/06/18 05:37 Dose: 40 mg - Labs Labs: 04/06/18 06:10 04/06/18 06:10 PT 14.0 SECONDS (9.4-12.5) H 04/02/18 12:00 INR 1.21 (0.93-1.08) H 04/02/18 12:00 APTT 48.2 Seconds (25.1-36.5) H 04/01/18 14:40 - Constitutional Appears: No Acute Distress - Head Exam Head Exam: NORMAL INSPECTION - Eye Exam Pupil Exam: Miosis Additional comments: sluggish 3 mm bilaterally. - Extremities Exam Additional comments: edema noted over the bilateral upper extremities. Assessment and Plan (1) Subdural hematoma Assessment & Plan: Case discussed with Dr. Valerio, continue all current medical regimen, anti- coagulant will be dependent to the neurosurgery clearance when to start, recommend blood pressure control, keep head of bed elevated at least 30 degrees , normothermic, and treat any electrolyte abnormalities. Status: Acute
--- NOTE | 2018-04-06 12:18 | CP.PCM.PN ---
<Tunde Arceo - Last Filed: 04/06/18 14:27> Subjective - Date & Time of Evaluation Date of Evaluation: 04/06/18 Time of Evaluation: 06:00 - Subjective Subjective: Patient seen and examined at bedside in no acute distress, intubated not sedated. ROS not obtained as patient is intubated. Objective - Vital Signs/Intake and Output Vital Signs (last 24 hours): Temp Pulse Resp BP Pulse Ox 100.4 F H 122 H 24 164/109 H 96 04/06/18 10:00 04/06/18 11:06 04/06/18 07:50 04/06/18 11:06 04/06/18 10:00 Intake and Output: 04/06/18 04/06/18 06:59 18:59 Intake Total 1590 Output Total 500 Balance 1090 - Medications Medications: Current Medications Vancomycin HCl (Vancomycin 1gm) 1 gm in 250 mls @ 167 mls/hr IVPB DAILY [facility] PRN Reason: Protocol Last Admin: 04/06/18 09:33 Dose: 167 mls/hr Piperacillin Sod/Tazobactam Sod (Zosyn 2.25 Gm In 0.9% 100 Ml) 2.25 gm in 100 mls @ 100 mls/hr IVPB Q6 [facility] PRN Reason: Protocol Last Admin: 04/06/18 05:37 Dose: 100 mls/hr Acetaminophen (Ofirmev) 1,000 mg in 100 mls @ 400 mls/hr IVPB Q6H PRN PRN Reason: Temperature Stop: 04/07/18 08:53 Last Admin: 04/06/18 08:26 Dose: 400 mls/hr Levetiracetam (Keppra 500mg Ivpb) 500 mg in 100 mls @ 460 mls/hr IVPB Q12 [facility] Last Admin: 04/06/18 09:33 Dose: 460 mls/hr Insulin Human Regular (Humulin R Med) 0 units SC Q6H [facility] PRN Reason: Protocol Last Admin: 04/06/18 05:48 Dose: Not Given Labetalol HCl (Trandate) 20 mg IV Q6 PRN PRN Reason: Other Last Admin: 04/06/18 11:06 Dose: 20 mg Morphine Sulfate (Morphine) 2 mg IVP Q4H PRN PRN Reason: Pain, moderate (4-7) Pantoprazole Sodium (Protonix Susp) 40 mg PO 0600 [facility] Last Admin: 04/06/18 05:37 Dose: 40 mg - Labs Labs: 04/06/18 06:10 04/06/18 06:10 PT 14.0 SECONDS (9.4-12.5) H 04/02/18 12:00 INR 1.21 (0.93-1.08) H 04/02/18 12:00 APTT 48.2 Seconds (25.1-36.5) H 04/01/18 14:40 - Head Exam Head Exam: absent: NORMAL INSPECTION (dominick from surgery) - Eye Exam Eye Exam: EOMI, Normal appearance - ENT Exam ENT Exam: Normal Exam Additional comments: intubated - Neck Exam Neck Exam: absent: Normal Inspection Additional comments: intubated. - Respiratory Exam Respiratory Exam: Clear to Ausculation Bilateral, NORMAL BREATHING PATTERN. absent: Rhonchi, Wheezes - Cardiovascular Exam Cardiovascular Exam: REGULAR RHYTHM, +S1, +S2 - GI/Abdominal Exam GI & Abdominal Exam: Soft, Normal Bowel Sounds - Extremities Exam Extremities Exam: Normal Inspection - Back Exam Back Exam: NORMAL INSPECTION - Neurological Exam Neurological Exam: absent: Alert, Awake, Oriented x3 - Skin Skin Exam: Intact, Normal Color, Warm Assessment and Plan - Assessment and Plan (Free Text) Assessment: Patient is a 82 year old male with a past medical history of CVA, TIA, atrial fibrillation, hypertension, hyperlipidemia, and diabetes who presented to the emergency department for evaluation and treatment of altered mental status due to 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 Plan Bilateral subdural hematoma -S/P hematoma evacuation POD #5 -Continue with recs as per neurosurgery and neurology; prognosis guarded -Repeat CT reveals reveal stable appearance of large air fluid levels in bilateral cerebral subdural spaces, left greater than right. Stable mass effect with compression of the left lateral centricule and midline shift of 4 mm towards the right. Uncal herniation noted on left side. Stable chronic focal hypodense infarctions in the left centrum semiovale and left parieto-occiptal regions. No acute infarction or acue intraparenchymal hemorrhage is seen. -Palliative on consult -Keppra added as per Neuro Transaminitis -LFTs improving CVA hx -Hold PO meds: coumadin, crestor, toprol XL -Monitor vital signs -Monitor INR Atrial fibrillation -Hold Coumadin -Monitor INR -Consider addition of cardizem if HR is not controlled Hypertension -Monitor vital signs -Continue with Labetalol HCL PRN Hyperlipidemia -Crestor on hold for now Hypernatremia -resolved IDDM -ISS-med -continue with accuchecks Chronic back pain -Morphine PRN Fever -Currently febrile -Blood cultures, no growth , Urine cultures final no growth, Procalcitonin 0.39 , sputum cultures reveal gram positive cocci as preliminary read -Continue with zosyn and vanc -Continue to monitor GI prophylaxis: protonix DVT prophylaxis: mechanical at this time only due to brain bleed Dispo: Poor prognosis, discussed with daughter, she is aware of the prognosis. Patient's son the POA is awaiting family discussion for trach and peg and LTAC vs terminal extubation as per discussion with daughter of patient. <Suman Joe - Last Filed: 04/07/18 15:11> Objective - Vital Signs/Intake and Output Vital Signs (last 24 hours): Temp Pulse Resp BP Pulse Ox 100.4 F H 101 H 16 151/104 H 100 04/07/18 14:00 04/07/18 14:00 04/07/18 07:00 04/07/18 14:00 04/07/18 14:00 Intake and Output: 04/07/18 04/07/18 06:59 18:59 Intake Total 940 Output Total 900 Balance 40 - Medications Medications: Current Medications Vancomycin HCl (Vancomycin 1gm) 1 gm in 250 mls @ 167 mls/hr IVPB DAILY [facility] PRN Reason: Protocol Last Admin: 04/07/18 09:14 Dose: 167 mls/hr Piperacillin Sod/Tazobactam Sod (Zosyn 2.25 Gm In 0.9% 100 Ml) 2.25 gm in 100 mls @ 100 mls/hr IVPB Q6 [facility] PRN Reason: Protocol Last Admin: 04/07/18 12:23 Dose: 100 mls/hr Levetiracetam (Keppra 500mg Ivpb) 500 mg in 100 mls @ 460 mls/hr IVPB Q12 [facility] Last Admin: 04/07/18 09:14 Dose: 460 mls/hr Insulin Human Regular (Humulin R Med) 0 units SC Q6H [facility] PRN Reason: Protocol Last Admin: 04/07/18 12:24 Dose: 3 unit Labetalol HCl (Trandate) 20 mg IV Q6 PRN PRN Reason: Other Last Admin: 04/06/18 11:06 Dose: 20 mg Morphine Sulfate (Morphine) 2 mg IVP Q4H PRN PRN Reason: Pain, moderate (4-7) Pantoprazole Sodium (Protonix Susp) 40 mg PO 0600 [facility] Last Admin: 04/07/18 05:22 Dose: 40 mg - Labs Labs: 04/07/18 05:00 04/07/18 05:00 PT 14.0 SECONDS (9.4-12.5) H 04/02/18 12:00 INR 1.21 (0.93-1.08) H 04/02/18 12:00 APTT 48.2 Seconds (25.1-36.5) H 04/01/18 14:40 Attending/Attestation - Attestation I have personally seen and examined this patient.: Yes I have fully participated in the care of the patient.: Yes I have reviewed all pertinent clinical information, including history, physical exam and plan: Yes Notes (Text): 04/07/18 15:11 Medical record note made by the resident after discussion with my direction and input after the patient was personally seen and examined by me. I have reviewed the chart and agree that the record accurately reflects by personal performance of the history, physical exam, data review, and medical decision-making, in the course for the patient. I have also personally directed the plan of care.
--- NOTE | 2018-04-06 16:18 | CP.PCM.PN ---
Subjective - Date & Time of Evaluation Date of Evaluation: 04/06/18 Time of Evaluation: 15:00 - Subjective Subjective: Infectious Disease Follow Up: April 06, 2018 82 yo male with presentation for altered mental status on 04/01/2018. Found to have a subdural hematoma (acute on chronic). Craniotomy performed. The patient remains intubated and ventilated since the surgery. His medical history includes CVA, Atrial fibrillation, DM, and HTN. Fevers up to 101.3 F in the past 24 hours but this is POD #4. No leukocytosis. Procalcitonin of 0.36 which is normal. Still persistent low grade fevers at this time. CT showing uncal herniation. Fevers likely central in origin. The patient remains poorly responsive despite not being sedated. The patient has a dismal prognosis at this time. Objective - Vital Signs/Intake and Output Vital Signs (last 24 hours): Temp Pulse Resp BP Pulse Ox 100.4 F H 96 H 24 127/85 100 04/06/18 14:00 04/06/18 14:00 04/06/18 07:50 04/06/18 14:00 04/06/18 14:00 Intake and Output: 04/06/18 04/06/18 06:59 18:59 Intake Total 1590 1940 Output Total 500 Balance 1090 1940 - Medications Medications: Current Medications Vancomycin HCl (Vancomycin 1gm) 1 gm in 250 mls @ 167 mls/hr IVPB DAILY [facility] PRN Reason: Protocol Last Admin: 04/06/18 09:33 Dose: 167 mls/hr Piperacillin Sod/Tazobactam Sod (Zosyn 2.25 Gm In 0.9% 100 Ml) 2.25 gm in 100 mls @ 100 mls/hr IVPB Q6 [facility] PRN Reason: Protocol Last Admin: 04/06/18 12:05 Dose: 100 mls/hr Acetaminophen (Ofirmev) 1,000 mg in 100 mls @ 400 mls/hr IVPB Q6H PRN PRN Reason: Temperature Stop: 04/07/18 08:53 Last Admin: 04/06/18 08:26 Dose: 400 mls/hr Levetiracetam (Keppra 500mg Ivpb) 500 mg in 100 mls @ 460 mls/hr IVPB Q12 [facility] Last Admin: 04/06/18 09:33 Dose: 460 mls/hr Insulin Human Regular (Humulin R Med) 0 units SC Q6H [facility] PRN Reason: Protocol Last Admin: 04/06/18 12:04 Dose: 3 unit Labetalol HCl (Trandate) 20 mg IV Q6 PRN PRN Reason: Other Last Admin: 04/06/18 11:06 Dose: 20 mg Morphine Sulfate (Morphine) 2 mg IVP Q4H PRN PRN Reason: Pain, moderate (4-7) Pantoprazole Sodium (Protonix Susp) 40 mg PO 0600 [facility] Last Admin: 04/06/18 05:37 Dose: 40 mg - Labs Labs: 04/06/18 06:10 04/06/18 06:10 PT 14.0 SECONDS (9.4-12.5) H 04/02/18 12:00 INR 1.21 (0.93-1.08) H 04/02/18 12:00 APTT 48.2 Seconds (25.1-36.5) H 04/01/18 14:40 - Constitutional Appears: Non-toxic, Chronically Ill - Eye Exam Pupil Exam: Fixed, Irregular Additional comments: s/p craniotomy. dominick in place. - ENT Exam ENT Exam: Mucous Membranes Moist, Normal External Ear Exam, TM's Normal Bilaterally - Neck Exam Neck Exam: Normal Inspection - Respiratory Exam Respiratory Exam: Clear to Ausculation Bilateral, NORMAL BREATHING PATTERN. absent: Rales, Rhonchi, Wheezes - Cardiovascular Exam Cardiovascular Exam: REGULAR RHYTHM, RRR, +S1, +S2 - GI/Abdominal Exam GI & Abdominal Exam: Soft, Normal Bowel Sounds. absent: Distended, Tenderness - Extremities Exam Extremities Exam: Normal Inspection - Neurological Exam Neurological Exam: Alert, Awake, CN II-XII Intact, Oriented x3 - Psychiatric Exam Psychiatric exam: Normal Affect, Normal Mood - Skin Skin Exam: Normal Color, Warm Assessment and Plan - Assessment and Plan (Free Text) Assessment: 82 yo male with unresponsive by family on initial presentation found to have an acute on chronic bilateral Subdural hematoma. The patient required craniotomy for decompression. He remains intubated and ventilated. The patient remains in a comatose state. Fevers up to 101.3F in the past 24 hours. Unclear if this is secondary to postsurgical course after craniotomy, infection, or even central brain injury. Started on IV antibiotics of Zosyn and Vancomycin IV. Can continue on this regimen while culture results return. Supportive care. To date, cultures have been negative to date. More likely the fevers are secondary to central brain injury. CT scan of head repeats now showing uncal herniation. 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 Very poor prognosis. Thank you for allowing me to participate in the care of the patient, we will follow with you.
[2018-04-06] MEDS ORDERED: Morphine 2 mg/2 mL syringe IVP PRN (17:08)
[2018-04-07] MEDS: Piperacillin/Tazobact 2.25gm 2.25 GM/100 ML BAG IVPB SCH ×5 (00:32→23:35)
[2018-04-07] MEDS: Insulin Reg-MEDIUM-Coverage SC SCH ×4 (00:33→17:27)
[2018-04-07] MEDS: Pantoprazole 40 mg Susp UD PO SCH (05:22)
[2018-04-07 05:52] LABS: BASO # 0.03 K/mm3 (0.0-2.0); BASO % 0.3 % (0.0-3.0); EOS # 0.2 (0.0-0.7); EOS % 1.6 % (1.5-5.0); GRAN # 7.29 (1.4-6.5); GRAN % 79.5 % (50.0-68.0); HEMOGLOBIN 9.8 g/dL (14.0-18.0); LYMPH # 1.2 (1.2-3.4); LYMPH % 13.5 % (22.0-35.0); MEAN CORPUSCULAR HEMOGLOBIN 30.8 pg (25.0-35.0); MEAN CORPUSCULAR HGB CONC 32.5 g/dl (31.0-37.0); MEAN PLATELET VOLUME 11.3 fl (7.0-11.0); MONO # 0.5 (0.1-0.6); MONO % 5.1 % (1.0-6.0); RBC 3.18 10^6/uL (3.5-6.1); RED CELL DISTRIBUTION WIDTH 14.4 % (11.5-14.5); WHITE BLOOD COUNT 9.2 10^3/ul (4.5-11.0)
[2018-04-07 06:02] LABS: ALB/GLOB RATIO 0.8 (1.1-1.8); ALBUMIN 2.6 g/dL (3.0-4.8); ALT/SGPT 92 U/L (7-56); AST/SGOT 90 U/L (17-59); BLOOD UREA NITROGEN 34 mg/dL (7-21); GFR AFRICAN-AMERICAN > 60; GFR NON-AFRICAN AMERICAN 58
[2018-04-07 06:42] LABS: ARTERIAL BLOOD GAS HCO3 22.2 mmol/L (21-28); ARTERIAL BLOOD GAS HEMOGLOBIN 8.6 g/dL (11.7-17.4); ARTERIAL BLOOD GAS O2 CAPACITY 12.1 mL/dl (16-24); ARTERIAL BLOOD GAS O2 SAT 99.5 % (95-98); ARTERIAL BLOOD GAS PCO2 32 mm/Hg (35-45); ARTERIAL BLOOD GAS PH 7.45 (7.35-7.45); ARTERIAL BLOOD GAS TCO2 23.2 mmol.L (22-28)
--- NOTE | 2018-04-07 07:55 | CP.CCUPN ---
<Rell Tianine - Last Filed: 04/07/18 11:06> CCU Subjective - Physician Review Subjective (Free Text): 04/06/18 10:08 U/O 500 in last 12 hours No acute event reported overnight Talked to family by bedside 04/07/18 10:44 overnight Tmax 101, HR 130s. Got labetalol IV x 1 CCU Objective - Vital Signs / Intake & Output Vital Signs (Last 4 hours): Vital Signs Temp Pulse BP Pulse Ox 04/07/18 07:00 99.5 F 89 139/97 H 98 04/07/18 06:00 134/89 04/07/18 05:59 99.9 F H 89 100 04/07/18 05:14 100.4 F H 99 H 147/93 H 99 04/07/18 05:00 100.4 F H 101 H 97 04/07/18 04:00 100.4 F H 99 H 144/99 H 100 Intake and Output (Last 8hrs): Intake & Output 04/06/18 04/07/18 04/07/18 22:59 06:59 14:59 Intake Total 940 Output Total 640 900 Balance -640 40 Intake: IV 400 Right Forearm 300 tylenol 100 Tube Feeding 540 Output: Urine 640 900 Urethral (No) 640 900 - Physical Exam Head: Positive for: Swelling (right temporal/occiptal swelling), Ecchymosis ( right auricular ) Pupils: Positive for: Sluggish Conjunctiva: Positive for: Normal Ears: Positive for: Other (ecchymosis right ear) Nose (External): Positive for: Atraumatic Respiratory/Chest: Positive for: Decreased Breath Sounds (b/l lung bases). Negative for: Rales, Retracting, Rhonchi Cardiovascular: Positive for: Normal S1, S2, Tachycardic Abdomen: Negative for: Normal Bowel Sounds (hypoactive) Upper Extremity: Negative for: Normal Inspection Lower Extremity: Negative for: Normal Inspection Neurological: Positive for: Other (GCS 1+1+2) Skin: Positive for: Warm, Dry, Abrasion (bilateral knees ) Psychiatric: Negative for: Alert, Oriented x 3 - Medications Active Medications: Active Medications Generic Name Dose Route Start Last Admin Trade Name Freq PRN Reason Stop Dose Admin Vancomycin HCl 1 gm in 250 mls @ 167 mls/hr 04/03/18 10:15 04/06/18 09:33 Vancomycin 1gm IVPB 167 mls/hr DAILY KEATON Administration Protocol Piperacillin Sod/Tazobactam Sod 2.25 gm in 100 mls @ 100 mls/hr 04/04/18 00: 00 04/07/18 05:22 Zosyn 2.25 Gm In 0.9% 100 Ml IVPB 100 mls/hr Q6 KEATON Administration Protocol Acetaminophen 1,000 mg in 100 mls @ 400 mls/hr 04/05/18 08:52 04/07/18 05:56 Ofirmev IVPB 04/07/18 08:53 400 mls/hr Q6H PRN Administration Temperature Levetiracetam 500 mg in 100 mls @ 460 mls/hr 04/05/18 22:00 04/06/18 21:17 Keppra 500mg Ivpb IVPB 460 mls/hr Q12 KEATON Administration Insulin Human Regular 0 units 04/03/18 11:59 04/07/18 07:06 Humulin R Med SC Not Given Q6H KEATON Protocol Labetalol HCl 20 mg 04/02/18 13:39 04/06/18 11:06 Trandate IV 20 mg Q6 PRN Administration Other Morphine Sulfate 2 mg 04/06/18 17:08 Morphine IVP Q4H PRN Pain, moderate (4-7) Pantoprazole Sodium 40 mg 04/04/18 06:00 04/07/18 05:22 Protonix Susp PO 40 mg 0600 KEATON Administration - Patient Studies Lab Studies: Microbiology Studies 04/03/18 14:30 Gram Stain - Final Sputum Sputum Culture - Preliminary Gram Positive Cocci 04/03/18 11:00 Blood Culture - Preliminary Blood NO GROWTH AFTER 3 DAYS 04/03/18 10:50 Blood Culture - Preliminary Blood NO GROWTH AFTER 3 DAYS Lab Studies 04/07/18 04/07/18 04/07/18 Range/Units 06:49 06:35 05:00 WBC (4.5-11.0) 10^3/ul RBC (3.5-6.1) 10^6/uL Hgb (14.0-18.0) g/dL Hct (42.0-52.0) % MCV (80.0-105.0) fl MCH (25.0-35.0) pg MCHC (31.0-37.0) g/dl RDW (11.5-14.5) % Plt Count (120.0-450.0) 10^3/uL MPV (7.0-11.0) fl Gran % (50.0-68.0) % Lymph % (Auto) (22.0-35.0) % Clark % (Auto) (1.0-6.0) % Eos % (Auto) (1.5-5.0) % Baso % (Auto) (0.0-3.0) % Gran # (1.4-6.5) Lymph # (Auto) (1.2-3.4) Clark # (Auto) (0.1-0.6) Eos # (Auto) (0.0-0.7) Baso # (Auto) (0.0-2.0) K/mm3 pCO2 32 L (35-45) mm/Hg pO2 155.0 H (80-100) mm/Hg HCO3 22.2 (21-28) mmol/L ABG pH 7.45 (7.35-7.45) ABG Total CO2 23.2 (22-28) mmol.L ABG O2 Saturation 99.5 H (95-98) % ABG O2 Content 12.0 L (15-23) ML/dl ABG Base Excess -1.4 (-2.0-3.0) mmol/L ABG Hemoglobin 8.6 L (11.7-17.4) g/dL ABG Carboxyhemoglobin 1.9 H (0.5-1.5) % POC ABG HHb (Measured) 0.5 (0-5) % ABG Methemoglobin 1.2 (0.0-3.0) % ABG O2 Capacity 12.1 L (16-24) mL/dl Hgb O2 Saturation 96.3 (95.0-98.0) % FiO2 40.0 % Sodium 142 (132-148) mmol/L Potassium 4.2 (3.6-5.0) mmol/L Chloride 108 H (98-107) mmol/L Carbon Dioxide 24 (21-33) mmol/L Anion Gap 14 (10-20) BUN 34 H (7-21) mg/dL Creatinine 1.2 (0.8-1.5) mg/dl Est GFR ( Amer) > 60 Est GFR (Non-Af Amer) 58 POC Glucose (mg/dL) 234 H (65-110) mg/dL Random Glucose 224 H (70-110) mg/dL Calcium 8.0 L (8.4-10.5) mg/dL Phosphorus 3.6 (2.5-4.5) mg/dL Magnesium 1.9 (1.7-2.2) mg/dL Total Bilirubin 0.6 (0.2-1.3) mg/dL AST 90 H (17-59) U/L ALT 92 H (7-56) U/L Alkaline Phosphatase 96 (38-126) U/L Total Protein 5.7 L (5.8-8.3) g/dL Albumin 2.6 L (3.0-4.8) g/dL Globulin 3.1 gm/dL Albumin/Globulin Ratio 0.8 L (1.1-1.8) 04/07/18 04/07/18 04/06/18 Range/Units 05:00 00:26 17:12 WBC 9.2 (4.5-11.0) 10^3/ul RBC 3.18 L (3.5-6.1) 10^6/uL Hgb 9.8 L (14.0-18.0) g/dL Hct 30.2 L (42.0-52.0) % MCV 95.0 (80.0-105.0) fl MCH 30.8 (25.0-35.0) pg MCHC 32.5 (31.0-37.0) g/dl RDW 14.4 (11.5-14.5) % Plt Count 113 L (120.0-450.0) 10^3/uL MPV 11.3 H (7.0-11.0) fl Gran % 79.5 H (50.0-68.0) % Lymph % (Auto) 13.5 L (22.0-35.0) % Clark % (Auto) 5.1 (1.0-6.0) % Eos % (Auto) 1.6 (1.5-5.0) % Baso % (Auto) 0.3 (0.0-3.0) % Gran # 7.29 H (1.4-6.5) Lymph # (Auto) 1.2 (1.2-3.4) Clark # (Auto) 0.5 (0.1-0.6) Eos # (Auto) 0.2 (0.0-0.7) Baso # (Auto) 0.03 (0.0-2.0) K/mm3 pCO2 (35-45) mm/Hg pO2 (80-100) mm/Hg HCO3 (21-28) mmol/L ABG pH (7.35-7.45) ABG Total CO2 (22-28) mmol.L ABG O2 Saturation (95-98) % ABG O2 Content (15-23) ML/dl ABG Base Excess (-2.0-3.0) mmol/L ABG Hemoglobin (11.7-17.4) g/dL ABG Carboxyhemoglobin (0.5-1.5) % POC ABG HHb (Measured) (0-5) % ABG Methemoglobin (0.0-3.0) % ABG O2 Capacity (16-24) mL/dl Hgb O2 Saturation (95.0-98.0) % FiO2 % Sodium (132-148) mmol/L Potassium (3.6-5.0) mmol/L Chloride (98-107) mmol/L Carbon Dioxide (21-33) mmol/L Anion Gap (10-20) BUN (7-21) mg/dL Creatinine (0.8-1.5) mg/dl Est GFR ( Amer) Est GFR (Non-Af Amer) POC Glucose (mg/dL) 216 H 203 H (65-110) mg/dL Random Glucose (70-110) mg/dL Calcium (8.4-10.5) mg/dL Phosphorus (2.5-4.5) mg/dL Magnesium (1.7-2.2) mg/dL Total Bilirubin (0.2-1.3) mg/dL AST (17-59) U/L ALT (7-56) U/L Alkaline Phosphatase (38-126) U/L Total Protein (5.8-8.3) g/dL Albumin (3.0-4.8) g/dL Globulin gm/dL Albumin/Globulin Ratio (1.1-1.8) 04/06/ Range/Units 11:38 WBC (4.5-11.0) 10^3/ul RBC (3.5-6.1) 10^6/uL Hgb (14.0-18.0) g/dL Hct (42.0-52.0) % MCV (80.0-105.0) fl MCH (25.0-35.0) pg MCHC (31.0-37.0) g/dl RDW (11.5-14.5) % Plt Count (120.0-450.0) 10^3/uL MPV (7.0-11.0) fl Gran % (50.0-68.0) % Lymph % (Auto) (22.0-35.0) % Clark % (Auto) (1.0-6.0) % Eos % (Auto) (1.5-5.0) % Baso % (Auto) (0.0-3.0) % Gran # (1.4-6.5) Lymph # (Auto) (1.2-3.4) Clark # (Auto) (0.1-0.6) Eos # (Auto) (0.0-0.7) Baso # (Auto) (0.0-2.0) K/mm3 pCO2 (35-45) mm/Hg pO2 (80-100) mm/Hg HCO3 (21-28) mmol/L ABG pH (7.35-7.45) ABG Total CO2 (22-28) mmol.L ABG O2 Saturation (95-98) % ABG O2 Content (15-23) ML/dl ABG Base Excess (-2.0-3.0) mmol/L ABG Hemoglobin (11.7-17.4) g/dL ABG Carboxyhemoglobin (0.5-1.5) % POC ABG HHb (Measured) (0-5) % ABG Methemoglobin (0.0-3.0) % ABG O2 Capacity (16-24) mL/dl Hgb O2 Saturation (95.0-98.0) % FiO2 % Sodium (132-148) mmol/L Potassium (3.6-5.0) mmol/L Chloride (98-107) mmol/L Carbon Dioxide (21-33) mmol/L Anion Gap (10-20) BUN (7-21) mg/dL Creatinine (0.8-1.5) mg/dl Est GFR ( Amer) Est GFR (Non-Af Amer) POC Glucose (mg/dL) 231 H (65-110) mg/dL Random Glucose (70-110) mg/dL Calcium (8.4-10.5) mg/dL Phosphorus (2.5-4.5) mg/dL Magnesium (1.7-2.2) mg/dL Total Bilirubin (0.2-1.3) mg/dL AST (17-59) U/L ALT (7-56) U/L Alkaline Phosphatase (38-126) U/L Total Protein (5.8-8.3) g/dL Albumin (3.0-4.8) g/dL Globulin gm/dL Albumin/Globulin Ratio (1.1-1.8) Laboratory Results - last 24 hr 04/06/18 04/06/18 04/07/18 11:38 17:12 00:26 WBC RBC Hgb Hct MCV MCH MCHC RDW Plt Count MPV Gran % Lymph % (Auto) Clark % (Auto) Eos % (Auto) Baso % (Auto) Gran # Lymph # (Auto) Clark # (Auto) Eos # (Auto) Baso # (Auto) pCO2 pO2 HCO3 ABG pH ABG Total CO2 ABG O2 Saturation ABG O2 Content ABG Base Excess ABG Hemoglobin ABG Carboxyhemoglobin POC ABG HHb (Measured) ABG Methemoglobin ABG O2 Capacity Hgb O2 Saturation FiO2 Sodium Potassium Chloride Carbon Dioxide Anion Gap BUN Creatinine Est GFR ( Amer) Est GFR (Non-Af Amer) POC Glucose (mg/dL) 231 H 203 H 216 H Random Glucose Calcium Phosphorus Magnesium Total Bilirubin AST ALT Alkaline Phosphatase Total Protein Albumin Globulin Albumin/Globulin Ratio 04/07/18 04/07/18 04/07/18 05:00 05:00 06:35 WBC 9.2 RBC 3.18 L Hgb 9.8 L Hct 30.2 L MCV 95.0 MCH 30.8 MCHC 32.5 RDW 14.4 Plt Count 113 L MPV 11.3 H Gran % 79.5 H Lymph % (Auto) 13.5 L Clark % (Auto) 5.1 Eos % (Auto) 1.6 Baso % (Auto) 0.3 Gran # 7.29 H Lymph # (Auto) 1.2 Clark # (Auto) 0.5 Eos # (Auto) 0.2 Baso # (Auto) 0.03 pCO2 32 L pO2 155.0 H HCO3 22.2 ABG pH 7.45 ABG Total CO2 23.2 ABG O2 Saturation 99.5 H ABG O2 Content 12.0 L ABG Base Excess -1.4 ABG Hemoglobin 8.6 L ABG Carboxyhemoglobin 1.9 H POC ABG HHb (Measured) 0.5 ABG Methemoglobin 1.2 ABG O2 Capacity 12.1 L Hgb O2 Saturation 96.3 FiO2 40.0 Sodium 142 Potassium 4.2 Chloride 108 H Carbon Dioxide 24 Anion Gap 14 BUN 34 H Creatinine 1.2 Est GFR ( Amer) > 60 Est GFR (Non-Af Amer) 58 POC Glucose (mg/dL) Random Glucose 224 H Calcium 8.0 L Phosphorus 3.6 Magnesium 1.9 Total Bilirubin 0.6 AST 90 H ALT 92 H Alkaline Phosphatase 96 Total Protein 5.7 L Albumin 2.6 L Globulin 3.1 Albumin/Globulin Ratio 0.8 L 04/07/18 06:49 WBC RBC Hgb Hct MCV MCH MCHC RDW Plt Count MPV Gran % Lymph % (Auto) Clark % (Auto) Eos % (Auto) Baso % (Auto) Gran # Lymph # (Auto) Clark # (Auto) Eos # (Auto) Baso # (Auto) pCO2 pO2 HCO3 ABG pH ABG Total CO2 ABG O2 Saturation ABG O2 Content ABG Base Excess ABG Hemoglobin ABG Carboxyhemoglobin POC ABG HHb (Measured) ABG Methemoglobin ABG O2 Capacity Hgb O2 Saturation FiO2 Sodium Potassium Chloride Carbon Dioxide Anion Gap BUN Creatinine Est GFR ( Amer) Est GFR (Non-Af Amer) POC Glucose (mg/dL) 234 H Random Glucose Calcium Phosphorus Magnesium Total Bilirubin AST ALT Alkaline Phosphatase Total Protein Albumin Globulin Albumin/Globulin Ratio Fingerstick Blood Sugar Results: 234 Assessment/Plan - Assessment and Plan (Free Text) Plan: Kvng Chaudhary, 82 M, in ICU for b/l acute on chronic Subdural Hematoma requiring Kcentra to reverse eliquis, and required emergent craniotomy with b/l hematoma evaculation, s/p subdural drain placement/removal, continually intubated for airway protection and GCS (1+1+2 decelebrate) in comatose state. He had a fever but normal procalc 0.36, negative septic workup. CT showed Uncal herniation. Sputum grew MSSA Acute on chronic subbural hematoma, s/p emergent craniotomy with hematoma evauation; s/p K-centra to reverse eliquis Comatose with OGT and intubation, likely persistent vegetative state, likely due to uncal herniation and mass effect Sepsis likely central fever Thrombocytopenia - reactive Hx of [employer] Infarcts Hx of HTN Hx of HLD Hx of DM1 Intubation day ___7____ Neuro - CT Head (04/04): stable mass effect pressing on L lateral ventricle, and midline shift of 5mm to RIGHT. (+) uncal herniation to L - Maintain normothermia, avoid oxygen toxicity to prevent brain exposure to free radicals - F/U EEG (04/05)_showed spikes in temporal lobe, epileptogenic; Keppra 500 Q12 IV to prevent seizure - tylenol IV PRN Pulm - PRVC 450/15(22)/5/40% - CXR: b/l atelectasis at lung bases. No active disease - Maintain SaO2 > 95% - Protective lung ventilation strategy Cardio - Maintain MAP - NO permissive HTN, keep BP < 140/90 - BP Parameters: SBP 100-160; Patient's HR and BP are spiking intermittently, could be due to pain, Morphine PRN q4 GI - Glucerna, enteric feed, with free water flushes and regular residual check - Continue PPX with protonix - Started OGT feedings with water flushes for Hypernatremia; repeat BMP at 4P; water flushes changed to 250 q4 from 200 q6 - Maintain euvolemia Heme - Avoid blood thinners in light of bleed, give Mechanical DVT PPX ID - Urine Cx (04/03) neg; - Sputum Cx: (04/03) MSSA - Blood Cx (04/03) neg x 3d - Vanc/Zosyn for post op fever empiric coverage; Continue current regimen per ID Endo - Maintain euglycemia - Accucheks with ISS-high Dispo: - palliative on board. Family will travel to [place] and come during weekend. Will discuss [facility] - accepted to [facility] - if family ok to LTACH, then trach/peg at LTACH - explore if family want hospice/terminal extubation, s/r/d/w Dr. Bergeron <Yohannes Bergeron - Last Filed: 04/07/18 15:57> CCU Objective - Vital Signs / Intake & Output Vital Signs (Last 4 hours): Vital Signs Temp Pulse BP Pulse Ox 04/07/18 15:00 151/97 H 04/07/18 14:59 100.8 F H 103 H 99 04/07/18 14:16 100.4 F H 98 H 148/108 H 100 04/07/18 14:00 100.4 F H 101 H 151/104 H 100 04/07/18 13:00 146/95 H 04/07/18 12:59 99.9 F H 97 H 100 04/07/18 12:00 99.9 F H 99 H 132/89 04/07/18 11:59 99.5 F 95 H 100 Intake and Output (Last 8hrs): Intake & Output 04/07/18 04/07/18 04/07/18 06:59 14:59 22:59 Intake Total 940 Output Total 900 Balance 40 Intake: IV 400 Right Forearm 300 tylenol 100 Tube Feeding 540 Output: Urine 900 Urethral (No) 900 - Medications Active Medications: Active Medications Generic Name Dose Route Start Last Admin Trade Name Freq PRN Reason Stop Dose Admin Vancomycin HCl 1 gm in 250 mls @ 167 mls/hr 04/03/18 10:15 04/07/18 09:14 Vancomycin 1gm IVPB 167 mls/hr DAILY KEATON Administration Protocol Piperacillin Sod/Tazobactam Sod 2.25 gm in 100 mls @ 100 mls/hr 04/04/18 00: 00 04/07/18 12:23 Zosyn 2.25 Gm In 0.9% 100 Ml IVPB 100 mls/hr Q6 KEATON Administration Protocol Levetiracetam 500 mg in 100 mls @ 460 mls/hr 04/05/18 22:00 04/07/18 09:14 Keppra 500mg Ivpb IVPB 460 mls/hr Q12 KEATON Administration Acetaminophen 1,000 mg in 100 mls @ 400 mls/hr 04/07/18 15:37 Ofirmev IVPB 04/09/18 15:38 Q6H PRN Temperature Insulin Human Regular 0 units 04/03/18 11:59 04/07/18 12:24 Humulin R Med SC 3 unit Q6H KEATON Administration Protocol Labetalol HCl 20 mg 04/02/18 13:39 04/06/18 11:06 Trandate IV 20 mg Q6 PRN Administration Other Morphine Sulfate 2 mg 04/06/18 17:08 Morphine IVP Q4H PRN Pain, moderate (4-7) Pantoprazole Sodium 40 mg 04/04/18 06:00 04/07/18 05:22 Protonix Susp PO 40 mg 0600 [facility] Administration - Patient Studies Lab Studies: Microbiology Studies 04/03/18 11:00 Blood Culture - Preliminary Blood NO GROWTH AFTER 4 DAYS 04/03/18 10:50 Blood Culture - Preliminary Blood NO GROWTH AFTER 4 DAYS 04/03/18 14:30 Gram Stain - Final Sputum Sputum Culture - Final Staphylococcus Aureus Lab Studies 04/07/18 04/07/18 04/07/18 Range/Units 12:06 06:49 06:35 WBC (4.5-11.0) 10^3/ul RBC (3.5-6.1) 10^6/uL Hgb (14.0-18.0) g/dL Hct (42.0-52.0) % MCV (80.0-105.0) fl MCH (25.0-35.0) pg MCHC (31.0-37.0) g/dl RDW (11.5-14.5) % Plt Count (120.0-450.0) 10^3/uL MPV (7.0-11.0) fl Gran % (50.0-68.0) % Lymph % (Auto) (22.0-35.0) % Clark % (Auto) (1.0-6.0) % Eos % (Auto) (1.5-5.0) % Baso % (Auto) (0.0-3.0) % Gran # (1.4-6.5) Lymph # (Auto) (1.2-3.4) Clark # (Auto) (0.1-0.6) Eos # (Auto) (0.0-0.7) Baso # (Auto) (0.0-2.0) K/mm3 pCO2 32 L (35-45) mm/Hg pO2 155.0 H (80-100) mm/Hg HCO3 22.2 (21-28) mmol/L ABG pH 7.45 (7.35-7.45) ABG Total CO2 23.2 (22-28) mmol.L ABG O2 Saturation 99.5 H (95-98) % ABG O2 Content 12.0 L (15-23) ML/dl ABG Base Excess -1.4 (-2.0-3.0) mmol/L ABG Hemoglobin 8.6 L (11.7-17.4) g/dL ABG Carboxyhemoglobin 1.9 H (0.5-1.5) % POC ABG HHb (Measured) 0.5 (0-5) % ABG Methemoglobin 1.2 (0.0-3.0) % ABG O2 Capacity 12.1 L (16-24) mL/dl Hgb O2 Saturation 96.3 (95.0-98.0) % FiO2 40.0 % Sodium (132-148) mmol/L Potassium (3.6-5.0) mmol/L Chloride (98-107) mmol/L Carbon Dioxide (21-33) mmol/L Anion Gap (10-20) BUN (7-21) mg/dL Creatinine (0.8-1.5) mg/dl Est GFR ( Amer) Est GFR (Non-Af Amer) POC Glucose (mg/dL) 238 H 234 H (65-110) mg/dL Random Glucose (70-110) mg/dL Calcium (8.4-10.5) mg/dL Phosphorus (2.5-4.5) mg/dL Magnesium (1.7-2.2) mg/dL Total Bilirubin (0.2-1.3) mg/dL AST (17-59) U/L ALT (7-56) U/L Alkaline Phosphatase (38-126) U/L Total Protein (5.8-8.3) g/dL Albumin (3.0-4.8) g/dL Globulin gm/dL Albumin/Globulin Ratio (1.1-1.8) 04/07/18 04/07/18 04/07/18 Range/Units 05:00 05:00 00:26 WBC 9.2 (4.5-11.0) 10^3/ul RBC 3.18 L (3.5-6.1) 10^6/uL Hgb 9.8 L (14.0-18.0) g/dL Hct 30.2 L (42.0-52.0) % MCV 95.0 (80.0-105.0) fl MCH 30.8 (25.0-35.0) pg MCHC 32.5 (31.0-37.0) g/dl RDW 14.4 (11.5-14.5) % Plt Count 113 L (120.0-450.0) 10^3/uL MPV 11.3 H (7.0-11.0) fl Gran % 79.5 H (50.0-68.0) % Lymph % (Auto) 13.5 L (22.0-35.0) % Clark % (Auto) 5.1 (1.0-6.0) % Eos % (Auto) 1.6 (1.5-5.0) % Baso % (Auto) 0.3 (0.0-3.0) % Gran # 7.29 H (1.4-6.5) Lymph # (Auto) 1.2 (1.2-3.4) Clark # (Auto) 0.5 (0.1-0.6) Eos # (Auto) 0.2 (0.0-0.7) Baso # (Auto) 0.03 (0.0-2.0) K/mm3 pCO2 (35-45) mm/Hg pO2 (80-100) mm/Hg HCO3 (21-28) mmol/L ABG pH (7.35-7.45) ABG Total CO2 (22-28) mmol.L ABG O2 Saturation (95-98) % ABG O2 Content (15-23) ML/dl ABG Base Excess (-2.0-3.0) mmol/L ABG Hemoglobin (11.7-17.4) g/dL ABG Carboxyhemoglobin (0.5-1.5) % POC ABG HHb (Measured) (0-5) % ABG Methemoglobin (0.0-3.0) % ABG O2 Capacity (16-24) mL/dl Hgb O2 Saturation (95.0-98.0) % FiO2 % Sodium 142 (132-148) mmol/L Potassium 4.2 (3.6-5.0) mmol/L Chloride 108 H (98-107) mmol/L Carbon Dioxide 24 (21-33) mmol/L Anion Gap 14 (10-20) BUN 34 H (7-21) mg/dL Creatinine 1.2 (0.8-1.5) mg/dl Est GFR ( Amer) > 60 Est GFR (Non-Af Amer) 58 POC Glucose (mg/dL) 216 H (65-110) mg/dL Random Glucose 224 H (70-110) mg/dL Calcium 8.0 L (8.4-10.5) mg/dL Phosphorus 3.6 (2.5-4.5) mg/dL Magnesium 1.9 (1.7-2.2) mg/dL Total Bilirubin 0.6 (0.2-1.3) mg/dL AST 90 H (17-59) U/L ALT 92 H (7-56) U/L Alkaline Phosphatase 96 (38-126) U/L Total Protein 5.7 L (5.8-8.3) g/dL Albumin 2.6 L (3.0-4.8) g/dL Globulin 3.1 gm/dL Albumin/Globulin Ratio 0.8 L (1.1-1.8) 04/06/18 Range/Units 17:12 WBC (4.5-11.0) 10^3/ul RBC (3.5-6.1) 10^6/uL Hgb (14.0-18.0) g/dL Hct (42.0-52.0) % MCV (80.0-105.0) fl MCH (25.0-35.0) pg MCHC (31.0-37.0) g/dl RDW (11.5-14.5) % Plt Count (120.0-450.0) 10^3/uL MPV (7.0-11.0) fl Gran % (50.0-68.0) % Lymph % (Auto) (22.0-35.0) % Clark % (Auto) (1.0-6.0) % Eos % (Auto) (1.5-5.0) % Baso % (Auto) (0.0-3.0) % Gran # (1.4-6.5) Lymph # (Auto) (1.2-3.4) Clark # (Auto) (0.1-0.6) Eos # (Auto) (0.0-0.7) Baso # (Auto) (0.0-2.0) K/mm3 pCO2 (35-45) mm/Hg pO2 (80-100) mm/Hg HCO3 (21-28) mmol/L ABG pH (7.35-7.45) ABG Total CO2 (22-28) mmol.L ABG O2 Saturation (95-98) % ABG O2 Content (15-23) ML/dl ABG Base Excess (-2.0-3.0) mmol/L ABG Hemoglobin (11.7-17.4) g/dL ABG Carboxyhemoglobin (0.5-1.5) % POC ABG HHb (Measured) (0-5) % ABG Methemoglobin (0.0-3.0) % ABG O2 Capacity (16-24) mL/dl Hgb O2 Saturation (95.0-98.0) % FiO2 % Sodium (132-148) mmol/L Potassium (3.6-5.0) mmol/L Chloride (98-107) mmol/L Carbon Dioxide (21-33) mmol/L Anion Gap (10-20) BUN (7-21) mg/dL Creatinine (0.8-1.5) mg/dl Est GFR ( Amer) Est GFR (Non-Af Amer) POC Glucose (mg/dL) 203 H (65-110) mg/dL Random Glucose (70-110) mg/dL Calcium (8.4-10.5) mg/dL Phosphorus (2.5-4.5) mg/dL Magnesium (1.7-2.2) mg/dL Total Bilirubin (0.2-1.3) mg/dL AST (17-59) U/L ALT (7-56) U/L Alkaline Phosphatase (38-126) U/L Total Protein (5.8-8.3) g/dL Albumin (3.0-4.8) g/dL Globulin gm/dL Albumin/Globulin Ratio (1.1-1.8) Laboratory Results - last 24 hr 04/06/18 04/07/18 04/07/18 17:12 00:26 05:00 WBC 9.2 RBC 3.18 L Hgb 9.8 L Hct 30.2 L MCV 95.0 MCH 30.8 MCHC 32.5 RDW 14.4 Plt Count 113 L MPV 11.3 H Gran % 79.5 H Lymph % (Auto) 13.5 L Clark % (Auto) 5.1 Eos % (Auto) 1.6 Baso % (Auto) 0.3 Gran # 7.29 H Lymph # (Auto) 1.2 Clark # (Auto) 0.5 Eos # (Auto) 0.2 Baso # (Auto) 0.03 pCO2 pO2 HCO3 ABG pH ABG Total CO2 ABG O2 Saturation ABG O2 Content ABG Base Excess ABG Hemoglobin ABG Carboxyhemoglobin POC ABG HHb (Measured) ABG Methemoglobin ABG O2 Capacity Hgb O2 Saturation FiO2 Sodium Potassium Chloride Carbon Dioxide Anion Gap BUN Creatinine Est GFR ( Amer) Est GFR (Non-Af Amer) POC Glucose (mg/dL) 203 H 216 H Random Glucose Calcium Phosphorus Magnesium Total Bilirubin AST ALT Alkaline Phosphatase Total Protein Albumin Globulin Albumin/Globulin Ratio 04/07/18 04/07/18 04/07/18 05:00 06:35 06:49 WBC RBC Hgb Hct MCV MCH MCHC RDW Plt Count MPV Gran % Lymph % (Auto) Clark % (Auto) Eos % (Auto) Baso % (Auto) Gran # Lymph # (Auto) Clark # (Auto) Eos # (Auto) Baso # (Auto) pCO2 32 L pO2 155.0 H HCO3 22.2 ABG pH 7.45 ABG Total CO2 23.2 ABG O2 Saturation 99.5 H ABG O2 Content 12.0 L ABG Base Excess -1.4 ABG Hemoglobin 8.6 L ABG Carboxyhemoglobin 1.9 H POC ABG HHb (Measured) 0.5 ABG Methemoglobin 1.2 ABG O2 Capacity 12.1 L Hgb O2 Saturation 96.3 FiO2 40.0 Sodium 142 Potassium 4.2 Chloride 108 H Carbon Dioxide 24 Anion Gap 14 BUN 34 H Creatinine 1.2 Est GFR ( Amer) > 60 Est GFR (Non-Af Amer) 58 POC Glucose (mg/dL) 234 H Random Glucose 224 H Calcium 8.0 L Phosphorus 3.6 Magnesium 1.9 Total Bilirubin 0.6 AST 90 H ALT 92 H Alkaline Phosphatase 96 Total Protein 5.7 L Albumin 2.6 L Globulin 3.1 Albumin/Globulin Ratio 0.8 L 04/07/18 12:06 WBC RBC Hgb Hct MCV MCH MCHC RDW Plt Count MPV Gran % Lymph % (Auto) Clark % (Auto) Eos % (Auto) Baso % (Auto) Gran # Lymph # (Auto) Clark # (Auto) Eos # (Auto) Baso # (Auto) pCO2 pO2 HCO3 ABG pH ABG Total CO2 ABG O2 Saturation ABG O2 Content ABG Base Excess ABG Hemoglobin ABG Carboxyhemoglobin POC ABG HHb (Measured) ABG Methemoglobin ABG O2 Capacity Hgb O2 Saturation FiO2 Sodium Potassium Chloride Carbon Dioxide Anion Gap BUN Creatinine Est GFR ( Amer) Est GFR (Non-Af Amer) POC Glucose (mg/dL) 238 H Random Glucose Calcium Phosphorus Magnesium Total Bilirubin AST ALT Alkaline Phosphatase Total Protein Albumin Globulin Albumin/Globulin Ratio Attending/Attestation - Attestation I have personally seen and examined this patient.: Yes I have fully participated in the care of the patient.: Yes I have reviewed all pertinent clinical information: Yes Notes (Text): 04/07/18 15:51 82 yo male with AMS and VDRF after SDH despite hematoma evacuation. Did not recover supratentorial function. Spoke with Dr. Valerio-->poor prognosis for neurologic recovery-->discussed with family-->they will discuss among themselves whether to proceed with supportive measures further or switching to palliative/comfort/hospice care with terminal extubation ccm time 40 min
[2018-04-07] MEDS: levETIRAcetam 500mg IVPB 500 MG/100 ML BAG IVPB SCH ×2 (09:14→21:10)
[2018-04-07] MEDS: Vancomycin 1gm in NS 250ml 1 GM/250 ML BAG IVPB SCH (09:14)
--- NOTE | 2018-04-07 09:38 | RAD ---
HISTORY: intubated COMPARISON: Multiple serial examinations preceding the most recent study: April 06, 2018. FINDINGS: LUNGS: Improved aeration right lower lobe. PLEURA: No significant pleural effusion identified, no pneumothorax apparent. CARDIOVASCULAR: Cardiomegaly. No evidence of acute, significant cardiovascular disease. OSSEOUS STRUCTURES: No significant abnormalities. VISUALIZED UPPER ABDOMEN: Normal. OTHER FINDINGS: Satisfactory position of support apparatus including endotracheal tube and nasogastric tube. IMPRESSION: Improved aeration right lower lobe. Stable position of support apparatus.
--- NOTE | 2018-04-07 10:58 | CP.PCM.PN ---
<Carlos A Santos - Last Filed: 04/07/18 10:55> Subjective - Date & Time of Evaluation Date of Evaluation: 04/07/18 Time of Evaluation: 10:55 - Subjective Subjective: Patient seen and evaluated. No acute events reported. Patient clinically unchanged. ROS unable to be obtained Objective - Vital Signs/Intake and Output Vital Signs (last 24 hours): Temp Pulse Resp BP Pulse Ox 99.1 F 100 H 24 146/93 H 99 04/07/18 10:00 04/07/18 10:00 04/06/18 07:50 04/07/18 10:00 04/07/18 10:00 Intake and Output: 04/07/18 04/07/18 06:59 18:59 Intake Total 940 Output Total 900 Balance 40 - Medications Medications: Current Medications Vancomycin HCl (Vancomycin 1gm) 1 gm in 250 mls @ 167 mls/hr IVPB DAILY [facility] PRN Reason: Protocol Last Admin: 04/07/18 09:14 Dose: 167 mls/hr Piperacillin Sod/Tazobactam Sod (Zosyn 2.25 Gm In 0.9% 100 Ml) 2.25 gm in 100 mls @ 100 mls/hr IVPB Q6 [facility] PRN Reason: Protocol Last Admin: 04/07/18 05:22 Dose: 100 mls/hr Levetiracetam (Keppra 500mg Ivpb) 500 mg in 100 mls @ 460 mls/hr IVPB Q12 [facility] Last Admin: 04/07/18 09:14 Dose: 460 mls/hr Insulin Human Regular (Humulin R Med) 0 units SC Q6H [facility] PRN Reason: Protocol Last Admin: 04/07/18 07:06 Dose: Not Given Labetalol HCl (Trandate) 20 mg IV Q6 PRN PRN Reason: Other Last Admin: 04/06/18 11:06 Dose: 20 mg Morphine Sulfate (Morphine) 2 mg IVP Q4H PRN PRN Reason: Pain, moderate (4-7) Pantoprazole Sodium (Protonix Susp) 40 mg PO 0600 [facility] Last Admin: 04/07/18 05:22 Dose: 40 mg - Labs Labs: 04/07/18 05:00 04/07/18 05:00 PT 14.0 SECONDS (9.4-12.5) H 04/02/18 12:00 INR 1.21 (0.93-1.08) H 04/02/18 12:00 APTT 48.2 Seconds (25.1-36.5) H 04/01/18 14:40 - Constitutional Appears: Other (intubated) - Head Exam Additional comments: ecchymosis right auricular, swelling right temporal/occipital surgical incision - Eye Exam Eye Exam: absent: PERRL - ENT Exam ENT Exam: Mucous Membranes Moist - Neck Exam Neck Exam: absent: Lymphadenopathy - Respiratory Exam Respiratory Exam: Decreased Breath Sounds (bases bilaterally ), NORMAL BREATHING PATTERN. absent: Rales, Rhonchi, Wheezes - Cardiovascular Exam Cardiovascular Exam: REGULAR RHYTHM, +S1, +S2 - GI/Abdominal Exam GI & Abdominal Exam: Soft, Diminished Bowel Sounds - Neurological Exam Neurological Exam: absent: Alert, Awake, Oriented x3 Additional comments: GCS 4 Pupils non reactive to light, corneal reflex - Skin Skin Exam: Dry, Warm Assessment and Plan - Assessment and Plan (Free Text) Assessment: Patient is a 82 year old male with a past medical history of CVA, TIA, atrial fibrillation, hypertension, hyperlipidemia, and diabetes who presented to the emergency department for evaluation and treatment of altered mental status due to 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 Stable mass effect with compression of the left lateral centricule and midline shift of 4 mm towards the right. Uncal herniation noted on left side. Stable chronic focal hypodense infarctions in the left centrum semiovale and left parieto-occiptal regions. No acute infarction or acue intraparenchymal hemorrhage is seen. - Neurosurgrey consulted -Palliative on consult -Neuro consulted and following CVA hx -Hold PO meds: coumadin, crestor, toprol XL -Monitor vital signs -Monitor INR Atrial fibrillation -Hold Coumadin due to subdural hematoma -Monitor INR -Consider addition of cardizem if HR is not controlled Hypertension -Monitor vital signs -Continue with Labetalol HCL PRN Hyperlipidemia -Crestor on hold for now IDDM -ISS-med -ACHS Chronic back pain -Morphine PRN Fever -Likely central fever -Blood cultures, no growth , Urine cultures final no growth, Procalcitonin 0.39 , sputum cultures reveal gram positive cocci as preliminary read -Continue with zosyn and vanc GI/DVT ppx - Protonix - SCD Dispo: Poor prognosis. Patient's son the POA. Family to be visiting today and discussions to be held regarding trach and peg and LTAC vs terminal extubation. <Suman Joe - Last Filed: 04/07/18 15:35> Objective - Vital Signs/Intake and Output Vital Signs (last 24 hours): Temp Pulse Resp BP Pulse Ox 100.8 F H 103 H 16 151/97 H 99 04/07/18 14:59 04/07/18 14:59 04/07/18 07:00 04/07/18 15:00 04/07/18 14:59 Intake and Output: 04/07/18 04/07/18 06:59 18:59 Intake Total 940 Output Total 900 Balance 40 - Medications Medications: Current Medications Vancomycin HCl (Vancomycin 1gm) 1 gm in 250 mls @ 167 mls/hr IVPB DAILY [facility] PRN Reason: Protocol Last Admin: 04/07/18 09:14 Dose: 167 mls/hr Piperacillin Sod/Tazobactam Sod (Zosyn 2.25 Gm In 0.9% 100 Ml) 2.25 gm in 100 mls @ 100 mls/hr IVPB Q6 [facility] PRN Reason: Protocol Last Admin: 04/07/18 12:23 Dose: 100 mls/hr Levetiracetam (Keppra 500mg Ivpb) 500 mg in 100 mls @ 460 mls/hr IVPB Q12 [facility] Last Admin: 04/07/18 09:14 Dose: 460 mls/hr Insulin Human Regular (Humulin R Med) 0 units SC Q6H [facility] PRN Reason: Protocol Last Admin: 04/07/18 12:24 Dose: 3 unit Labetalol HCl (Trandate) 20 mg IV Q6 PRN PRN Reason: Other Last Admin: 04/06/18 11:06 Dose: 20 mg Morphine Sulfate (Morphine) 2 mg IVP Q4H PRN PRN Reason: Pain, moderate (4-7) Pantoprazole Sodium (Protonix Susp) 40 mg PO 0600 [facility] Last Admin: 04/07/18 05:22 Dose: 40 mg - Labs Labs: 04/07/18 05:00 04/07/18 05:00 PT 14.0 SECONDS (9.4-12.5) H 04/02/18 12:00 INR 1.21 (0.93-1.08) H 04/02/18 12:00 APTT 48.2 Seconds (25.1-36.5) H 04/01/18 14:40 Attending/Attestation - Attestation I have personally seen and examined this patient.: Yes I have fully participated in the care of the patient.: Yes I have reviewed all pertinent clinical information, including history, physical exam and plan: Yes Notes (Text): 04/07/18 15:34 Medical record note made by the resident after discussion with my direction and input after the patient was personally seen and examined by me. I have reviewed the chart and agree that the record accurately reflects by personal performance of the history, physical exam, data review, and medical decision-making, in the course for the patient. I have also personally directed the plan of care. 82 year old male with a past medical history of CVA, , atrial fibrillation on Apixiban, hypertension, hyperlipidemia, and diabetes who presented to the emergency department for evaluation and treatment of altered mental status, found to have bilateral subdural hematomas..He was evaluated by Neurosurgery and underwent evacuation of hematoma.Patient mental status is poor, minimally responsive to painful stimuli.Patient is on Keppra for possible seizure. AF , Rate is controlled, not on anticoagulation due to sub dural hematoma. The overall prognosis is poor, family is aware of prognosis.Palliative team is following .Prognosis is guarded.
--- NOTE | 2018-04-07 19:38 | CP.PCM.PN ---
Subjective - Date & Time of Evaluation Date of Evaluation: 04/07/18 Time of Evaluation: 17:00 - Subjective Subjective: Infectious Disease Follow Up: April 07, 2018 82 yo male with presentation for altered mental status on 04/01/2018. Found to have a subdural hematoma (acute on chronic). Craniotomy performed. The patient remains intubated and ventilated since the surgery. His medical history includes CVA, Atrial fibrillation, DM, and HTN. Fevers up to 101.3 F in the past 24 hours but this is POD #4. No leukocytosis. Procalcitonin of 0.36 which is normal. Still persistent low grade fevers at this time. CT showing uncal herniation. Fevers likely central in origin. The patient remains poorly responsive despite not being sedated. The patient has a dismal prognosis at this time. Little hope of any neurologic recovery. The patient family is present today. Objective - Vital Signs/Intake and Output Vital Signs (last 24 hours): Temp Pulse Resp BP Pulse Ox 100.9 F H 99 H 16 141/94 H 99 04/07/18 16:59 04/07/18 16:59 04/07/18 07:00 04/07/18 17:00 04/07/18 16:59 - Medications Medications: Current Medications Vancomycin HCl (Vancomycin 1gm) 1 gm in 250 mls @ 167 mls/hr IVPB DAILY [facility] PRN Reason: Protocol Last Admin: 04/07/18 09:14 Dose: 167 mls/hr Piperacillin Sod/Tazobactam Sod (Zosyn 2.25 Gm In 0.9% 100 Ml) 2.25 gm in 100 mls @ 100 mls/hr IVPB Q6 [facility] PRN Reason: Protocol Last Admin: 04/07/18 18:30 Dose: 100 mls/hr Levetiracetam (Keppra 500mg Ivpb) 500 mg in 100 mls @ 460 mls/hr IVPB Q12 [facility] Last Admin: 04/07/18 09:14 Dose: 460 mls/hr Acetaminophen (Ofirmev) 1,000 mg in 100 mls @ 400 mls/hr IVPB Q6H PRN PRN Reason: Temperature Stop: 04/09/18 15:38 Last Admin: 04/07/18 15:53 Dose: 400 mls/hr Insulin Human Regular (Humulin R Med) 0 units SC Q6H [facility] PRN Reason: Protocol Last Admin: 04/07/18 17:27 Dose: 5 unit Labetalol HCl (Trandate) 20 mg IV Q6 PRN PRN Reason: Other Last Admin: 04/06/18 11:06 Dose: 20 mg Morphine Sulfate (Morphine) 2 mg IVP Q4H PRN PRN Reason: Pain, moderate (4-7) Pantoprazole Sodium (Protonix Susp) 40 mg PO 0600 [facility] Last Admin: 04/07/18 05:22 Dose: 40 mg - Labs Labs: 04/07/18 05:00 04/07/18 05:00 PT 14.0 SECONDS (9.4-12.5) H 04/02/18 12:00 INR 1.21 (0.93-1.08) H 04/02/18 12:00 APTT 48.2 Seconds (25.1-36.5) H 04/01/18 14:40 - Constitutional Appears: Non-toxic, Chronically Ill - Head Exam Additional comments: s/p craniotomy. dominick in place. - Eye Exam Pupil Exam: Fixed, Irregular - ENT Exam ENT Exam: Mucous Membranes Moist, Normal External Ear Exam, TM's Normal Bilaterally - Neck Exam Neck Exam: Normal Inspection - Respiratory Exam Respiratory Exam: Clear to Ausculation Bilateral, NORMAL BREATHING PATTERN. absent: Rales, Rhonchi, Wheezes - Cardiovascular Exam Cardiovascular Exam: REGULAR RHYTHM, RRR, +S1, +S2 - GI/Abdominal Exam GI & Abdominal Exam: Soft, Normal Bowel Sounds. absent: Distended, Tenderness - Extremities Exam Extremities Exam: Normal Inspection - Neurological Exam Neurological Exam: absent: Alert, Awake, CN II-XII Intact, Oriented x3 Additional comments: Obtunded and poorly responsive. No pain response. - Psychiatric Exam Additional comments: Comatose. - Skin Skin Exam: Intact, Normal Color Assessment and Plan - Assessment and Plan (Free Text) Assessment: 82 yo male with unresponsive by family on initial presentation found to have an acute on chronic bilateral Subdural hematoma. The patient required craniotomy for decompression. He remains intubated and ventilated. The patient remains in a comatose state. Fevers up to 101.3F in the past 24 hours. Unclear if this is secondary to postsurgical course after craniotomy, infection, or even central brain injury. Started on IV antibiotics of Zosyn and Vancomycin IV. Can continue on this regimen while culture results return. Supportive care. To date, cultures have been negative to date. More likely the fevers are secondary to central brain injury. CT scan of head repeats now showing uncal herniation. 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 Very poor prognosis. Little hope for any neurological recovery. Family deciding whether terminal extubation is an acceptable option for them. Thank you for allowing me to participate in the care of the patient, we will follow with you.
[2018-04-08] MEDS: Insulin Reg-MEDIUM-Coverage SC SCH ×5 (00:16→23:55)
[2018-04-08] MEDS: Piperacillin/Tazobact 2.25gm 2.25 GM/100 ML BAG IVPB SCH ×4 (05:03→23:56)
--- NOTE | 2018-04-08 05:28 | CP.PCM.PN ---
Subjective - Date & Time of Evaluation Date of Evaluation: 04/08/18 Time of Evaluation: 05:28 - Subjective Subjective: Mr. Vera was seen and examined at the bedside in ICU. He remains on mechanical ventilator on PRVC mode. He pupils 3 mm sluggish, no corneal but with + gag reflexes, withdraws from pain stimuli, GCS- 4T, breaths over the vent. settings. He remains with a heart rhythm of a-fib. He has the right parietal dominick intact.His heart rate remains a-fib. There was no untoward events overnight. Objective - Vital Signs/Intake and Output Vital Signs (last 24 hours): Temp Pulse Resp BP Pulse Ox 99.0 F 89 16 138/101 H 99 04/08/18 03:59 04/08/18 03:59 04/07/18 07:00 04/08/18 04:00 04/08/18 03:59 Intake and Output: 04/07/18 04/08/18 18:59 06:59 Intake Total 1860 Output Total 800 Balance 1060 - Medications Medications: Current Medications Vancomycin HCl (Vancomycin 1gm) 1 gm in 250 mls @ 167 mls/hr IVPB DAILY [facility] PRN Reason: Protocol Last Admin: 04/07/18 09:14 Dose: 167 mls/hr Piperacillin Sod/Tazobactam Sod (Zosyn 2.25 Gm In 0.9% 100 Ml) 2.25 gm in 100 mls @ 100 mls/hr IVPB Q6 [facility] PRN Reason: Protocol Last Admin: 04/08/18 05:03 Dose: 100 mls/hr Levetiracetam (Keppra 500mg Ivpb) 500 mg in 100 mls @ 460 mls/hr IVPB Q12 [facility] Last Admin: 04/07/18 21:10 Dose: 460 mls/hr Acetaminophen (Ofirmev) 1,000 mg in 100 mls @ 400 mls/hr IVPB Q6H PRN PRN Reason: Temperature Stop: 04/09/18 15:38 Last Admin: 04/07/18 23:35 Dose: 400 mls/hr Insulin Human Regular (Humulin R Med) 0 units SC Q6H [facility] PRN Reason: Protocol Last Admin: 04/08/18 00:16 Dose: Not Given Labetalol HCl (Trandate) 20 mg IV Q6 PRN PRN Reason: Other Last Admin: 04/06/18 11:06 Dose: 20 mg Morphine Sulfate (Morphine) 2 mg IVP Q4H PRN PRN Reason: Pain, moderate (4-7) Pantoprazole Sodium (Protonix Susp) 40 mg PO 0600 [facility] Last Admin: 04/07/18 05:22 Dose: 40 mg - Labs Labs: 04/07/18 05:00 04/07/18 05:00 PT 14.0 SECONDS (9.4-12.5) H 04/02/18 12:00 INR 1.21 (0.93-1.08) H 04/02/18 12:00 APTT 48.2 Seconds (25.1-36.5) H 04/01/18 14:40 - Constitutional Appears: No Acute Distress - Head Exam Head Exam: NORMAL INSPECTION - Eye Exam Additional comments: 3 mm sluggish - Neurological Exam Neuro motor strength exam: Left Upper Extremity: 0, Right Upper Extremity: 0, Left Lower Extremity: 0, Right Lower Extremity: 0 Additional comments: GCS-4T Assessment and Plan (1) Subdural hematoma Assessment & Plan: Case discussed with Dr. Valerio, continue all current medical regimen, Recommend anti-coagulant will be dependent to the neurosurgery clearance when to start, recommend blood pressure control, keep head of bed elevated at least 30 degrees , normothermic, and treat any electrolyte abnormalities. Status: Acute
[2018-04-08 05:41] LABS: BASO # 0.05 K/mm3 (0.0-2.0); BASO % 0.6 % (0.0-3.0); EOS # 0.2 (0.0-0.7); EOS % 2.7 % (1.5-5.0); GRAN # 6.91 (1.4-6.5); GRAN % 82.3 % (50.0-68.0); HEMOGLOBIN 10.8 g/dL (14.0-18.0); LYMPH # 0.8 (1.2-3.4); LYMPH % 9.6 % (22.0-35.0); MEAN CELL VOLUME 94.9 fl (80.0-105.0); MEAN CORPUSCULAR HEMOGLOBIN 30.8 pg (25.0-35.0); MEAN CORPUSCULAR HGB CONC 32.4 g/dl (31.0-37.0); MEAN PLATELET VOLUME 11.8 fl (7.0-11.0); MONO # 0.4 (0.1-0.6); MONO % 4.8 % (1.0-6.0); RBC 3.51 10^6/uL (3.5-6.1); RED CELL DISTRIBUTION WIDTH 14.6 % (11.5-14.5); WHITE BLOOD COUNT 8.4 10^3/ul (4.5-11.0)
[2018-04-08 05:49] LABS: ARTERIAL BLOOD GAS HCO3 22.6 mmol/L (21-28); ARTERIAL BLOOD GAS HEMOGLOBIN 11.4 g/dL (11.7-17.4); ARTERIAL BLOOD GAS O2 CAPACITY 16.3 mL/dl (16-24); ARTERIAL BLOOD GAS O2 CONTENT 16.1 ML/dl (15-23); ARTERIAL BLOOD GAS O2 SAT 98.7 % (95-98); ARTERIAL BLOOD GAS PCO2 31 mm/Hg (35-45); ARTERIAL BLOOD GAS PH 7.47 (7.35-7.45); ARTERIAL BLOOD GAS TCO2 23.6 mmol.L (22-28)
[2018-04-08 06:15] LABS: ALB/GLOB RATIO 0.8 (1.1-1.8); ALBUMIN 2.8 g/dL (3.0-4.8); ALT/SGPT 99 U/L (7-56); AST/SGOT 86 U/L (17-59); BLOOD UREA NITROGEN 33 mg/dL (7-21); CALCIUM 8.3 mg/dL (8.4-10.5); GFR AFRICAN-AMERICAN > 60; GFR NON-AFRICAN AMERICAN 58
[2018-04-08] MEDS: Pantoprazole 40 mg Susp UD PO SCH (06:30)
--- NOTE | 2018-04-08 07:38 | CP.PCM.PN ---
<Carlos A Santos - Last Filed: 04/08/18 09:22> Subjective - Date & Time of Evaluation Date of Evaluation: 04/08/18 Time of Evaluation: 07:29 - Subjective Subjective: Patient seen and examined this AM. No acute events overnight. Conversation with family regarding treatment plan conducted yesterday. Clinically unchanged. Patient afebrile overnight. Patient unresponsive and unable to obtain ROS Objective - Vital Signs/Intake and Output Vital Signs (last 24 hours): Temp Pulse Resp BP Pulse Ox 99.5 F 95 H 16 138/86 99 04/08/18 06:06 04/08/18 06:06 04/07/18 07:00 04/08/18 06:06 04/08/18 05:00 Intake and Output: 04/08/18 04/08/18 06:59 18:59 Intake Total 940 Output Total 600 Balance 340 - Medications Medications: Current Medications Vancomycin HCl (Vancomycin 1gm) 1 gm in 250 mls @ 167 mls/hr IVPB DAILY [facility] PRN Reason: Protocol Last Admin: 04/07/18 09:14 Dose: 167 mls/hr Piperacillin Sod/Tazobactam Sod (Zosyn 2.25 Gm In 0.9% 100 Ml) 2.25 gm in 100 mls @ 100 mls/hr IVPB Q6 [facility] PRN Reason: Protocol Last Admin: 04/08/18 05:03 Dose: 100 mls/hr Levetiracetam (Keppra 500mg Ivpb) 500 mg in 100 mls @ 460 mls/hr IVPB Q12 [facility] Last Admin: 04/07/18 21:10 Dose: 460 mls/hr Acetaminophen (Ofirmev) 1,000 mg in 100 mls @ 400 mls/hr IVPB Q6H PRN PRN Reason: Temperature Stop: 04/09/18 15:38 Last Admin: 04/07/18 23:35 Dose: 400 mls/hr Insulin Human Regular (Humulin R Med) 0 units SC Q6H [facility] PRN Reason: Protocol Last Admin: 04/08/18 05:29 Dose: Not Given Labetalol HCl (Trandate) 20 mg IV Q6 PRN PRN Reason: Other Last Admin: 04/06/18 11:06 Dose: 20 mg Morphine Sulfate (Morphine) 2 mg IVP Q4H PRN PRN Reason: Pain, moderate (4-7) Pantoprazole Sodium (Protonix Susp) 40 mg PO 0600 [facility] Last Admin: 04/07/18 05:22 Dose: 40 mg - Labs Labs: 04/08/18 05:15 04/08/18 05:15 PT 14.0 SECONDS (9.4-12.5) H 04/02/18 12:00 INR 1.21 (0.93-1.08) H 04/02/18 12:00 APTT 48.2 Seconds (25.1-36.5) H 04/01/18 14:40 - Constitutional Appears: No Acute Distress - Head Exam Head Exam: ATRAUMATIC, NORMOCEPHALIC Additional comments: subdural evacuation incision scar c/d/i - Eye Exam Additional comments: Pupil non reactive to light - ENT Exam ENT Exam: Mucous Membranes Dry - Respiratory Exam Respiratory Exam: Clear to Ausculation Bilateral, NORMAL BREATHING PATTERN - Cardiovascular Exam Cardiovascular Exam: Irregular Rhythm, +S1, +S2 Additional comments: rate controlled - GI/Abdominal Exam GI & Abdominal Exam: Soft, Diminished Bowel Sounds. 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 Patient is s/p evacuation, not on sedation. Plan: Bilateral subdural hematoma -S/P hematoma evacuation POD #7 -Continue with recs as per neurosurgery and neurology; prognosis guarded -Repeat CT reveals reveal stable appearance of large air fluid levels in bilateral cerebral subdural spaces, left greater than right. Stable mass effect with compression of the left lateral centricule and midline shift of 4 mm towards the right. Uncal herniation noted on left side. Stable chronic focal hypodense infarctions in the left centrum semiovale and left parieto-occiptal regions. No acute infarction or acue intraparenchymal hemorrhage is seen. -Neurosurgrey consulted, f/u recs -Palliative on consult -Neuro consulted and following -Currently on vent 40%/02/20/ CVA hx -Hold PO meds: coumadin, crestor, toprol XL -Monitor vital signs -Monitor INR Atrial fibrillation -Anticoagulation being held 2/2 subdural hematoma -Monitor INR -Consider addition of cardizem if HR is not controlled Hypertension -Monitor vital signs -Continue with Labetalol HCL PRN Hyperlipidemia -Crestor on hold for now IDDM -ISS-med -ACHS Chronic back pain -Morphine PRN Fever -Likely central fever -Blood cultures, no growth , Urine cultures final no growth, Procalcitonin 0.39 , sputum cultures reveal gram positive cocci as preliminary read -Continue with zosyn and vanc GI/DVT ppx - Protonix - SCD Dispo: Poor prognosis. Patient's son the POA. Family to be visiting today and discussions to be held regarding trach and peg and LTAC vs terminal extubation. Case and plan discussed with attending <Suman Joe - Last Filed: 04/08/18 11:04> Objective - Vital Signs/Intake and Output Vital Signs (last 24 hours): Temp Pulse Resp BP Pulse Ox 100.8 F H 95 H 19 140/93 H 99 04/08/18 10:00 04/08/18 10:00 04/08/18 07:00 04/08/18 10:00 04/08/18 10:00 Intake and Output: 04/08/18 04/08/18 06:59 18:59 Intake Total 940 Output Total 600 Balance 340 - Medications Medications: Current Medications Hydrocortisone (Cortizone 1% Cream) 0 gm TOP BID [facility] Piperacillin Sod/Tazobactam Sod (Zosyn 2.25 Gm In 0.9% 100 Ml) 2.25 gm in 100 mls @ 100 mls/hr IVPB Q6 [facility] PRN Reason: Protocol Last Admin: 04/08/18 05:03 Dose: 100 mls/hr Levetiracetam (Keppra 500mg Ivpb) 500 mg in 100 mls @ 460 mls/hr IVPB Q12 [facility] Last Admin: 04/08/18 09:19 Dose: 460 mls/hr Acetaminophen (Ofirmev) 1,000 mg in 100 mls @ 400 mls/hr IVPB Q6H PRN PRN Reason: Temperature Stop: 04/09/18 15:38 Last Admin: 04/08/18 09:18 Dose: 400 mls/hr Insulin Human Regular (Humulin R Med) 0 units SC Q6H [facility] PRN Reason: Protocol Last Admin: 04/08/18 05:29 Dose: Not Given Labetalol HCl (Trandate) 20 mg IV Q6 PRN PRN Reason: Other Last Admin: 04/06/18 11:06 Dose: 20 mg Morphine Sulfate (Morphine) 2 mg IVP Q4H PRN PRN Reason: Pain, moderate (4-7) Pantoprazole Sodium (Protonix Susp) 40 mg PO 0600 [facility] Last Admin: 04/08/18 06:30 Dose: 40 mg - Labs Labs: 04/08/18 05:15 04/08/18 05:15 PT 14.0 SECONDS (9.4-12.5) H 04/02/18 12:00 INR 1.21 (0.93-1.08) H 04/02/18 12:00 APTT 48.2 Seconds (25.1-36.5) H 04/01/18 14:40 Attending/Attestation - Attestation I have personally seen and examined this patient.: Yes I have fully participated in the care of the patient.: Yes I have reviewed all pertinent clinical information, including history, physical exam and plan: Yes Notes (Text): 04/08/18 11:03 Medical record note made by the resident after discussion with my direction and input after the patient was personally seen and examined by me. I have reviewed the chart and agree that the record accurately reflects by personal performance of the history, physical exam, data review, and medical decision-making, in the course for the patient. I have also personally directed the plan of care. 82 year old male with a past medical history of CVA, , atrial fibrillation on Apixiban, hypertension, hyperlipidemia, and diabetes was admitted with change of mental status, found to have bilateral subdural hematomas..He was evaluated by Neurosurgery and underwent evacuation of hematoma.Patient mental status is poor, minimally responsive to painful stimuli.Patient is on Keppra for possible seizure. AF , Rate is controlled, not on anticoagulation due to sub dural hematoma. The overall prognosis is poor, family is aware of prognosis.Palliative team is following .Prognosis is guarded.
[2018-04-08] MEDS: Vancomycin 1gm in NS 250ml 1 GM/250 ML BAG IVPB SCH (09:19)
[2018-04-08] MEDS: levETIRAcetam 500mg IVPB 500 MG/100 ML BAG IVPB SCH ×2 (09:19→21:05)
--- NOTE | 2018-04-08 10:47 | RAD ---
HISTORY: intubated COMPARISON: Multiple serial examinations preceding the most recent study: April 07, 2018. FINDINGS: LUNGS: Consolidative changes left lower lobe. These are more conspicuous pattern retrospect were seen previously. PLEURA: Left pleural effusion the finding more conspicuous on the current study not appreciated with clarity on the most recent comparison study. CARDIOVASCULAR: Normal. OSSEOUS STRUCTURES: No significant abnormalities. VISUALIZED UPPER ABDOMEN: Normal. OTHER FINDINGS: Stable position of support apparatus including nasogastric tube and endotracheal tube. IMPRESSION: Left lower lobe infiltrate, left pleural effusion more conspicuous on the current study than seen previously.
[2018-04-08] MEDS: Hydrocortisone 1% Cream (30 GM) TOP SCH ×2 (11:43→17:37)
--- NOTE | 2018-04-08 12:07 | CP.CCUPN ---
CCU Subjective - Physician Review Events Since Last Encounter (Free Text): 04/08/18 08:30 Patien seen and examined at bedside. Patient did not spike a fever overnight, still is not responsive except to noxious stimuli. Spoke to patient family this AM re: palliative measures, they said they will make a decision "soon." CCU Objective - Vital Signs / Intake & Output Vital Signs (Last 4 hours): Vital Signs Temp Pulse BP Pulse Ox 04/08/18 10:00 100.8 F H 101 H 140/93 H 99 04/08/18 09:00 100.4 F H 95 H 145/94 H 99 Intake and Output (Last 8hrs): Intake & Output 04/07/18 04/08/18 04/08/18 22:59 06:59 14:59 Intake Total 1860 940 Output Total 800 600 Balance 1060 340 Intake: IV 570 400 Right Forearm 100 Right Wrist 570 antibiotics 200 tylenol 100 Tube Feeding 1290 540 Output: Urine 800 600 Urethral (No) 800 600 - Physical Exam Head: Positive for: Swelling (right temporal/occiptal swelling), Ecchymosis ( right auricular ) Pupils: Positive for: Sluggish Conjunctiva: Positive for: Normal Ears: Positive for: Other (ecchymosis right ear) Nose (External): Positive for: Atraumatic Respiratory/Chest: Positive for: Decreased Breath Sounds (b/l lung bases). Negative for: Rales, Retracting, Rhonchi Cardiovascular: Positive for: Normal S1, S2, Tachycardic Abdomen: Negative for: Normal Bowel Sounds (hypoactive) Upper Extremity: Negative for: Normal Inspection Lower Extremity: Negative for: Normal Inspection Neurological: Positive for: Other (GCS 1+1+2) Skin: Positive for: Warm, Dry, Abrasion (bilateral knees ) Psychiatric: Negative for: Alert, Oriented x 3 - Medications Active Medications: Active Medications Generic Name Dose Route Start Last Admin Trade Name Freq PRN Reason Stop Dose Admin Hydrocortisone 0 gm 04/08/18 11:00 04/08/18 11:43 Cortizone 1% Cream TOP 1 applic BID KEATON Administration Piperacillin Sod/Tazobactam Sod 2.25 gm in 100 mls @ 100 mls/hr 04/04/18 00: 00 04/08/18 11:45 Zosyn 2.25 Gm In 0.9% 100 Ml IVPB 100 mls/hr Q6 [facility] Administration Protocol Levetiracetam 500 mg in 100 mls @ 460 mls/hr 04/05/18 22:00 04/08/18 09:19 Keppra 500mg Ivpb IVPB 460 mls/hr Q12 [facility] Administration Acetaminophen 1,000 mg in 100 mls @ 400 mls/hr 04/07/18 15:37 04/08/18 09:18 Ofirmev IVPB 04/09/18 15:38 400 mls/hr Q6H PRN Administration Temperature Insulin Human Regular 0 units 04/03/18 11:59 04/08/18 11:45 Humulin R Med SC 3 unit Q6H [facility] Administration Protocol Labetalol HCl 20 mg 04/02/18 13:39 04/06/18 11:06 Trandate IV 20 mg Q6 PRN Administration Other Morphine Sulfate 2 mg 04/06/18 17:08 Morphine IVP Q4H PRN Pain, moderate (4-7) Pantoprazole Sodium 40 mg 04/04/18 06:00 04/08/18 06:30 Protonix Susp PO 40 mg 0600 [facility] Administration - Patient Studies Lab Studies: Microbiology Studies 04/03/18 11:00 Blood Culture - Final Blood NO GROWTH AFTER 5 DAYS Gram Stain - Final TEST NOT PERFORMED 04/03/18 10:50 Blood Culture - Final Blood NO GROWTH AFTER 5 DAYS Gram Stain - Final TEST NOT PERFORMED 04/03/18 14:30 Gram Stain - Final Sputum Sputum Culture - Final Staphylococcus Aureus Lab Studies 04/08/18 04/08/18 04/08/18 Range/Units 05:30 05:20 05:15 WBC (4.5-11.0) 10^3/ul RBC (3.5-6.1) 10^6/uL Hgb (14.0-18.0) g/dL Hct (42.0-52.0) % MCV (80.0-105.0) fl MCH (25.0-35.0) pg MCHC (31.0-37.0) g/dl RDW (11.5-14.5) % Plt Count (120.0-450.0) 10^3/uL MPV (7.0-11.0) fl Gran % (50.0-68.0) % Lymph % (Auto) (22.0-35.0) % [place] % (Auto) (1.0-6.0) % Eos % (Auto) (1.5-5.0) % Baso % (Auto) (0.0-3.0) % Gran # (1.4-6.5) Lymph # (Auto) (1.2-3.4) [place] # (Auto) (0.1-0.6) Eos # (Auto) (0.0-0.7) Baso # (Auto) (0.0-2.0) K/mm3 pCO2 31 L (35-45) mm/Hg pO2 159.0 H (80-100) mm/Hg HCO3 22.6 (21-28) mmol/L ABG pH 7.47 H (7.35-7.45) ABG Total CO2 23.6 (22-28) mmol.L ABG O2 Saturation 98.7 H (95-98) % ABG O2 Content 16.1 (15-23) ML/dl ABG Base Excess -0.4 (-2.0-3.0) mmol/L ABG Hemoglobin 11.4 L (11.7-17.4) g/dL ABG Carboxyhemoglobin 0.4 L (0.5-1.5) % POC ABG HHb (Measured) 1.3 (0-5) % ABG Methemoglobin 0.0 (0.0-3.0) % ABG O2 Capacity 16.3 (16-24) mL/dl Hgb O2 Saturation 98.4 H (95.0-98.0) % FiO2 40.0 % Sodium 142 (132-148) mmol/L Potassium 4.4 (3.6-5.0) mmol/L Chloride 107 (98-107) mmol/L Carbon Dioxide 25 (21-33) mmol/L Anion Gap 14 (10-20) BUN 33 H (7-21) mg/dL Creatinine 1.2 (0.8-1.5) mg/dl Est GFR ( Amer) > 60 Est GFR (Non-Af Amer) 58 POC Glucose (mg/dL) 244 H (65-110) mg/dL Random Glucose 247 H (70-110) mg/dL Calcium 8.3 L (8.4-10.5) mg/dL Phosphorus 3.8 (2.5-4.5) mg/dL Magnesium 2.0 (1.7-2.2) mg/dL Total Bilirubin 0.7 (0.2-1.3) mg/dL AST 86 H (17-59) U/L ALT 99 H (7-56) U/L Alkaline Phosphatase 118 (38-126) U/L Total Protein 6.2 (5.8-8.3) g/dL Albumin 2.8 L (3.0-4.8) g/dL Globulin 3.4 gm/dL Albumin/Globulin Ratio 0.8 L (1.1-1.8) 04/08/18 04/07/18 04/07/18 Range/Units 05:15 23:21 17:25 WBC 8.4 (4.5-11.0) 10^3/ul RBC 3.51 (3.5-6.1) 10^6/uL Hgb 10.8 L (14.0-18.0) g/dL Hct 33.3 L (42.0-52.0) % MCV 94.9 (80.0-105.0) fl MCH 30.8 (25.0-35.0) pg MCHC 32.4 (31.0-37.0) g/dl RDW 14.6 H (11.5-14.5) % Plt Count 134 (120.0-450.0) 10^3/uL MPV 11.8 H (7.0-11.0) fl Gran % 82.3 H (50.0-68.0) % Lymph % (Auto) 9.6 L (22.0-35.0) % [place] % (Auto) 4.8 (1.0-6.0) % Eos % (Auto) 2.7 (1.5-5.0) % Baso % (Auto) 0.6 (0.0-3.0) % Gran # 6.91 H (1.4-6.5) Lymph # (Auto) 0.8 L (1.2-3.4) [place] # (Auto) 0.4 (0.1-0.6) Eos # (Auto) 0.2 (0.0-0.7) Baso # (Auto) 0.05 (0.0-2.0) K/mm3 pCO2 (35-45) mm/Hg pO2 (80-100) mm/Hg HCO3 (21-28) mmol/L ABG pH (7.35-7.45) ABG Total CO2 (22-28) mmol.L ABG O2 Saturation (95-98) % ABG O2 Content (15-23) ML/dl ABG Base Excess (-2.0-3.0) mmol/L ABG Hemoglobin (11.7-17.4) g/dL ABG Carboxyhemoglobin (0.5-1.5) % POC ABG HHb (Measured) (0-5) % ABG Methemoglobin (0.0-3.0) % ABG O2 Capacity (16-24) mL/dl Hgb O2 Saturation (95.0-98.0) % FiO2 % Sodium (132-148) mmol/L Potassium (3.6-5.0) mmol/L Chloride (98-107) mmol/L Carbon Dioxide (21-33) mmol/L Anion Gap (10-20) BUN (7-21) mg/dL Creatinine (0.8-1.5) mg/dl Est GFR ( Amer) Est GFR (Non-Af Amer) POC Glucose (mg/dL) 281 H 287 H (65-110) mg/dL Random Glucose (70-110) mg/dL Calcium (8.4-10.5) mg/dL Phosphorus (2.5-4.5) mg/dL Magnesium (1.7-2.2) mg/dL Total Bilirubin (0.2-1.3) mg/dL AST (17-59) U/L ALT (7-56) U/L Alkaline Phosphatase (38-126) U/L Total Protein (5.8-8.3) g/dL Albumin (3.0-4.8) g/dL Globulin gm/dL Albumin/Globulin Ratio (1.1-1.8) //18 Range/Units 12:06 WBC (4.5-11.0) 10^3/ul RBC (3.5-6.1) 10^6/uL Hgb (14.0-18.0) g/dL Hct (42.0-52.0) % MCV (80.0-105.0) fl MCH (25.0-35.0) pg MCHC (31.0-37.0) g/dl RDW (11.5-14.5) % Plt Count (120.0-450.0) 10^3/uL MPV (7.0-11.0) fl Gran % (50.0-68.0) % Lymph % (Auto) (22.0-35.0) % [place] % (Auto) (1.0-6.0) % Eos % (Auto) (1.5-5.0) % Baso % (Auto) (0.0-3.0) % Gran # (1.4-6.5) Lymph # (Auto) (1.2-3.4) [place] # (Auto) (0.1-0.6) Eos # (Auto) (0.0-0.7) Baso # (Auto) (0.0-2.0) K/mm3 pCO2 (35-45) mm/Hg pO2 (80-100) mm/Hg HCO3 (21-28) mmol/L ABG pH (7.35-7.45) ABG Total CO2 (22-28) mmol.L ABG O2 Saturation (95-98) % ABG O2 Content (15-23) ML/dl ABG Base Excess (-2.0-3.0) mmol/L ABG Hemoglobin (11.7-17.4) g/dL ABG Carboxyhemoglobin (0.5-1.5) % POC ABG HHb (Measured) (0-5) % ABG Methemoglobin (0.0-3.0) % ABG O2 Capacity (16-24) mL/dl Hgb O2 Saturation (95.0-98.0) % FiO2 % Sodium (132-148) mmol/L Potassium (3.6-5.0) mmol/L Chloride (98-107) mmol/L Carbon Dioxide (21-33) mmol/L Anion Gap (10-20) BUN (7-21) mg/dL Creatinine (0.8-1.5) mg/dl Est GFR ( Amer) Est GFR (Non-Af Amer) POC Glucose (mg/dL) 238 H (65-110) mg/dL Random Glucose (70-110) mg/dL Calcium (8.4-10.5) mg/dL Phosphorus (2.5-4.5) mg/dL Magnesium (1.7-2.2) mg/dL Total Bilirubin (0.2-1.3) mg/dL AST (17-59) U/L ALT (7-56) U/L Alkaline Phosphatase (38-126) U/L Total Protein (5.8-8.3) g/dL Albumin (3.0-4.8) g/dL Globulin gm/dL Albumin/Globulin Ratio (1.1-1.8) Laboratory Results - last 24 hr 04/07/18 04/07/18 04/07/18 12:06 17:25 23:21 WBC RBC Hgb Hct MCV MCH MCHC RDW Plt Count MPV Gran % Lymph % (Auto) [place] % (Auto) Eos % (Auto) Baso % (Auto) Gran # Lymph # (Auto) [place] # (Auto) Eos # (Auto) Baso # (Auto) pCO2 pO2 HCO3 ABG pH ABG Total CO2 ABG O2 Saturation ABG O2 Content ABG Base Excess ABG Hemoglobin ABG Carboxyhemoglobin POC ABG HHb (Measured) ABG Methemoglobin ABG O2 Capacity Hgb O2 Saturation FiO2 Sodium Potassium Chloride Carbon Dioxide Anion Gap BUN Creatinine Est GFR ( Amer) Est GFR (Non-Af Amer) POC Glucose (mg/dL) 238 H 287 H 281 H Random Glucose Calcium Phosphorus Magnesium Total Bilirubin AST ALT Alkaline Phosphatase Total Protein Albumin Globulin Albumin/Globulin Ratio 04/08/18 04/08/18 04/08/18 05:15 05:15 05:20 WBC 8.4 RBC 3.51 Hgb 10.8 L Hct 33.3 L MCV 94.9 MCH 30.8 MCHC 32.4 RDW 14.6 H Plt Count 134 MPV 11.8 H Gran % 82.3 H Lymph % (Auto) 9.6 L [place] % (Auto) 4.8 Eos % (Auto) 2.7 Baso % (Auto) 0.6 Gran # 6.91 H Lymph # (Auto) 0.8 L [place] # (Auto) 0.4 Eos # (Auto) 0.2 Baso # (Auto) 0.05 pCO2 pO2 HCO3 ABG pH ABG Total CO2 ABG O2 Saturation ABG O2 Content ABG Base Excess ABG Hemoglobin ABG Carboxyhemoglobin POC ABG HHb (Measured) ABG Methemoglobin ABG O2 Capacity Hgb O2 Saturation FiO2 Sodium 142 Potassium 4.4 Chloride 107 Carbon Dioxide 25 Anion Gap 14 BUN 33 H Creatinine 1.2 Est GFR ( Amer) > 60 Est GFR (Non-Af Amer) 58 POC Glucose (mg/dL) 244 H Random Glucose 247 H Calcium 8.3 L Phosphorus 3.8 Magnesium 2.0 Total Bilirubin 0.7 AST 86 H ALT 99 H Alkaline Phosphatase 118 Total Protein 6.2 Albumin 2.8 L Globulin 3.4 Albumin/Globulin Ratio 0.8 L 04/08/18 05:30 WBC RBC Hgb Hct MCV MCH MCHC RDW Plt Count MPV Gran % Lymph % (Auto) [place] % (Auto) Eos % (Auto) Baso % (Auto) Gran # Lymph # (Auto) [place] # (Auto) Eos # (Auto) Baso # (Auto) pCO2 31 L pO2 159.0 H HCO3 22.6 ABG pH 7.47 H ABG Total CO2 23.6 ABG O2 Saturation 98.7 H ABG O2 Content 16.1 ABG Base Excess -0.4 ABG Hemoglobin 11.4 L ABG Carboxyhemoglobin 0.4 L POC ABG HHb (Measured) 1.3 ABG Methemoglobin 0.0 ABG O2 Capacity 16.3 Hgb O2 Saturation 98.4 H FiO2 40.0 Sodium Potassium Chloride Carbon Dioxide Anion Gap BUN Creatinine Est GFR ( Amer) Est GFR (Non-Af Amer) POC Glucose (mg/dL) Random Glucose Calcium Phosphorus Magnesium Total Bilirubin AST ALT Alkaline Phosphatase Total Protein Albumin Globulin Albumin/Globulin Ratio Fingerstick Blood Sugar Results: 242 Assessment/Plan - Assessment and Plan (Free Text) Assessment: 82 male under ICU management for subdural hematoma requiring emergent craniotomy and intubation to protect airway. Of note, patient is decerebrate with most recent CT Head showing uncal herniation and has poor clinical prognosis. 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 (+) uncal herniation to L - Maintain normothermia, avoid oxygen toxicity to prevent brain exposure to free radicals - EEG (04/05) showed spikes in temporal lobe, epileptogenic; Keppra 500 Q12 IV to prevent seizure - tylenol IV PRN Pulm - PRVC 450/15(22)/5/40% - CXR: b/l atelectasis at lung bases. No active disease - Maintain SaO2 > 95% - Protective lung ventilation strategy Cardio - Maintain MAP - NO permissive HTN, keep BP < 140/90 - BP Parameters: SBP 100-160; Patient's HR and BP are spiking intermittently, could be due to pain, Morphine PRN q4 GI - Glucerna, enteric feed, with free water flushes and regular residual check - Continue PPX with protonix - Started OGT feedings with water flushes for Hypernatremia; repeat BMP at 4P; water flushes changed to 250 q4 from 200 q6 - Maintain euvolemia Heme - Avoid blood thinners in light of bleed, give Mechanical DVT PPX ID - Urine Cx (04/03) neg; - Sputum Cx: (04/03) MSSA - Blood Cx (04/03) neg - Vanc/Zosyn for post op fever empiric coverage; Continue current regimen per ID Endo - Maintain euglycemia - Accucheks with ISS-high Dispo: - palliative on board. Family will travel to [place] and come during weekend. Will discuss [facility] - accepted to [facility] - if family ok to LTACH, then trach/peg at LTACH - explore if family want hospice/terminal extubation
--- NOTE | 2018-04-08 18:52 | CP.PCM.PN ---
Subjective - Date & Time of Evaluation Date of Evaluation: 04/08/18 Time of Evaluation: 18:00 - Subjective Subjective: Infectious Disease Follow Up: April 08, 2018 82 yo male with presentation for altered mental status on 04/01/2018. Found to have a subdural hematoma (acute on chronic). Craniotomy performed. The patient remains intubated and ventilated since the surgery. His medical history includes CVA, Atrial fibrillation, DM, and HTN. Fevers up to 101.3 F in the past 24 hours but this is POD #4. No leukocytosis. Procalcitonin of 0.36 which is normal. Still persistent low grade or borderline fevers at this time. CT showing uncal herniation. Fevers likely central in origin. The patient remains poorly responsive despite not being sedated. The patient has a dismal prognosis at this time. Little hope of any neurologic recovery. The patient family is present today. They are trying to come to a decision on palliative care. Objective - Vital Signs/Intake and Output Vital Signs (last 24 hours): Temp Pulse Resp BP Pulse Ox 100.0 F H 101 H 20 149/89 98 04/08/18 17:59 04/08/18 18:00 04/08/18 12:59 04/08/18 18:00 04/08/18 17:59 Intake and Output: 04/08/18 04/08/18 06:59 18:59 Intake Total 940 Output Total 600 Balance 340 - Medications Medications: Current Medications Hydrocortisone (Cortizone 1% Cream) 0 gm TOP BID [facility] Last Admin: 04/08/18 17:37 Dose: 1 applic Piperacillin Sod/Tazobactam Sod (Zosyn 2.25 Gm In 0.9% 100 Ml) 2.25 gm in 100 mls @ 100 mls/hr IVPB Q6 [facility] PRN Reason: Protocol Last Admin: 04/08/18 17:40 Dose: 100 mls/hr Levetiracetam (Keppra 500mg Ivpb) 500 mg in 100 mls @ 460 mls/hr IVPB Q12 [facility] Last Admin: 04/08/18 09:19 Dose: 460 mls/hr Acetaminophen (Ofirmev) 1,000 mg in 100 mls @ 400 mls/hr IVPB Q6H PRN PRN Reason: Temperature Stop: 07/02/18 15:38 Last Admin: 04/08/18 09:18 Dose: 400 mls/hr Insulin Human Regular (Humulin R Med) 0 units SC Q6H [facility] PRN Reason: Protocol Last Admin: 04/08/18 17:40 Dose: 5 unit Labetalol HCl (Trandate) 20 mg IV Q6 PRN PRN Reason: Other Last Admin: 04/06/18 11:06 Dose: 20 mg Morphine Sulfate (Morphine) 2 mg IVP Q4H PRN PRN Reason: Pain, moderate (4-7) Last Admin: 04/08/18 18:00 Dose: 2 mg Pantoprazole Sodium (Protonix Susp) 40 mg PO 0600 [facility] Last Admin: 04/08/18 06:30 Dose: 40 mg - Labs Labs: 04/08/18 05:15 04/08/18 05:15 PT 14.0 SECONDS (9.4-12.5) H 04/02/18 12:00 INR 1.21 (0.93-1.08) H 04/02/18 12:00 APTT 48.2 Seconds (25.1-36.5) H 04/01/18 14:40 - Constitutional Appears: Non-toxic, Chronically Ill - Head Exam Additional comments: s/p craniotomy. dominick in place. - Eye Exam Pupil Exam: Fixed, Irregular - ENT Exam ENT Exam: Mucous Membranes Moist, Normal External Ear Exam, TM's Normal Bilaterally - Neck Exam Neck Exam: Normal Inspection - Respiratory Exam Respiratory Exam: Clear to Ausculation Bilateral, NORMAL BREATHING PATTERN. absent: Rales, Rhonchi, Wheezes - Cardiovascular Exam Cardiovascular Exam: REGULAR RHYTHM, RRR, +S1, +S2 - GI/Abdominal Exam GI & Abdominal Exam: Soft, Normal Bowel Sounds. absent: Distended, Tenderness - Extremities Exam Extremities Exam: Normal Inspection - Neurological Exam Neurological Exam: absent: Alert, Awake, CN II-XII Intact, Oriented x3 Additional comments: Obtunded and poorly responsive. - Psychiatric Exam Additional comments: Comatose - Skin Skin Exam: Intact, Normal Color Assessment and Plan - Assessment and Plan (Free Text) Assessment: 82 yo male with unresponsive by family on initial presentation found to have an acute on chronic bilateral Subdural hematoma. The patient required craniotomy for decompression. He remains intubated and ventilated. The patient remains in a comatose state. Fevers up to 101.3F in the past 24 hours. Unclear if this is secondary to postsurgical course after craniotomy, infection, or even central brain injury. Started on IV antibiotics of Zosyn and Vancomycin IV. Can continue on this regimen while culture results return. Supportive care. To date, cultures have been negative to date. More likely the fevers are secondary to central brain injury. CT scan of head repeats now showing uncal herniation. 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 Very poor prognosis. Little hope for any neurological recovery. Family still deciding on whether terminal extubation is an acceptable option for them. Thank you for allowing me to participate in the care of the patient, we will follow with you.
[2018-04-09 05:22] LABS: ARTERIAL BLOOD GAS HCO3 24.4 mmol/L (21-28); ARTERIAL BLOOD GAS HEMOGLOBIN 9.1 g/dL (11.7-17.4); ARTERIAL BLOOD GAS O2 CAPACITY 12.6 mL/dl (16-24); ARTERIAL BLOOD GAS O2 CONTENT 12.4 ML/dl (15-23); ARTERIAL BLOOD GAS O2 SAT 98.4 % (95-98); ARTERIAL BLOOD GAS PCO2 32 mm/Hg (35-45); ARTERIAL BLOOD GAS PH 7.49 (7.35-7.45); ARTERIAL BLOOD GAS TCO2 25.4 mmol.L (22-28)
[2018-04-09] MEDS: Pantoprazole 40 mg Susp UD PO SCH (06:21)
[2018-04-09] MEDS: Piperacillin/Tazobact 2.25gm 2.25 GM/100 ML BAG IVPB SCH (06:21)
[2018-04-09] MEDS: Insulin Reg-MEDIUM-Coverage SC SCH ×2 (06:39→13:00)
[2018-04-09 07:05] VITALS: O2SAT 99
[2018-04-09 07:11] LABS: ALB/GLOB RATIO 0.8 (1.1-1.8); ALBUMIN 2.4 g/dL (3.0-4.8); ALT/SGPT 72 U/L (7-56); AST/SGOT 55 U/L (17-59); BLOOD UREA NITROGEN 33 mg/dL (7-21); GFR AFRICAN-AMERICAN > 60; GFR NON-AFRICAN AMERICAN > 60
[2018-04-09 07:33] LABS: BASO # 0.04 K/mm3 (0.0-2.0); BASO % 0.4 % (0.0-3.0); EOS # 0.2 (0.0-0.7); EOS % 2.3 % (1.5-5.0); GRAN # 7.68 (1.4-6.5); GRAN % 83.9 % (50.0-68.0); HEMOGLOBIN 9.8 g/dL (14.0-18.0); LYMPH # 0.8 (1.2-3.4); LYMPH % 8.8 % (22.0-35.0); MEAN CELL VOLUME 94.6 fl (80.0-105.0); MEAN CORPUSCULAR HEMOGLOBIN 31.2 pg (25.0-35.0); MONO # 0.4 (0.1-0.6); MONO % 4.6 % (1.0-6.0); RBC 3.14 10^6/uL (3.5-6.1); RED CELL DISTRIBUTION WIDTH 14.9 % (11.5-14.5); WHITE BLOOD COUNT 9.2 10^3/ul (4.5-11.0)
[2018-04-09 08:43] VITALS: RESP 23
--- NOTE | 2018-04-09 09:13 | EEG ---
DATE: 04/05/2018 Technical Information: Electrodes were placed according to the 10-20 [employer] electrode system by imaging technologist. Total of 23 electrodes (21 EEG and 2 EKG) were placed. EEG activity was digitally recorded referentially to P1/P2 or A1/A2 electrodes. Continuous monitoring with EEG was performed using digital analysis for spike detection. The [employer] spike and seizure detection algorithms were used for digital EEG analysis throughout the monitoring period to screen the EEG in real-time and nisa the data file with pointers to electrographic seizures and interictal discharges. EEG was screened for electrographic seizures and interictal discharges by a technologist. Physician, epileptologist reviewed detections as well as extensive random samples and whole EEG study in detail. Digital EEG Analysis: Was carried out including FFT (Fast Fourier Transform), R2D2 (Rhythmicity Run Detection and Display), Relative Asymmetry Spectrogram, and voltage plot by the [employer] Software. The qualitative EEG analysis and the voltage plot mapping were used for detection of foci of paroxysmal and abnormal electrical cortical activity. General Description: Background Rhythm: There is a well-formed, 8-10 Hz posterior dominant rhythm that is reactive, symmetric, and attenuates with eye opening. There was a normal amount of frontal beta noted bilaterally. There is no sleep recorded. Activation Procedures: Photic stimulation: There is no driving noted. Hyperventilation: There is slowing noted that is self-remitted. Abnormal Activity: There are occasional P3 sharp waves that have high amplitude and . Background is 4 Hertz, reactive, symmetric, but very slow, and does not during this EEG. There was a normal sleep captured. There was normal drowsiness captured. There were no changes with activation maneuvers. IMPRESSION: This is an abnormal awake and drowsy electroencephalogram. The presence of P3 sharp waves occasionally indicate epileptiform discharges. In addition, the presence of a slow posterior dominant rhythm indicates severe encephalopathy. Clinical correlation is required. Gildardo Boyd MD
[2018-04-09] MEDS: levETIRAcetam 500mg IVPB 500 MG/100 ML BAG IVPB SCH (09:41)
--- NOTE | 2018-04-09 09:41 | CP.PCM.PN ---
Subjective - Date & Time of Evaluation Date of Evaluation: 04/09/18 Time of Evaluation: 09:38 - Subjective Subjective: PGY-[address] Valerio Patient seen and examined this AM. No acute events reported overnight. Patient with continued low grade fever overnight. Patient with minimal response to pain , sluggish corneal reflex, GCS4. Conversations with family regarding medical treatment continuing. Objective - Vital Signs/Intake and Output Vital Signs (last 24 hours): Temp Pulse Resp BP Pulse Ox 100.2 F H 100 H 23 130/72 99 04/09/18 08:00 04/09/18 08:00 04/09/18 08:00 04/09/18 08:00 04/09/18 08:00 Intake and Output: 04/09/18 04/09/18 06:59 18:59 Intake Total 540 Output Total 1000 Balance -460 - Medications Medications: Current Medications Hydrocortisone (Cortizone 1% Cream) 0 gm TOP BID [facility] Last Admin: 04/08/18 17:37 Dose: 1 applic Levetiracetam (Keppra 500mg Ivpb) 500 mg in 100 mls @ 460 mls/hr IVPB Q12 [facility] Last Admin: 04/08/18 21:05 Dose: 460 mls/hr Acetaminophen (Ofirmev) 1,000 mg in 100 mls @ 400 mls/hr IVPB Q6H PRN PRN Reason: Temperature Stop: 04/09/18 15:38 Last Admin: 04/08/18 09:18 Dose: 400 mls/hr Vancomycin HCl (Vancomycin 1gm) 1 gm in 250 mls @ 167 mls/hr IVPB DAILY [facility] PRN Reason: Protocol Insulin Human Regular (Humulin R Med) 0 units SC Q6H [facility] PRN Reason: Protocol Last Admin: 04/09/18 06:39 Dose: 3 unit Labetalol HCl (Trandate) 20 mg IV Q6 PRN PRN Reason: Other Last Admin: 04/06/18 11:06 Dose: 20 mg Morphine Sulfate (Morphine) 2 mg IVP Q4H PRN PRN Reason: Pain, moderate (4-7) Last Admin: 04/08/18 18:00 Dose: 2 mg Pantoprazole Sodium (Protonix Susp) 40 mg PO 0600 [facility] Last Admin: 04/09/18 06:21 Dose: 40 mg - Labs Labs: 04/09/18 05:40 04/09/18 05:40 PT 14.0 SECONDS (9.4-12.5) H 04/02/18 12:00 INR 1.21 (0.93-1.08) H 04/02/18 12:00 APTT 48.2 Seconds (25.1-36.5) H 04/01/18 14:40 - Constitutional Appears: No Acute Distress - Head Exam Additional comments: parietal surgical incision sites with dominick, clean, dry, intact - Eye Exam Additional comments: Pupils fixed, 3 mm - Respiratory Exam Respiratory Exam: Clear to Ausculation Bilateral, NORMAL BREATHING PATTERN Additional comments: PRVC - Cardiovascular Exam Cardiovascular Exam: Irregular Rhythm, +S1, +S2. absent: REGULAR RHYTHM - GI/Abdominal Exam GI & Abdominal Exam: Soft, Diminished Bowel Sounds. absent: Firm, Guarding, Tenderness - Extremities Exam Extremities Exam: Pedal Edema (trace bilateral ) - Neurological Exam Neuro motor strength exam: Left Upper Extremity: 0, Right Upper Extremity: 0, Left Lower Extremity: 0, Right Lower Extremity: 0 Additional comments: GCS 4 [id number] - Skin Skin Exam: Diaphoretic (mild), Dry, Warm Assessment and Plan - Assessment and Plan (Free Text) Assessment: 82 year old male with a past medical history of CVA, TIA, atrial fibrillation, hypertension, hyperlipidemia, and diabetes who presented to the emergency department for evaluation and treatment of altered mental status due to 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 Patient is s/p evacuation, not on sedation. Plan: Subdural hematoma s/p evacuation - Repeat CT (04/04/18) reviewed - Head above 30 degrees - Blood pressure control - EEG (04/05/2018) showing spikes in the temporal lobe which could be epileptogenic, nor rhythmic seizure activity - Keppra 500mg BID - Further recs per Dr. Iman Santos PGY-2
[2018-04-09] MEDS ORDERED: Vancomycin 1gm in NS 250ml 1 GM/250 ML BAG IVPB SCH (10:00)
--- NOTE | 2018-04-09 10:19 | CP.CCUPN ---
CCU Subjective - Physician Review Subjective (Free Text): 04/09/18 10:18 Patient is CCU Objective - Vital Signs / Intake & Output Vital Signs (Last 4 hours): Vital Signs Temp Pulse Resp BP Pulse Ox 04/09/18 08:00 100.2 F H 102 H 23 130/72 99 04/09/18 07:00 100.0 F H 97 H 132/83 99 Intake and Output (Last 8hrs): Intake & Output 04/08/18 04/09/18 04/09/18 22:59 06:59 14:59 Intake Total 1710 540 Output Total 900 1000 Balance 810 -460 Weight 197 lb 12.8 oz Intake: IV 420 Right Wrist 420 Tube Feeding 1290 540 Output: Urine 900 1000 Urethral (No) 900 1000 - Physical Exam Head: Positive for: Swelling (right temporal/occiptal swelling), Ecchymosis ( right auricular ) Pupils: Positive for: Sluggish Conjunctiva: Positive for: Normal Ears: Positive for: Other (ecchymosis right ear) Nose (External): Positive for: Atraumatic Respiratory/Chest: Positive for: Decreased Breath Sounds (b/l lung bases). Negative for: Rales, Retracting, Rhonchi Cardiovascular: Positive for: Normal S1, S2, Tachycardic Abdomen: Negative for: Normal Bowel Sounds (hypoactive) Upper Extremity: Negative for: Normal Inspection Lower Extremity: Negative for: Normal Inspection Neurological: Positive for: Other (GCS 1+1+2) Skin: Positive for: Warm, Dry, Abrasion (bilateral knees ) Psychiatric: Negative for: Alert, Oriented x 3 - Medications Active Medications: Active Medications Generic Name Dose Route Start Last Admin Trade Name Freq PRN Reason Stop Dose Admin Hydrocortisone 0 gm 04/08/18 11:00 04/08/18 17:37 Cortizone 1% Cream TOP 1 applic BID KEATON Administration Levetiracetam 500 mg in 100 mls @ 460 mls/hr 04/05/18 22:00 04/09/18 09:41 Keppra 500mg Ivpb IVPB 460 mls/hr Q12 KEATON Administration Acetaminophen 1,000 mg in 100 mls @ 400 mls/hr 04/07/18 15:37 04/08/18 09:18 Ofirmev IVPB 04/09/18 15:38 400 mls/hr Q6H PRN Administration Temperature Vancomycin HCl 1 gm in 250 mls @ 167 mls/hr 04/09/18 10:00 04/09/18 09:45 Vancomycin 1gm IVPB 167 mls/hr DAILY KEATON Administration Protocol Insulin Human Regular 0 units 04/03/18 11:59 04/09/18 06:39 Humulin R Med SC 3 unit Q6H KEATON Administration Protocol Labetalol HCl 20 mg 04/02/18 13:39 04/06/18 11:06 Trandate IV 20 mg Q6 PRN Administration Other Morphine Sulfate 2 mg 04/06/18 17:08 04/08/18 18:00 Morphine IVP 2 mg Q4H PRN Administration Pain, moderate (4-7) Pantoprazole Sodium 40 mg 04/04/18 06:00 04/09/18 06:21 Protonix Susp PO 40 mg 0600 KEATON Administration - Patient Studies Lab Studies: Microbiology Studies 04/03/18 11:00 Blood Culture - Final Blood NO GROWTH AFTER 5 DAYS Gram Stain - Final TEST NOT PERFORMED 04/03/18 10:50 Blood Culture - Final Blood NO GROWTH AFTER 5 DAYS Gram Stain - Final TEST NOT PERFORMED Lab Studies 04/09/18 04/09/18 04/09/18 Range/Units 06:34 05:40 05:40 WBC 9.2 (4.5-11.0) 10^3/ul RBC 3.14 L (3.5-6.1) 10^6/uL Hgb 9.8 L (14.0-18.0) g/dL Hct 29.7 L (42.0-52.0) % MCV 94.6 (80.0-105.0) fl MCH 31.2 (25.0-35.0) pg MCHC 33.0 (31.0-37.0) g/dl RDW 14.9 H (11.5-14.5) % Plt Count 144 (120.0-450.0) 10^3/uL MPV 11.0 (7.0-11.0) fl Gran % 83.9 H (50.0-68.0) % Lymph % (Auto) 8.8 L (22.0-35.0) % [place] % (Auto) 4.6 (1.0-6.0) % Eos % (Auto) 2.3 (1.5-5.0) % Baso % (Auto) 0.4 (0.0-3.0) % Gran # 7.68 H (1.4-6.5) Lymph # (Auto) 0.8 L (1.2-3.4) [place] # (Auto) 0.4 (0.1-0.6) Eos # (Auto) 0.2 (0.0-0.7) Baso # (Auto) 0.04 (0.0-2.0) K/mm3 pCO2 (35-45) mm/Hg pO2 (80-100) mm/Hg HCO3 (21-28) mmol/L ABG pH (7.35-7.45) ABG Total CO2 (22-28) mmol.L ABG O2 Saturation (95-98) % ABG O2 Content (15-23) ML/dl ABG Base Excess (-2.0-3.0) mmol/L ABG Hemoglobin (11.7-17.4) g/dL ABG Carboxyhemoglobin (0.5-1.5) % POC ABG HHb (Measured) (0-5) % ABG Methemoglobin (0.0-3.0) % ABG O2 Capacity (16-24) mL/dl Hgb O2 Saturation (95.0-98.0) % FiO2 % Sodium 139 (132-148) mmol/L Potassium 4.5 (3.6-5.0) mmol/L Chloride 105 (98-107) mmol/L Carbon Dioxide 25 (21-33) mmol/L Anion Gap 13 (10-20) BUN 33 H (7-21) mg/dL Creatinine 1.1 (0.8-1.5) mg/dl Est GFR ( Amer) > 60 Est GFR (Non-Af Amer) > 60 POC Glucose (mg/dL) 201 H (65-110) mg/dL Random Glucose 227 H (70-110) mg/dL Calcium 8.0 L (8.4-10.5) mg/dL Phosphorus 3.4 (2.5-4.5) mg/dL Magnesium 2.0 (1.7-2.2) mg/dL Total Bilirubin 0.6 (0.2-1.3) mg/dL AST 55 (17-59) U/L ALT 72 H (7-56) U/L Alkaline Phosphatase 103 (38-126) U/L Total Protein 5.5 L (5.8-8.3) g/dL Albumin 2.4 L (3.0-4.8) g/dL Globulin 3.1 gm/dL Albumin/Globulin Ratio 0.8 L (1.1-1.8) 04/09/18 04/08/18 04/08/18 Range/Units 05:10 23:50 17:08 WBC (4.5-11.0) 10^3/ul RBC (3.5-6.1) 10^6/uL Hgb (14.0-18.0) g/dL Hct (42.0-52.0) % MCV (80.0-105.0) fl MCH (25.0-35.0) pg MCHC (31.0-37.0) g/dl RDW (11.5-14.5) % Plt Count (120.0-450.0) 10^3/uL MPV (7.0-11.0) fl Gran % (50.0-68.0) % Lymph % (Auto) (22.0-35.0) % [place] % (Auto) (1.0-6.0) % Eos % (Auto) (1.5-5.0) % Baso % (Auto) (0.0-3.0) % Gran # (1.4-6.5) Lymph # (Auto) (1.2-3.4) [place] # (Auto) (0.1-0.6) Eos # (Auto) (0.0-0.7) Baso # (Auto) (0.0-2.0) K/mm3 pCO2 32 L (35-45) mm/Hg pO2 82.0 (80-100) mm/Hg HCO3 24.4 (21-28) mmol/L ABG pH 7.49 H (7.35-7.45) ABG Total CO2 25.4 (22-28) mmol.L ABG O2 Saturation 98.4 H (95-98) % ABG O2 Content 12.4 L (15-23) ML/dl ABG Base Excess 1.3 (-2.0-3.0) mmol/L ABG Hemoglobin 9.1 L (11.7-17.4) g/dL ABG Carboxyhemoglobin 1.6 H (0.5-1.5) % POC ABG HHb (Measured) 1.6 (0-5) % ABG Methemoglobin 0.7 (0.0-3.0) % ABG O2 Capacity 12.6 L (16-24) mL/dl Hgb O2 Saturation 96.1 (95.0-98.0) % FiO2 40.0 % Sodium (132-148) mmol/L Potassium (3.6-5.0) mmol/L Chloride (98-107) mmol/L Carbon Dioxide (21-33) mmol/L Anion Gap (10-20) BUN (7-21) mg/dL Creatinine (0.8-1.5) mg/dl Est GFR ( Amer) Est GFR (Non-Af Amer) POC Glucose (mg/dL) 208 H 254 H (65-110) mg/dL Random Glucose (70-110) mg/dL Calcium (8.4-10.5) mg/dL Phosphorus (2.5-4.5) mg/dL Magnesium (1.7-2.2) mg/dL Total Bilirubin (0.2-1.3) mg/dL AST (17-59) U/L ALT (7-56) U/L Alkaline Phosphatase (38-126) U/L Total Protein (5.8-8.3) g/dL Albumin (3.0-4.8) g/dL Globulin gm/dL Albumin/Globulin Ratio (1.1-1.8) 04/08/18 Range/Units 11:42 WBC (4.5-11.0) 10^3/ul RBC (3.5-6.1) 10^6/uL Hgb (14.0-18.0) g/dL Hct (42.0-52.0) % MCV (80.0-105.0) fl MCH (25.0-35.0) pg MCHC (31.0-37.0) g/dl RDW (11.5-14.5) % Plt Count (120.0-450.0) 10^3/uL MPV (7.0-11.0) fl Gran % (50.0-68.0) % Lymph % (Auto) (22.0-35.0) % [place] % (Auto) (1.0-6.0) % Eos % (Auto) (1.5-5.0) % Baso % (Auto) (0.0-3.0) % Gran # (1.4-6.5) Lymph # (Auto) (1.2-3.4) [place] # (Auto) (0.1-0.6) Eos # (Auto) (0.0-0.7) Baso # (Auto) (0.0-2.0) K/mm3 pCO2 (35-45) mm/Hg pO2 (80-100) mm/Hg HCO3 (21-28) mmol/L ABG pH (7.35-7.45) ABG Total CO2 (22-28) mmol.L ABG O2 Saturation (95-98) % ABG O2 Content (15-23) ML/dl ABG Base Excess (-2.0-3.0) mmol/L ABG Hemoglobin (11.7-17.4) g/dL ABG Carboxyhemoglobin (0.5-1.5) % POC ABG HHb (Measured) (0-5) % ABG Methemoglobin (0.0-3.0) % ABG O2 Capacity (16-24) mL/dl Hgb O2 Saturation (95.0-98.0) % FiO2 % Sodium (132-148) mmol/L Potassium (3.6-5.0) mmol/L Chloride (98-107) mmol/L Carbon Dioxide (21-33) mmol/L Anion Gap (10-20) BUN (7-21) mg/dL Creatinine (0.8-1.5) mg/dl Est GFR ( Amer) Est GFR (Non-Af Amer) POC Glucose (mg/dL) 242 H (65-110) mg/dL Random Glucose (70-110) mg/dL Calcium (8.4-10.5) mg/dL Phosphorus (2.5-4.5) mg/dL Magnesium (1.7-2.2) mg/dL Total Bilirubin (0.2-1.3) mg/dL AST (17-59) U/L ALT (7-56) U/L Alkaline Phosphatase (38-126) U/L Total Protein (5.8-8.3) g/dL Albumin (3.0-4.8) g/dL Globulin gm/dL Albumin/Globulin Ratio (1.1-1.8) Laboratory Results - last 24 hr 04/08/18 04/08/18 04/08/18 11:42 17:08 23:50 WBC RBC Hgb Hct MCV MCH MCHC RDW Plt Count MPV Gran % Lymph % (Auto) [place] % (Auto) Eos % (Auto) Baso % (Auto) Gran # Lymph # (Auto) [place] # (Auto) Eos # (Auto) Baso # (Auto) pCO2 pO2 HCO3 ABG pH ABG Total CO2 ABG O2 Saturation ABG O2 Content ABG Base Excess ABG Hemoglobin ABG Carboxyhemoglobin POC ABG HHb (Measured) ABG Methemoglobin ABG O2 Capacity Hgb O2 Saturation FiO2 Sodium Potassium Chloride Carbon Dioxide Anion Gap BUN Creatinine Est GFR ( Amer) Est GFR (Non-Af Amer) POC Glucose (mg/dL) 242 H 254 H 208 H Random Glucose Calcium Phosphorus Magnesium Total Bilirubin AST ALT Alkaline Phosphatase Total Protein Albumin Globulin Albumin/Globulin Ratio 04/09/18 04/09/18 04/09/18 05:10 05:40 05:40 WBC 9.2 RBC 3.14 L Hgb 9.8 L Hct 29.7 L MCV 94.6 MCH 31.2 MCHC 33.0 RDW 14.9 H Plt Count 144 MPV 11.0 Gran % 83.9 H Lymph % (Auto) 8.8 L [place] % (Auto) 4.6 Eos % (Auto) 2.3 Baso % (Auto) 0.4 Gran # 7.68 H Lymph # (Auto) 0.8 L [place] # (Auto) 0.4 Eos # (Auto) 0.2 Baso # (Auto) 0.04 pCO2 32 L pO2 82.0 HCO3 24.4 ABG pH 7.49 H ABG Total CO2 25.4 ABG O2 Saturation 98.4 H ABG O2 Content 12.4 L ABG Base Excess 1.3 ABG Hemoglobin 9.1 L ABG Carboxyhemoglobin 1.6 H POC ABG HHb (Measured) 1.6 ABG Methemoglobin 0.7 ABG O2 Capacity 12.6 L Hgb O2 Saturation 96.1 FiO2 40.0 Sodium 139 Potassium 4.5 Chloride 105 Carbon Dioxide 25 Anion Gap 13 BUN 33 H Creatinine 1.1 Est GFR ( Amer) > 60 Est GFR (Non-Af Amer) > 60 POC Glucose (mg/dL) Random Glucose 227 H Calcium 8.0 L Phosphorus 3.4 Magnesium 2.0 Total Bilirubin 0.6 AST 55 ALT 72 H Alkaline Phosphatase 103 Total Protein 5.5 L Albumin 2.4 L Globulin 3.1 Albumin/Globulin Ratio 0.8 L 04/09/18 06:34 WBC RBC Hgb Hct MCV MCH MCHC RDW Plt Count MPV Gran % Lymph % (Auto) [place] % (Auto) Eos % (Auto) Baso % (Auto) Gran # Lymph # (Auto) [place] # (Auto) Eos # (Auto) Baso # (Auto) pCO2 pO2 HCO3 ABG pH ABG Total CO2 ABG O2 Saturation ABG O2 Content ABG Base Excess ABG Hemoglobin ABG Carboxyhemoglobin POC ABG HHb (Measured) ABG Methemoglobin ABG O2 Capacity Hgb O2 Saturation FiO2 Sodium Potassium Chloride Carbon Dioxide Anion Gap BUN Creatinine Est GFR ( Amer) Est GFR (Non-Af Amer) POC Glucose (mg/dL) 201 H Random Glucose Calcium Phosphorus Magnesium Total Bilirubin AST ALT Alkaline Phosphatase Total Protein Albumin Globulin Albumin/Globulin Ratio Fingerstick Blood Sugar Results: 201
--- NOTE | 2018-04-09 10:28 | CP.PCM.PN ---
Subjective - Date & Time of Evaluation Date of Evaluation: 04/09/18 Time of Evaluation: 10:28 - Subjective Subjective: Mr. Vera was seen and examined at the bedside in ICU. He remains on mechanical ventilator on PRVC mode. He pupils 3 mm sluggish, no corneal but with + gag reflexes, withdraws from pain stimuli, GCS- 4T, breaths over the vent. settings. He remains with a heart rhythm of a-fib. He has the right parietal dominick intact. There was no untoward events overnight. Objective - Vital Signs/Intake and Output Vital Signs (last 24 hours): Temp Pulse Resp BP Pulse Ox 100.2 F H 100 H 23 130/72 99 04/09/18 08:00 04/09/18 08:00 04/09/18 08:00 04/09/18 08:00 04/09/18 08:00 Intake and Output: 04/09/18 04/09/18 06:59 18:59 Intake Total 540 Output Total 1000 Balance -460 - Medications Medications: Current Medications Hydrocortisone (Cortizone 1% Cream) 0 gm TOP BID KEATON Last Admin: 04/08/18 17:37 Dose: 1 applic Levetiracetam (Keppra 500mg Ivpb) 500 mg in 100 mls @ 460 mls/hr IVPB Q12 KEATON Last Admin: 04/09/18 09:41 Dose: 460 mls/hr Acetaminophen (Ofirmev) 1,000 mg in 100 mls @ 400 mls/hr IVPB Q6H PRN PRN Reason: Temperature Stop: 04/09/18 15:38 Last Admin: 04/08/18 09:18 Dose: 400 mls/hr Vancomycin HCl (Vancomycin 1gm) 1 gm in 250 mls @ 167 mls/hr IVPB DAILY KEATON PRN Reason: Protocol Last Admin: 04/09/18 09:45 Dose: 167 mls/hr Insulin Human Regular (Humulin R Med) 0 units SC Q6H KEATON PRN Reason: Protocol Last Admin: 04/09/18 06:39 Dose: 3 unit Labetalol HCl (Trandate) 20 mg IV Q6 PRN PRN Reason: Other Last Admin: 04/06/18 11:06 Dose: 20 mg Morphine Sulfate (Morphine) 2 mg IVP Q4H PRN PRN Reason: Pain, moderate (4-7) Last Admin: 04/08/18 18:00 Dose: 2 mg Pantoprazole Sodium (Protonix Susp) 40 mg PO 0600 KEATON Last Admin: 04/09/18 06:21 Dose: 40 mg - Labs Labs: 04/09/18 05:40 04/09/18 05:40 PT 14.0 SECONDS (9.4-12.5) H 04/02/18 12:00 INR 1.21 (0.93-1.08) H 04/02/18 12:00 APTT 48.2 Seconds (25.1-36.5) H 04/01/18 14:40 - Constitutional Appears: No Acute Distress - Head Exam Head Exam: NORMAL INSPECTION - Eye Exam Pupil Exam: Fixed Additional comments: 3 mm - Neurological Exam Neuro motor strength exam: Left Upper Extremity: 0, Right Upper Extremity: 0, Left Lower Extremity: 0, Right Lower Extremity: 0 Additional comments: GCS- 4T Assessment and Plan (1) Subdural hematoma Assessment & Plan: Case discussed with Dr. Valerio, continue all current medical regimen, Recommend anti-coagulant will be dependent to the neurosurgery clearance when to start, recommend blood pressure control, keep head of bed elevated at least 30 degrees , normothermic, and treat any electrolyte abnormalities. Status: Acute
--- NOTE | 2018-04-09 10:29 | CP.CCUPN ---
<Darwin Zabala - Last Filed: 04/09/18 12:18> CCU Subjective - Physician Review Subjective (Free Text): Darwin Zabala DO PGY1, ICU progress note for Dr. Zee Patient was examined at bedside this morning. Patient remains on vent with PRVC 450/15/5/40. Patient is unresponsive without sedation. Patient has been afebrile - latest temperature of 100.2. No acute overnight events. 04/09/18 12:15 CCU Objective - Vital Signs / Intake & Output Vital Signs (Last 4 hours): Vital Signs Temp Pulse Resp BP Pulse Ox 04/09/18 08:00 100.2 F H 102 H 23 130/72 99 04/09/18 07:00 100.0 F H 97 H 132/83 99 Intake and Output (Last 8hrs): Intake & Output 04/08/18 04/09/18 04/09/18 22:59 06:59 14:59 Intake Total 1710 540 Output Total 900 1000 Balance 810 -460 Weight 197 lb 12.8 oz Intake: IV 420 Right Wrist 420 Tube Feeding 1290 540 Output: Urine 900 1000 Urethral (No) 900 1000 - Physical Exam Physical Exam Limitations: Positive for: Altered Mental Status (CAM-ICU negative ) Head: Positive for: Swelling (right temporal/occiptal swelling), Ecchymosis ( right auricular ) Pupils: Positive for: Sluggish Conjunctiva: Positive for: Normal. Negative for: Injected, Icteric Ears: Positive for: Other (ecchymosis right ear) Nose (External): Positive for: Atraumatic Respiratory/Chest: Positive for: Decreased Breath Sounds (bilateral lung bases) . Negative for: Wheezes, Rales, Rhonchi Cardiovascular: Positive for: Normal S1, S2, Tachycardic Abdomen: Negative for: Normal Bowel Sounds (hypoactive), Mass/Organomegaly Upper Extremity: Negative for: Normal Inspection Lower Extremity: Negative for: Normal Inspection Neurological: Positive for: Other (GCS 1+1+2) Skin: Positive for: Warm, Dry, Abrasion (bilateral knees ) Psychiatric: Negative for: Alert, Oriented x 3 - Medications Active Medications: Active Medications Generic Name Dose Route Start Last Admin Trade Name Freq PRN Reason Stop Dose Admin Hydrocortisone 0 gm 04/08/18 11:00 04/08/18 17:37 Cortizone 1% Cream TOP 1 applic BID KEATON Administration Levetiracetam 500 mg in 100 mls @ 460 mls/hr 04/05/18 22:00 04/09/18 09:41 Keppra 500mg Ivpb IVPB 460 mls/hr Q12 KEATON Administration Acetaminophen 1,000 mg in 100 mls @ 400 mls/hr 04/07/18 15:37 04/08/18 09:18 Ofirmev IVPB 04/09/18 15:38 400 mls/hr Q6H PRN Administration Temperature Vancomycin HCl 1 gm in 250 mls @ 167 mls/hr 04/09/18 10:00 04/09/18 09:45 Vancomycin 1gm IVPB 167 mls/hr DAILY KEATON Administration Protocol Insulin Human Regular 0 units 04/03/18 11:59 04/09/18 06:39 Humulin R Med SC 3 unit Q6H KEATON Administration Protocol Labetalol HCl 20 mg 04/02/18 13:39 04/06/18 11:06 Trandate IV 20 mg Q6 PRN Administration Other Morphine Sulfate 2 mg 04/06/18 17:08 04/08/18 18:00 Morphine IVP 2 mg Q4H PRN Administration Pain, moderate (4-7) Pantoprazole Sodium 40 mg 04/04/18 06:00 04/09/18 06:21 Protonix Susp PO 40 mg 0600 KEATNO Administration - Patient Studies Lab Studies: Microbiology Studies 04/03/18 11:00 Blood Culture - Final Blood NO GROWTH AFTER 5 DAYS Gram Stain - Final TEST NOT PERFORMED 04/03/18 10:50 Blood Culture - Final Blood NO GROWTH AFTER 5 DAYS Gram Stain - Final TEST NOT PERFORMED Lab Studies 04/09/18 04/09/18 04/09/18 Range/Units 06:34 05:40 05:40 WBC 9.2 (4.5-11.0) 10^3/ul RBC 3.14 L (3.5-6.1) 10^6/uL Hgb 9.8 L (14.0-18.0) g/dL Hct 29.7 L (42.0-52.0) % MCV 94.6 (80.0-105.0) fl MCH 31.2 (25.0-35.0) pg MCHC 33.0 (31.0-37.0) g/dl RDW 14.9 H (11.5-14.5) % Plt Count 144 (120.0-450.0) 10^3/uL MPV 11.0 (7.0-11.0) fl Gran % 83.9 H (50.0-68.0) % Lymph % (Auto) 8.8 L (22.0-35.0) % Roosevelt % (Auto) 4.6 (1.0-6.0) % Eos % (Auto) 2.3 (1.5-5.0) % Baso % (Auto) 0.4 (0.0-3.0) % Gran # 7.68 H (1.4-6.5) Lymph # (Auto) 0.8 L (1.2-3.4) Roosevelt # (Auto) 0.4 (0.1-0.6) Eos # (Auto) 0.2 (0.0-0.7) Baso # (Auto) 0.04 (0.0-2.0) K/mm3 pCO2 (35-45) mm/Hg pO2 (80-100) mm/Hg HCO3 (21-28) mmol/L ABG pH (7.35-7.45) ABG Total CO2 (22-28) mmol.L ABG O2 Saturation (95-98) % ABG O2 Content (15-23) ML/dl ABG Base Excess (-2.0-3.0) mmol/L ABG Hemoglobin (11.7-17.4) g/dL ABG Carboxyhemoglobin (0.5-1.5) % POC ABG HHb (Measured) (0-5) % ABG Methemoglobin (0.0-3.0) % ABG O2 Capacity (16-24) mL/dl Hgb O2 Saturation (95.0-98.0) % FiO2 % Sodium 139 (132-148) mmol/L Potassium 4.5 (3.6-5.0) mmol/L Chloride 105 (98-107) mmol/L Carbon Dioxide 25 (21-33) mmol/L Anion Gap 13 (10-20) BUN 33 H (7-21) mg/dL Creatinine 1.1 (0.8-1.5) mg/dl Est GFR ( Amer) > 60 Est GFR (Non-Af Amer) > 60 POC Glucose (mg/dL) 201 H (65-110) mg/dL Random Glucose 227 H (70-110) mg/dL Calcium 8.0 L (8.4-10.5) mg/dL Phosphorus 3.4 (2.5-4.5) mg/dL Magnesium 2.0 (1.7-2.2) mg/dL Total Bilirubin 0.6 (0.2-1.3) mg/dL AST 55 (17-59) U/L ALT 72 H (7-56) U/L Alkaline Phosphatase 103 (38-126) U/L Total Protein 5.5 L (5.8-8.3) g/dL Albumin 2.4 L (3.0-4.8) g/dL Globulin 3.1 gm/dL Albumin/Globulin Ratio 0.8 L (1.1-1.8) 04/09/18 04/08/18 04/08/18 Range/Units 05:10 23:50 17:08 WBC (4.5-11.0) 10^3/ul RBC (3.5-6.1) 10^6/uL Hgb (14.0-18.0) g/dL Hct (42.0-52.0) % MCV (80.0-105.0) fl MCH (25.0-35.0) pg MCHC (31.0-37.0) g/dl RDW (11.5-14.5) % Plt Count (120.0-450.0) 10^3/uL MPV (7.0-11.0) fl Gran % (50.0-68.0) % Lymph % (Auto) (22.0-35.0) % Roosevelt % (Auto) (1.0-6.0) % Eos % (Auto) (1.5-5.0) % Baso % (Auto) (0.0-3.0) % Gran # (1.4-6.5) Lymph # (Auto) (1.2-3.4) Roosevelt # (Auto) (0.1-0.6) Eos # (Auto) (0.0-0.7) Baso # (Auto) (0.0-2.0) K/mm3 pCO2 32 L (35-45) mm/Hg pO2 82.0 (80-100) mm/Hg HCO3 24.4 (21-28) mmol/L ABG pH 7.49 H (7.35-7.45) ABG Total CO2 25.4 (22-28) mmol.L ABG O2 Saturation 98.4 H (95-98) % ABG O2 Content 12.4 L (15-23) ML/dl ABG Base Excess 1.3 (-2.0-3.0) mmol/L ABG Hemoglobin 9.1 L (11.7-17.4) g/dL ABG Carboxyhemoglobin 1.6 H (0.5-1.5) % POC ABG HHb (Measured) 1.6 (0-5) % ABG Methemoglobin 0.7 (0.0-3.0) % ABG O2 Capacity 12.6 L (16-24) mL/dl Hgb O2 Saturation 96.1 (95.0-98.0) % FiO2 40.0 % Sodium (132-148) mmol/L Potassium (3.6-5.0) mmol/L Chloride (98-107) mmol/L Carbon Dioxide (21-33) mmol/L Anion Gap (10-20) BUN (7-21) mg/dL Creatinine (0.8-1.5) mg/dl Est GFR ( Amer) Est GFR (Non-Af Amer) POC Glucose (mg/dL) 208 H 254 H (65-110) mg/dL Random Glucose (70-110) mg/dL Calcium (8.4-10.5) mg/dL Phosphorus (2.5-4.5) mg/dL Magnesium (1.7-2.2) mg/dL Total Bilirubin (0.2-1.3) mg/dL AST (17-59) U/L ALT (7-56) U/L Alkaline Phosphatase (38-126) U/L Total Protein (5.8-8.3) g/dL Albumin (3.0-4.8) g/dL Globulin gm/dL Albumin/Globulin Ratio (1.1-1.8) 04/08/18 Range/Units 11:42 WBC (4.5-11.0) 10^3/ul RBC (3.5-6.1) 10^6/uL Hgb (14.0-18.0) g/dL Hct (42.0-52.0) % MCV (80.0-105.0) fl MCH (25.0-35.0) pg MCHC (31.0-37.0) g/dl RDW (11.5-14.5) % Plt Count (120.0-450.0) 10^3/uL MPV (7.0-11.0) fl Gran % (50.0-68.0) % Lymph % (Auto) (22.0-35.0) % Roosevelt % (Auto) (1.0-6.0) % Eos % (Auto) (1.5-5.0) % Baso % (Auto) (0.0-3.0) % Gran # (1.4-6.5) Lymph # (Auto) (1.2-3.4) Roosevelt # (Auto) (0.1-0.6) Eos # (Auto) (0.0-0.7) Baso # (Auto) (0.0-2.0) K/mm3 pCO2 (35-45) mm/Hg pO2 (80-100) mm/Hg HCO3 (21-28) mmol/L ABG pH (7.35-7.45) ABG Total CO2 (22-28) mmol.L ABG O2 Saturation (95-98) % ABG O2 Content (15-23) ML/dl ABG Base Excess (-2.0-3.0) mmol/L ABG Hemoglobin (11.7-17.4) g/dL ABG Carboxyhemoglobin (0.5-1.5) % POC ABG HHb (Measured) (0-5) % ABG Methemoglobin (0.0-3.0) % ABG O2 Capacity (16-24) mL/dl Hgb O2 Saturation (95.0-98.0) % FiO2 % Sodium (132-148) mmol/L Potassium (3.6-5.0) mmol/L Chloride (98-107) mmol/L Carbon Dioxide (21-33) mmol/L Anion Gap (10-20) BUN (7-21) mg/dL Creatinine (0.8-1.5) mg/dl Est GFR ( Amer) Est GFR (Non-Af Amer) POC Glucose (mg/dL) 242 H (65-110) mg/dL Random Glucose (70-110) mg/dL Calcium (8.4-10.5) mg/dL Phosphorus (2.5-4.5) mg/dL Magnesium (1.7-2.2) mg/dL Total Bilirubin (0.2-1.3) mg/dL AST (17-59) U/L ALT (7-56) U/L Alkaline Phosphatase (38-126) U/L Total Protein (5.8-8.3) g/dL Albumin (3.0-4.8) g/dL Globulin gm/dL Albumin/Globulin Ratio (1.1-1.8) Laboratory Results - last 24 hr 04/08/18 04/08/18 04/08/18 11:42 17:08 23:50 WBC RBC Hgb Hct MCV MCH MCHC RDW Plt Count MPV Gran % Lymph % (Auto) Roosevelt % (Auto) Eos % (Auto) Baso % (Auto) Gran # Lymph # (Auto) Roosevelt # (Auto) Eos # (Auto) Baso # (Auto) pCO2 pO2 HCO3 ABG pH ABG Total CO2 ABG O2 Saturation ABG O2 Content ABG Base Excess ABG Hemoglobin ABG Carboxyhemoglobin POC ABG HHb (Measured) ABG Methemoglobin ABG O2 Capacity Hgb O2 Saturation FiO2 Sodium Potassium Chloride Carbon Dioxide Anion Gap BUN Creatinine Est GFR ( Amer) Est GFR (Non-Af Amer) POC Glucose (mg/dL) 242 H 254 H 208 H Random Glucose Calcium Phosphorus Magnesium Total Bilirubin AST ALT Alkaline Phosphatase Total Protein Albumin Globulin Albumin/Globulin Ratio 04/09/18 04/09/18 04/09/18 05:10 05:40 05:40 WBC 9.2 RBC 3.14 L Hgb 9.8 L Hct 29.7 L MCV 94.6 MCH 31.2 MCHC 33.0 RDW 14.9 H Plt Count 144 MPV 11.0 Gran % 83.9 H Lymph % (Auto) 8.8 L Roosevelt % (Auto) 4.6 Eos % (Auto) 2.3 Baso % (Auto) 0.4 Gran # 7.68 H Lymph # (Auto) 0.8 L Roosevelt # (Auto) 0.4 Eos # (Auto) 0.2 Baso # (Auto) 0.04 pCO2 32 L pO2 82.0 HCO3 24.4 ABG pH 7.49 H ABG Total CO2 25.4 ABG O2 Saturation 98.4 H ABG O2 Content 12.4 L ABG Base Excess 1.3 ABG Hemoglobin 9.1 L ABG Carboxyhemoglobin 1.6 H POC ABG HHb (Measured) 1.6 ABG Methemoglobin 0.7 ABG O2 Capacity 12.6 L Hgb O2 Saturation 96.1 FiO2 40.0 Sodium 139 Potassium 4.5 Chloride 105 Carbon Dioxide 25 Anion Gap 13 BUN 33 H Creatinine 1.1 Est GFR ( Amer) > 60 Est GFR (Non-Af Amer) > 60 POC Glucose (mg/dL) Random Glucose 227 H Calcium 8.0 L Phosphorus 3.4 Magnesium 2.0 Total Bilirubin 0.6 AST 55 ALT 72 H Alkaline Phosphatase 103 Total Protein 5.5 L Albumin 2.4 L Globulin 3.1 Albumin/Globulin Ratio 0.8 L 04/09/18 06:34 WBC RBC Hgb Hct MCV MCH MCHC RDW Plt Count MPV Gran % Lymph % (Auto) Roosevelt % (Auto) Eos % (Auto) Baso % (Auto) Gran # Lymph # (Auto) Roosevelt # (Auto) Eos # (Auto) Baso # (Auto) pCO2 pO2 HCO3 ABG pH ABG Total CO2 ABG O2 Saturation ABG O2 Content ABG Base Excess ABG Hemoglobin ABG Carboxyhemoglobin POC ABG HHb (Measured) ABG Methemoglobin ABG O2 Capacity Hgb O2 Saturation FiO2 Sodium Potassium Chloride Carbon Dioxide Anion Gap BUN Creatinine Est GFR ( Amer) Est GFR (Non-Af Amer) POC Glucose (mg/dL) 201 H Random Glucose Calcium Phosphorus Magnesium Total Bilirubin AST ALT Alkaline Phosphatase Total Protein Albumin Globulin Albumin/Globulin Ratio Fingerstick Blood Sugar Results: 201 Review of Systems - Review of Systems Systems not reviewed;Unavailable: Intubated Critical Care Progress Note - Ventilator Checklist Head of Bed 30 Degrees: Yes Daily Sedation Vacation: No (Patient is off sedation.) Daily Assessment of Readiness to Wean: Yes Daily Spontaneous Breathing Trial: Yes PUD Prophalyxis: Yes DVT Prophylaxis: Yes Oral Care with Chlorhexidine Gluconate {CHG}: Yes - Vent Settings MODE:: PRVC TIDAL VOLUME:: 450 RESP RATE:: 15 FIO2:: 40 PEEP:: 5 - Extremities/Vascular Does the Patient have a Central Venous Catheter?: No Does the Patient need a Central Venous Catheter?: No Does the Patient have a No Catheter?: Yes Catheter Insertion Criteria: Need for accurate measurement of output in critically ill patient - Prophylaxis GI Prophylaxis GI: PPI - Prophylaxis DVT Prophylaxis DVT: SCDs Assessment/Plan - Assessment and Plan (Free Text) Assessment: Patient is a 82 y/o M with PMHx of CVA, TIA, afib, (eliquis), HTN, HLD, and DM who presented to the ICU for 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 Patient was sent to the OR for neurosurgery - emergent craniotomy and intubated to protect airway. 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 Most recent Head CT shows uncal herniation/mid-line shift. Patient has an overall poor clinical prognosis. During course of hospital stay, patient has spiked overnight fevers likely central, as per ID and related to the surgery. Patient is currently Intubation Day #9. Plan: Neuro: - Maintain normothermia - EEG (04/05): c/w Keppra 500 q12 IV for seizure ppx - Tylenol IV prn - no recent fevers - CT Head (04/04): mass effect with (+) uncal herniation Pulm: - PRVC 450/15/5/40% - CXR: bilateral atelectasis at lung bases. - Maintain SaO2 > 95% - Protective lung ventilation strategy - Keep head of bed elevated to 30 degrees , daily weaning assessment, daily SBT, PUD ppz and DVT ppz, and oral care with chlorhexidine. Cardio: - Maintain MAP > 65 and keep BP > 140/90 - c/w blood pressure parameters: SBP 100-160 - Patient is tachy - likely due to pain - c/w morphine GI: - c/w enteric feed with OGT feedings & free water flushes - c/w protonix ppx : - Maintain euvolemia - Replete lytes as needed Heme: - Avoid blood thinners ID: - Urine Cx (04/03): negative - Sputum Cx (04/03): MSSA - Blood Cx (04/03): negative x 2 - Vanc/Zosyn for post op fever coverage - c/w coverage as per ID - Zosyn day #6 Endo: - Maintain euglycemia - c/w Accucheks Dispo: - Palliative is following patient - spoke to family - Patient is [facility]. Case was discussed and reviewed by the attending physician - Dr. Zee. - Date & Time Date: 04/09/18 Time: 11:04 <Marielos Zeeriy - Last Filed: 04/09/18 12:27> CCU Objective - Vital Signs / Intake & Output Vital Signs (Last 4 hours): Vital Signs Temp Pulse BP Pulse Ox 04/09/18 11:00 100.6 F H 99 H 131/89 99 04/09/18 10:00 100.4 F H 101 H 131/81 98 04/09/18 09:00 100.2 F H 95 H 138/78 98 Intake and Output (Last 8hrs): Intake & Output 04/08/18 04/09/18 04/09/18 22:59 06:59 14:59 Intake Total 1710 540 Output Total 900 1000 Balance 810 -460 Weight 197 lb 12.8 oz Intake: IV 420 Right Wrist 420 Tube Feeding 1290 540 Output: Urine 900 1000 Urethral (No) 900 1000 - Medications Active Medications: Active Medications Generic Name Dose Route Start Last Admin Trade Name Freq PRN Reason Stop Dose Admin Hydrocortisone 0 gm 04/08/18 11:00 04/09/18 10:59 Cortizone 1% Cream TOP 1 applic BID KEATON Administration Levetiracetam 500 mg in 100 mls @ 460 mls/hr 04/05/18 22:00 04/09/18 09:41 Keppra 500mg Ivpb IVPB 460 mls/hr Q12 KEATON Administration Acetaminophen 1,000 mg in 100 mls @ 400 mls/hr 04/07/18 15:37 04/08/18 09:18 Ofirmev IVPB 04/09/18 15:38 400 mls/hr Q6H PRN Administration Temperature Vancomycin HCl 1 gm in 250 mls @ 167 mls/hr 04/09/18 10:00 04/09/18 09:45 Vancomycin 1gm IVPB 167 mls/hr DAILY KEATON Administration Protocol Insulin Human Regular 0 units 04/03/18 11:59 04/09/18 06:39 Humulin R Med SC 3 unit Q6H KEATON Administration Protocol Labetalol HCl 20 mg 04/02/18 13:39 04/06/18 11:06 Trandate IV 20 mg Q6 PRN Administration Other Morphine Sulfate 2 mg 04/06/18 17:08 04/08/18 18:00 Morphine IVP 2 mg Q4H PRN Administration Pain, moderate (4-7) Pantoprazole Sodium 40 mg 04/04/18 06:00 04/09/18 06:21 Protonix Susp PO 40 mg 0600 [facility] Administration - Patient Studies Lab Studies: Microbiology Studies 04/03/18 11:00 Blood Culture - Final Blood NO GROWTH AFTER 5 DAYS Gram Stain - Final TEST NOT PERFORMED 04/03/18 10:50 Blood Culture - Final Blood NO GROWTH AFTER 5 DAYS Gram Stain - Final TEST NOT PERFORMED Lab Studies 04/09/18 04/09/18 04/09/18 Range/Units 06:34 05:40 05:40 WBC 9.2 (4.5-11.0) 10^3/ul RBC 3.14 L (3.5-6.1) 10^6/uL Hgb 9.8 L (14.0-18.0) g/dL Hct 29.7 L (42.0-52.0) % MCV 94.6 (80.0-105.0) fl MCH 31.2 (25.0-35.0) pg MCHC 33.0 (31.0-37.0) g/dl RDW 14.9 H (11.5-14.5) % Plt Count 144 (120.0-450.0) 10^3/uL MPV 11.0 (7.0-11.0) fl Gran % 83.9 H (50.0-68.0) % Lymph % (Auto) 8.8 L (22.0-35.0) % Roosevelt % (Auto) 4.6 (1.0-6.0) % Eos % (Auto) 2.3 (1.5-5.0) % Baso % (Auto) 0.4 (0.0-3.0) % Gran # 7.68 H (1.4-6.5) Lymph # (Auto) 0.8 L (1.2-3.4) Roosevelt # (Auto) 0.4 (0.1-0.6) Eos # (Auto) 0.2 (0.0-0.7) Baso # (Auto) 0.04 (0.0-2.0) K/mm3 pCO2 (35-45) mm/Hg pO2 (80-100) mm/Hg HCO3 (21-28) mmol/L ABG pH (7.35-7.45) ABG Total CO2 (22-28) mmol.L ABG O2 Saturation (95-98) % ABG O2 Content (15-23) ML/dl ABG Base Excess (-2.0-3.0) mmol/L ABG Hemoglobin (11.7-17.4) g/dL ABG Carboxyhemoglobin (0.5-1.5) % POC ABG HHb (Measured) (0-5) % ABG Methemoglobin (0.0-3.0) % ABG O2 Capacity (16-24) mL/dl Hgb O2 Saturation (95.0-98.0) % FiO2 % Sodium 139 (132-148) mmol/L Potassium 4.5 (3.6-5.0) mmol/L Chloride 105 (98-107) mmol/L Carbon Dioxide 25 (21-33) mmol/L Anion Gap 13 (10-20) BUN 33 H (7-21) mg/dL Creatinine 1.1 (0.8-1.5) mg/dl Est GFR ( Amer) > 60 Est GFR (Non-Af Amer) > 60 POC Glucose (mg/dL) 201 H (65-110) mg/dL Random Glucose 227 H (70-110) mg/dL Calcium 8.0 L (8.4-10.5) mg/dL Phosphorus 3.4 (2.5-4.5) mg/dL Magnesium 2.0 (1.7-2.2) mg/dL Total Bilirubin 0.6 (0.2-1.3) mg/dL AST 55 (17-59) U/L ALT 72 H (7-56) U/L Alkaline Phosphatase 103 (38-126) U/L Total Protein 5.5 L (5.8-8.3) g/dL Albumin 2.4 L (3.0-4.8) g/dL Globulin 3.1 gm/dL Albumin/Globulin Ratio 0.8 L (1.1-1.8) 04/09/18 04/08/18 04/08/18 Range/Units 05:10 23:50 17:08 WBC (4.5-11.0) 10^3/ul RBC (3.5-6.1) 10^6/uL Hgb (14.0-18.0) g/dL Hct (42.0-52.0) % MCV (80.0-105.0) fl MCH (25.0-35.0) pg MCHC (31.0-37.0) g/dl RDW (11.5-14.5) % Plt Count (120.0-450.0) 10^3/uL MPV (7.0-11.0) fl Gran % (50.0-68.0) % Lymph % (Auto) (22.0-35.0) % Roosevelt % (Auto) (1.0-6.0) % Eos % (Auto) (1.5-5.0) % Baso % (Auto) (0.0-3.0) % Gran # (1.4-6.5) Lymph # (Auto) (1.2-3.4) Roosevelt # (Auto) (0.1-0.6) Eos # (Auto) (0.0-0.7) Baso # (Auto) (0.0-2.0) K/mm3 pCO2 32 L (35-45) mm/Hg pO2 82.0 (80-100) mm/Hg HCO3 24.4 (21-28) mmol/L ABG pH 7.49 H (7.35-7.45) ABG Total CO2 25.4 (22-28) mmol.L ABG O2 Saturation 98.4 H (95-98) % ABG O2 Content 12.4 L (15-23) ML/dl ABG Base Excess 1.3 (-2.0-3.0) mmol/L ABG Hemoglobin 9.1 L (11.7-17.4) g/dL ABG Carboxyhemoglobin 1.6 H (0.5-1.5) % POC ABG HHb (Measured) 1.6 (0-5) % ABG Methemoglobin 0.7 (0.0-3.0) % ABG O2 Capacity 12.6 L (16-24) mL/dl Hgb O2 Saturation 96.1 (95.0-98.0) % FiO2 40.0 % Sodium (132-148) mmol/L Potassium (3.6-5.0) mmol/L Chloride (98-107) mmol/L Carbon Dioxide (21-33) mmol/L Anion Gap (10-20) BUN (7-21) mg/dL Creatinine (0.8-1.5) mg/dl Est GFR ( Amer) Est GFR (Non-Af Amer) POC Glucose (mg/dL) 208 H 254 H (65-110) mg/dL Random Glucose (70-110) mg/dL Calcium (8.4-10.5) mg/dL Phosphorus (2.5-4.5) mg/dL Magnesium (1.7-2.2) mg/dL Total Bilirubin (0.2-1.3) mg/dL AST (17-59) U/L ALT (7-56) U/L Alkaline Phosphatase (38-126) U/L Total Protein (5.8-8.3) g/dL Albumin (3.0-4.8) g/dL Globulin gm/dL Albumin/Globulin Ratio (1.1-1.8) 04/08/18 Range/Units 11:42 WBC (4.5-11.0) 10^3/ul RBC (3.5-6.1) 10^6/uL Hgb (14.0-18.0) g/dL Hct (42.0-52.0) % MCV (80.0-105.0) fl MCH (25.0-35.0) pg MCHC (31.0-37.0) g/dl RDW (11.5-14.5) % Plt Count (120.0-450.0) 10^3/uL MPV (7.0-11.0) fl Gran % (50.0-68.0) % Lymph % (Auto) (22.0-35.0) % Roosevelt % (Auto) (1.0-6.0) % Eos % (Auto) (1.5-5.0) % Baso % (Auto) (0.0-3.0) % Gran # (1.4-6.5) Lymph # (Auto) (1.2-3.4) Roosevelt # (Auto) (0.1-0.6) Eos # (Auto) (0.0-0.7) Baso # (Auto) (0.0-2.0) K/mm3 pCO2 (35-45) mm/Hg pO2 (80-100) mm/Hg HCO3 (21-28) mmol/L ABG pH (7.35-7.45) ABG Total CO2 (22-28) mmol.L ABG O2 Saturation (95-98) % ABG O2 Content (15-23) ML/dl ABG Base Excess (-2.0-3.0) mmol/L ABG Hemoglobin (11.7-17.4) g/dL ABG Carboxyhemoglobin (0.5-1.5) % POC ABG HHb (Measured) (0-5) % ABG Methemoglobin (0.0-3.0) % ABG O2 Capacity (16-24) mL/dl Hgb O2 Saturation (95.0-98.0) % FiO2 % Sodium (132-148) mmol/L Potassium (3.6-5.0) mmol/L Chloride (98-107) mmol/L Carbon Dioxide (21-33) mmol/L Anion Gap (10-20) BUN (7-21) mg/dL Creatinine (0.8-1.5) mg/dl Est GFR ( Amer) Est GFR (Non-Af Amer) POC Glucose (mg/dL) 242 H (65-110) mg/dL Random Glucose (70-110) mg/dL Calcium (8.4-10.5) mg/dL Phosphorus (2.5-4.5) mg/dL Magnesium (1.7-2.2) mg/dL Total Bilirubin (0.2-1.3) mg/dL AST (17-59) U/L ALT (7-56) U/L Alkaline Phosphatase (38-126) U/L Total Protein (5.8-8.3) g/dL Albumin (3.0-4.8) g/dL Globulin gm/dL Albumin/Globulin Ratio (1.1-1.8) Laboratory Results - last 24 hr 04/08/18 04/08/18 04/08/18 11:42 17:08 23:50 WBC RBC Hgb Hct MCV MCH MCHC RDW Plt Count MPV Gran % Lymph % (Auto) Roosevelt % (Auto) Eos % (Auto) Baso % (Auto) Gran # Lymph # (Auto) Roosevelt # (Auto) Eos # (Auto) Baso # (Auto) pCO2 pO2 HCO3 ABG pH ABG Total CO2 ABG O2 Saturation ABG O2 Content ABG Base Excess ABG Hemoglobin ABG Carboxyhemoglobin POC ABG HHb (Measured) ABG Methemoglobin ABG O2 Capacity Hgb O2 Saturation FiO2 Sodium Potassium Chloride Carbon Dioxide Anion Gap BUN Creatinine Est GFR ( Amer) Est GFR (Non-Af Amer) POC Glucose (mg/dL) 242 H 254 H 208 H Random Glucose Calcium Phosphorus Magnesium Total Bilirubin AST ALT Alkaline Phosphatase Total Protein Albumin Globulin Albumin/Globulin Ratio 04/09/18 04/09/18 04/09/18 05:10 05:40 05:40 WBC 9.2 RBC 3.14 L Hgb 9.8 L Hct 29.7 L MCV 94.6 MCH 31.2 MCHC 33.0 RDW 14.9 H Plt Count 144 MPV 11.0 Gran % 83.9 H Lymph % (Auto) 8.8 L Roosevelt % (Auto) 4.6 Eos % (Auto) 2.3 Baso % (Auto) 0.4 Gran # 7.68 H Lymph # (Auto) 0.8 L Roosevelt # (Auto) 0.4 Eos # (Auto) 0.2 Baso # (Auto) 0.04 pCO2 32 L pO2 82.0 HCO3 24.4 ABG pH 7.49 H ABG Total CO2 25.4 ABG O2 Saturation 98.4 H ABG O2 Content 12.4 L ABG Base Excess 1.3 ABG Hemoglobin 9.1 L ABG Carboxyhemoglobin 1.6 H POC ABG HHb (Measured) 1.6 ABG Methemoglobin 0.7 ABG O2 Capacity 12.6 L Hgb O2 Saturation 96.1 FiO2 40.0 Sodium 139 Potassium 4.5 Chloride 105 Carbon Dioxide 25 Anion Gap 13 BUN 33 H Creatinine 1.1 Est GFR ( Amer) > 60 Est GFR (Non-Af Amer) > 60 POC Glucose (mg/dL) Random Glucose 227 H Calcium 8.0 L Phosphorus 3.4 Magnesium 2.0 Total Bilirubin 0.6 AST 55 ALT 72 H Alkaline Phosphatase 103 Total Protein 5.5 L Albumin 2.4 L Globulin 3.1 Albumin/Globulin Ratio 0.8 L 04/09/18 06:34 WBC RBC Hgb Hct MCV MCH MCHC RDW Plt Count MPV Gran % Lymph % (Auto) Roosevelt % (Auto) Eos % (Auto) Baso % (Auto) Gran # Lymph # (Auto) Roosevelt # (Auto) Eos # (Auto) Baso # (Auto) pCO2 pO2 HCO3 ABG pH ABG Total CO2 ABG O2 Saturation ABG O2 Content ABG Base Excess ABG Hemoglobin ABG Carboxyhemoglobin POC ABG HHb (Measured) ABG Methemoglobin ABG O2 Capacity Hgb O2 Saturation FiO2 Sodium Potassium Chloride Carbon Dioxide Anion Gap BUN Creatinine Est GFR ( Amer) Est GFR (Non-Af Amer) POC Glucose (mg/dL) 201 H Random Glucose Calcium Phosphorus Magnesium Total Bilirubin AST ALT Alkaline Phosphatase Total Protein Albumin Globulin Albumin/Globulin Ratio Assessment/Plan - Assessment and Plan (Free Text) Plan: Patient seen and examined on rounds with resident, agree with note with following additions/exceptions: Patient is a 82yo male with PMHx of CVA, TIA, Afib, (eliquis), HTN, HLD, and DM who presented to the ICU for 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 Patient had emergent craniotomy and intubated for airway protection. Patient currently intubated, off sedation, in persistent vegetative state. Patient with overall poor prognosis. Awaiting transfer to [facility] today, as per familys request. SDH AFIB CVA HTN HLD DM Recommend: - cont with vent support, low tidal vol ventilation, daily ABGs, CXR - follow up cultures, follow up ID - Abx as per ID - BP control - Tylenol PRN - maintain euthermia, euglycemia - Keppra - follow up neuro - GI ppx - DVT ppx - awaiting [facility] transfer
[2018-04-09] MEDS: Hydrocortisone 1% Cream (30 GM) TOP SCH (10:59)
--- NOTE | 2018-04-09 11:07 | CP.PCM.PN ---
Subjective - Date & Time of Evaluation Date of Evaluation: 04/09/18 Time of Evaluation: 10:00 - Subjective Subjective: Intubated, no acute changes Objective - Vital Signs/Intake and Output Vital Signs (last 24 hours): Temp Pulse Resp BP Pulse Ox 100.2 F H 100 H 23 130/72 99 04/09/18 08:00 04/09/18 08:00 04/09/18 08:00 04/09/18 08:00 04/09/18 08:00 Intake and Output: 04/09/18 04/09/18 06:59 18:59 Intake Total 540 Output Total 1000 Balance -460 - Medications Medications: Current Medications Hydrocortisone (Cortizone 1% Cream) 0 gm TOP BID [facility] Last Admin: 04/09/18 10:59 Dose: 1 applic Levetiracetam (Keppra 500mg Ivpb) 500 mg in 100 mls @ 460 mls/hr IVPB Q12 [facility] Last Admin: 04/09/18 09:41 Dose: 460 mls/hr Acetaminophen (Ofirmev) 1,000 mg in 100 mls @ 400 mls/hr IVPB Q6H PRN PRN Reason: Temperature Stop: 04/09/18 15:38 Last Admin: 04/08/18 09:18 Dose: 400 mls/hr Vancomycin HCl (Vancomycin 1gm) 1 gm in 250 mls @ 167 mls/hr IVPB DAILY [facility] PRN Reason: Protocol Last Admin: 04/09/18 09:45 Dose: 167 mls/hr Insulin Human Regular (Humulin R Med) 0 units SC Q6H [place]ON PRN Reason: Protocol Last Admin: 04/09/18 06:39 Dose: 3 unit Labetalol HCl (Trandate) 20 mg IV Q6 PRN PRN Reason: Other Last Admin: 04/06/18 11:06 Dose: 20 mg Morphine Sulfate (Morphine) 2 mg IVP Q4H PRN PRN Reason: Pain, moderate (4-7) Last Admin: 04/08/18 18:00 Dose: 2 mg Pantoprazole Sodium (Protonix Susp) 40 mg PO 0600 [facility] Last Admin: 04/09/18 06:21 Dose: 40 mg - Labs Labs: 04/09/18 05:40 04/09/18 05:40 PT 14.0 SECONDS (9.4-12.5) H 04/02/18 12:00 INR 1.21 (0.93-1.08) H 04/02/18 12:00 APTT 48.2 Seconds (25.1-36.5) H 04/01/18 14:40 - Constitutional Appears: No Acute Distress, Chronically Ill - ENT Exam ENT Exam: Mucous Membranes Moist - Respiratory Exam Respiratory Exam: Decreased Breath Sounds - Cardiovascular Exam Cardiovascular Exam: Irregular Rhythm, +S1, +S2 - GI/Abdominal Exam GI & Abdominal Exam: Soft, Normal Bowel Sounds - Neurological Exam Additional comments: vegetative - Skin Skin Exam: Dry, Warm Assessment and Plan - Assessment and Plan (Free Text) Assessment: 82 year old male with history of A Fib, HTN, CVA, DM who was admitted with acute subdural hemorrhages and uncal herniation, s/p craniotomy and evacuation. 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 Goals of care discussed. Kvng states family does not want terminal extubation. Family has decided on transfer to LTAC. Ms. Pierson explained LTAC criteria and choice of facilities. Family informed that patient likely to be transferred today. Psychosocial support provided. Goals of care discussion, with family member, 15 minutes Plan: Transfer to LTAC today. Thank you for allowing me to participate in this patient's care
--- NOTE | 2018-04-09 11:11 | RAD ---
HISTORY: intubated COMPARISON: No prior. FINDINGS: In situ ETT, tip of which lies approximately 5.36 cm above teodoro. In situ NGT is present, the tip of which appears to lie left mid abdomen. Low lung volumes with crowded bronchovascular markings and mild bilateral lower lobe atelectatic and or infiltrate changes with bilateral effusions left larger than right LUNGS: No active pulmonary disease. PLEURA: As above. No pneumothorax apparent. CARDIOVASCULAR: Heart size mildly enlarged unchanged OSSEOUS STRUCTURES: No significant abnormalities. VISUALIZED UPPER ABDOMEN: Normal. OTHER FINDINGS: None. IMPRESSION: Support lines and tubes as above. Low lung volumes with crowded bronchovascular markings and mild bilateral lower lobe atelectatic and or infiltrate changes with bilateral effusions left larger than right
--- NOTE | 2018-04-09 11:42 | CP.PCM.DIS ---
<Tunde Arceo - Last Filed: 04/09/18 12:14> Provider - Provider Date of Admission: 04/01/18 19:42 Attending physician: Les Wesley MD Consults: Infectious disease: Dr. Parker Neurosurgery: Dr. Willingham Neurology: Dr. Valerio ICU: Dr. Bergeron Time Spent in preparation of Discharge (in minutes): 40 Diagnosis - Discharge Diagnosis (1) Hypertension Status: Chronic Priority: Low (2) Atrial fibrillation Status: Chronic Priority: Medium (3) Hyperlipidemia Status: Chronic Priority: Low (4) Diabetes mellitus Status: Chronic Priority: Low (5) Subdural hematoma Status: Acute Priority: High Hospital Course - Lab Results Lab Results: Micro Results 04/03/18 11:00 Blood Blood Culture - Final NO GROWTH AFTER 5 DAYS 04/03/18 11:00 Blood Gram Stain - Final TEST NOT PERFORMED 04/03/18 10:50 Blood Blood Culture - Final NO GROWTH AFTER 5 DAYS 04/03/18 10:50 Blood Gram Stain - Final TEST NOT PERFORMED 04/03/18 14:30 Sputum Gram Stain - Final 04/03/18 14:30 Sputum Sputum Culture - Final Staphylococcus Aureus 04/03/18 15:30 Urine,On Urine Culture - Final No Growth (<1,000 CFU/ML) 04/01/18 22:45 Naris MRSA Culture (Admit) - Final MRSA NOT DETECTED Most Recent Lab Values WBC 9.2 10^3/ul (4.5-11.0) 04/09/18 05:40 RBC 3.14 10^6/uL (3.5-6.1) L 04/09/18 05:40 Hgb 9.8 g/dL (14.0-18.0) L 04/09/18 05:40 Hct 29.7 % (42.0-52.0) L 04/09/18 05:40 MCV 94.6 fl (80.0-105.0) 04/09/18 05:40 MCH 31.2 pg (25.0-35.0) 04/09/18 05:40 MCHC 33.0 g/dl (31.0-37.0) 04/09/18 05:40 RDW 14.9 % (11.5-14.5) H 04/09/18 05:40 Plt Count 144 10^3/uL (120.0-450.0) 04/09/18 05:40 MPV 11.0 fl (7.0-11.0) 04/09/18 05:40 Gran % 83.9 % (50.0-68.0) H 04/09/18 05:40 Lymph % (Auto) 8.8 % (22.0-35.0) L 04/09/18 05:40 [place] % (Auto) 4.6 % (1.0-6.0) 04/09/18 05:40 Eos % (Auto) 2.3 % (1.5-5.0) 04/09/18 05:40 Baso % (Auto) 0.4 % (0.0-3.0) 04/09/18 05:40 Gran # 7.68 (1.4-6.5) H 04/09/18 05:40 Lymph # (Auto) 0.8 (1.2-3.4) L 04/09/18 05:40 [place] # (Auto) 0.4 (0.1-0.6) 04/09/18 05:40 Eos # (Auto) 0.2 (0.0-0.7) 04/09/18 05:40 Baso # (Auto) 0.04 K/mm3 (0.0-2.0) 04/09/18 05:40 Neutrophils % (Manual) 93 % (50.0-70.0) H 04/02/18 06:00 Band Neutrophils % 1 % (0-2) 04/02/18 06:00 Lymphocytes % (Manual) 4 % (22.0-35.0) L 04/02/18 06:00 Monocytes % (Manual) 1 % (1.0-6.0) 04/02/18 06:00 Myelocytes % 1 % 04/02/18 06:00 Platelet Evaluation Normal (NORMAL) 04/02/18 06:00 PT 14.0 SECONDS (9.4-12.5) H 04/02/18 12:00 INR 1.21 (0.93-1.08) H 04/02/18 12:00 APTT 48.2 Seconds (25.1-36.5) H 04/01/18 14:40 pCO2 32 mm/Hg (35-45) L 04/09/18 05:10 pO2 82.0 mm/Hg (80-100) 04/09/18 05:10 HCO3 24.4 mmol/L (21-28) 04/09/18 05:10 ABG pH 7.49 (7.35-7.45) H 04/09/18 05:10 ABG Total CO2 25.4 mmol.L (22-28) 04/09/18 05:10 ABG O2 Saturation 98.4 % (95-98) H 04/09/18 05:10 ABG O2 Content 12.4 ML/dl (15-23) L 04/09/18 05:10 ABG Base Excess 1.3 mmol/L (-2.0-3.0) 04/09/18 05:10 ABG Hemoglobin 9.1 g/dL (11.7-17.4) L 04/09/18 05:10 ABG Carboxyhemoglobin 1.6 % (0.5-1.5) H 04/09/18 05:10 POC ABG HHb (Measured) 1.6 % (0-5) 04/09/18 05:10 ABG Methemoglobin 0.7 % (0.0-3.0) 04/09/18 05:10 ABG O2 Capacity 12.6 mL/dl (16-24) L 04/09/18 05:10 ABG Potassium 3.8 mmol/L (3.6-5.2) 04/01/18 15:40 VBG pH 7.40 (7.32-7.43) 04/03/18 10:45 VBG pCO2 30.0 (40-60) L 04/03/18 10:45 VBG HCO3 18.6 mmol/l (21-28) L 04/03/18 10:45 VBG Total CO2 19.5 mmol.L (22-28) L 04/03/18 10:45 VBG O2 Sat (Calc) 94.3 % (40-65) H 04/03/18 10:45 VBG Base Excess -5.0 mmol/L (0.0-2.0) L 04/03/18 10:45 VBG Potassium 4.1 mmol/L (3.6-5.2) 04/03/18 10:45 Hgb O2 Saturation 96.1 % (95.0-98.0) 04/09/18 05:10 Sodium 148.0 mmol/L (132-148) 04/03/18 10:45 Chloride 120.0 mmol/L (98-107) H 04/03/18 10:45 Glucose 194 mg/dl (75-110) H 04/03/18 10:45 Lactate 1.6 mmol/L (0.7-2.1) 04/03/18 10:45 Mechanical Rate 15 04/01/18 15:40 FiO2 40.0 % 04/09/18 05:10 Tidal Volume 500 04/01/18 15:40 PEEP 5 04/01/18 15:40 Sodium 139 mmol/L (132-148) 04/09/18 05:40 Potassium 4.5 mmol/L (3.6-5.0) 04/09/18 05:40 Chloride 105 mmol/L (98-107) 04/09/18 05:40 Carbon Dioxide 25 mmol/L (21-33) 04/09/18 05:40 Anion Gap 13 (10-20) 04/09/18 05:40 BUN 33 mg/dL (7-21) H 04/09/18 05:40 Creatinine 1.1 mg/dl (0.8-1.5) 04/09/18 05:40 Est GFR ( Amer) > 60 04/09/18 05:40 Est GFR (Non-Af Amer) > 60 04/09/18 05:40 POC Glucose (mg/dL) 201 mg/dL (65-110) H 04/09/18 06:34 Random Glucose 227 mg/dL (70-110) H 04/09/18 05:40 Calcium 8.0 mg/dL (8.4-10.5) L 04/09/18 05:40 Phosphorus 3.4 mg/dL (2.5-4.5) 04/09/18 05:40 Magnesium 2.0 mg/dL (1.7-2.2) 04/09/18 05:40 Total Bilirubin 0.6 mg/dL (0.2-1.3) 04/09/18 05:40 AST 55 U/L (17-59) 04/09/18 05:40 ALT 72 U/L (7-56) H 04/09/18 05:40 Alkaline Phosphatase 103 U/L (38-126) 04/09/18 05:40 Total Protein 5.5 g/dL (5.8-8.3) L 04/09/18 05:40 Albumin 2.4 g/dL (3.0-4.8) L 04/09/18 05:40 Globulin 3.1 gm/dL 04/09/18 05:40 Albumin/Globulin Ratio 0.8 (1.1-1.8) L 04/09/18 05:40 Procalcitonin 0.36 NG/ML (0.19-0.49) 04/03/18 11:00 Arterial Blood Potassium 3.8 mmol/L (3.6-5.2) 04/01/18 15:40 Venous Blood Potassium 4.1 mmol/L (3.6-5.2) 04/03/18 10:45 Urine Color Yellow (YELLOW) 04/03/18 11:00 Urine Appearance Clear (CLEAR) 04/03/18 11:00 Urine pH 6.0 (4.7-8.0) 04/03/18 11:00 Ur Specific [place] 1.025 (1.005-1.035) 04/03/18 11:00 Urine Protein 100 mg/dL (<30 mg/dL) H 04/03/18 11:00 Urine Glucose (UA) Negative mg/dL (NEGATIVE) 04/03/18 11:00 Urine Ketones 15 mg/dL (NEGATIVE) H 04/03/18 11:00 Urine Blood Moderate (NEGATIVE) H 04/03/18 11:00 Urine Nitrate Negative (NEGATIVE) 04/03/18 11:00 Urine Bilirubin Small (NEGATIVE) H 04/03/18 11:00 Urine Urobilinogen 1.0 E.U./dL (<1 E.U./dL) H 04/03/18 11:00 Ur Leukocyte Esterase Negative Hyacinth/uL (NEGATIVE) 04/03/18 11:00 Urine RBC 10 - 15 /hpf (0-2) 04/03/18 11:00 Urine WBC 1 - 3 /hpf (0-6) 04/03/18 11:00 Ur Epithelial Cells None /hpf (0-5) 04/03/18 11:00 Amorphous Sediment Few 04/03/18 11:00 Urine Bacteria Mod (NEG) 04/03/18 11:00 Blood Type O POSITIVE 04/01/18 19:53 Blood Type Confirm O POSITIVE 04/01/18 20:29 Antibody Screen Negative 04/01/18 19:53 Crossmatch See Detail 04/01/18 19:53 BBK History Checked No verified bt 04/01/18 19:53 s - Hospital Course Hospital Course: This patient is a 82M with a past medical history significant for atrial fibrillation on anticoagulation, hypertension, multiple prior CVA, DM, and HLD. Per family, pt. has a history of multiple falls recently, and was DC'd off eliquis by PCP on 03/29. On 04/01, family discovered patient unresponsive and brought him [place] [facility] 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 Martinez on 04/01. Pt. was then brought to ICU intubated and sedated due to hypoxic acute respiratory failure. 04/03 Pt. began spiking fevers intermittently overnight. Infectious Disease Dr. Parker consulted recommended starting emperic vancomycin/ zosyn. Abx DC'd on 04/09 due to negative cultures and origin of fever most likely being central. Pt. remains intubated without sedation, however is not responding to verbal stimuli. Question of restarting anticoagulation was discussed with neurosurgery who recommends re- starting anticoagulation. Patient's family have decided against terminal extubation and have decided to send patient to LTAC for further care. Case discussed and reviewed with Dr. Maryjane Arceo PGY2 Discharge Exam - Head Exam Head Exam: NORMOCEPHALIC. absent: ATRAUMATIC, NORMAL INSPECTION (stapled in place) - Eye Exam Eye Exam: Normal appearance. absent: Scleral icterus Additional comments: pupillary reflex in tact, corneal reflex in tact - ENT Exam ENT Exam: Mucous Membranes Dry - Neck Exam Additional comments: intubated - Respiratory Exam Respiratory Exam: Clear to PA & Lateral, UNREMARKABLE. absent: Rhonchi, Wheezes , Respiratory Distress - Cardiovascular Exam Cardiovascular Exam: REGULAR RHYTHM, +S1, +S2 - GI/Abdominal Exam GI & Abdominal Exam: Normal Bowel Sounds, Soft, Unremarkable - Extremities Exam Extremities exam: normal inspection - Neurological Exam Additional comments: non responsive, AAO x 0 - Psychiatric Exam Additional comments: non-responsive - Skin Skin Exam: Intact, Normal Color, Warm Discharge Plan - Discharge Medications Prescriptions: Apixaban [Eliquis] 5 mg PO BID #60 tablet - Follow Up Plan Condition: CRITICAL Disposition: [facility] Instructions: Atrial Fibrillation (DC), High Blood Pressure (DC), Intracerebral Hemorrhage (DC), Diabetes Type 2 (DC), Subdural Hematoma (DC) Additional Instructions: 1. Patient is to resume anticoagulation as per Neurosurgery. Confirmed with pharmacy dosage is 5 mg eliquis BID. <Les Wesley - Last Filed: 04/09/18 15:16> Provider - Provider Date of Admission: 04/01/18 19:42 Attending physician: Les Wesley MD Hospital Course - Lab Results Lab Results: Micro Results 04/03/18 11:00 Blood Blood Culture - Final NO GROWTH AFTER 5 DAYS 04/03/18 11:00 Blood Gram Stain - Final TEST NOT PERFORMED 04/03/18 10:50 Blood Blood Culture - Final NO GROWTH AFTER 5 DAYS 04/03/18 10:50 Blood Gram Stain - Final TEST NOT PERFORMED 04/03/18 14:30 Sputum Gram Stain - Final 04/03/18 14:30 Sputum Sputum Culture - Final Staphylococcus Aureus 04/03/18 15:30 Urine,No Urine Culture - Final No Growth (<1,000 CFU/ML) 04/01/18 22:45 Naris MRSA Culture (Admit) - Final MRSA NOT DETECTED Most Recent Lab Values WBC 9.2 10^3/ul (4.5-11.0) 04/09/18 05:40 RBC 3.14 10^6/uL (3.5-6.1) L 04/09/18 05:40 Hgb 9.8 g/dL (14.0-18.0) L 04/09/18 05:40 Hct 29.7 % (42.0-52.0) L 04/09/18 05:40 MCV 94.6 fl (80.0-105.0) 04/09/18 05:40 MCH 31.2 pg (25.0-35.0) 04/09/18 05:40 MCHC 33.0 g/dl (31.0-37.0) 04/09/18 05:40 RDW 14.9 % (11.5-14.5) H 04/09/18 05:40 Plt Count 144 10^3/uL (120.0-450.0) 04/09/18 05:40 MPV 11.0 fl (7.0-11.0) 04/09/18 05:40 Gran % 83.9 % (50.0-68.0) H 04/09/18 05:40 Lymph % (Auto) 8.8 % (22.0-35.0) L 04/09/18 05:40 [place] % (Auto) 4.6 % (1.0-6.0) 04/09/18 05:40 Eos % (Auto) 2.3 % (1.5-5.0) 04/09/18 05:40 Baso % (Auto) 0.4 % (0.0-3.0) 04/09/18 05:40 Gran # 7.68 (1.4-6.5) H 04/09/18 05:40 Lymph # (Auto) 0.8 (1.2-3.4) L 04/09/18 05:40 [place] # (Auto) 0.4 (0.1-0.6) 04/09/18 05:40 Eos # (Auto) 0.2 (0.0-0.7) 04/09/18 05:40 Baso # (Auto) 0.04 K/mm3 (0.0-2.0) 04/09/18 05:40 Neutrophils % (Manual) 93 % (50.0-70.0) H 04/02/18 06:00 Band Neutrophils % 1 % (0-2) 04/02/18 06:00 Lymphocytes % (Manual) 4 % (22.0-35.0) L 04/02/18 06:00 Monocytes % (Manual) 1 % (1.0-6.0) 04/02/18 06:00 Myelocytes % 1 % 04/02/18 06:00 Platelet Evaluation Normal (NORMAL) 04/02/18 06:00 PT 14.0 SECONDS (9.4-12.5) H 04/02/18 12:00 INR 1.21 (0.93-1.08) H 04/02/18 12:00 APTT 48.2 Seconds (25.1-36.5) H 04/01/18 14:40 pCO2 32 mm/Hg (35-45) L 04/09/18 05:10 pO2 82.0 mm/Hg (80-100) 04/09/18 05:10 HCO3 24.4 mmol/L (21-28) 04/09/18 05:10 ABG pH 7.49 (7.35-7.45) H 04/09/18 05:10 ABG Total CO2 25.4 mmol.L (22-28) 04/09/18 05:10 ABG O2 Saturation 98.4 % (95-98) H 04/09/18 05:10 ABG O2 Content 12.4 ML/dl (15-23) L 04/09/18 05:10 ABG Base Excess 1.3 mmol/L (-2.0-3.0) 04/09/18 05:10 ABG Hemoglobin 9.1 g/dL (11.7-17.4) L 04/09/18 05:10 ABG Carboxyhemoglobin 1.6 % (0.5-1.5) H 04/09/18 05:10 POC ABG HHb (Measured) 1.6 % (0-5) 04/09/18 05:10 ABG Methemoglobin 0.7 % (0.0-3.0) 04/09/18 05:10 ABG O2 Capacity 12.6 mL/dl (16-24) L 04/09/18 05:10 ABG Potassium 3.8 mmol/L (3.6-5.2) 04/01/18 15:40 VBG pH 7.40 (7.32-7.43) 04/03/18 10:45 VBG pCO2 30.0 (40-60) L 04/03/18 10:45 VBG HCO3 18.6 mmol/l (21-28) L 04/03/18 10:45 VBG Total CO2 19.5 mmol.L (22-28) L 04/03/18 10:45 VBG O2 Sat (Calc) 94.3 % (40-65) H 04/03/18 10:45 VBG Base Excess -5.0 mmol/L (0.0-2.0) L 04/03/18 10:45 VBG Potassium 4.1 mmol/L (3.6-5.2) 04/03/18 10:45 Hgb O2 Saturation 96.1 % (95.0-98.0) 04/09/18 05:10 Sodium 148.0 mmol/L (132-148) 04/03/18 10:45 Chloride 120.0 mmol/L (98-107) H 04/03/18 10:45 Glucose 194 mg/dl (75-110) H 04/03/18 10:45 Lactate 1.6 mmol/L (0.7-2.1) 04/03/18 10:45 Mechanical Rate 15 04/01/18 15:40 FiO2 40.0 % 04/09/18 05:10 Tidal Volume 500 04/01/18 15:40 PEEP 5 04/01/18 15:40 Sodium 139 mmol/L (132-148) 04/09/18 05:40 Potassium 4.5 mmol/L (3.6-5.0) 04/09/18 05:40 Chloride 105 mmol/L (98-107) 04/09/18 05:40 Carbon Dioxide 25 mmol/L (21-33) 04/09/18 05:40 Anion Gap 13 (10-20) 04/09/18 05:40 BUN 33 mg/dL (7-21) H 04/09/18 05:40 Creatinine 1.1 mg/dl (0.8-1.5) 04/09/18 05:40 Est GFR ( Amer) > 60 04/09/18 05:40 Est GFR (Non-Af Amer) > 60 04/09/18 05:40 POC Glucose (mg/dL) 238 mg/dL (65-110) H 04/09/18 13:36 Random Glucose 227 mg/dL (70-110) H 04/09/18 05:40 Calcium 8.0 mg/dL (8.4-10.5) L 04/09/18 05:40 Phosphorus 3.4 mg/dL (2.5-4.5) 04/09/18 05:40 Magnesium 2.0 mg/dL (1.7-2.2) 04/09/18 05:40 Total Bilirubin 0.6 mg/dL (0.2-1.3) 04/09/18 05:40 AST 55 U/L (17-59) 04/09/18 05:40 ALT 72 U/L (7-56) H 04/09/18 05:40 Alkaline Phosphatase 103 U/L (38-126) 04/09/18 05:40 Total Protein 5.5 g/dL (5.8-8.3) L 04/09/18 05:40 Albumin 2.4 g/dL (3.0-4.8) L 04/09/18 05:40 Globulin 3.1 gm/dL 04/09/18 05:40 Albumin/Globulin Ratio 0.8 (1.1-1.8) L 04/09/18 05:40 Procalcitonin 0.36 NG/ML (0.19-0.49) 04/03/18 11:00 Arterial Blood Potassium 3.8 mmol/L (3.6-5.2) 04/01/18 15:40 Venous Blood Potassium 4.1 mmol/L (3.6-5.2) 04/03/18 10:45 Urine Color Yellow (YELLOW) 04/03/18 11:00 Urine Appearance Clear (CLEAR) 04/03/18 11:00 Urine pH 6.0 (4.7-8.0) 04/03/18 11:00 Ur Specific [place] 1.025 (1.005-1.035) 04/03/18 11:00 Urine Protein 100 mg/dL (<30 mg/dL) H 04/03/18 11:00 Urine Glucose (UA) Negative mg/dL (NEGATIVE) 04/03/18 11:00 Urine Ketones 15 mg/dL (NEGATIVE) H 04/03/18 11:00 Urine Blood Moderate (NEGATIVE) H 04/03/18 11:00 Urine Nitrate Negative (NEGATIVE) 04/03/18 11:00 Urine Bilirubin Small (NEGATIVE) H 04/03/18 11:00 Urine Urobilinogen 1.0 E.U./dL (<1 E.U./dL) H 04/03/18 11:00 Ur Leukocyte Esterase Negative Hyacinth/uL (NEGATIVE) 04/03/18 11:00 Urine RBC 10 - 15 /hpf (0-2) 04/03/18 11:00 Urine WBC 1 - 3 /hpf (0-6) 04/03/18 11:00 Ur Epithelial Cells None /hpf (0-5) 04/03/18 11:00 Amorphous Sediment Few 04/03/18 11:00 Urine Bacteria Mod (NEG) 04/03/18 11:00 Blood Type O POSITIVE 04/01/18 19:53 Blood Type Confirm O POSITIVE 04/01/18 20:29 Antibody Screen Negative 04/01/18 19:53 Crossmatch See Detail 04/01/18 19:53 BBK History Checked No verified bt 04/01/18 19:53 Attending/Attestation - Attestation I have personally seen and examined this patient.: Yes I have fully participated in the care of the patient.: Yes I have reviewed all pertinent clinical information, including history, physical exam and plan: Yes Notes (Text): 04/09/18 15:11 82 year old male with past medical history of CVA, atrial fibrillation on apixiban, hypertension, dyslipidemia and diabetes who presented with altered mental status. He was found to have bilateral subdural hematomas. He was seen by neurosurgery and underwent evaluation of hematoma. He was also being followed by neurology. For afib his heart rate was rate controlled. Issue was anticoagulation was discussed with neurosurgery regarding if/when to resume. Overall prognosis is poor. Family is aware of prognosis. Palliative care was following. After discussion with family, patient will be going to LTACH. Les Wesley MD Hospitalist.
--- NOTE | 2018-04-09 14:17 | PQF ---
PROVIDER RESPONSE TEXT: metabolic REVIEWER QUERY TEXT: Encephalopathy Type Encephalopathy is documented in the Medical Record. Please specify type Such as: -- Alcoholic -- Anoxic -- Due to medications or drugs (please specify) -- Hepatic failure (please specify if with or without coma) -- Hypertensive -- Metabolic -- Septic -- Toxic -- Wernicke?s -- Other, please specify The patient's Clinical Indicators include: 04/08 EEG demonstrates severe encephalopathy. Can you please specify Type? Query created by: Mana Romero on 04/09/2018 11:13 AM Electronically signed by: Yohannes Bergeron MD 04/09/2018 2:14 PM
[2018-04-09 14:40] VITALS: BP 146/88; TEMP 100.2
[2018-04-09 14:47] VITALS: PULSE 112
--- NOTE | 2018-04-09 16:41 | CP.PCM.PN ---
Subjective - Date & Time of Evaluation Date of Evaluation: 04/09/18 Time of Evaluation: 14:00 - Subjective Subjective: Infectious Disease Follow Up: April 09, 2018 82 yo male with presentation for altered mental status on 04/01/2018. Found to have a subdural hematoma (acute on chronic). Craniotomy performed. The patient remains intubated and ventilated since the surgery. His medical history includes CVA, Atrial fibrillation, DM, and HTN. Fevers up to 101.3 F in the past 24 hours but this is POD #4. No leukocytosis. Procalcitonin of 0.36 which is normal. Still persistent low grade or borderline fevers at this time. CT showing uncal herniation. Fevers likely central in origin. The patient remains poorly responsive despite not being sedated. The patient has a dismal prognosis at this time. Little hope of any neurologic recovery. The patient family is present today. They are trying to come to a decision on palliative care. The family has decided on trach and PEG. Patient for LTACH. Objective - Vital Signs/Intake and Output Vital Signs (last 24 hours): Temp Pulse Resp BP Pulse Ox 100.2 F H 112 H 23 146/88 99 04/09/18 13:59 04/09/18 14:00 04/09/18 08:00 04/09/18 14:00 04/09/18 11:00 Intake and Output: 04/09/18 04/09/18 06:59 18:59 Intake Total 540 Output Total 1000 Balance -460 - Medications Medications: Current Medications Hydrocortisone (Cortizone 1% Cream) 0 gm TOP BID KEATON Last Admin: 04/09/18 10:59 Dose: 1 applic Levetiracetam (Keppra 500mg Ivpb) 500 mg in 100 mls @ 460 mls/hr IVPB Q12 [facility]AT[facility] Last Admin: 04/09/18 09:41 Dose: 460 mls/hr Vancomycin HCl (Vancomycin 1gm) 1 gm in 250 mls @ 167 mls/hr IVPB DAILY KEATON PRN Reason: Protocol Last Admin: 04/09/18 09:45 Dose: 167 mls/hr Insulin Human Regular (Humulin R Med) 0 units SC Q6H KEATON PRN Reason: Protocol Last Admin: 04/09/18 13:00 Dose: 3 unit Labetalol HCl (Trandate) 20 mg IV Q6 PRN PRN Reason: Other Last Admin: 04/06/18 11:06 Dose: 20 mg Morphine Sulfate (Morphine) 2 mg IVP Q4H PRN PRN Reason: Pain, moderate (4-7) Last Admin: 04/08/18 18:00 Dose: 2 mg Pantoprazole Sodium (Protonix Susp) 40 mg PO 0600 KEATON Last Admin: 04/09/18 06:21 Dose: 40 mg - Labs Labs: 04/09/18 05:40 04/09/18 05:40 PT 14.0 SECONDS (9.4-12.5) H 04/02/18 12:00 INR 1.21 (0.93-1.08) H 04/02/18 12:00 APTT 48.2 Seconds (25.1-36.5) H 04/01/18 14:40 - Constitutional Appears: Non-toxic, No Acute Distress, Chronically Ill - Head Exam Additional comments: s/p craniotomy. dominick in place. - Eye Exam Pupil Exam: Fixed, Irregular - ENT Exam ENT Exam: Mucous Membranes Moist, Normal External Ear Exam, TM's Normal Bilaterally - Neck Exam Neck Exam: Full ROM, Normal Inspection - Respiratory Exam Respiratory Exam: Clear to Ausculation Bilateral, NORMAL BREATHING PATTERN. absent: Rales, Rhonchi, Wheezes - Cardiovascular Exam Cardiovascular Exam: REGULAR RHYTHM, RRR, +S1, +S2 - GI/Abdominal Exam GI & Abdominal Exam: Soft, Normal Bowel Sounds. absent: Distended, Tenderness - Extremities Exam Extremities Exam: Normal Inspection - Neurological Exam Neurological Exam: absent: Alert, Awake, CN II-XII Intact, Oriented x3 Additional comments: Obtunded and poorly responsive. - Psychiatric Exam Additional comments: Comatose - Skin Skin Exam: Intact, Normal Color Assessment and Plan - Assessment and Plan (Free Text) Assessment: 82 yo male with unresponsive by family on initial presentation found to have an acute on chronic bilateral Subdural hematoma. The patient required craniotomy for decompression. He remains intubated and ventilated. The patient remains in a comatose state. Fevers up to 101.3F in the past 24 hours. Unclear if this is secondary to postsurgical course after craniotomy, infection, or even central brain injury. Started on IV antibiotics of Zosyn and Vancomycin IV. Can continue on this regimen while culture results return. Supportive care. To date, cultures have been negative to date. More likely the fevers are secondary to central brain injury. CT scan of head repeats now showing uncal herniation. 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 Very poor prognosis. Little hope for any neurological recovery. Family still deciding on whether terminal extubation is an acceptable option for them. They have decided on Trach and PEG. Patient for transfer to [facility]. Thank you for allowing me to participate in the care of the patient, we will follow with you.
== END 2018-04-09 16:40 | DRG 25 ==
LOC: ED 14:27 → ERH 19:42 → CCU 22:36
PROVIDERS: ADMIT Internal Medicine; ATTEND Internal Medicine
PROC: 5A1955Z Respiratory Ventilation, Greater than 96 Consecutive Hours (ICD-10-PCS; 2018-04-01)
PROC: 0BH17EZ Insertion of Endotracheal Airway into Trachea, Via Natural or Artificial Opening (ICD-10-PCS; 2018-04-01)
PROC: 00C40ZZ Extirpation of Matter from Intracranial Subdural Space, Open Approach (ICD-10-PCS; principal; 2018-04-01 20:30)
PROC: 30233K1 Transfusion of Nonautologous Frozen Plasma into Peripheral Vein, Percutaneous Approach (ICD-10-PCS; 2018-04-02)
PROC: 0DH67UZ Insertion of Feeding Device into Stomach, Via Natural or Artificial Opening (ICD-10-PCS; 2018-04-08)
DX: S06.5X0A Traumatic subdural hemorrhage without loss of consciousness, initial encounter (principal); J96.01 Acute respiratory failure with hypoxia; G93.5 Compression of brain; G93.41 Metabolic encephalopathy; E87.0 Hyperosmolality and hypernatremia; J98.11 Atelectasis; Z99.11 Dependence on respirator [ventilator] status; R50.82 Postprocedural fever; R40.3 Persistent vegetative state; I48.2 Chronic atrial fibrillation; I10 Essential (primary) hypertension; R56.9 Unspecified convulsions; E78.5 Hyperlipidemia, unspecified; E78.00 Pure hypercholesterolemia, unspecified; F03.90 Unspecified dementia, unspecified severity, without behavioral disturbance, psychotic disturbance, mood disturbance, and anxiety; E11.9 Type 2 diabetes mellitus without complications; D69.6 Thrombocytopenia, unspecified; R79.1 Abnormal coagulation profile; R40.2430 Glasgow coma scale score 3-8, unspecified time; W18.09XA Striking against other object with subsequent fall, initial encounter; Y92.009 Unspecified place in unspecified non-institutional (private) residence as the place of occurrence of the external cause; Z86.73 Personal history of transient ischemic attack (TIA), and cerebral infarction without residual deficits; Z79.82 Long term (current) use of aspirin; Z79.01 Long term (current) use of anticoagulants; Z79.4 Long term (current) use of insulin